=== PATIENT | female | born 1950 | race Caucasian/White ===

== ENCOUNTER 2016-07-30 00:52 | Inpatient (IN) | payer OTHER, MEDICARE ==
[~2016-07-30] VITALS: Ht 152.4 cm; Wt 68.8 kg
[2016-07-30] VITALS (19 sets, daily range): BP systolic 101–164; BP diastolic 48–143; PULSE 91–107; RESP 20–30; TEMP 97.3–98.6; O2SAT 86–98
[~2016-07-30 00:52] MED LIST: ATOR40TA49 PO; FEXO60TA PO; HYDR-3534 PO; IBUP600 PO; TAMS0.4C67 PO; ZOFR4TAB3 SL
[2016-07-30] MEDS ORDERED: LIPI40TA PO (01:10)
[2016-07-30] MEDS ORDERED: TAMS5CAP PO (01:10)
[2016-07-30] MEDS ORDERED: ZOFR4TAB3 SL (01:10)
[2016-07-30] MEDS ORDERED: RESP: ALBUTEROL 2.5 MG/IPRATROPIUM 0.5 MG NEB (SCH) INH ONE (01:15)
[2016-07-30] MEDS ORDERED: SODIUM CHLORIDE 0.9% FLUSH 10 ML FLUSH IVF PRN (01:15)
[2016-07-30] MEDS ORDERED: methylPREDNISolone SOD SUCC 125 MG/2 ML VIAL IVP ONE (01:15)
[2016-07-30] MEDS: RESP: ALBUTEROL 2.5 MG/3 ML NEB (SCH) INH ×2 (01:23→01:30)
--- NOTE | 2016-07-30 01:37 | PD ---
HPI Chief Complaint: Respiratory Distress Time Seen by Provider: 01:15 Travel History International Travel<30 days: No Contact w/Intl Traveler<30days: No Traveled to known affect area: No History of Present Illness HPI This is a 66-year-old female with a history of chronic bronchitis/COPD, who presents today with complaints of continued respiratory distress. The patient reports that she's had 3 episodes of acute bronchitis and has been on 3 different antibiotics for her continued shortness of breath and cough. The patient states that she was seen by her care physician and had an outpatient x- ray ordered which showed a right lung mass. He recommended she come to the ER for further evaluation and treatment. She reports only been able to walk a few feet be for becoming severely short of breath. The patient does have a history of tobacco use and still does smoke cigarettes. She states she's been smoking for 40+ years and reports at least a pack a day at that time. No reported chills. She does report subjective elevated temperature. There is productive cough with white phlegm. PFSH Past Medical History High Cholesterol: Yes Tetanus Vaccination: > 5 Years Past Surgical History Genitourinary Surgery: Yes (lithotripsy ) Social History Alcohol Use: No Tobacco Use: Yes Substance Use: No Allergies-Medications (Allergen,Severity, Reaction): Coded Allergies: Penicillin (Verified Allergy, Intermediate, Hives, 07/30/16) [place] (Verified Allergy, Intermediate, Hives, 07/30/16) Reported Meds & Prescriptions Reported Meds & Active Scripts Active Reported Flomax (Tamsulosin HCl) 0.4 Mg Cap 0.4 Mg PO HS Zofran Odt (Ondansetron Odt) 4 Mg Tab 4 Mg SL Q6HR PRN Lipitor (Atorvastatin Calcium) 40 Mg Tab 40 Mg PO HS Review of Systems Except as stated in HPI: all other systems reviewed are Neg General / Constitutional: Positive: Fever, No: Chills HENT: No: Headaches (subjective), Lightheadedness Cardiovascular: No: Chest Pain or Discomfort, Palpitations Respiratory: Positive: Cough (productive white phlegm), Shortness of Breath, No: Wheezing, Orthopnea Musculoskeletal: Positive: Weakness (generalized), No: Pain Neurologic: Positive: Weakness (Gen.), No: Headache Physical Exam Narrative GENERAL: Well-developed female in mild to moderate respiratory distress. SKIN: Focused skin assessment warm/dry. HEAD: Atraumatic. Normocephalic. EYES: No scleral icterus. No injection or drainage. ENT: No nasal bleeding or discharge. Mucous membranes pink and moist. NECK: Trachea midline. Supple. CARDIOVASCULAR: Regular rate and rhythm. No murmur appreciated. RESPIRATORY: Coarse rhonchi bilaterally. Decreased breath sounds at the bases. No Rales appreciated. GASTROINTESTINAL: Abdomen soft, non-tender, nondistended. MUSCULOSKELETAL: No obvious deformities. No clubbing. No cyanosis. No edema. NEUROLOGICAL: Awake and alert. No obvious cranial nerve deficits. Motor grossly within normal limits. Normal speech. Data Data Last Documented VS Vital Signs Date Time Temp Pulse Resp B/P Pulse Ox O2 Delivery O2 Flow Rate FiO2 07/30/16 01:26 90 07/30/16 01:15 Nasal Cannula 2 07/30/16 01:04 102 30 07/30/16 00:54 98.6 Orders Complete Blood Count With Diff (07/30/16:15) Comprehensive Metabolic Panel (07/30/16:15) Ckmb (Isoenzyme) Profile (07/30/16:15) Troponin I (07/30/16:15) Arterial Blood Gas (Abg) (07/30/16:15) Iv Access Insert/Monitor (07/30/16:15) Electrocardiogram (07/30/16:15) Ecg Monitoring (07/30/16:15) Oximetry (07/30/16:15) Oxygen Administration (07/30/16:15) Sodium Chloride 0.9% Flush (Ns Flush) (07/30/16:15) Methylprednisolone So Succ Inj (Solumedr (07/30/16:15) Albuterol-Ipratropium Neb (Duoneb Neb) (07/30/16:15) Albuterol Neb (Albuterol Neb) (07/30/16:15) CKMB (07/30/16:15) CKMB% (07/30/16:15) Admit Order (Ed Use Only) (07/30/16 03:40) Labs Laboratory Tests Test 07/30/16 07/30/16:15 02:02 White Blood Count 14.0 TH/MM3 Red Blood Count 4.41 MIL/MM3 Hemoglobin 10.3 GM/DL Hematocrit 32.0 % Mean Corpuscular Volume 72.4 FL Mean Corpuscular Hemoglobin 23.5 PG Mean Corpuscular Hemoglobin 32.4 % Concent Red Cell Distribution Width 17.5 % Platelet Count 364 TH/MM3 Mean Platelet Volume 8.4 FL Neutrophils (%) (Auto) 79.3 % Lymphocytes (%) (Auto) 11.5 % Monocytes (%) (Auto) 8.8 % Eosinophils (%) (Auto) 0.3 % Basophils (%) (Auto) 0.1 % Neutrophils # (Auto) 11.1 TH/MM3 Lymphocytes # (Auto) 1.6 TH/MM3 Monocytes # (Auto) 1.2 TH/MM3 Eosinophils # (Auto) 0.0 TH/MM3 Basophils # (Auto) 0.0 TH/MM3 CBC Comment AUTO DIFF Differential Comment AUTO DIFF CONFIRMED Platelet Estimate NORMAL Platelet Morphology Comment NORMAL Ovalocytes 1+ Acanthocytes OCC Keratocytes OCC Sodium Level 131 MEQ/L Potassium Level 4.4 MEQ/L Chloride Level 92 MEQ/L Carbon Dioxide Level 29.1 MEQ/L Anion Gap 10 MEQ/L Blood Urea Nitrogen 14 MG/DL Creatinine 0.73 MG/DL Estimat Glomerular Filtration 80 ML/MIN Rate Random Glucose 103 MG/DL Calcium Level 10.3 MG/DL Total Bilirubin 0.4 MG/DL Aspartate Amino Transf 33 U/L (AST/SGOT) Alanine Aminotransferase 31 U/L (ALT/SGPT) Alkaline Phosphatase 119 U/L Total Creatine Kinase 126 U/L Creatine Kinase MB 3.3 NG/ML Troponin I LESS THAN 0.02 NG/ML Total Protein 7.2 GM/DL Albumin 3.1 GM/DL Blood Gas Puncture Site LT RADIAL Blood Gas Patient Temperature 98.6 Blood Gas HCO3 27 mmol/L Blood Gas Base Excess 3.1 mmol/L Blood Gas Oxygen Saturation 85 % Arterial Blood pH 7.48 Arterial Blood Partial 36 mmHg Pressure CO2 Arterial Blood Partial 52 mmHG Pressure O2 Arterial Blood Oxygen Content 12.1 Vol % Arterial Blood 2.0 % Carboxyhemoglobin Arterial Blood Methemoglobin 0.3 % Blood Gas Hemoglobin 10.1 G/DL Blood Gas Inspired Oxygen 21 % MDM Medical Decision Making Medical Screen Exam Complete: Yes Emergency Medical Condition: Yes Differential Diagnosis COPD exacerbation versus pneumonia versus new onset lung cancer Narrative Course 66-year-old female with a history of chronic bronchitis, who presents today with complaint of worsening dyspnea. Patient had an outpatient chest x-ray that showed a pulmonary nodule. She was called by her primary care doctor told to come to the ER to be evaluated. The patient's O2 sat on room air is 82%. Her PO2 on room air was 51. She is received 3 nebulizer treatments, 125 mg of Solu-Medrol. She does feel better and has some improvement. She'll be admitted to the hospital for COPD exacerbation and hypoxemia. The case was discussed with Dr. Shanks, [facility], who agrees with the admission under observation. Diagnosis Primary Impression: COPD exacerbation Additional Impressions: Hypoxemia reported pulmonary nodule Admitting Information Admitting Physician Requests: Observation Travis Viera MD July 30, 2016 01:37
[2016-07-30 01:47] LABS: AUTOMATED NEUTROPHIL # 11.1 TH/MM3 (1.8-7.7); BASOPHIL % 0.1 % (0.0-2.0); EOSINOPHIL % 0.3 % (0.0-4.0); LYMPH % 11.5 % (9.0-44.0); LYMPHOCYTE # 1.6 TH/MM3 (1.0-4.8); MEAN CELL VOLUME 72.4 FL (80.0-100.0); MEAN CORPUSCULAR HEMOGLOBIN 23.5 PG (27.0-34.0); MEAN CORPUSCULAR HGB CONC 32.4 % (32.0-36.0); MONO % 8.8 % (0.0-8.0); NEUT % 79.3 % (16.0-70.0); PLATELET COUNT 364 TH/MM3 (150-450); RED BLOOD COUNT 4.41 MIL/MM3 (4.00-5.30); RED CELL DISTRIBUTION WIDTH 17.5 % (11.6-17.2)
[2016-07-30 01:49] LABS: HEMO FLAGS AUTO DIFF
[2016-07-30 02:08] LABS: ALT (GPT) 31 U/L (10-53); ANION GAP 10 MEQ/L (5-15); AST (GOT) 33 U/L (15-37); BICARBONATE 29.1 MEQ/L (21.0-32.0); BLOOD UREA NITROGEN 14 MG/DL (7-18); CHLORIDE 92 MEQ/L (98-107); GLOMERULAR FILTRATION RATE 80 ML/MIN (>89); POTASSIUM 4.4 MEQ/L (3.5-5.1); SODIUM (NA) 131 MEQ/L (136-145)
[2016-07-30 02:12] LABS: ALKALINE PHOSPHATASE 119 U/L (45-117); CREATINE KINASE 126 U/L (26-192); TOTAL BILIRUBIN ADULT 0.4 MG/DL (0.2-1.0)
[2016-07-30 02:18] LABS: BLOOD GAS BASE EXCESS 3.1 mmol/L (-2-2); BLOOD GAS HCO3 27 mmol/L (22-26); BLOOD GAS METHEMOGLOBIN 0.3 % (0-2); BLOOD GAS O2 HGB SATURATION 85 % (90-100); BLOOD GAS OXYGEN CONTENT 12.1 Vol % (12.0-20.0); BLOOD GAS PCO2 36 mmHg (38-42); BLOOD GAS PO2 52 mmHG (61-120); BLOOD GAS TOTAL HGB 10.1 G/DL (12.0-16.0); TEMP CORR TO 98.6
[2016-07-30 02:19] LABS: CRITICAL VALUE YES; DRAW SITE LT RADIAL; FIO2 21 %; NUMBER OF ARTERIAL PUNCTURES 1; STAT YES; ULNAR PULSE PRESENT
[2016-07-30 02:23] LABS: ACANTHOCYTES OCC (NORMAL); KERATOCYTES OCC (NORMAL); OVALOCYTES 1+ (NORMAL); PLATELET ESTIMATE SMEAR NORMAL (NORMAL); PLATELET MORPHOLOGY NORMAL (NORMAL); SCAN/DIFF AUTO DIFF CONFIRMED
[2016-07-30 02:24] LABS: CKMB 3.3 NG/ML (0.5-3.6)
[2016-07-30] MEDS ORDERED: NALOXONE HCL 0.4 MG/ML AMP IV PRN (03:45)
[2016-07-30] MEDS ORDERED: RESP: ALBUTEROL 2.5 MG/IPRATROPIUM 0.5 MG NEB (PRN) NEB (04:00)
--- NOTE | 2016-07-30 04:16 | HHI.HP ---
HPI Service [facility] Primary Care Physician Herlinda Swanson MD Admission Diagnosis Copd exacerbation, hypoxia, new lung nodule Diagnoses: Chief Complaint: SOB Travel History International Travel<30 Days: No Contact w/Intl Traveler <30 Da: No Traveled to Known Affected Are: No History of Present Illness This is a 66 year old female patient with a past medical history which includes kidney stone, bronchitis and hyperlipidemia. Presents to the to the emergency department today with complaints of shortness of breath and cough productive of white phlegm 4 days. Patient also reports subjective fever. Patient reports that shortness of breath has gotten progressively worse over the past 4 days also associated with bilateral lower extremity 1+ pitting edema. Patient reports she has intermittent episodes of sharp abdominal pain with vomiting which patient attributes to her known cholecystitis. Patient is following with outpatient surgeon and has a planned Cholecystectomy pending for August 22. Patient is currently on abx for UTI has taken 5 days of abx unknown name Patient denies recent extended travel, chest pain changes only changes in appetite. Review of Systems Except as stated in HPI: all other systems reviewed are Neg Past Family Social History Past Medical History kidney stone bronchitis hyperlipidemia Past Surgical History reports no prior surgeries Reported Medications Flomax (Tamsulosin HCl) 0.4 Mg Cap 0.4 Mg PO HS Zofran Odt (Ondansetron Odt) 4 Mg Tab 4 Mg SL Q6HR PRN Lipitor (Atorvastatin Calcium) 40 Mg Tab 40 Mg PO HS Allergies: Coded Allergies: Penicillin (Verified Allergy, Intermediate, Hives, 07/30/16) [place] (Verified Allergy, Intermediate, Hives, 07/30/16) Active Ordered Medications Current Medications Medications (Trade) Dose Ordered Sig/Alistair Route Start Time Stop Time Status Last Admin (NS Flush) 2 ml UNSCH PRN IV FLUSH 07/30/16 03:45 (NS Flush) 2 ml BID IV FLUSH 07/30/16 09:00 (Narcan Inj) 0.4 mg UNSCH PRN IV 07/30/16 03:45 (SoluMEDROL INJ) 40 mg Q6HR IV PUSH 07/30/16 06:00 Pantoprazole Sodium 40 mg 40 mg DAILY PO 07/30/16 09:00 (Levaquin 500 Mg Premix Inj) 100 ml @ 100 mls/hr Q24H IV 07/30/16 05:00 07/30/16 05:06 Family History DM and HTN run on the family- her brothers and sister Social History Lives at home with Smokes 0.5 PPD had 40+ pack year history Denies ETOH use or illicit drug use Physical Exam Vital Signs Vital Signs Date Time Temp Pulse Resp B/P Pulse Ox O2 Delivery O2 Flow Rate FiO2 07/30/16 01:26 90 07/30/16 01:15 96 Nasal Cannula 2 07/30/16 01:06 96 Nasal Cannula 3 07/30/16 01:04 102 30 86 07/30/16 00:54 98.6 107 22 152/67 87 Room Air Physical Exam GENERAL: This is a well-nourished, well-developed patient, who appears short of breath at rest and with conversation SKIN: No rashes, ecchymoses or lesions. Cool and dry. HEAD: Atraumatic. Normocephalic. No temporal or scalp tenderness. EYES: Extraocular motions intact. No scleral icterus. No injection or drainage. CARDIOVASCULAR: Regular rate and rhythm without murmurs, gallops, or rubs. RESPIRATORY: Decreased air entry with scattered crackles bilaterally GASTROINTESTINAL: Abdomen soft, non-tender, nondistended. MUSCULOSKELETAL: Bilateral lower extremity 1+ pitting edema. No calf tenderness. Negative Homans sign bilaterally. NEUROLOGICAL: Awake and alert. No focal deficits appreciated. Motor and sensory grossly within normal limits. 3-5 out of 5 muscle strength in all muscle groups. Normal speech. Laboratory Laboratory Tests Test 07/30/16 07/30/16 01:15 02:02 White Blood Count 14.0 Red Blood Count 4.41 Hemoglobin 10.3 Hematocrit 32.0 Mean Corpuscular Volume 72.4 Mean Corpuscular Hemoglobin 23.5 Mean Corpuscular Hemoglobin 32.4 Concent Red Cell Distribution Width 17.5 Platelet Count 364 Mean Platelet Volume 8.4 Neutrophils (%) (Auto) 79.3 Lymphocytes (%) (Auto) 11.5 Monocytes (%) (Auto) 8.8 Eosinophils (%) (Auto) 0.3 Basophils (%) (Auto) 0.1 Neutrophils # (Auto) 11.1 Lymphocytes # (Auto) 1.6 Monocytes # (Auto) 1.2 Eosinophils # (Auto) 0.0 Basophils # (Auto) 0.0 CBC Comment AUTO DIFF Differential Comment AUTO DIFF CONFIRMED Platelet Estimate NORMAL Platelet Morphology Comment NORMAL Ovalocytes 1+ Acanthocytes OCC Keratocytes OCC Sodium Level 131 Potassium Level 4.4 Chloride Level 92 Carbon Dioxide Level 29.1 Anion Gap 10 Blood Urea Nitrogen 14 Creatinine 0.73 Estimat Glomerular Filtration 80 Rate Random Glucose 103 Calcium Level 10.3 Total Bilirubin 0.4 Aspartate Amino Transf 33 (AST/SGOT) Alanine Aminotransferase 31 (ALT/SGPT) Alkaline Phosphatase 119 Total Creatine Kinase 126 Creatine Kinase MB 3.3 Troponin I LESS THAN 0.02 Total Protein 7.2 Albumin 3.1 Blood Gas Puncture Site LT RADIAL Blood Gas Patient Temperature 98.6 Blood Gas HCO3 27 Blood Gas Base Excess 3.1 Blood Gas Oxygen Saturation 85 Arterial Blood pH 7.48 Arterial Blood Partial 36 Pressure CO2 Arterial Blood Partial 52 Pressure O2 Arterial Blood Oxygen Content 12.1 Arterial Blood 2.0 Carboxyhemoglobin Arterial Blood Methemoglobin 0.3 Blood Gas Hemoglobin 10.1 Blood Gas Inspired Oxygen 21 Result Diagram: 07/30/1611407/30/16114 Assessment and Plan Problem List: (1) COPD exacerbation ICD Code: J44.1 Status: Acute (2) Hypoxemia ICD Code: R09.02 Status: Acute Assessment and Plan This is a 66 year old female patient with a past medical history which includes kidney stone, bronchitis and hyperlipidemia. Presents to the to the emergency department today with complaints of shortness of breath and cough productive of white phlegm 4 days. Patient also reports subjective fever. Patient reports that shortness of breath has gotten progressively worse over the past 4 days also associated with bilateral lower extremity 1+ pitting edema. Patient reports she has intermittent episodes of sharp abdominal pain with vomiting which patient attributes to her known cholecystitis. Patient is following with outpatient surgeon and has a planned Cholecystectomy pending for August 22. Patient is currently on abx for UTI has taken 5 days of abx unknown name Patient denies recent extended travel, chest pain changes only changes in appetite. COPD exacerbation with possible early pneumonia Hypoxia CXR at [facility] which showed a right lung mass CT chest/thorax without IV contrast start Levaquin, duo nebs scheduled and as needed Solu medrol 40 mg IV every 6 hours titrate oxygen to maintain oxygen above 92% Consult pulmonology Abnormal chest x-ray with possible right lung mass we will further evaluate with CT Possible congestive heart failure will check BNP and echocardiogram continue to monitor patient Hyperlipidemia continue patient's home atorvastatin DVT prophylaxis with Lovenox Discussed with ER provider, nursing and patient Written by Jessica Mulligan, acting as scribe for Dr. Shanks on 07/30/16 at 05: 25. This note was transcribed by scribe [ Jessica Mulligan]. I, Dr. Radha Shanks personally performed the history, physical exam, and medical decision making; and confirmed the accuracy of the information in the transcribed note. Authenticated by Dr. Radha Shanks on 07/30/16 at 05:25. Jessica Mulligan July 30, 2016 04:16 Radha Shanks MD August 03, 2016 08:40
[2016-07-30] MEDS: RESP: ALBUTEROL 2.5 MG/IPRATROPIUM 0.5 MG NEB (SCH) NEB ×4 (04:47→19:51)
[2016-07-30] MEDS: LEVOFLOXACIN 500 MG PREMIX INJ 100 ML IV SCH (05:06)
--- NOTE | 2016-07-30 05:54 | RADRPT ---
EXAM DATE/TIME: 07/30/2016 05:13 [place] COMPARISON: No previous studies available for comparison. INDICATIONS : Abnormal outpatient chest radiograph. RADIATION DOSE: 5.10 CTDIvol (mGy) MEDICAL HISTORY : None SURGICAL HISTORY : None. ENCOUNTER: Initial ACUITY: 1 day PAIN SCALE: 0/10 LOCATION: chest TECHNIQUE: Volumetric scanning of the chest was performed. Using automated exposure control and adjustment of t he mA and/or kV according to patient size, radiation dose was kept as low as reasonably achievable to obtain optimal diagnostic quality images. The lack of IV contrast limits the diagnosis for certain o rgan pathology. FINDINGS: LUNGS: There is a prominent area of parenchymal consolidation in the right upper lung. There is also a massl aristeo area in the right upper lung measuring 2.2 x 1.6 cm. There is compressive atelectasis in the righ t lung base from a moderate right effusion. There is also narrowing of the right mainstem bronchus mo st likely from a right hilar mass. There is mild scarring in the left apex. There is a mild patchy in filtrate in the posterior left upper lung. PLEURAE: Moderate right effusion. MEDIASTINUM: Probable adenopathy in the mediastinum with increased soft tissue changes.. Atherosclerotic changes o f the aorta. Coronary calcifications. AXILLAE: A few nonspecific lymph nodes are seen in the axillary areas. MUSCULOSKELETAL: Multiple lytic lesions are seen involving multiple vertebral bodies characteristic for bony metastati c disease. MISCELLANEOUS: Diffusely enlarged adrenal glands bilaterally. CONCLUSION: 1. There is narrowing of the right mainstem bronchus suspicious for a right hilar mass. 2. There is a masslike density in the right upper lung measuring 2.2 x 1.6 cm. 3. There is a moderate right pleural effusion with compressive atelectasis of the right lower lung. 4. There is consolidation of the right upper lung most likely from post obstructive pneumonia. 5. Patchy infiltrate in the posterior left upper lung most likely inflammatory. 6. Multiple lytic lesions are seen throughout the thoracic spine characteristic for diffuse bony meta static disease 7. Diffusely enlarged bilateral adrenal glands most likely metastatic disease Jero Miller MD on July 30, 2016 at 5:43 Board Certified Radiologist. This report was verified electronically.
[2016-07-30] MEDS: ENOXAPARIN SODIUM 40 MG/0.4 ML SYRINGE SQ SCH (06:03)
[2016-07-30] MEDS: methylPREDNISolone SOD SUCC 40 MG/1 ML VIAL IV PUSH SCH ×3 (06:03→17:38)
--- NOTE | 2016-07-30 07:36 | EKG ---
Date Performed: 07/30/2016 Time Performed: 01:52:37 PTAGE: 66 years EKG: BASELINE ARTIFACT PRESENT. Sinus rhythm WITH OCCASIONAL SUPRAVENTRICULAR PREMATURE COMPLEXES LOW QRS VOLTAGE IN PRECORDIAL LEADS NONSPECIFIC T-WAVE ABNORMALITY BORDERLINE ECG COMPARED TO PRIOR ELECTROCARDIOGRAM, Rate has increased. PREVIOUS TRACING : 12/29/2015 06.04 DOCTOR: Renzo Dumas Interpretating Date/Time 07/30/2016 07:35:17
[2016-07-30] MEDS: PANTOPRAZOLE SOD 40 MG DELAYED RELEASE TAB PO SCH (08:26)
[2016-07-30] MEDS: SODIUM CHLORIDE 0.9% FLUSH 10 ML FLUSH IV FLUSH SCH ×2 (08:26→20:54)
--- NOTE | 2016-07-30 11:47 | HHI.PR ---
Subjective Remarks in no acute distress but with mild sob. says that her sob is improving. no other complaints. Objective Vitals Vital Signs Date Time Temp Pulse Resp B/P Pulse Ox O2 Delivery O2 Flow Rate FiO2 07/30/16 10:17 98 Nasal Cannula 2.00 07/30/16 09:47 Nasal Cannula 3.00 07/30/16 08:02 93 07/30/16 08:00 98.5 99 20 101/48 91 07/30/16 06:37 103 07/30/16 05:36 Nasal Cannula 3.00 07/30/16 05:23 98.3 103 22 164/143 94 124/60 07/30/16 04:48 93 Nasal Cannula 3.00 07/30/16 04:00 92 22 115/68 95 Nasal Cannula 2 07/30/16 03:00 98 22 119/56 95 Nasal Cannula 2 07/30/16 02:00 100 21 148/63 95 Nasal Cannula 2 07/30/16 01:26 90 07/30/16 01:15 96 Nasal Cannula 2 07/30/16 01:06 96 Nasal Cannula 3 07/30/16 01:04 102 30 86 07/30/16 00:54 98.6 107 22 152/67 87 Room Air I/O 07/29/16 07/29/16 07/29/16 07/30/16 07/30/16 07/30/16 07:00 15:00 23:00 07:00 15:00 23:00 Intake Total 100 ml Balance 100 ml Intake IV Total 100 ml Result Diagram: 07/30/16 0115 07/30/16 0115 Imaging Last Impressions Chest CT 07/30/16 0000 Signed Impressions: Service Date/Time: Saturday, July 30, 2016 05:13 - CONCLUSION: 1. There is narrowing of the right mainstem bronchus suspicious for a right hilar mass. 2. There is a masslike density in the right upper lung measuring 2.2 x 1.6 cm. 3. There is a moderate right pleural effusion with compressive atelectasis of the right lower lung. 4. There is consolidation of the right upper lung most likely from post obstructive pneumonia. 5. Patchy infiltrate in the posterior left upper lung most likely inflammatory. 6. Multiple lytic lesions are seen throughout the thoracic spine characteristic for diffuse bony metastatic disease 7. Diffusely enlarged bilateral adrenal glands most likely metastatic disease Jero J. Siragusa, MD Objective Remarks GENERAL: This is a well-nourished, well-developed patient, in no apparent distress. CARDIOVASCULAR: Regular rate and regular rhythm without murmurs, gallops, or rubs. RESPIRATORY: diminished air entry in bases with mild wheezing. GASTROINTESTINAL: Abdomen soft, non-tender, nondistended. Normal, active bowel sounds MUSCULOSKELETAL: Extremities without clubbing, cyanosis, or edema. NEURO: Alert & Oriented x4 to person, place, time, situation. Moves all ext x4 Procedures none Medications and IVs Current Medications Sodium Chloride (NS Flush) 2 ml UNSCH PRN IVF FLUSH AFTER USING IV ACCESS; Start 07/30/16 at 01:15; Stop 07/30/16 at 03:47; Status DC Methylprednisolone Sodium Succinate (SoluMEDROL INJ) 125 mg ONCE ONCE IVP Last administered on 07/30/16 01:35; Start 07/30/16 at 01:15; Stop 07/30/16 at 01:17; Status DC Albuterol/ Ipratropium (Duoneb Neb) 1 ampule ONCE ONCE INH Last administered on 07/30/16 01:23; Start 07/30/16 at 01:15; Stop 07/30/16 at 01:17; Status DC Albuterol Sulfate (Albuterol Neb) 2.5 mg Q15M INH Last administered on 01:23; Start 07/30/16 at 01:15; Stop 07/30/16 at 01:31; Status DC Sodium Chloride (NS Flush) 2 ml UNSCH PRN IV FLUSH FLUSH AFTER USING IV ACCESS ; Start 07/30/16 at 03:45 Sodium Chloride (NS Flush) 2 ml BID IV FLUSH Last administered on 07/30/16 08: 26; Start 07/30/16 at 09:00 Naloxone HCl (Narcan Inj) 0.4 mg UNSCH PRN IV SEE LABEL COMMENTS; Start at 03:45 Albuterol/ Ipratropium (Duoneb Neb) 1 ampule Q2HR NEB PRN NEB wheezing; Start 07/30/16 at 04:00; Stop 07/30/16 at 05:31; Status DC Albuterol/ Ipratropium (Duoneb Neb) 1 ampule Q6HR NEB NEB Last administered on 07/30/16 10:15; Start 07/30/16 at 04:00 Methylprednisolone Sodium Succinate (SoluMEDROL INJ) 40 mg Q6HR IV PUSH Last administered on 07/30/16 06:03; Start 07/30/16 at 06:00 Pantoprazole Sodium 40 mg 40 mg DAILY PO Last administered on 07/30/16 08:26; Start 07/30/16 at 09:00 Levofloxacin/ Dextrose (Levaquin 500 Mg Premix Inj) 100 ml @ 100 mls/hr Q24H IV Last administered on 07/30/16 05:06; Start 07/30/16 at 05:00 Albuterol/ Ipratropium (Duoneb Neb) 1 ampule Q2HR NEB PRN NEB SOB/WHEEZING; Start 07/30/16 at 05:30 Atorvastatin Calcium (Lipitor) 40 mg HS PO ; Start 07/30/16 at 21:00 Ondansetron HCl (Zofran Odt) 4 mg Q6HR PRN SL Nausea/Vomiting; Start 07/30/16 at 05:30 Enoxaparin Sodium (Lovenox Inj) 40 mg Q24H SQ Last administered on 07/30/16 06 :03; Start 07/30/16 at 05:30 Pneumococcal Polyvalent Vaccine (Pneumovax-23 Inj) 25 mcg ONCE ONCE IM ; Start 07/31/16 at 10:00; Stop 07/31/16 at 10:01 A/P Assessment and Plan A/p acute hypoxemic respiratory failure due to COPD exacerbation with pneumonia lung mass with thoracic spine bone lesions CT chest/thorax with: narrowing of the right mainstem bronchus suspicious for a right hilar mass. a masslike density in the right upper lung measuring 2.2 x 1.6 cm. 3. moderate right pleural effusion with compressive atelectasis of the right lower lung. consolidation of the right upper lung most likely from post obstructive pneumonia. with Patchy infiltrate in the posterior left upper lung most likely inflammatory. Multiple lytic lesions are seen throughout the thoracic spine characteristic for diffuse bony metastatic disease Diffusely enlarged bilateral adrenal glands most likely metastatic disease. continue Levaquin, duo nebs scheduled and as needed continue IV solumedrol titrate oxygen to maintain oxygen above 92% Consulted pulmonology will consult oncology Hyperlipidemia continue patient's home atorvastatin DVT prophylaxis with Lovenox Noemy Chandler MD July 30, 2016 11:47
--- NOTE | 2016-07-30 12:36 | EC ---
Study Study Date:07/30/2016 STUDY CONCLUSIONS SUMMARY LEFT VENTRICLE: The cavity size was normal. Wall thickness was normal. Systolic function was normal. The estimated ejection fraction was in the range of 55% to 60%. Wall motion was normal; there were no regional wall motion abnormalities. If LV function is below 40, please consider prescribing an ACEI or ARB or document rationale for non-use. PROCEDURE DATA STUDY STATUS: Elective. Procedure: Transthoracic echocardiography. Image quality was good. Scanning was performed from the parasternal, apical, and subcostal acoustic windows. Study completion: The patient tolerated the procedure well. Transthoracic echocardiography. M-mode, complete 2D, complete spectral Doppler, and color Doppler. Patient status: Inpatient. CARDIAC ANATOMY LEFT VENTRICLE: The cavity size was normal. Wall thickness was normal. Systolic function was normal. The estimated ejection fraction was in the range of 55% to 60%. Wall motion was normal; there were no regional wall motion abnormalities. AORTIC VALVE: Trileaflet; mildly thickened leaflets. Doppler: Transvalvular velocity was within the normal range. There was no stenosis. No regurgitation. AORTA: Aortic root: The aortic root was normal in size. MITRAL VALVE: Structurally normal valve. Doppler: Transvalvular velocity was within the normal range. There was no evidence for stenosis. Trace regurgitation. Mean gradient: 2mm Hg (D). Peak gradient: 7mm Hg (D). LEFT ATRIUM: The atrium was normal in size. RIGHT VENTRICLE: The cavity size was normal. Wall thickness was normal. PULMONIC VALVE: Doppler: Transvalvular velocity was within the normal range. There was no evidence for stenosis. No regurgitation. TRICUSPID VALVE: Structurally normal valve. Doppler: Transvalvular velocity was within the normal range. Trace regurgitation. PULMONARY ARTERY: The main pulmonary artery was normal-sized. Systolic pressure was within the normal range. RIGHT ATRIUM: The atrium was normal in size. PERICARDIUM: There was no pericardial effusion. SYSTEMIC VEINS: Inferior vena cava: The vessel was normal in size. BASIC MEASUREMENTS ADULT Normal Left ventricle LV internal dimension, ED, chordal level, 43.1 mm 43-52 PLAX LV internal dimension, ES, chordal level, 34.1 mm 23-38 PLAX Fractional shortening, chordal level, PLAX *21 % >29 LV posterior wall thickness, ED 7.86 mm IVS/LVPW ratio, ED 1.13 <1.3 Ventricular septum Septal thickness, ED 8.88 mm Aortic valve Leaflet separation 17 mm 15-26 Left atrium Anterior-posterior dimension 25 mm Right ventricle RV internal dimension, ED, PLAX *18.2 mm 19-38 BASIC MEASUREMENTS ADULT Normal Aortic valve Leaflet separation 17 mm 15-26 Aorta Root diameter, ED 27 mm 20-37 DOPPLER MEASUREMENTS ADULT Normal Aortic valve VTI, S 37.2 cm Mitral valve Mean velocity, D 65.4 cm/s Mean gradient, D 2 mm Hg Peak gradient, D 7 mm Hg Tricuspid valve Regurgitant peak velocity 266 cm/s Peak RV-RA gradient, S 28 mm Hg Maximal regurgitant velocity 266 cm/s LEGEND: Mean values are shown as u=mean value. Asterisk (*) horne values outside specified normal range. Prepared and signed by Robert Nagy [id number]
--- NOTE | 2016-07-30 19:29 | MB ---
cc: JOSEPH JUDGE M.D. DATE OF CONSULTATION: 07/30/2016. REASON FOR CONSULTATION: Respiratory distress and probable metastatic lung cancer. PATIENT PROFILE: The patient is a 66-year white female. This is her second marriage. She was born in [facility]. She has lived in [place] for seven years. She resides with her . She has three children from her first marriage. 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 She has smoked one pack of cigarettes per day for 47 years. She has no history of exposure to asbestos. She does not drink alcohol. HISTORY OF PRESENT ILLNESS: The patient has had symptoms of bronchitis with cough and slight shortness of breath over the past three weeks. She was given antibiotics. In the past several days, she became extremely short of breath. At the same time, she had a 40-pound weight loss. She has pain in the back and visited a chiropractor and has taken Advil and/or Aleve with limited relief from the pain. When she presented to the emergency room, she was in respiratory distress and had an O2 sat of 82% on room air. She underwent a CT scan of the thorax without IV contrast on 07/30/2016. There is a prominent area of consolidation in the right upper lung measuring approximately 2.2 cm. There is compressive atelectasis in the right lung from a moderate right-sided pleural effusion. There is narrowing of the right mainstem bronchus most likely from a right hilar mass. There is mild scarring in the left apex. There is probable adenopathy in the mediastinum with increased soft tissue changes. There are multiple lytic lesions seen involving multiple vertebral bodies characteristic of metastatic disease. There are diffusely enlarged adrenal glands bilaterally. On 12/29/2015, the patient a CT scan of the abdomen and pelvis for a renal stone and at that time there was no mention of a pleural effusion or lung mass. PAST SURGICAL HISTORY: No previous surgery. PAST MEDICAL HISTORY: 1. Elevated cholesterol. 2. The patient has been having problems with her gallbladder and was going to have Dr. Audi Jackson remove the gallbladder. 3. History of tobacco use. MEDICATIONS PRIOR TO ADMISSION: Lipitor. ALLERGIES: PENICILLIN CAUSED HIVES. FAMILY HISTORY: Mother at age 85 of Alzheimer's. Father of a myocardial infarction at 72. The patient has three sisters who are living and four brothers who are living. REVIEW OF SYSTEMS: There is no change in vision or hearing and no chest pain. She has shortness of breath and wheezing. She has had a 40-pound weight loss in spite of a good appetite. She has no problems with dysuria, frequency, or hematuria. She has had back pain. She has radicular pain down both legs. She has no leg weakness. LABORATORY FINDINGS: Hemoglobin 10.3, white count 14,000, platelet count 64,000, MCV is 72. PHYSICAL EXAMINATION: GENERAL: Physical exam reveals an ill-appearing female. She is short of breath on mild exertion. VITAL SIGNS: She has initial blood pressure 114/50, respiratory rate 24, pulse 90 afebrile. Currently O2 sat 93% on nasal cannula. HEAD, EYES, EARS, NOSE, THROAT: Head is normocephalic. The sclerae and conjunctivae are normal. Oropharynx has no mucosal lesions. LYMPHATIC: There is no adenopathy. HEART: Regular rhythm. Rate is 80. LUNGS: Decreased sounds right base and diffuse wheezes. ABDOMEN: Abdomen without hepatosplenomegaly, mass or tenderness. EXTREMITIES: No edema. MUSCULOSKELETAL: There is no tenderness of the thoracic or lumbar spine. NEUROLOGIC: No weakness. Cognition and affect normal. SKIN: Unremarkable. ASSESSMENT: 66-year-old female with a longstanding history of tobacco use presenting with a radiographic picture consistent with stage IV [id number] lung cancer. She is in respiratory distress. RECOMMENDATIONS: 1. I have spoken with Dr. Fredy Gutierrez who is a clothespin machine operator. He will do a bronchoscopy and a thoracentesis. I believe this is likely to be diagnostic and therapeutic. 2. Given the radicular pain down both legs and back pain, I have ordered a screening MRI of the cervical, thoracic and lumbar spine. 3. In order to further evaluate her, will also order a CT scan abdomen and pelvis to complete the evaluation as well as an MRI of the brain. The radiographic studies were reviewed with the patient and her . They asked many appropriate questions and unfortunately this is a serious disease and she is very ill and cure highly unlikely. Decisions as to what therapy is most appropriate will be addressed once we have a pathologic diagnosis with considerations including chemotherapy, targeted therapy and immunotherapy. MD EMIL Garcia/KYLE /6:59 PM /7:12 PM MTDNilesh
[2016-07-30] MEDS ORDERED: DIATRIZOATE MEGLUM/DIATRIZOATE SOD 9 ML CUP PO ONE (19:45)
--- NOTE | 2016-07-30 20:06 | MB ---
cc: BISI ROMEO DATE OF CONSULTATION: 07/30/2016. REASON FOR CONSULTATION: Respiratory distress with lung mass. HISTORY OF PRESENT ILLNESS: This is a 66-year-old lady who was admitted with complaints of cough, shortness breath, wheezing and orthopnea of several days duration. The patient has had significant weight loss recently and complained of pains in the back and lower chest region and she came to the emergency room where she had a CT scan of the chest which demonstrated prominent area of consolidation of the right upper lung and compressive atelectasis of the right lung with a moderate right effusion. There is narrowing of the right mainstem bronchus with possible right hilar mass. The patient was hypoxic and was placed on oxygen at [address] also showed lytic lesions in the vertebral bodies suggesting metastatic disease and enlarged adrenal glands. PAST MEDICAL HISTORY: The patient's past history has included: 1. COPD. 2. History of gallbladder disease. 3. History of hyperlipidemia. HABITS: The patient smokes one-pack per day has done so for 47 years and alcohol use is occasional. REVIEW OF SYSTEMS The patient has had cough, wheezing, back pain. She denies any urinary symptoms. She has no leg or calf muscle pains. She has no skin lesions. She has no anxiety or depression. ALLERGIES: PENICILLIN. FAMILY HISTORY: Significant for heart attacks in her father REVIEW OF SYSTEMS: The patient is overweight. She has dizziness, postnasal drip, cough and wheezing, epigastric distress and she has had no leg swelling or calf muscle pains. The other system review is negative. PHYSICAL EXAMINATION: GENERAL: This is a moderately obese white female who is alert and in no acute distress. VITAL SIGNS: Blood pressure 110/60, pulse 85, respirations 20, temperature 98.2. HEAD, EYES, EARS, NOSE, THROAT: Head normocephalic. The pupils are reactive and equal. Tongue is moist. Throat was clear. NECK: The neck is supple. No bruits. No thyroid enlargement. No lymphadenopathy. CHEST: Decreased excursions. Breath sounds are diminished at the bases, more so on the right side. There is occasional wheezing in the right lung field. HEART: Heart sounds are regular. S1 and S2. No murmur. No S3. ABDOMEN: Abdomen is obese and protuberant without masses. No organomegaly or tenderness. The bowel sounds are active. EXTREMITIES: No edema. No calf tenderness. NEUROLOGIC: Reflexes are 1+. No gross motor deficits. Cranial nerves are grossly intact. SKIN: No lesions are noted. IMPRESSION: 1. Right hilar mass with obstructive pneumonitis. 2. Possible metastatic malignancy. 3. COPD with emphysema. 4. Nicotine dependency. 5. Right pleural effusion. PLAN: 1. The patient was advised that a bronchoscopy and biopsy will be scheduled as well as a thoracentesis on the right side. 2. Continued antibiotic coverage was ordered including Levaquin 500 milligrams IV daily and Solu-Medrol 40 milligrams IV q.6 h, nebulized DuoNeb solution added four times a day. 3. A bedside pulmonary function study will be obtained. 4. Further evaluation by oncology, Dr. Quintin Maria. 5. We will schedule the bronchoscopy for Tuesday. Thank you for this consultation. MD JUAN A Booth/KYLE /7:48 PM /7:58 PM
[2016-07-30 20:35] LABS: HEMATOCRIT 28.6 % (35.0-46.0); MEAN CELL VOLUME 72.1 FL (80.0-100.0); MEAN CORPUSCULAR HEMOGLOBIN 23.6 PG (27.0-34.0); MEAN CORPUSCULAR HGB CONC 32.7 % (32.0-36.0); PLATELET COUNT 376 TH/MM3 (150-450); RED BLOOD COUNT 3.97 MIL/MM3 (4.00-5.30); RED CELL DISTRIBUTION WIDTH 17.3 % (11.6-17.2); WHITE BLOOD COUNT 18.4 TH/MM3 (4.0-11.0)
[2016-07-30 20:49] LABS: PROTHROMBIN TIME - PATIENT 11.2 SEC (9.8-11.6)
[2016-07-30] MEDS: ATORVASTATIN 40 MG TAB PO SCH ×3 (20:53→21:00)
[2016-07-30] MEDS: ONDANSETRON ODT 4 MG TAB SL PRN (21:07)
[2016-07-30] MEDS ORDERED: IOHEXOL 350 MG/ML 10 ML VIAL (for RAD DIAG) IV ONE (23:27)
--- NOTE | 2016-07-30 23:56 | RADRPT ---
EXAM DATE/TIME: 07/30/2016 23:25 [facility] COMPARISON: CT THORAX W/O CONTRAST, July 30, 2016, 5:13. INDICATIONS : Lung cancer. Evaluate for metastatic disease. IV CONTRAST: 100 cc Omnipaque 350 (iohexol) IV ORAL CONTRAST: Prescribed oral contrast ingested. RADIATION DOSE: 7.21 CTDIvol (mGy) MEDICAL HISTORY : Chronic obstructive pulmonary disease. Gastroesophageal reflux disease. Renal calculi. SURGICAL HISTORY : Lithotrispy ENCOUNTER: Initial ACUITY: 3 days PAIN SCALE: 0/10 LOCATION: abdomen TECHNIQUE: Volumetric scanning of the abdomen and pelvis was performed. Using automated exposure control and ad justment of the mA and/or kV according to patient size, radiation dose was kept as low as reasonably achievable to obtain optimal diagnostic quality images. FINDINGS: LOWER LUNGS: Moderate right effusion. No left effusion. Compressive atelectasis right lower lung. LIVER: Homogeneous density without lesion. There is no dilation of the biliary tree. No calcified gallston es. There is some asymmetric perfusion of the left lobe. This is nonspecific.SPLEEN: Normal size without lesion. PANCREAS: Within normal limits. KIDNEYS: Normal in size and shape. There is no mass, stone or hydronephrosis. There are 2 right renal cysts m easuring 1 cm and 9 mm.. ADRENAL GLANDS: There is diffuse abnormal enlargement of both adrenal glands with low-density central portions suspic ious for bilateral adrenal metastatic disease. VASCULAR: There is no aortic aneurysm. BOWEL/MESENTERY: The stomach, small bowel, and colon demonstrate no acute abnormality. There is no free intraperitone al air or fluid. ABDOMINAL WALL: Within normal limits. RETROPERITONEUM: There is no lymphadenopathy. BLADDER: No wall thickening or mass. REPRODUCTIVE: Within normal limits. INGUINAL: There is no lymphadenopathy or hernia. MUSCULOSKELETAL: Multiple lytic lesions are seen throughout the lumbar spine and pelvis characteristic of diffuse bony metastatic disease. Prominent lytic lesions are seen involving the posterior wings of both iliac cre sts. There is bony destruction involving the body of L4. There is bony destruction involving the body of T12. Small lytic lesions are seen throughout the sacrum. There is a lytic lesion involving the pr oximal left femur. CONCLUSION: 1. Diffuse bony metastatic disease. 2. Moderate right-sided pleural effusion. 3. Bilateral adrenal metastatic disease. 4. Simple right renal cyst. Jero Miller MD on July 30, 2016 at 23:46 Board Certified Radiologist. This report was verified electronically.
[2016-07-31] VITALS (10 sets, daily range): BP systolic 116–126; BP diastolic 52–86; PULSE 92–107; RESP 19–20; TEMP 97.2–98.1; O2SAT 88–92
[2016-07-31] MEDS: ENOXAPARIN SODIUM 40 MG/0.4 ML SYRINGE SQ SCH (05:10)
[2016-07-31] MEDS: LEVOFLOXACIN 500 MG PREMIX INJ 100 ML IV SCH (05:10)
[2016-07-31] MEDS: methylPREDNISolone SOD SUCC 40 MG/1 ML VIAL IV PUSH SCH ×5 (05:11→21:34)
[2016-07-31] MEDS: RESP: ALBUTEROL 2.5 MG/IPRATROPIUM 0.5 MG NEB (SCH) NEB ×5 (05:45→21:21)
--- NOTE | 2016-07-31 05:53 | RADRPT ---
EXAM DATE/TIME: 07/31/2016 05:05 [facility] COMPARISON: CT THORAX W/O CONTRAST, July 30, 2016, 5:13. INDICATIONS : Shortness of breath. MEDICAL HISTORY : None. SURGICAL HISTORY : None. ENCOUNTER: Subsequent ACUITY: 2 days PAIN SCORE: Non-responsive. LOCATION: Bilateral chest FINDINGS: There is atelectasis and collapse of the right upper lung. There is elevation of the right hemidiaphr agm with right lower lung atelectasis.. There is prominence of the right hilar area. These findings p leural previously described on a recent CT thorax. The left lung is grossly clear. The heart size is stable. There is a lytic lesion involving the left fifth rib. CONCLUSION: 1. Right hilar mass with atelectasis involving the right upper lung. 2. Lytic lesion involving the left fifth rib consisting of bony metastatic disease. Jero Miller MD on July 31, 2016 at 5:50 Board Certified Radiologist. This report was verified electronically.
[2016-07-31] MEDS: PANTOPRAZOLE SOD 40 MG DELAYED RELEASE TAB PO SCH (07:58)
[2016-07-31] MEDS: SODIUM CHLORIDE 0.9% FLUSH 10 ML FLUSH IV FLUSH SCH ×2 (07:59→21:34)
[2016-07-31 09:32] LABS: AUTOMATED NEUTROPHIL # 24.5 TH/MM3 (1.8-7.7); BASOPHIL # 0.2 TH/MM3 (0-0.2); BASOPHIL % 0.6 % (0.0-2.0); HEMATOCRIT 30.4 % (35.0-46.0); LYMPH % 3.4 % (9.0-44.0); LYMPHOCYTE # 0.9 TH/MM3 (1.0-4.8); MEAN CELL VOLUME 72.8 FL (80.0-100.0); MEAN CORPUSCULAR HEMOGLOBIN 22.7 PG (27.0-34.0); MEAN CORPUSCULAR HGB CONC 31.1 % (32.0-36.0); PLATELET COUNT 419 TH/MM3 (150-450); RED BLOOD COUNT 4.18 MIL/MM3 (4.00-5.30); RED CELL DISTRIBUTION WIDTH 17.3 % (11.6-17.2); WHITE BLOOD COUNT 26.6 TH/MM3 (4.0-11.0)
[2016-07-31 09:36] LABS: HEMO FLAGS AUTO DIFF
[2016-07-31] MEDS ORDERED: PNEUMOCOCCAL POLYVALENT INJ 25 MCG/0.5 ML SYR IM ONE (10:00)
[2016-07-31 10:05] LABS: BICARBONATE 29.3 MEQ/L (21.0-32.0); POTASSIUM 4.2 MEQ/L (3.5-5.1)
[2016-07-31 10:30] LABS: ACANTHOCYTES OCC (NORMAL); KERATOCYTES OCC (NORMAL); OVALOCYTES 1+ (NORMAL); PLATELET ESTIMATE SMEAR HIGH (NORMAL); PLATELET MORPHOLOGY NORMAL (NORMAL); SCAN/DIFF AUTO DIFF CONFIRMED
--- NOTE | 2016-07-31 12:09 | RADRPT ---
EXAM DATE/TIME: 07/31/2016 09:58 [facility] COMPARISON: No previous studies available for comparison. INDICATIONS : Metastatic disease. CONTRAST: 10 cc Omniscan (gadodiamide) IV MEDICAL HISTORY : Carcinoma, lung. Chronic obstructive pulmonary disease. Hypercholesterolemia. SURGICAL HISTORY : None. ENCOUNTER: Initial ACUITY: 1 day PAIN SCORE: 0/10 LOCATION: cranial TECHNIQUE: Multiplanar, multisequence MRI of the brain was performed both prior to and following the administrat ion of paramagnetic contrast. FINDINGS: CEREBRUM: The ventricles are normal for age. No evidence of midline shift, mass lesion, hemorrhage or acute in farction. No extraaxial fluid collections are seen. The pituitary gland and suprasellar cistern are normal in configuration. WHITE MATTER: Scattered foci of bright signal abnormalities are seen in the white matter. POSTERIOR FOSSA: The cerebellum and brainstem are intact. The 4th ventricle is midline. The cerebellopontine angle is unremarkable. The cerebellar tonsils are normal in position. DIFFUSION IMAGING: No focal areas of restricted diffusion are seen. No evidence of acute infarction. EXTRACRANIAL: The visualized portions of the orbits and paranasal sinuses are unremarkable. POST-CONTRAST: There is enhancing lesion at the skull base C1 and C2 region CONCLUSION: 1. Nonspecific white matter changes. 2. No evidence for metastatic disease to the brain parenchyma. 3. There are some bony metastatic lesions along the upper cervical spine/skull base. Carlos Dee MD on July 31, 2016 at 12:00 Board Certified Radiologist. This report was verified electronically.
--- NOTE | 2016-07-31 12:12 | HHI.PR ---
Subjective Remarks This is a pleasant 66 y/o Female with Kidney stones, Hyperlipidemia, who came to ER with Shortness of breath, on current antibiotics for UTI, Tobacco dependent patient, admitted with diagnosis of COPD exacerbation, on CT chest Right lung mass, followed by procurement specialist and Oncology, he will have Bronchoscopy next Tuesday08/02/16, no nausea, vomit or diarrhea. Objective Vital Signs Date Time Temp Pulse Resp B/P Pulse Ox O2 Delivery O2 Flow Rate FiO2 07/31/16 12:08 97.2 107 20 122/52 90 07/31/16 08:28 97.5 98 19 123/58 91 07/31/16 08:20 Nasal Cannula 4.00 Humidified 07/31/16 08:20 102 07/31/16 08:03 90 Nasal Cannula 4.00 07/31/16 05:50 88 Nasal Cannula 4.00 07/31/16 04:23 98.1 92 20 126/86 90 07/31/16 04:15 Nasal Cannula 4.00 07/30/16 23:50 97.6 99 22 124/71 91 07/30/16 21:08 Nasal Cannula 2.00 07/30/16 20:09 96 07/30/16 19:55 97.3 94 20 120/57 91 07/30/16 19:53 92 Nasal Cannula 2.00 07/30/16 16:00 97.9 91 20 114/56 93 I/O 07/30/16 07/30/16 07/30/16 07/31/16 07/31/16 07/31/16 07:00 15:00 23:00 07:00 15:00 23:00 Intake Total 100 ml 720 ml 240 ml 0 ml Output Total 500 ml 0 ml 600 ml Balance 100 ml 220 ml 240 ml -600 ml Intake Oral 720 ml 240 ml 0 ml IV Total 100 ml Output Urine Total 500 ml 0 ml 600 ml # Bowel Movements 0 0 0 Result Diagram: 07/31/1691207/31/16912 Imaging Last Impressions Chest X-Ray 07/31/16 06 Signed Impressions: Service Date/Time: Sunday, July 31, 2016 05:05 - CONCLUSION: 1. Right hilar mass with atelectasis involving the right upper lung. 2. Lytic lesion involving the left fifth rib consisting of bony metastatic disease. Jero Miller MD Chest CT 07/30/16 0000 Signed Impressions: Service Date/Time: Saturday, July 30, 2016 05:13 - CONCLUSION: 1. There is narrowing of the right mainstem bronchus suspicious for a right hilar mass. 2. There is a masslike density in the right upper lung measuring 2.2 x 1.6 cm. 3. There is a moderate right pleural effusion with compressive atelectasis of the right lower lung. 4. There is consolidation of the right upper lung most likely from post obstructive pneumonia. 5. Patchy infiltrate in the posterior left upper lung most likely inflammatory. 6. Multiple lytic lesions are seen throughout the thoracic spine characteristic for diffuse bony metastatic disease 7. Diffusely enlarged bilateral adrenal glands most likely metastatic disease Jero Miller MD Abdomen/Pelvis CT 07/30/16 0000 Signed Impressions: Service Date/Time: Saturday, July 30, 2016 23:25 - CONCLUSION: 1. Diffuse bony metastatic disease. 2. Moderate right-sided pleural effusion. 3. Bilateral adrenal metastatic disease. 4. Simple right renal cyst. Jero Miller MD Procedures No procedures performed. Other Results Laboratory Tests Test 07/30/16 07/30/16 07/30/16 07/30/16 01:15 01:18 02:02 20:10 Total Bilirubin 0.4 MG/DL Aspartate Amino Transf 33 U/L (AST/SGOT) Alanine Aminotransferase 31 U/L (ALT/SGPT) Alkaline Phosphatase 119 U/L Total Creatine Kinase 126 U/L Creatine Kinase MB 3.3 NG/ML Troponin I LESS THAN 0.02 NG/ML Total Protein 7.2 GM/DL Albumin 3.1 GM/DL B-Type Natriuretic Peptide 45 PG/ML Blood Gas Puncture Site LT RADIAL Blood Gas Patient Temperature 98.6 Blood Gas HCO3 27 mmol/L Blood Gas Base Excess 3.1 mmol/L Blood Gas Oxygen Saturation 85 % Arterial Blood pH 7.48 Arterial Blood Partial 36 mmHg Pressure CO2 Arterial Blood Partial 52 mmHG Pressure O2 Arterial Blood Oxygen Content 12.1 Vol % Arterial Blood 2.0 % Carboxyhemoglobin Arterial Blood Methemoglobin 0.3 % Blood Gas Hemoglobin 10.1 G/DL Blood Gas Inspired Oxygen 21 % Prothrombin Time 11.2 SEC Prothromb Time International 1.0 RATIO Ratio Carcinoembryonic Antigen 933.0 NG/ML Test 07/31/16 09:13 White Blood Count 26.6 TH/MM3 Red Blood Count 4.18 MIL/MM3 Hemoglobin 9.5 GM/DL Hematocrit 30.4 % Mean Corpuscular Volume 72.8 FL Mean Corpuscular Hemoglobin 22.7 PG Mean Corpuscular Hemoglobin 31.1 % Concent Red Cell Distribution Width 17.3 % Platelet Count 419 TH/MM3 Mean Platelet Volume 7.9 FL Neutrophils (%) (Auto) 92.0 % Lymphocytes (%) (Auto) 3.4 % Monocytes (%) (Auto) 4.0 % Eosinophils (%) (Auto) 0.0 % Basophils (%) (Auto) 0.6 % Neutrophils # (Auto) 24.5 TH/MM3 Lymphocytes # (Auto) 0.9 TH/MM3 Monocytes # (Auto) 1.1 TH/MM3 Eosinophils # (Auto) 0.0 TH/MM3 Basophils # (Auto) 0.2 TH/MM3 CBC Comment AUTO DIFF Differential Comment AUTO DIFF CONFIRMED Platelet Estimate HIGH Platelet Morphology Comment NORMAL Ovalocytes 1+ Acanthocytes OCC Keratocytes OCC Sodium Level 127 MEQ/L Potassium Level 4.2 MEQ/L Chloride Level 88 MEQ/L Carbon Dioxide Level 29.3 MEQ/L Anion Gap 10 MEQ/L Blood Urea Nitrogen 12 MG/DL Creatinine 0.55 MG/DL Estimat Glomerular Filtration 111 ML/MIN Rate Random Glucose 98 MG/DL Calcium Level 9.9 MG/DL Objective Remarks GENERAL: This is a well-nourished, well-developed patient, who appears short of breath at rest and with conversation SKIN: No rashes, ecchymoses or lesions. Cool and dry. HEAD: Atraumatic. Normocephalic. No temporal or scalp tenderness. EYES: Extraocular motions intact. No scleral icterus. No injection or drainage. CARDIOVASCULAR: Regular rate and rhythm without murmurs, gallops, or rubs. RESPIRATORY: Decreased air entry with scattered crackles bilaterally GASTROINTESTINAL: Abdomen soft, non-tender, nondistended. MUSCULOSKELETAL: Bilateral lower extremity 1+ pitting edema. No calf tenderness. Negative Homans sign bilaterally. NEUROLOGICAL: Awake and alert. No focal deficits appreciated. Motor and sensory grossly within normal limits. 3-5 out of 5 muscle strength in all muscle groups. Normal speech. Medications and IVs Current Medications Medications (Trade) Dose Ordered Sig/Alistair Route Start Time Stop Time Status Last Admin (NS Flush) 2 ml UNSCH PRN IV FLUSH 07/30/16 03:45 (NS Flush) 2 ml BID IV FLUSH 07/30/16 09:00 07/31/16 07:59 (Narcan Inj) 0.4 mg UNSCH PRN IV 07/30/16 03:45 (SoluMEDROL INJ) 40 mg Q6HR IV PUSH 07/30/16 06:00 07/31/16 11:49 Pantoprazole Sodium 40 mg 40 mg DAILY PO 07/30/16 09:00 07/31/16 07:58 (Levaquin 500 Mg Premix Inj) 100 ml @ 100 mls/hr Q24H IV 07/30/16 05:00 07/31/16 05:10 (Lipitor) 40 mg HS PO 07/30/16 21:00 (Zofran Odt) 4 mg Q6HR PRN SL 07/30/16 05:30 07/30/16 21:07 (Lovenox Inj) 40 mg Q24H SQ 07/30/16 05:30 07/31/16 05:10 A/P Assessment and Plan acute hypoxemic respiratory failure due to COPD exacerbation with pneumonia lung mass with thoracic spine bone lesions CT chest/thorax with: narrowing of the right mainstem bronchus suspicious for a right hilar mass. a masslike density in the right upper lung measuring 2.2 x 1.6 cm. 3. moderate right pleural effusion with compressive atelectasis of the right lower lung. consolidation of the right upper lung most likely from post obstructive pneumonia. with Patchy infiltrate in the posterior left upper lung most likely inflammatory. Multiple lytic lesions are seen throughout the thoracic spine characteristic for diffuse bony metastatic disease Diffusely enlarged bilateral adrenal glands most likely metastatic disease. procurement specialist following recommended for Bronchoscopy 08/02/16 Levaquin, Solu-Medrol, Oxygen, specialist physician following. Tobacco dependence strongly recommended stop smoking. Hyperlipidemia continue patient's home atorvastatin DVT prophylaxis with Lovenox Discussed with patient and his in the room. all questions answered to the best of my abilities. Discharge Planning once cleared by Specialists. Hussein Wilson MD July 31, 2016 12:12
[2016-07-31] MEDS ORDERED: GADODIAMIDE PF 287 MG/ML 10 ML VIAL (for RAD MRI) IV ONE (12:44)
--- NOTE | 2016-07-31 13:09 | RADRPT ---
EXAM DATE/TIME: 07/31/2016 09:58 [facility] COMPARISON: No previous studies available for comparison. INDICATIONS : Metastatic disease. CONTRAST: 10 cc Omniscan (gadodiamide) IV MEDICAL HISTORY : Carcinoma, lung. Chronic obstructive pulmonary disease. Hypercholesterolemia. SURGICAL HISTORY : None. ENCOUNTER: Initial ACUITY: 1 day PAIN SCORE: 5/10 LOCATION: [facility] TECHNIQUE: Screening MRI of the entire spinal axis was performed in the sagittal and axial planes. FINDINGS: Numerous metastatic lesions throughout the cervical thoracic and lumbar spine. These are seen more no tably at C3 and C7 in the cervical spine and T6, T7-T9 and T12 of the thoracic spine. L2 and L4 are m ostly involved the lumbar spine. Prominent lesions are seen at S1. There is kyphosis of the thoracolu mbar spine. Multilevel disc bulges. No evidence of significant canal stenosis. Right pleural effusion . CONCLUSION: Diffuse bony metastasis throughout the dorsal spine without significant canal stenosis. Carlos Dee MD on July 31, 2016 at 13:04 Board Certified Radiologist. This report was verified electronically.
--- NOTE | 2016-07-31 18:52 | PD.ONC.PN ---
Subjective Subjective Remarks less sob today Objective Data Date Time Temp Pulse Resp B/P Pulse Ox O2 Delivery O2 Flow Rate FiO2 07/31/16 16:27 97.4 101 20 126/61 91 07/31/16 12:08 97.2 107 20 122/52 90 07/31/16 08:28 97.5 98 19 123/58 91 07/31/16 08:20 Nasal Cannula 4.00 Humidified 07/31/16 08:20 102 07/31/16 08:03 90 Nasal Cannula 4.00 07/31/16 05:50 88 Nasal Cannula 4.00 07/31/16 04:23 98.1 92 20 126/86 90 07/31/16 04:15 Nasal Cannula 4.00 07/30/16 23:50 97.6 99 22 124/71 91 07/30/16 21:08 Nasal Cannula 2.00 07/30/16 20:09 96 07/30/16 19:55 97.3 94 20 120/57 91 07/30/16 19:53 92 Nasal Cannula 2.00 07/31/16 07/31/16 07/31/16 06:59 14:59 22:59 Intake Total 0 ml 840 ml Output Total 600 ml Balance -600 ml 840 ml Result Diagram: 07/31/1691207/31/16912 Laboratory Results Laboratory Tests Test 07/30/16 07/31/16 20:10 09:13 White Blood Count 18.4 TH/MM3 26.6 TH/MM3 Red Blood Count 3.97 MIL/MM3 4.18 MIL/MM3 Hemoglobin 9.4 GM/DL 9.5 GM/DL Hematocrit 28.6 % 30.4 % Mean Corpuscular Volume 72.1 FL 72.8 FL Mean Corpuscular Hemoglobin 23.6 PG 22.7 PG Mean Corpuscular Hemoglobin 32.7 % 31.1 % Concent Red Cell Distribution Width 17.3 % 17.3 % Platelet Count 376 TH/MM3 419 TH/MM3 Mean Platelet Volume 8.2 FL 7.9 FL Prothrombin Time 11.2 SEC Prothromb Time International 1.0 RATIO Ratio Carcinoembryonic Antigen 933.0 NG/ML Neutrophils (%) (Auto) 92.0 % Lymphocytes (%) (Auto) 3.4 % Monocytes (%) (Auto) 4.0 % Eosinophils (%) (Auto) 0.0 % Basophils (%) (Auto) 0.6 % Neutrophils # (Auto) 24.5 TH/MM3 Lymphocytes # (Auto) 0.9 TH/MM3 Monocytes # (Auto) 1.1 TH/MM3 Eosinophils # (Auto) 0.0 TH/MM3 Basophils # (Auto) 0.2 TH/MM3 CBC Comment AUTO DIFF Differential Comment AUTO DIFF CONFIRMED Platelet Estimate HIGH Platelet Morphology Comment NORMAL Ovalocytes 1+ Acanthocytes OCC Keratocytes OCC Sodium Level 127 MEQ/L Potassium Level 4.2 MEQ/L Chloride Level 88 MEQ/L Carbon Dioxide Level 29.3 MEQ/L Anion Gap 10 MEQ/L Blood Urea Nitrogen 12 MG/DL Creatinine 0.55 MG/DL Estimat Glomerular Filtration 111 ML/MIN Rate Random Glucose 98 MG/DL Calcium Level 9.9 MG/DL Item Value Date Time Carcinoembryonic Antigen 933.0 NG/ML H 07/30/162009 Imaging Studies Last 24 hours Impressions Chest X-Ray 07/31/16 0600 Signed Impressions: Service Date/Time: Sunday, July 31, 2016 05:05 - CONCLUSION: 1. Right hilar mass with atelectasis involving the right upper lung. 2. Lytic lesion involving the left fifth rib consisting of bony metastatic disease. Jero Miller MD Entire Spine MRI 07/31/16 0000 Signed Impressions: Service Date/Time: Sunday, July 31, 2016 09:58 - CONCLUSION: Diffuse bony metastasis throughout the dorsal spine without significant canal stenosis. Carlos Dee MD Brain MRI 07/31/16 0000 Signed Impressions: Service Date/Time: Sunday, July 31, 2016 09:58 - CONCLUSION: 1. Nonspecific white matter changes. 2. No evidence for metastatic disease to the brain parenchyma. 3. There are some bony metastatic lesions along the upper cervical spine/skull base. Carlos Dee MD Administered Medications Medications (Trade) Dose Ordered Sig/Alistair Route PRN Reason Start Time Stop Time Status Last Admin Dose Admin Sodium Chloride (NS Flush) 2 ml BID IV FLUSH 07/30/16 09:00 07/31/16 07:59 Methylprednisolone Sodium Succinate (SoluMEDROL INJ) 40 mg Q6HR IV PUSH 07/30/16 06:00 07/31/16 17:18 Pantoprazole Sodium 40 mg 40 mg DAILY PO 07/30/16 09:00 07/31/16 07:58 Levofloxacin/ Dextrose (Levaquin 500 Mg Premix Inj) 100 ml @ 100 mls/hr Q24H IV 07/30/16 05:00 07/31/16 05:10 Ondansetron HCl (Zofran Odt) 4 mg Q6HR PRN SL Nausea/Vomiting 07/30/16 05:30 07/30/16 21:07 Enoxaparin Sodium (Lovenox Inj) 40 mg Q24H SQ 07/30/16 05:30 07/31/16 05:10 Objective Remarks GENERAL: less sob SKIN: Warm and dry. HEAD: Normocephalic. EYES: No scleral icterus. No injection or drainage. NECK: Supple, trachea midline. No JVD or lymphadenopathy. LYMPHATIC: No adenopathy. CARDIOVASCULAR: Regular rate and rhythm without murmurs. RESPIRATORY: mild wheezes. GASTROINTESTINAL: Abdomen soft, non-tender, nondistended. EXTREMITIES: No cyanosis, or edema. NEUROLOGICAL: No obvious focal deficit. Awake, alert, and oriented x3. PSYCHIATRIC: Appropriate mood and affect; insight and judgment normal. Assessment/Plan Assessment 1: marked elevation of cea and radiographic picture consistent with stage IV lung cancer. no evidence of spinal cord or cauda compression based on MRI and no brain mets. She is unsure she would undergo tx. I will have palliative care speak with her. Discussed with Dr. Curry with patient and present. consult placed for palliative care. Quintin Maria MD July 31, 2016 18:52
--- NOTE | 2016-07-31 19:00 | HHI.PR ---
Subjective Remarks C/O SOB . No fever. Will go for Bronchoscopy Tuesday. Objective Vital Signs Date Time Temp Pulse Resp B/P Pulse Ox O2 Delivery O2 Flow Rate FiO2 07/31/16 16:27 97.4 101 20 126/61 91 07/31/16 12:08 97.2 107 20 122/52 90 07/31/16 08:28 97.5 98 19 123/58 91 07/31/16 08:20 Nasal Cannula 4.00 Humidified 07/31/16 08:20 102 07/31/16 08:03 90 Nasal Cannula 4.00 07/31/16 05:50 88 Nasal Cannula 4.00 07/31/16 04:23 98.1 92 20 126/86 90 07/31/16 04:15 Nasal Cannula 4.00 07/30/16 23:50 97.6 99 22 124/71 91 07/30/16 21:08 Nasal Cannula 2.00 07/30/16 20:09 96 07/30/16 19:55 97.3 94 20 120/57 91 07/30/16 19:53 92 Nasal Cannula 2.00 I/O 07/30/16 07/30/16 07/30/16 07/31/16 07/31/16 07/31/16 07:00 15:00 23:00 07:00 15:00 23:00 Intake Total 100 ml 720 ml 240 ml 0 ml 840 ml Output Total 500 ml 0 ml 600 ml Balance 100 ml 220 ml 240 ml -600 ml 840 ml Intake Oral 720 ml 240 ml 0 ml 840 ml IV Total 100 ml Output Urine Total 500 ml 0 ml 600 ml # Voids 3 # Bowel Movements 0 0 0 1 Result Diagram: 07/31/1691207/31/16912 Objective Remarks GENERAL: This is a moderately obese white female who is alert and in no acute distress. HEAD, EYES, EARS, NOSE, THROAT: Head normocephalic. The pupils are reactive and equal. Tongue is moist. Throat was clear. NECK: The neck is supple. No bruits. No thyroid enlargement. No lymphadenopathy. CHEST: Decreased excursions. Breath sounds are diminished at the bases, more so on the right side. There is occasional wheezes in the right lung field. HEART: Heart sounds are regular. S1 and S2. No murmur. No S3. ABDOMEN: Abdomen is obese and protuberant without masses. No organomegaly or tenderness. The bowel sounds are active. EXTREMITIES: 1 + edema. No calf tenderness. NEUROLOGIC: Reflexes are 1+. No gross motor deficits. Cranial nerves are grossly intact. SKIN: No lesions are noted. Assessment and Plan Assessment and Plan IMPRESSION: 1. Right hilar mass with obstructive pneumonitis. 2. Possible metastatic malignancy. 3. COPD with emphysema. 4. Nicotine dependency. 5. Right pleural effusion. Plan : 1. Cont Antibiotics. 2. Nebs qid , duoneb. 3. O2 at 3L. 4. Solumedrol 40 mg IV q8h 5. Coag Profile. 6. Bronchoscopy on Tuesday Jigar Gutierrez MD July 31, 2016 19:00
[2016-07-31] MEDS: ATORVASTATIN 40 MG TAB PO SCH (21:34)
[2016-07-31] MEDS ORDERED: MELATONIN 5 MG TAB PO ONE (22:00)
[2016-08-01] VITALS (11 sets, daily range): BP systolic 121–154; BP diastolic 63–84; PULSE 72–123; RESP 13–24; TEMP 96.3–97.8; O2SAT 77–95
[2016-08-01] MEDS: methylPREDNISolone SOD SUCC 40 MG/1 ML VIAL IV PUSH SCH ×3 (04:42→21:46)
[2016-08-01] MEDS: SODIUM CHLORIDE 0.9% FLUSH 10 ML FLUSH IV FLUSH PRN (04:43)
[2016-08-01] MEDS: ENOXAPARIN SODIUM 40 MG/0.4 ML SYRINGE SQ SCH (04:43)
[2016-08-01] MEDS: LEVOFLOXACIN 500 MG PREMIX INJ 100 ML IV SCH (04:43)
[2016-08-01] MEDS: RESP: ALBUTEROL 2.5 MG/IPRATROPIUM 0.5 MG NEB (PRN) NEB (05:14)
[2016-08-01] MEDS: PANTOPRAZOLE SOD 40 MG DELAYED RELEASE TAB PO SCH (07:35)
[2016-08-01] MEDS: SODIUM CHLORIDE 0.9% FLUSH 10 ML FLUSH IV FLUSH SCH ×2 (07:35→21:46)
[2016-08-01] MEDS: RESP: ALBUTEROL 2.5 MG/IPRATROPIUM 0.5 MG NEB (SCH) NEB ×7 (08:07→22:02)
--- NOTE | 2016-08-01 09:59 | PD.ONC.PN ---
Subjective Subjective Remarks Afebrile overnight. Patient complaining of sciatica type pain radiating down both legs. No bowel or bladder disturbance. She would like to try something for the pain. Objective Data Date Time Temp Pulse Resp B/P Pulse Ox O2 Delivery O2 Flow Rate FiO2 08/01/16 04:00 97.3 98 20 154/69 90 08/01/16 00:00 97.2 88 22 141/64 92 07/31/16 21:23 90 Nasal Cannula 4.00 07/31/16 21:00 99 07/31/16 21:00 Nasal Cannula 4.00 Humidified 07/31/16 20:00 97.4 96 20 116/60 92 07/31/16 16:27 97.4 101 20 126/61 91 07/31/16 12:08 97.2 107 20 122/52 90 08/01/16 08/01/16 08/01/16 07:00 15:00 23:00 Intake Total 180 ml Output Total 200 ml Balance -20 ml Result Diagram: 07/31/1691207/31/16912 Administered Medications Medications (Trade) Dose Ordered Sig/Alistair Route PRN Reason Start Time Stop Time Status Last Admin Dose Admin Sodium Chloride (NS Flush) 2 ml UNSCH PRN IV FLUSH FLUSH AFTER USING IV ACCESS 07/30/16 03:45 08/01/16 04:43 Sodium Chloride (NS Flush) 2 ml BID IV FLUSH 07/30/16 09:00 08/01/16 07:35 Pantoprazole Sodium 40 mg 40 mg DAILY PO 07/30/16 09:00 08/01/16 07:35 Levofloxacin/ Dextrose (Levaquin 500 Mg Premix Inj) 100 ml @ 100 mls/hr Q24H IV 07/30/16 05:00 08/01/16 04:43 Atorvastatin Calcium (Lipitor) 40 mg HS PO 07/30/16 21:00 07/31/16 21:34 Ondansetron HCl (Zofran Odt) 4 mg Q6HR PRN SL Nausea/Vomiting 07/30/16 05:30 07/30/16 21:07 Enoxaparin Sodium (Lovenox Inj) 40 mg Q24H SQ 07/30/16 05:30 08/01/16 04:43 Methylprednisolone Sodium Succinate (SoluMEDROL INJ) 40 mg Q8HR IV PUSH 07/31/16 22:00 08/01/16 04:42 Objective Remarks GENERAL: Middle aged female, sitting up in [place]or[place] in nad SKIN: Warm and dry. HEAD: Normocephalic. EYES: No scleral icterus. No injection or drainage. NECK: Supple, trachea midline. CARDIOVASCULAR: Regular rate and rhythm RESPIRATORY: scattered rhonchi GASTROINTESTINAL: Abdomen soft, non-tender, nondistended. EXTREMITIES: No cyanosis, or edema. MUSCULOSKELETAL: Adequate muscle tone. NEUROLOGICAL: No obvious focal deficit. Awake, alert, and oriented x3. Assessment/Plan Assessment 66y/o female with suspected stage IV lung cancer. Plan 1. await palliative care consult 2. start Percocet 5 and 10 for pain. can add a long acting tomorrow if she is using enough of the Oxycodone to justify it. Attending Statement The exam, history, and the medical decision-making described in the above note were completed with the assistance of the mid-level provider. I reviewed and agree with the findings presented. I attest that I had a [id number] encounter with the patient on the same day, and personally performed and documented my assessment and findings in the medical record. spoke with patient and and they do want to proceed with diagnosis and tx. she will have bronchoscopy tomorrow and I can tx as soon as I have a diagnosis. Jesi Smith August 01, 2016 09:59 Quintin Maria MD August 01, 2016 12:48
[2016-08-01 11:22] LABS: AUTOMATED NEUTROPHIL # 22.1 TH/MM3 (1.8-7.7); BASOPHIL % 0.1 % (0.0-2.0); HEMATOCRIT 30.3 % (35.0-46.0); LYMPH % 3.4 % (9.0-44.0); LYMPHOCYTE # 0.8 TH/MM3 (1.0-4.8); MEAN CORPUSCULAR HEMOGLOBIN 23.3 PG (27.0-34.0); MEAN CORPUSCULAR HGB CONC 31.9 % (32.0-36.0); MONO % 3.2 % (0.0-8.0); NEUT % 93.3 % (16.0-70.0); PLATELET COUNT 491 TH/MM3 (150-450); RED BLOOD COUNT 4.15 MIL/MM3 (4.00-5.30); RED CELL DISTRIBUTION WIDTH 17.8 % (11.6-17.2); WHITE BLOOD COUNT 23.7 TH/MM3 (4.0-11.0)
[2016-08-01 11:25] LABS: HEMO FLAGS AUTO DIFF
[2016-08-01] MEDS: oxyCODONE/ACETAMINOPHEN 10 MG/325 MG TAB PO PRN ×2 (11:39→22:39)
[2016-08-01 11:49] LABS: ALKALINE PHOSPHATASE 122 U/L (45-117); ALT (GPT) 114 U/L (10-53); ANION GAP 10 MEQ/L (5-15); AST (GOT) 109 U/L (15-37); BICARBONATE 29.2 MEQ/L (21.0-32.0); BLOOD UREA NITROGEN 22 MG/DL (7-18); CHLORIDE 89 MEQ/L (98-107); GLOMERULAR FILTRATION RATE 79 ML/MIN (>89); POTASSIUM 4.9 MEQ/L (3.5-5.1); SODIUM (NA) 128 MEQ/L (136-145); TOTAL BILIRUBIN ADULT 0.4 MG/DL (0.2-1.0)
[2016-08-01 12:08] LABS: ACANTHOCYTES OCC (NORMAL); KERATOCYTES OCC (NORMAL)
[2016-08-01 12:09] LABS: OVALOCYTES 1+ (NORMAL); SCAN/DIFF AUTO DIFF CONFIRMED
--- NOTE | 2016-08-01 12:41 | HHI.PR ---
Subjective Remarks This is a pleasant 66 y/o Female with Kidney stones, Hyperlipidemia, who came to ER with Shortness of breath, on current antibiotics for UTI, Tobacco dependent patient, admitted with diagnosis of COPD exacerbation, on CT chest Right lung mass, followed by logistic specialist and Oncology, he will have Bronchoscopy next Tuesday08/02/16, no nausea, vomit or diarrhea. 08/01: Seen in her bedroom in the presence of her , the patient states she changed her mind about her Hospice petition she did yesterday and now wants to know the kind of tumor she has and probable treatment, no nausea,vomit or diarrhea, using Nasal Cannula. Later the same day I was called by nurse Miss Cabezas the patient was called to Rapid Response team due to Respiratory Failure and placed on BiPAP, Discussed with It Desktop Support Technician Doctor Monroe Riley appreciated assistance by Specialist. Objective Vital Signs Date Time Temp Pulse Resp B/P Pulse Ox O2 Delivery O2 Flow Rate FiO2 08/01/16 04:00 97.3 98 20 154/69 90 08/01/16 00:00 97.2 88 22 141/64 92 07/31/16 21:23 90 Nasal Cannula 4.00 07/31/16 21:00 99 07/31/16 21:00 Nasal Cannula 4.00 Humidified 07/31/16 20:00 97.4 96 20 116/60 92 07/31/16 16:27 97.4 101 20 126/61 91 I/O 07/31/16 07/31/16 07/31/16 08/01/16 08/01/16 08/01/16 07:00 15:00 23:00 07:00 15:00 23:00 Intake Total 0 ml 840 ml 360 ml 180 ml Output Total 600 ml 200 ml Balance -600 ml 840 ml 360 ml -20 ml Intake Oral 0 ml 840 ml 360 ml 180 ml Output Urine Total 600 ml 200 ml # Voids 3 1 # Bowel Movements 0 1 0 0 Result Diagram: 08/01/16 1038 08/01/16 1038 Imaging Last Impressions Chest X-Ray 07/31/16 0600 Signed Impressions: Service Date/Time: Sunday, July 31, 2016 05:05 - CONCLUSION: 1. Right hilar mass with atelectasis involving the right upper lung. 2. Lytic lesion involving the left fifth rib consisting of bony metastatic disease. Jero Miller MD Entire Spine MRI 07/31/16 0000 Signed Impressions: Service Date/Time: Sunday, July 31, 2016 09:58 - CONCLUSION: Diffuse bony metastasis throughout the dorsal spine without significant canal stenosis. Carlos Dee MD Brain MRI 07/31/16 0000 Signed Impressions: Service Date/Time: Sunday, July 31, 2016 09:58 - CONCLUSION: 1. Nonspecific white matter changes. 2. No evidence for metastatic disease to the brain parenchyma. 3. There are some bony metastatic lesions along the upper cervical spine/skull base. Carlos Dee MD Chest CT 07/30/16 0000 Signed Impressions: Service Date/Time: Saturday, July 30, 2016 05:13 - CONCLUSION: 1. There is narrowing of the right mainstem bronchus suspicious for a right hilar mass. 2. There is a masslike density in the right upper lung measuring 2.2 x 1.6 cm. 3. There is a moderate right pleural effusion with compressive atelectasis of the right lower lung. 4. There is consolidation of the right upper lung most likely from post obstructive pneumonia. 5. Patchy infiltrate in the posterior left upper lung most likely inflammatory. 6. Multiple lytic lesions are seen throughout the thoracic spine characteristic for diffuse bony metastatic disease 7. Diffusely enlarged bilateral adrenal glands most likely metastatic disease Jero Miller MD Abdomen/Pelvis CT 07/30/16 0000 Signed Impressions: Service Date/Time: Saturday, July 30, 2016 23:25 - CONCLUSION: 1. Diffuse bony metastatic disease. 2. Moderate right-sided pleural effusion. 3. Bilateral adrenal metastatic disease. 4. Simple right renal cyst. Jero Miller MD Procedures No procedures performed. Other Results Laboratory Tests Test 07/30/16 07/30/16 07/30/16 07/30/16 01:15 01:18 02:02 20:10 Total Creatine Kinase 126 U/L Creatine Kinase MB 3.3 NG/ML Troponin I LESS THAN 0.02 NG/ML B-Type Natriuretic Peptide 45 PG/ML Blood Gas Puncture Site LT RADIAL Blood Gas Patient Temperature 98.6 Blood Gas HCO3 27 mmol/L Blood Gas Base Excess 3.1 mmol/L Blood Gas Oxygen Saturation 85 % Arterial Blood pH 7.48 Arterial Blood Partial 36 mmHg Pressure CO2 Arterial Blood Partial 52 mmHG Pressure O2 Arterial Blood Oxygen Content 12.1 Vol % Arterial Blood 2.0 % Carboxyhemoglobin Arterial Blood Methemoglobin 0.3 % Blood Gas Hemoglobin 10.1 G/DL Blood Gas Inspired Oxygen 21 % Prothrombin Time 11.2 SEC Prothromb Time International 1.0 RATIO Ratio Carcinoembryonic Antigen 933.0 NG/ML Test 07/31/16 08/01/16 09:13 10:38 Platelet Estimate HIGH Platelet Morphology Comment NORMAL White Blood Count 23.7 TH/MM3 Red Blood Count 4.15 MIL/MM3 Hemoglobin 9.7 GM/DL Hematocrit 30.3 % Mean Corpuscular Volume 73.0 FL Mean Corpuscular Hemoglobin 23.3 PG Mean Corpuscular Hemoglobin 31.9 % Concent Red Cell Distribution Width 17.8 % Platelet Count 491 TH/MM3 Mean Platelet Volume 8.1 FL Neutrophils (%) (Auto) 93.3 % Lymphocytes (%) (Auto) 3.4 % Monocytes (%) (Auto) 3.2 % Eosinophils (%) (Auto) 0.0 % Basophils (%) (Auto) 0.1 % Neutrophils # (Auto) 22.1 TH/MM3 Lymphocytes # (Auto) 0.8 TH/MM3 Monocytes # (Auto) 0.7 TH/MM3 Eosinophils # (Auto) 0.0 TH/MM3 Basophils # (Auto) 0.0 TH/MM3 CBC Comment AUTO DIFF Differential Comment AUTO DIFF CONFIRMED Ovalocytes 1+ Acanthocytes OCC Keratocytes OCC Sodium Level 128 MEQ/L Potassium Level 4.9 MEQ/L Chloride Level 89 MEQ/L Carbon Dioxide Level 29.2 MEQ/L Anion Gap 10 MEQ/L Blood Urea Nitrogen 22 MG/DL Creatinine 0.74 MG/DL Estimat Glomerular Filtration 79 ML/MIN Rate Random Glucose 172 MG/DL Calcium Level 10.2 MG/DL Total Bilirubin 0.4 MG/DL Aspartate Amino Transf 109 U/L (AST/SGOT) Alanine Aminotransferase 114 U/L (ALT/SGPT) Alkaline Phosphatase 122 U/L Total Protein 7.0 GM/DL Albumin 3.0 GM/DL Objective Remarks GENERAL: This is a well-nourished, well-developed patient, who appears short of breath at rest and with conversation SKIN: No rashes, ecchymoses or lesions. Cool and dry. HEAD: Atraumatic. Normocephalic. No temporal or scalp tenderness. EYES: Extraocular motions intact. No scleral icterus. No injection or drainage. CARDIOVASCULAR: Regular rate and rhythm without murmurs, gallops, or rubs. RESPIRATORY: Decreased air entry with scattered crackles bilaterally GASTROINTESTINAL: Abdomen soft, non-tender, nondistended. MUSCULOSKELETAL: Bilateral lower extremity 1+ pitting edema. No calf tenderness. Negative Homans sign bilaterally. NEUROLOGICAL: Awake and alert. No focal deficits appreciated. Medications and IVs Current Medications Medications (Trade) Dose Ordered Sig/Alistair Route Start Time Stop Time Status Last Admin (NS Flush) 2 ml UNSCH PRN IV FLUSH 07/30/16 03:45 08/01/16 04:43 (NS Flush) 2 ml BID IV FLUSH 07/30/16 09:00 08/01/16 07:35 (Narcan Inj) 0.4 mg UNSCH PRN IV 07/30/16 03:45 Pantoprazole Sodium 40 mg 40 mg DAILY PO 07/30/16 09:00 08/01/16 07:35 (Levaquin 500 Mg Premix Inj) 100 ml @ 100 mls/hr Q24H IV 07/30/16 05:00 08/01/16 04:43 (Lipitor) 40 mg HS PO 07/30/16 21:00 07/31/16 21:34 (Zofran Odt) 4 mg Q6HR PRN SL 07/30/16 05:30 07/30/16 21:07 (Lovenox Inj) 40 mg Q24H SQ 07/30/16 05:30 08/01/16 04:43 (SoluMEDROL INJ) 40 mg Q8HR IV PUSH 07/31/16 22:00 08/01/16 11:40 (Percocet 5-325 Mg) 1 tab Q4H PRN PO 08/01/16 09:30 (Percocet 10-325 Mg) 1 tab Q4H PRN PO 08/01/16 09:30 08/01/16 11:39 A/P Assessment and Plan 1. acute hypoxemic respiratory failure due to COPD exacerbation with pneumonia, worsening, logistic specialist following. had to get Rapid response team and transfer to Intensive Care Unit, on BiPAP may need Endotracheal Intubation as per It Desktop Support Technician Doctor Monroe Riley 2. lung mass with thoracic spine bone lesions, Stage IV lung Cancer with metastatic Disease to Lumbar Spine. CT chest/thorax with: narrowing of the right mainstem bronchus suspicious for a right hilar mass. a masslike density in the right upper lung measuring 2.2 x 1.6 cm. 3. moderate right pleural effusion with compressive atelectasis of the right lower lung. consolidation of the right upper lung most likely from post obstructive pneumonia. with Patchy infiltrate in the posterior left upper lung most likely inflammatory. Multiple lytic lesions are seen throughout the thoracic spine characteristic for diffuse bony metastatic disease Diffusely enlarged bilateral adrenal glands most likely metastatic disease. logistic specialist following recommended for Bronchoscopy 08/02/16 Levaquin, Solu-Medrol, Oxygen, older adult social work specialist following. 3. Severe Tobacco dependence strongly recommended stop smoking. 4. Hyperlipidemia continue patient's home atorvastatin DVT prophylaxis with Lovenox I had the pleasure to talk about the case with It Desktop Support Technician Specialist Doctor Monroe Riley appreciated Assistance. Discussed with patient and her in the room. all questions answered to the best of my abilities. Discharge Planning once cleared by Specialists. Hussein Wilson MD August 01, 2016 12:41
--- NOTE | 2016-08-01 13:14 | HHI.PR ---
Subjective Remarks C/O SOB . No chest pain. Trouble swallowing.. Will go for Bronchoscopy Tuesday. Objective Vital Signs Date Time Temp Pulse Resp B/P Pulse Ox O2 Delivery O2 Flow Rate FiO2 08/01/16 04:00 97.3 98 20 154/69 90 08/01/16 00:00 97.2 88 22 141/64 92 07/31/16 21:23 90 Nasal Cannula 4.00 07/31/16 21:00 99 07/31/16 21:00 Nasal Cannula 4.00 Humidified 07/31/16 20:00 97.4 96 20 116/60 92 07/31/16 16:27 97.4 101 20 126/61 91 I/O 07/31/16 07/31/16 07/31/16 08/01/16 08/01/16 08/01/16 06:59 14:59 22:59 06:59 14:59 22:59 Intake Total 0 ml 840 ml 360 ml 180 ml Output Total 600 ml 200 ml Balance -600 ml 840 ml 360 ml -20 ml Intake Oral 0 ml 840 ml 360 ml 180 ml Output Urine Total 600 ml 200 ml # Voids 3 1 # Bowel Movements 0 1 0 0 Result Diagram: 08/01/16 1038 08/01/16 1038 Procedures No procedures performed. Objective Remarks GENERAL: This is a moderately obese white female who is alert and in no acute distress. HEAD, EYES, EARS, NOSE, THROAT: Head normocephalic. The pupils are reactive and equal. Tongue is moist. Throat was clear. NECK: The neck is supple. No bruits. No thyroid enlargement. No lymphadenopathy. CHEST: Decreased excursions. Breath sounds are diminished at the bases, more so on the right side. There is occasional crackles in the right lung field. HEART: Heart sounds are regular. S1 and S2. No murmur. No S3. ABDOMEN: Abdomen is obese and protuberant without masses. No organomegaly or tenderness. The bowel sounds are active. EXTREMITIES: 1 + edema. No calf tenderness. NEUROLOGIC: Reflexes are 1+. No gross motor deficits. Cranial nerves are grossly intact. SKIN: No lesions are noted. Assessment and Plan Assessment and Plan IMPRESSION: 1. Right hilar mass with obstructive pneumonitis. 2. Possible metastatic malignancy. 3. COPD with emphysema. 4. Nicotine dependency. 5. Right pleural effusion. Plan : 1. Cont Antibiotics. 2. Nebs qid , duoneb. 3. O2 at 3L. 4. Solumedrol 40 mg IV q12h 5. Coag Profile.CBC 6. Bronchoscopy on Tuesday Jigar Gutierrez MD August 01, 2016 13:14
[2016-08-01] MEDS ORDERED: DEXT 5%-NACL 0.45% 1000 ML INJ 1,000 ML IV SCH (14:32)
[2016-08-01] MEDS ORDERED: RESP: ALBUTEROL CONC 2.5 MG/0.5 ML NEB NEB SCH (14:45)
[2016-08-01 16:15] LABS: BLOOD GAS CARBOXYHEMOGLOBIN 0.8 % (0-4); BLOOD GAS HCO3 30 mmol/L (22-26); BLOOD GAS METHEMOGLOBIN 0.3 % (0-2); BLOOD GAS O2 HGB SATURATION 94 % (90-100); BLOOD GAS OXYGEN CONTENT 14.2 Vol % (12.0-20.0); BLOOD GAS PCO2 89 mmHg (38-42); BLOOD GAS PO2 98 mmHg (61-120); BLOOD GAS TOTAL HGB 10.7 G/DL (12.0-16.0); CRITICAL VALUE YES; TEMP CORR TO 98.6
[2016-08-01 16:16] LABS: DRAW SITE LT RADIAL; FIO2 100 %; LITER FLOW 15 L/M; NUMBER OF ARTERIAL PUNCTURES 1; STAT YES; ULNAR PULSE PRESENT
--- NOTE | 2016-08-01 16:33 | RADRPT ---
EXAM DATE/TIME: 08/01/2016 16:08 [facility] COMPARISON: CT THORAX W/O CONTRAST, July 30, 2016, 5:13. CHEST SINGLE AP, July 31, 2016, 5:05. INDICATIONS : Short of breath. MEDICAL HISTORY : None. SURGICAL HISTORY : None. ENCOUNTER: Subsequent ACUITY: 1 week PAIN SCORE: 0/10 LOCATION: Bilateral chest FINDINGS: Left lung is clear. Minimal consolidative changes are present in the right upper lobe. There is ana vation of right hemidiaphragm with minimal parenchymal changes right base. CONCLUSION: Minimal increase in the consolidative changes right upper lobe. Yvon Alan MD FACR on August 01, 2016 at 16:30 Board Certified Radiologist. This report was verified electronically.
[2016-08-01] MEDS ORDERED: DEXMEDETOMIDINE HCL 200 MCG/2 ML VIAL ONE (16:34)
--- NOTE | 2016-08-01 16:43 | PD.CONS ---
[facility] Service Critical Care Medicine Consult Requested By Dr. Anderson Reason for Consult Acute respiratory failure Primary Care Physician Herlinda Swanson MD History of Present Illness 66-year-old female who was admitted with a history of shortness of breath, wheezing, cough going on for several days along with a history of significant weight loss and back pain as well as no chest pain. Patient was supposed to have a cholecystectomy. She was evaluated with a chest x-ray which revealed a right upper lung mass. Subsequent CT chest revealed consolidation of right upper lung compressive atelectasis of right lower lobe with moderate right effusion and narrowing of right mainstem bronchus with possible right hilar mass. Patient was admitted by hospitalist service and was evaluated by pulmonary as well as oncology. She has an elevated CEA and appears to have stage IV lung cancer with imaging studies including MRI spine revealing multiple bony metastatic cysts involving C-spine, thoracic and lumbar spine. CT chest also revealed bilateral adrenal metastases. Patient was placed on Levaquin for possible postobstructive pneumonia on the floor and was initiated on IV steroids and bronchodilators. She was on nasal cannula 2 this afternoon when she developed worsening respiratory distress and dropped her O2 sats to the 70s for which she was placed on a nonrebreather facemask following a rapid response and was subsequently transferred to the ICU. Critical care consult was requested by Dr. Anderson from the hospitalist service for acute respiratory failure. I evaluated the patient immediately on arrival to the ICU. She had just been initiated on BiPAP as ordered by me at that time as her ABG revealed acute respiratory acidosis. She appeared very anxious at the time hence Precedex GTT was ordered. History was obtained by reviewing records and discussion with nursing staff. Review of Systems ROS Limitations: Clinical Condition Past Family Social History Allergies: Coded Allergies: Penicillin (Verified Allergy, Intermediate, Hives, 07/30/16) [place] (Verified Allergy, Intermediate, Hives, 07/30/16) Past Medical History kidney stone bronchitis hyperlipidemia Past Surgical History reports no prior surgeries Reported Medications Reported Medications Flomax (Tamsulosin HCl) 0.4 Mg Cap 0.4 Mg PO HS Zofran Odt (Ondansetron Odt) 4 Mg Tab 4 Mg SL Q6HR PRN Lipitor (Atorvastatin Calcium) 40 Mg Tab 40 Mg PO HS Active Ordered Medications Administered Medications Medications (Trade) Dose Ordered Sig/Alisatir Route PRN Reason Start Time Stop Time Status Last Admin Dose Admin Sodium Chloride (NS Flush) 2 ml UNSCH PRN IV FLUSH FLUSH AFTER USING IV ACCESS 07/30/16 03:45 08/01/16 04:43 Sodium Chloride (NS Flush) 2 ml BID IV FLUSH 07/30/16 09:00 08/01/16 07:35 Pantoprazole Sodium 40 mg 40 mg DAILY PO 07/30/16 09:00 08/01/16 07:35 Levofloxacin/ Dextrose (Levaquin 500 Mg Premix Inj) 100 ml @ 100 mls/hr Q24H IV 07/30/16 05:00 08/01/16 04:43 Atorvastatin Calcium (Lipitor) 40 mg HS PO 07/30/16 21:00 07/31/16 21:34 Ondansetron HCl (Zofran Odt) 4 mg Q6HR PRN SL Nausea/Vomiting 07/30/16 05:30 07/30/16 21:07 Methylprednisolone Sodium Succinate (SoluMEDROL INJ) 40 mg Q8HR IV PUSH 07/31/16 22:00 08/01/16 11:40 Oxycodone/ Acetaminophen (Percocet 10-325 Mg) 1 tab Q4H PRN PO pain6-10 08/01/16 09:30 08/01/16 11:39 Family History DM and HTN run on the family- her brothers and sister Social History Lives at home with Smokes 0.5 PPD had 40+ pack year history Denies ETOH use or illicit drug use Physical Exam Vital Signs Vital Signs Date Time Temp Pulse Resp B/P Pulse Ox O2 Delivery O2 Flow Rate FiO2 08/01/16 12:00 97.8 92 22 150/84 91 08/01/16 08:07 92 Nasal Cannula 4.00 08/01/16 08:00 97.6 101 20 121/70 91 08/01/16 08:00 123 08/01/16 08:00 Nasal Cannula 4.00 Humidified 08/01/16 04:00 97.3 98 20 154/69 90 08/01/16 00:00 97.2 88 22 141/64 92 07/31/16 21:23 90 Nasal Cannula 4.00 07/31/16 21:00 99 07/31/16 21:00 Nasal Cannula 4.00 Humidified 07/31/16 20:00 97.4 96 20 116/60 92 Physical Exam Elderly female, in significant respiratory distress on BiPAP with full facemask. HEENT/Neuro: No pallor or icterus, tongue moist, SHAKEEL, awake, anxious, on BiPAP with full facemask, not following commands, nonfocal grossly, moving all 4 extremities Neck: No JVD Chest/pulmonary: On BiPAP with full facemask, air entry decreased oral right base with scattered rhonchi, bilateral wheezing Cardiovascular: S1-S2 regular no gallop or murmur GI/abdomen: Soft, nontender, bowel sounds present Extremities: Warm bilaterally, no edema Laboratory Laboratory Tests Test 08/01/16 08/01/16 10:38 16:00 White Blood Count 23.7 Red Blood Count 4.15 Hemoglobin 9.7 Hematocrit 30.3 Mean Corpuscular Volume 73.0 Mean Corpuscular Hemoglobin 23.3 Mean Corpuscular Hemoglobin 31.9 Concent Red Cell Distribution Width 17.8 Platelet Count 491 Mean Platelet Volume 8.1 Neutrophils (%) (Auto) 93.3 Lymphocytes (%) (Auto) 3.4 Monocytes (%) (Auto) 3.2 Eosinophils (%) (Auto) 0.0 Basophils (%) (Auto) 0.1 Neutrophils # (Auto) 22.1 Lymphocytes # (Auto) 0.8 Monocytes # (Auto) 0.7 Eosinophils # (Auto) 0.0 Basophils # (Auto) 0.0 CBC Comment AUTO DIFF Differential Comment AUTO DIFF CONFIRMED Ovalocytes 1+ Acanthocytes OCC Keratocytes OCC Sodium Level 128 Potassium Level 4.9 Chloride Level 89 Carbon Dioxide Level 29.2 Anion Gap 10 Blood Urea Nitrogen 22 Creatinine 0.74 Estimat Glomerular Filtration 79 Rate Random Glucose 172 Calcium Level 10.2 Total Bilirubin 0.4 Aspartate Amino Transf 109 (AST/SGOT) Alanine Aminotransferase 114 (ALT/SGPT) Alkaline Phosphatase 122 Total Protein 7.0 Albumin 3.0 Blood Gas Puncture Site LT RADIAL Blood Gas Patient Temperature 98.6 Blood Gas HCO3 30 Blood Gas Base Excess 2.0 Blood Gas Oxygen Saturation 94 Arterial Blood pH 7.16 Arterial Blood Partial 89 Pressure CO2 Arterial Blood Partial 98 Pressure O2 Arterial Blood Oxygen Content 14.2 Arterial Blood 0.8 Carboxyhemoglobin Arterial Blood Methemoglobin 0.3 Blood Gas Hemoglobin 10.7 Oxygen Delivery Device Non-Rebreathing Mask Blood Gas Liter Flow 15 Blood Gas Inspired Oxygen 100 Result Diagram: 08/01/16 1038 08/01/16 1038 Imaging Last Impressions Chest X-Ray 07/31/16 0600 Signed Impressions: Service Date/Time: Sunday, July 31, 2016 05:05 - CONCLUSION: 1. Right hilar mass with atelectasis involving the right upper lung. 2. Lytic lesion involving the left fifth rib consisting of bony metastatic disease. Jero Miller MD Entire Spine MRI 07/31/16 0000 Signed Impressions: Service Date/Time: Sunday, July 31, 2016 09:58 - CONCLUSION: Diffuse bony metastasis throughout the dorsal spine without significant canal stenosis. Carlos Dee MD Brain MRI 07/31/16 0000 Signed Impressions: Service Date/Time: Sunday, July 31, 2016 09:58 - CONCLUSION: 1. Nonspecific white matter changes. 2. No evidence for metastatic disease to the brain parenchyma. 3. There are some bony metastatic lesions along the upper cervical spine/skull base. Carlos Dee MD Chest CT 07/30/16 0000 Signed Impressions: Service Date/Time: Saturday, July 30, 2016 05:13 - CONCLUSION: 1. There is narrowing of the right mainstem bronchus suspicious for a right hilar mass. 2. There is a masslike density in the right upper lung measuring 2.2 x 1.6 cm. 3. There is a moderate right pleural effusion with compressive atelectasis of the right lower lung. 4. There is consolidation of the right upper lung most likely from post obstructive pneumonia. 5. Patchy infiltrate in the posterior left upper lung most likely inflammatory. 6. Multiple lytic lesions are seen throughout the thoracic spine characteristic for diffuse bony metastatic disease 7. Diffusely enlarged bilateral adrenal glands most likely metastatic disease Jero Miller MD Abdomen/Pelvis CT 07/30/16 0000 Signed Impressions: Service Date/Time: Saturday, July 30, 2016 23:25 - CONCLUSION: 1. Diffuse bony metastatic disease. 2. Moderate right-sided pleural effusion. 3. Bilateral adrenal metastatic disease. 4. Simple right renal cyst. 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 Precedex to control anxiety while on BiPAP. Cardiovascular: IV hydration, watch for hypotension. Pulmonary: Patient was initiated on BiPAP with full facemask. Bronchodilators, Solu-Medrol. Being followed by Dr. Curry from pulmonary medicine. She appears to have metastatic lung CA and has been evaluated by oncology as well. May require endotracheal intubation if respiratory status worsens despite BiPAP. May require thoracentesis. GI/liver: Nothing by mouth for now. Has a history of gallbladder disease for which she was to have a cholecystectomy which is obviously on hold currently. Elevated LFTs noted. Renal/: IV hydration with NS, strict intake output, monitor and replete electrolytes, follow BUN/creatinine. Hyponatremia noted. ID: On Levaquin since 07/30. Will add Flagyl for empiric antibiotic coverage to cover for postobstructive pneumonia. Trevizo cultures ordered. Prophylaxis: PPI/SCDs. Received Lovenox 40 mg daily till 514 a.m. which was held for scheduled bronchoscopy for 5:15. If procedure not done tomorrow will restart. Prognosis appears extremely poor with metastatic disease involving spine and bilateral adrenal glands. Oncology has discussed possibility of involving palliative care. We'll discuss with patient's regarding possible need for intubation and if he desires to continue aggressive care. Condition critical Time spent on critical care excluding procedures 50 minutes Code Status full code Alexei Pa MD August 01, 2016 16:43
[2016-08-01] MEDS: SODIUM CHLOR 0.9% 1000 ML INJ 1,000 ML IV SCH (16:45)
[2016-08-01] MEDS ORDERED: DEXMEDETOMIDINE INJ 200 MCG in SODIUM CHLORIDE 0.9% INJ 50 ML IV SCH (16:45)
[2016-08-01] MEDS: DEXMEDETOMIDINE INJ 1,000 MCG in SODIUM CHLOR 0.9% 250 ML INJ 240 ML IV SCH ×2 (17:21→23:52)
[2016-08-01] MEDS: metroNIDAZOLE 500 MG INJ 100 ML IV SCH (17:29)
[2016-08-01 18:57] LABS: BLOOD, URINE LARGE (NEG); CALCIUM OXALATE CRYSTALS,URINE RARE /hpf; GLUCOSE,URINE NEG (NEG); HYALINE CAST, URINE 28 /lpf (RARE); KETONE, URINE NEG (NEG); MUCUS URINE FEW /lpf (OCC); NITRITE,URINE NEG (NEG); PH, URINE 5.5 (5.0-8.5); SQUAMOUS EPITHELIAL CELL URINE 10 /hpf (0-5); URINE COLOR YELLOW (YELLW/STRAW); WHITE BLOOD CELL CAST, URINE 4 /lpf
[2016-08-01 18:58] LABS: COMMENT (UR) CATH-CULTURE IND; CULTURE IF INDICATED CATH CULTURE IND
[2016-08-01 22:38] LABS: BLOOD GAS BASE EXCESS 4.7 mmol/L (-2-2); BLOOD GAS CARBOXYHEMOGLOBIN 1.2 % (0-4); BLOOD GAS HCO3 31 mmol/L (22-26); BLOOD GAS METHEMOGLOBIN 0.7 % (0-2); BLOOD GAS O2 HGB SATURATION 91 % (90-100); BLOOD GAS PCO2 67 mmHg (38-42); BLOOD GAS PO2 76 mmHg (61-120); BLOOD GAS TOTAL HGB 9.3 G/DL (12.0-16.0); TEMP CORR TO 98.6
[2016-08-01 22:39] LABS: CRITICAL VALUE YES; DRAW SITE RT BRACHIAL; FIO2 50 %; NUMBER OF ARTERIAL PUNCTURES 1; OXYGEN DEVICE BIPAP; STAT NO; VENT SETTINGS 12 IPAP/5 EPAP
[2016-08-01] MEDS: ATORVASTATIN 40 MG TAB PO SCH (22:39)
[2016-08-02] VITALS (18 sets, daily range): BP systolic 98–147; BP diastolic 52–67; PULSE 69–103; RESP 16–35; TEMP 96.6–99.1; O2SAT 96–100
[2016-08-02] MEDS: RESP: ALBUTEROL 2.5 MG/IPRATROPIUM 0.5 MG NEB (SCH) NEB ×13 (00:33→23:17)
[2016-08-02] MEDS: metroNIDAZOLE 500 MG INJ 100 ML IV SCH ×3 (00:45→17:43)
--- NOTE | 2016-08-02 03:45 | RADRPT ---
EXAM DATE/TIME: 08/02/2016 02:57 [place] COMPARISON: CHEST SINGLE AP, August 01, 2016, 16:08. INDICATIONS : Shortness of breath.. Right upper lobe collapse. MEDICAL HISTORY : Carcinoma, lung. Chronic obstructive pulmonary disease. Hypercholesterolemia. SURGICAL HISTORY : None. ENCOUNTER: Subsequent ACUITY: 4 - 6 days PAIN SCORE: Non-responsive. LOCATION: Bilateral chest FINDINGS: A single AP semierect view of the chest was obtained and again demonstrates consolidation in the righ t upper lobe with elevation of the right minor fissure. Opacity remains at the right lung base with b lunting of the costophrenic angle. The heart size is at the upper limits of normal. There is mild haz y opacity in the left perihilar region. Atherosclerotic changes are present in the aorta with calcifi cation. CONCLUSION: 1. No significant change. Right upper lobe volume loss and/or collapse. 2. Right pleural effusion. Carmine Hairston MD on August 02, 2016 at 3:42 Board Certified Radiologist. This report was verified electronically.
[2016-08-02 04:18] LABS: AUTOMATED NEUTROPHIL # 15.7 TH/MM3 (1.8-7.7); BASOPHIL % 0.3 % (0.0-2.0); EOSINOPHIL % 0.1 % (0.0-4.0); HEMATOCRIT 30.6 % (35.0-46.0); LYMPHOCYTE # 1.1 TH/MM3 (1.0-4.8); MEAN CELL VOLUME 74.1 FL (80.0-100.0); MEAN CORPUSCULAR HEMOGLOBIN 22.4 PG (27.0-34.0); MEAN CORPUSCULAR HGB CONC 30.2 % (32.0-36.0); MONO % 5.6 % (0.0-8.0); PLATELET COUNT 404 TH/MM3 (150-450); RED BLOOD COUNT 4.13 MIL/MM3 (4.00-5.30); RED CELL DISTRIBUTION WIDTH 17.6 % (11.6-17.2); WHITE BLOOD COUNT 17.8 TH/MM3 (4.0-11.0)
[2016-08-02 04:19] LABS: HEMO FLAGS AUTO DIFF
[2016-08-02 04:29] LABS: ALT (GPT) 147 U/L (10-53); ANION GAP 7 MEQ/L (5-15); AST (GOT) 113 U/L (15-37); BICARBONATE 30.3 MEQ/L (21.0-32.0); BLOOD UREA NITROGEN 25 MG/DL (7-18); CHLORIDE 95 MEQ/L (98-107); GLOMERULAR FILTRATION RATE 95 ML/MIN (>89); SODIUM (NA) 132 MEQ/L (136-145)
[2016-08-02 04:32] LABS: ALKALINE PHOSPHATASE 109 U/L (45-117); TOTAL BILIRUBIN ADULT 0.3 MG/DL (0.2-1.0)
[2016-08-02] MEDS: SODIUM CHLOR 0.9% 1000 ML INJ 1,000 ML IV SCH ×2 (04:53→17:24)
[2016-08-02 05:11] LABS: OVALOCYTES 1+ (NORMAL); SCAN/DIFF AUTO DIFF CONFIRMED
[2016-08-02] MEDS: LEVOFLOXACIN 500 MG PREMIX INJ 100 ML IV SCH (05:19)
[2016-08-02] MEDS: methylPREDNISolone SOD SUCC 40 MG/1 ML VIAL IV PUSH SCH ×3 (05:19→21:18)
[2016-08-02 05:44] LABS: BLOOD GAS BASE EXCESS 4.7 mmol/L (-2-2); BLOOD GAS CARBOXYHEMOGLOBIN 1.3 % (0-4); BLOOD GAS HCO3 30 mmol/L (22-26); BLOOD GAS METHEMOGLOBIN 0.9 % (0-2); BLOOD GAS O2 HGB SATURATION 95 % (90-100); BLOOD GAS OXYGEN CONTENT 12.1 Vol % (12.0-20.0); BLOOD GAS PCO2 57 mmHg (38-42); BLOOD GAS PO2 92 mmHg (61-120); CRITICAL VALUE YES; DRAW SITE RT BRACHIAL; FIO2 50 %; NUMBER OF ARTERIAL PUNCTURES 1; OXYGEN DEVICE BIPAP; TEMP CORR TO 98.6; VENT SETTINGS 12 IPAP/5 EPAP
[2016-08-02 05:45] LABS: STAT NO
[2016-08-02] MEDS: SODIUM CHLORIDE 0.9% FLUSH 10 ML FLUSH IV FLUSH SCH ×2 (09:00→21:18)
[2016-08-02] MEDS: PANTOPRAZOLE SOD 40 MG DELAYED RELEASE TAB PO SCH (09:00)
[2016-08-02] MEDS ORDERED: LIDOCAINE HCL 1% 50 ML VIAL ONE (09:22)
[2016-08-02] MEDS ORDERED: MORPHINE SULFATE 8 MG/ML INJ ONE (09:28)
--- NOTE | 2016-08-02 10:04 | PD.PROCEDR ---
Procedure Note Procedure Percutaneous Pigtail Tube Thoracostomy Procedure Note, US guided Right-sided lateral 10 Iraqi pigtail thoracostomy tube Indication: Moderate right pleural effusion Consent: Written consent was obtained Anesthesia: Morphine IVP Description of the Procedure: The patient was placed in the Left lateral decubitus position. The right lateral and posterior chest was prepped and draped sterilely, keeping landmark visible. 1% Lidocaine was infiltrated subcutaneously and into the tissues down to the periosteum of the rib. A small incision was made using a #11 blade. 18G introducer needle was advanced superior to the adjacent rib until fluid fluid was withdrawn. Through this, and J-tip guidewire was easily passed. After dilation, a 10 Iraqi Pigtail catheter was inserted superior to the adjacent rib using Seldinger Technique, without resistance. The catheter was connected to a Pleuro-vac and connected to -[id number] suction. The catheter was sutured to the skin using a 3-0 silk suture, and StayFix and an occlusive dressing was applied. Initial drainage was 550 ml slightly cloudy yellow pleural fluid. There were no immediate complications noted. There was minimal EBL. The patient tolerated the procedure well. A Chest x-ray has been ordered. I personally performed the procedure. Humberto Daniel MD August 02, 2016 10:04
--- NOTE | 2016-08-02 10:10 | HHI.CCPN ---
Subjective Remarks/Hospital Course 66-year-old female who was admitted with a history of shortness of breath, wheezing, cough going on for several days along with a history of significant weight loss and back pain as well as no chest pain. Patient was supposed to have a cholecystectomy. She was evaluated with a chest x-ray which revealed a right upper lung mass. Subsequent CT chest revealed consolidation of right upper lung compressive atelectasis of right lower lobe with moderate right effusion and narrowing of right mainstem bronchus with possible right hilar mass. Patient was admitted by hospitalist service and was evaluated by pulmonary as well as oncology. She has an elevated CEA and appears to have stage IV lung cancer with imaging studies including MRI spine revealing multiple bony metastatic cysts involving C-spine, thoracic and lumbar spine. CT chest also revealed bilateral adrenal metastases. Patient was placed on Levaquin for possible postobstructive pneumonia on the floor and was initiated on IV steroids and bronchodilators. She was on nasal cannula 2 this afternoon when she developed worsening respiratory distress and dropped her O2 sats to the 70s for which she was placed on a nonrebreather facemask following a rapid response and was subsequently transferred to the ICU. Critical care consult was requested by Dr. Anderson from the hospitalist service for acute respiratory failure. I evaluated the patient immediately on arrival to the ICU. She had just been initiated on BiPAP as ordered by me at that time as her ABG revealed acute respiratory acidosis. She appeared very anxious at the time hence Precedex GTT was ordered. History was obtained by reviewing records and discussion with nursing staff. 08/02: Patient remains on BiPAP but ABG shows improvement, remains on Precedex for sedation. Chest x-ray shows large right pleural effusion-I place a right pigtail catheter with find a medical initial output of exudative appearing fluid. Discussed with Dr. Rosales. Will wait for cytology and postpone the bronchoscopy Objective Vital Signs Date Time Temp Pulse Resp B/P Pulse Ox O2 Delivery O2 Flow Rate FiO2 08/02/16 08:00 99.1 81 24 98/54 96 08/02/16 04:14 50 08/01/16 23:00 Bi-Pap 08/01/16 08:07 4.00 Intake and Output 08/01/16 08/01/16 08/02/16 08:00 16:00 00:00 Intake Total 180 ml 569 ml Output Total 200 ml 160 ml Balance -20 ml 409 ml Result Diagram: 08/02/16 0351 08/02/16 0351 Other Results Laboratory Tests Test 08/01/16 08/01/16 08/02/16 16:00 22:25 05:32 Blood Gas Puncture Site LT RADIAL RT BRACHIAL RT BRACHIAL Blood Gas Patient Temperature 98.6 98.6 98.6 Blood Gas HCO3 30 mmol/L 31 mmol/L 30 mmol/L (22-26) (22-26) (22-26) Blood Gas Base Excess 2.0 mmol/L 4.7 mmol/L 4.7 mmol/L (-2-2) (-2-2) (-2-2) Blood Gas Oxygen Saturation 94 % (90-100) 91 % (90-100) 95 % (90-100) Arterial Blood pH 7.16 7.29 7.34 (7.380-7.420) (7.380-7.420) (7.380-7.420) Arterial Blood Partial 89 mmHg (38-42) 67 mmHg (38-42) 57 mmHg (38-42) Pressure CO2 Arterial Blood Partial 98 mmHg 76 mmHg 92 mmHg Pressure O2 (61-120) (61-120) (61-120) Arterial Blood Oxygen Content 14.2 Vol % 12.0 Vol % 12.1 Vol % (12.0-20.0) (12.0-20.0) (12.0-20.0) Arterial Blood 0.8 % (0-4) 1.2 % (0-4) 1.3 % (0-4) Carboxyhemoglobin Arterial Blood Methemoglobin 0.3 % (0-2) 0.7 % (0-2) 0.9 % (0-2) Blood Gas Hemoglobin 10.7 G/DL 9.3 G/DL 9.0 G/DL (12.0-16.0) (12.0-16.0) (12.0-16.0) Oxygen Delivery Device Non-Rebreathing BIPAP BIPAP Mask Blood Gas Liter Flow 15 L/M Blood Gas Inspired Oxygen 100 % 50 % 50 % Blood Gas Ventilator Setting 12 IPAP/5 EPAP 12 IPAP/5 EPAP Imaging Last Impressions Chest X-Ray 07/31/16 0600 Signed Impressions: Service Date/Time: Sunday, July 31, 2016 05:05 - CONCLUSION: 1. Right hilar mass with atelectasis involving the right upper lung. 2. Lytic lesion involving the left fifth rib consisting of bony metastatic disease. Jero Miller MD Entire Spine MRI 07/31/16 0000 Signed Impressions: Service Date/Time: Sunday, July 31, 2016 09:58 - CONCLUSION: Diffuse bony metastasis throughout the dorsal spine without significant canal stenosis. Carlos Dee MD Brain MRI 07/31/16 0000 Signed Impressions: Service Date/Time: Sunday, July 31, 2016 09:58 - CONCLUSION: 1. Nonspecific white matter changes. 2. No evidence for metastatic disease to the brain parenchyma. 3. There are some bony metastatic lesions along the upper cervical spine/skull base. Carlos Dee MD Chest CT 07/30/16 0000 Signed Impressions: Service Date/Time: Saturday, July 30, 2016 05:13 - CONCLUSION: 1. There is narrowing of the right mainstem bronchus suspicious for a right hilar mass. 2. There is a masslike density in the right upper lung measuring 2.2 x 1.6 cm. 3. There is a moderate right pleural effusion with compressive atelectasis of the right lower lung. 4. There is consolidation of the right upper lung most likely from post obstructive pneumonia. 5. Patchy infiltrate in the posterior left upper lung most likely inflammatory. 6. Multiple lytic lesions are seen throughout the thoracic spine characteristic for diffuse bony metastatic disease 7. Diffusely enlarged bilateral adrenal glands most likely metastatic disease Jero Miller MD Abdomen/Pelvis CT 07/30/16 0000 Signed Impressions: Service Date/Time: Saturday, July 30, 2016 23:25 - CONCLUSION: 1. Diffuse bony metastatic disease. 2. Moderate right-sided pleural effusion. 3. Bilateral adrenal metastatic disease. 4. Simple right renal cyst. Jero Miller MD Objective Remarks Elderly female, in moderate respiratory distress on BiPAP with full facemask. HEENT/Neuro: No pallor or icterus, tongue moist, SHAKEEL, awake, anxious, on BiPAP with full facemask, following commands, nonfocal grossly, moving all 4 extremities Neck: No JVD Chest/pulmonary: On BiPAP with full facemask, air entry decreased right lung field base with scattered rhonchi, bilateral wheezing Cardiovascular: S1-S2 regular no gallop or murmur GI/abdomen: Soft, nontender, bowel sounds present Extremities: Warm bilaterally, no edema Procedures none Urinary Catheter: Yes Assessment to: Continue A/P Assessment and Plan 66-year-old female with: Metastatic lung cancer with metastases to spine/bilateral adrenal glands Acute respiratory failure requiring BiPAP Acute respiratory acidosis COPD exacerbation Postobstructive pneumonia involving right lung due to right mainstem bronchus narrowing Right pleural effusion Probable sepsis Plan: Neuro: -Follow neuro status. Precedex to control anxiety while on BiPAP. Cardiovascular: -IV hydration, watch for hypotension. Pulmonary: -Continue BiPAP with full facemask. Bronchodilators, Solu-Medrol. -Being followed by Dr. Gutierrez from pulmonary medicine. -Appears to have metastatic lung CA and has been evaluated by oncology as well. -Right pigtail catheter placed with exudate appearing pleural fluid removed- approximately 550 mL -Culture cytology of the fluid studies sent -Discussed with pulmonary-await cytology prior to bronchoscopy GI/liver: -Nothing by mouth for now. Has a history of gallbladder disease for which she was to have a cholecystectomy which is obviously on hold currently. Elevated LFTs noted. Renal/: -IV hydration with NS, strict intake output, monitor and replete electrolytes, follow BUN/creatinine. ID: -On Levaquin since 07/30. Adde Flagyl 08/01 for empiric antibiotic coverage to cover for postobstructive pneumonia. Trevizo cultures ordered. Prophylaxis: -PPI/SCDs. Received Lovenox 40 mg daily till 08/01 a.m. which was held for scheduled bronchoscopy for 08/02. -Bronchoscopy is indefinitely postponed, will resume Lovenox Prognosis appears extremely poor with metastatic disease involving spine and bilateral adrenal glands. Oncology has discussed possibility of involving palliative care. We'll discuss with patient's regarding possible need for intubation and if he desires to continue aggressive care. Condition critical Time spent on critical care excluding procedures 50 minutes Humberto Daniel MD August 02, 2016 10:10
--- NOTE | 2016-08-02 10:41 | PD.CONS ---
Consult Service Palliative Care . Consult Requested By Dr. Maria . Primary Care Physician Herlinda Swanson MD . Reason for Consultation a. To assist with evaluation and management of symptoms including: pain, dyspnea, anxiety b. To assist medical decision maker(s) with: better understanding of current medical conditions; weighing benefits/burdens of medical treatment options; making medical treatment decisions. . HPI History of Present Illness Ms. Acharya is a 66 year old female who presented to [facility] ED on 2016 for evaluation of ongoing respiratory distress. Patient reported she has had 3 episodes of acute bronchitis and has been treated with 3 different antibiotic with ongoing shortness of breath and productive cough with white phlegm. An outpatient CXR revealed a right lung mass, and the patient was directed to go to the ED for further evaluation and medical management. She reported 1+ edema in bilateral lower extremities and progressively worsening shortness of breath x 4 days, stating she becomes severely short of breath after walking only a few feet. Patient also reported intermittent sharp abdominal pain and vomiting which she attributes to her known cholecystitis-has a planned cholecystectomy pending for August 22, 2016. Additional diagnostic finding while in the ED: * Vital signs: Pulse 107, respirations 22, BP 152/67, oxygen saturation 87% on room air, oral temperature 98.6 * WBC: 14.0, hemoglobin 10.3, hematocrit 32.0, platelets 364, neutrophils 79.3% * Sodium: 131, potassium 4.4, chloride 92, carbon dioxide 29.1, glucose 103, calcium 10.3 * BUN: 14, creatinine 0.73, GFR 80 * Total bilirubin: 0.4, AST 33, ALT 31, alkaline phosphatase 119 * Total creatine kinase: 126 * Troponin: <0.02 * Total protein: 7.2, albumin 3.1 * PT: 11.2, INR 1.0 * Urinalysis with occult blood, trace leukocyte Estrace, urine WBC, calcium oxalate crystals and mucus. * Urine culture pending * Blood culture pending * CT thorax/chest showed narrowing of the right mainstream bronchus suspicious for a right hilar mass; there is a masslike density in the right upper lung measuring 2.2 x 1.6 cm; there is a moderate right pleural effusion with compressive atelectasis of the right lower lung; there is consolidation of the right upper lung most likely from post obstructive pneumonia; patchy infiltrate in the posterior left upper lung most likely inflammatory; multiple lytic lesions are seen throughout the thoracic spine characteristic for diffuse bony metastatic disease; diffusely enlarged bilateral adrenal glands most likely metastatic disease. Patient's oxygen saturation was 82% on RA. She received nebulizer treatments x 3 and 125mg IV Solu-Medrol x 1 with positive effect; she was started on Levaquin. Patient was subsequently admitted for further evaluation and medical management of hypoxemia and COPD exacerbation. BNP: 45 Echocardiogram revealed normal systolic function; EF 55% to 60%; mitral valve and tricuspid valve with trace regurgitation. Dr. Rick, pulmonology, was consulted to evaluate this patient with respiratory distress and newly diagnosed lung mass. Recommendations were made for a bronchoscopy and biopsy as well as a right-sided thoracentesis, possibly Tuesday08/02/2016. Oncology, Dr. Maria, is following and ordered additional diagnostic test. Patient has marked elevation of CEA and imaging is consistent with stage IV lung cancer; based on MRI there is no evidence of spinal cord compression or brain metastases. = CT abdomen/pelvis revealed diffuse bony metastatic disease, moderate right sided pleural effusion, bilateral adrenal metastatic disease and a simple right renal cyst. = An MRI of the spine showed diffuse bony metastasis throughout the dorsal spine without significant canal stenosis. = An MRI of the brain revealed nonspecific white matter changes; no evidence of metastatic disease to the brain parenchyma; there are some bony metastatic lesions along the upper cervical spine/skull base. Dr. Maria discussed with the patient and her , initially the patient was unsure if she would undergo treatment. Palliative Care was consulted to assist with symptom management and to discuss with the patient/family the benefits and burdens of her current illnesses and the options regarding future care. After further discussion the patient and her decided to proceed with further diagnostic testing and aggressive interventions. Ms. Acharya was tolerating 2L oxygen via nasal cannula yesterday (08/01/16) when she developed increased respiratory distress with oxygen saturations dropping into the 70s. A rapid response was called and the patient was placed on a NRB before being transferred to intensive care. An ABG revealed acute respiratory acidosis, and the patient was placed on BiPAP and started on a Precedex drip secondary to her significant anxiety. Patient remains on BiPAP this morning but ABG is improving. Follow-up chest x- ray revealed large right pleural effusion. Status post right pigtail catheter placement with thoracentesis, initial output of 550 mL cloudy yellowish drainage. Cytology pending. Bronchoscopy postponed at this time. . Function/Cognitive Trajectory The patient reports she was independent and able to care for herself until recently. She denies any history of serious medical conditions, and states she was only taking medication for her elevated cholesterol. She reports an weight loss of 44 pounds in this past 6 months. The patient and her assumed the weight loss was attributed the discontinuation of her steroids, and diet changes secondary to recently diagnosed cholecystitis. She states she began having recurrent episodes of bronchitis approximately 6 weeks ago and was treated with multiple antibiotics. Last week the patient's respiratory distress progressively worsened, severely limiting the patient ability to do any activity. The patient's states that an outpatient CXR revealed a right lung mass and " now are being told she got cancer all over " . Review of Systems Constitutional: COMPLAINS OF: Weight loss (Reported weight loss of approximately 44 pounds in the past 6 months), Change in appetite (Decreased appetite that the patient attributed to her newly diagnosed cholecystitis), Pain (Pain radiating down bilateral lower extremities), Generalized weakness Endocrine: DENIES: Polyphagia Eyes: DENIES: Blurred vision, Photosensitivity, Double Vision Ears, nose, mouth, throat: DENIES: Hearing loss Respiratory: COMPLAINS OF: Cough (Productive cough with whitish phlegm), Sputum production, Shortness of breath Cardiovascular: COMPLAINS OF: Dyspnea on Exertion (Patient becomes severely short of breath after walking only a few feet), Lower Extremity Edema (1+ pitting edema on admission, since resolved), DENIES: Chest pain, Syncope Gastrointestinal: COMPLAINS OF: Abdominal pain (Intermittent sharp abdominal pain reported), Nausea, Vomiting, DENIES: Black stools, Bloody stools, Vomiting blood Musculoskeletal: COMPLAINS OF: Joint pain Hematologic/Lymphatics: COMPLAINS OF: Bruising Neurologic: DENIES: Headache, Seizures, Speech Problems, Change in smell or taste Psychiatric: COMPLAINS OF: Anxiety, Confusion (Intermittent confusion ) Past Family Social History Coded Allergies: Penicillin (Verified Allergy, Intermediate, Hives, 07/30/16) Galt (Verified Allergy, Intermediate, Hives, 07/30/16) Past Medical History History of kidney stone s/p lithotripsy Cholecystitis Bronchitis/COPD Hyperlipidemia Sciatica . Past Surgical History No previous surgical history. She has a known history of cholecystitis, following Dr. Jackson. Scheduled cholecystectomy pending for August 22, 2016. . Reported Medications Flomax (Tamsulosin HCl) 0.4 Mg Cap 0.4 Mg PO HS Zofran Odt (Ondansetron Odt) 4 Mg Tab 4 Mg SL Q6HR PRN Lipitor (Atorvastatin Calcium) 40 Mg Tab 40 Mg PO HS . Current Medications Medications (Trade) Dose Ordered Sig/Alistair Route Start Time Stop Time Status Last Admin (NS Flush) 2 ml UNSCH PRN IV FLUSH 07/30/16 03:45 08/01/16 04:43 (NS Flush) 2 ml BID IV FLUSH 07/30/16 09:00 08/01/16 21:46 (Narcan Inj) 0.4 mg UNSCH PRN IV 07/30/16 03:45 Pantoprazole Sodium 40 mg 40 mg DAILY PO 07/30/16 09:00 08/01/16 07:35 (Levaquin 500 Mg Premix Inj) 100 ml @ 100 mls/hr Q24H IV 07/30/16 05:00 08/02/16 05:19 (Lipitor) 40 mg HS PO 07/30/16 21:00 08/01/16 22:39 (Zofran Odt) 4 mg Q6HR PRN SL 07/30/16 05:30 07/30/16 21:07 (SoluMEDROL INJ) 40 mg Q8HR IV PUSH 07/31/16 22:00 08/02/16 05:19 (Percocet 5-325 Mg) 1 tab Q4H PRN PO 08/01/16 09:30 Oxycodone/ Acetaminophen 1 tab 1 tab Q4H PRN PO 08/01/16 09:30 08/01/16 22:39 Dextrose/Sodium Chloride 1,000 ml @ 0 mls/hr Q0M IV 08/01/16 14:32 Metronidazole 100 ml @ 100 mls/hr Q8H IV 08/01/16 17:00 08/02/16 08:18 Sodium Chloride 1,000 ml @ 84 mls/hr [id number] IV 08/01/16 16:45 08/02/16 04:53 (Precedex Inj/NS 250 ml Inj) 250 ml @ 0 mls/hr TITRATE IV 08/01/16 17:15 08/01/16 23:52 . Family History Patient's father's of a myocardial infarction at the age of 72 years. Her mother at the age of 85 years from complications related to Alzheimer's. Familial history is significant for diabetes and hypertension. . Substance Use Tobacco: Current smoker, [id number] history Alcohol: Occasional EtOH consumption Prescription med abuse: None known Illicits: None known . Psychosocial History Ms. Acharya is a 66-year-old female who was born in [facility]. She has 3 sisters and 4 brothers who are alive and healthy. Patient has been to Meir for approximately 38+ years. This is her second marriage. They moved to [place] approximately 7 years ago and resides with her . She has 3 adult children from her first marriage (Lalo, Mateusz and Any). 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 . Spiritual/Cultural Factors Pending conversation with patient. . Living Will: Completed, but not made available (patient's will provide copies of documentation) Health Care Surrogate: Completed, but not made available (patient's will provide copies of documentation) Documented care wishes: Patient states written advanced directives have been completed. Patient's (Meir) states he will bring in documents to be copied and scanned into the patient's EMR. . Today's verbally stated goals: Patient verbalizes aggressive goals. She states she understands that it appears the cancer is extensive, but she plans to have further diagnostic testing done and wants to pursue all aggressive interventions that are available to her. . Family/friends goals: Patient's (Meir) supports his 's decision to pursue aggressive interventions, stating he wants her to do everything she has to do to fight his cancer. . Ethical and Legal Issues Per [place] statutes, in the absence of written advanced directives healthcare proxy decision making would fall to the patient's (Ziggy Acharya). . Physical Exam Vital Signs Date Time Temp Pulse Resp B/P Pulse Ox O2 Delivery O2 Flow Rate FiO2 08/02/16 08:00 99.1 81 24 98/54 96 08/02/16 06:00 72 08/02/16 04:14 97 50 08/02/16 04:00 96.6 69 20 99/52 98 08/02/16 04:00 70 08/02/16 02:00 72 08/02/16 00:31 98 50 08/02/16 00:00 98.4 74 16 147/67 98 08/02/16 00:00 74 08/01/16 23:00 86 Bi-Pap 50 08/01/16 22:00 90 08/01/16 20:00 72 08/01/16 20:00 96.3 73 13 133/63 91 08/01/16 19:50 93 35 08/01/16 19:00 93 Bi-Pap 35 08/01/16 16:50 95 60 08/01/16 16:30 97.8 103 16 131/70 Manual Cuff/Palpation 08/01/16 15:45 97.3 101 24 143/63 77 08/01/16 12:00 97.8 92 22 150/84 91 . 08/01/16 08/02/16 19:00 07:00 Intake Total 1399 ml Output Total 10 ml 450 ml Balance -10 ml 949 ml Intake Oral 30 ml IV Total 1369 ml Output Urine Total 10 ml 450 ml # Bowel Movements 0 . Exam CONSTITUTIONAL/GENERAL: This is an adequately nourished, elderly female patient , in no apparent distress. TUBES/LINES/DRAINS: PIV 1, BiPAP, Tucker SKIN: No jaundice, rashes, or lesions. Ecchymoses on upper extremities. Skin temperature appropriate. Not diaphoretic. HEAD: Atraumatic. Normocephalic. EYES: Pupils equal and round and reactive. Extraocular motions intact. No scleral icterus. No injection or drainage. Fundi not examined. ENT: Hearing grossly normal. Nose without bleeding or purulent drainage. NECK: Trachea midline. Supple, nontender. No palpable thyroid enlargement or nodularity. CARDIOVASCULAR: Regular rate and rhythm without murmurs, gallops, or rubs. No JVD. Peripheral pulses symmetric. RESPIRATORY/CHEST: On BiPAP with full face mask. Scattered rhonchi. Right pigtail catheter, right chest wall. GASTROINTESTINAL: Abdomen soft, non-tender, nondistended. No hepato-splenomegaly , or palpable masses. No guarding. Bowel sounds present. GENITOURINARY: Without palpable bladder distension. Tucker catheter in place. MUSCULOSKELETAL: Extremities without clubbing, cyanosis, or edema. LYMPHATICS: No palpable cervical or supraclavicular adenopathy. NEUROLOGICAL: Awake, somewhat lethargic. Able to answer questions and follow commands. PSYCHIATRIC: No obvious anxiety/depression on exam. No apparent hallucinations or other psychotic thought process. . Diagnostic Tests Laboratory Laboratory Tests Test 07/30/16 07/31/16 08/01/16 08/01/16 20:10 09:13 10:38 16:00 White Blood Count 18.4 TH/MM3 26.6 TH/MM3 23.7 TH/MM3 (4.0-11.0) (4.0-11.0) (4.0-11.0) Red Blood Count 3.97 MIL/MM3 4.18 MIL/MM3 4.15 MIL/MM3 (4.00-5.30) (4.00-5.30) (4.00-5.30) Hemoglobin 9.4 GM/DL 9.5 GM/DL 9.7 GM/DL (11.6-15.3) (11.6-15.3) (11.6-15.3) Hematocrit 28.6 % 30.4 % 30.3 % (35.0-46.0) (35.0-46.0) (35.0-46.0) Mean Corpuscular Volume 72.1 FL 72.8 FL 73.0 FL (80.0-100.0) (80.0-100.0) (80.0-100.0) Mean Corpuscular Hemoglobin 23.6 PG 22.7 PG 23.3 PG (27.0-34.0) (27.0-34.0) (27.0-34.0) Mean Corpuscular Hemoglobin 32.7 % 31.1 % 31.9 % Concent (32.0-36.0) (32.0-36.0) (32.0-36.0) Red Cell Distribution Width 17.3 % 17.3 % 17.8 % (11.6-17.2) (11.6-17.2) (11.6-17.2) Platelet Count 376 TH/MM3 419 TH/MM3 491 TH/MM3 (150-450) (150-450) (150-450) Mean Platelet Volume 8.2 FL 7.9 FL 8.1 FL (7.0-11.0) (7.0-11.0) (7.0-11.0) Prothrombin Time 11.2 SEC (9.8-11.6) Prothromb Time International 1.0 RATIO Ratio Carcinoembryonic Antigen 933.0 NG/ML (0.2-5.0) Neutrophils (%) (Auto) 92.0 % 93.3 % (16.0-70.0) (16.0-70.0) Lymphocytes (%) (Auto) 3.4 % 3.4 % (9.0-44.0) (9.0-44.0) Monocytes (%) (Auto) 4.0 % (0.0-8.0) 3.2 % (0.0-8.0) Eosinophils (%) (Auto) 0.0 % (0.0-4.0) 0.0 % (0.0-4.0) Basophils (%) (Auto) 0.6 % (0.0-2.0) 0.1 % (0.0-2.0) Neutrophils # (Auto) 24.5 TH/MM3 22.1 TH/MM3 (1.8-7.7) (1.8-7.7) Lymphocytes # (Auto) 0.9 TH/MM3 0.8 TH/MM3 (1.0-4.8) (1.0-4.8) Monocytes # (Auto) 1.1 TH/MM3 0.7 TH/MM3 (0-0.9) (0-0.9) Eosinophils # (Auto) 0.0 TH/MM3 0.0 TH/MM3 (0-0.4) (0-0.4) Basophils # (Auto) 0.2 TH/MM3 0.0 TH/MM3 (0-0.2) (0-0.2) CBC Comment AUTO DIFF AUTO DIFF Differential Comment AUTO DIFF AUTO DIFF CONFIRMED CONFIRMED Platelet Estimate HIGH (NORMAL) Platelet Morphology Comment NORMAL (NORMAL) Ovalocytes 1+ (NORMAL) 1+ (NORMAL) Acanthocytes OCC (NORMAL) OCC (NORMAL) Keratocytes OCC (NORMAL) OCC (NORMAL) Sodium Level 127 MEQ/L 128 MEQ/L (136-145) (136-145) Potassium Level 4.2 MEQ/L 4.9 MEQ/L (3.5-5.1) (3.5-5.1) Chloride Level 88 MEQ/L 89 MEQ/L (98-107) (98-107) Carbon Dioxide Level 29.3 MEQ/L 29.2 MEQ/L (21.0-32.0) (21.0-32.0) Anion Gap 10 MEQ/L (5-15) 10 MEQ/L (5-15) Blood Urea Nitrogen 12 MG/DL (7-18) 22 MG/DL (7-18) Creatinine 0.55 MG/DL 0.74 MG/DL (0.50-1.00) (0.50-1.00) Estimat Glomerular Filtration 111 ML/MIN 79 ML/MIN (>89) Rate (>89) Random Glucose 98 MG/DL 172 MG/DL (74-106) (74-106) Calcium Level 9.9 MG/DL 10.2 MG/DL (8.5-10.1) (8.5-10.1) Total Bilirubin 0.4 MG/DL (0.2-1.0) Aspartate Amino Transf 109 U/L (15-37) (AST/SGOT) Alanine Aminotransferase 114 U/L (10-53) (ALT/SGPT) Alkaline Phosphatase 122 U/L (45-117) Total Protein 7.0 GM/DL (6.4-8.2) Albumin 3.0 GM/DL (3.4-5.0) Blood Gas Puncture Site LT RADIAL Blood Gas Patient Temperature 98.6 Blood Gas HCO3 30 mmol/L (22-26) Blood Gas Base Excess 2.0 mmol/L (-2-2) Blood Gas Oxygen Saturation 94 % (90-100) Arterial Blood pH 7.16 (7.380-7.420) Arterial Blood Partial 89 mmHg (38-42) Pressure CO2 Arterial Blood Partial 98 mmHg Pressure O2 (61-120) Arterial Blood Oxygen Content 14.2 Vol % (12.0-20.0) Arterial Blood 0.8 % (0-4) Carboxyhemoglobin Arterial Blood Methemoglobin 0.3 % (0-2) Blood Gas Hemoglobin 10.7 G/DL (12.0-16.0) Oxygen Delivery Device Non-Rebreathing Mask Blood Gas Liter Flow 15 L/M Blood Gas Inspired Oxygen 100 % Test 08/01/16 08/01/16 08/01/16 5/15/17 18:30 19:57 22:25 03:51 Urine Color YELLOW (YELLW/STRAW) Urine Turbidity HAZY (CLEAR) Urine pH 5.5 (5.0-8.5) Urine Specific [place] 1.019 (1.002-1.035) Urine Protein 30 mg/dL (NEG-TRACE) Urine Glucose (UA) NEG mg/dL (NEG) Urine Ketones NEG mg/dL (NEG) Urine Occult Blood LARGE (NEG) Urine Nitrite NEG (NEG) Urine Bilirubin NEG (NEG) Urine Urobilinogen LESS THAN 2.0 MG/DL (LESS THAN 2.0) Urine Leukocyte Esterase TRACE (NEG) Urine RBC /hpf (0-3) Urine WBC 18 /hpf (0-5) Urine Squamous Epithelial 10 /hpf (0-5) Cells Urine Calcium Oxalate Crystals RARE /hpf (NONE) Urine Hyaline Casts 28 /lpf (RARE) Urine White Blood Cell Casts 4 /lpf (NONE) Urine Mucus FEW /lpf (OCC) Microscopic Urinalysis Comment CATH-CULTURE IND Troponin I 0.06 NG/ML (0.02-0.05) Blood Gas Puncture Site RT BRACHIAL Blood Gas Patient Temperature 98.6 Blood Gas HCO3 31 mmol/L (22-26) Blood Gas Base Excess 4.7 mmol/L (-2-2) Blood Gas Oxygen Saturation 91 % (90-100) Arterial Blood pH 7.29 (7.380-7.420) Arterial Blood Partial 67 mmHg (38-42) Pressure CO2 Arterial Blood Partial 76 mmHg Pressure O2 (61-120) Arterial Blood Oxygen Content 12.0 Vol % (12.0-20.0) Arterial Blood 1.2 % (0-4) Carboxyhemoglobin Arterial Blood Methemoglobin 0.7 % (0-2) Blood Gas Hemoglobin 9.3 G/DL (12.0-16.0) Oxygen Delivery Device BIPAP Blood Gas Ventilator Setting 12 IPAP/5 EPAP Blood Gas Inspired Oxygen 50 % White Blood Count 17.8 TH/MM3 (4.0-11.0) Red Blood Count 4.13 MIL/MM3 (4.00-5.30) Hemoglobin 9.2 GM/DL (11.6-15.3) Hematocrit 30.6 % (35.0-46.0) Mean Corpuscular Volume 74.1 FL (80.0-100.0) Mean Corpuscular Hemoglobin 22.4 PG (27.0-34.0) Mean Corpuscular Hemoglobin 30.2 % Concent (32.0-36.0) Red Cell Distribution Width 17.6 % (11.6-17.2) Platelet Count 404 TH/MM3 (150-450) Mean Platelet Volume 7.6 FL (7.0-11.0) Neutrophils (%) (Auto) 88.0 % (16.0-70.0) Lymphocytes (%) (Auto) 6.0 % (9.0-44.0) Monocytes (%) (Auto) 5.6 % (0.0-8.0) Eosinophils (%) (Auto) 0.1 % (0.0-4.0) Basophils (%) (Auto) 0.3 % (0.0-2.0) Neutrophils # (Auto) 15.7 TH/MM3 (1.8-7.7) Lymphocytes # (Auto) 1.1 TH/MM3 (1.0-4.8) Monocytes # (Auto) 1.0 TH/MM3 (0-0.9) Eosinophils # (Auto) 0.0 TH/MM3 (0-0.4) Basophils # (Auto) 0.0 TH/MM3 (0-0.2) CBC Comment AUTO DIFF Differential Comment AUTO DIFF CONFIRMED Ovalocytes 1+ (NORMAL) Sodium Level 132 MEQ/L (136-145) Potassium Level 5.0 MEQ/L (3.5-5.1) Chloride Level 95 MEQ/L (98-107) Carbon Dioxide Level 30.3 MEQ/L (21.0-32.0) Anion Gap 7 MEQ/L (5-15) Blood Urea Nitrogen 25 MG/DL (7-18) Creatinine 0.63 MG/DL (0.50-1.00) Estimat Glomerular Filtration 95 ML/MIN (>89) Rate Random Glucose 120 MG/DL (74-106) Calcium Level 9.8 MG/DL (8.5-10.1) Total Bilirubin 0.3 MG/DL (0.2-1.0) Aspartate Amino Transf 113 U/L (15-37) (AST/SGOT) Alanine Aminotransferase 147 U/L (10-53) (ALT/SGPT) Alkaline Phosphatase 109 U/L (45-117) Total Protein 6.4 GM/DL (6.4-8.2) Albumin 2.8 GM/DL (3.4-5.0) Test 08/02/16 05:32 Blood Gas Puncture Site RT BRACHIAL Blood Gas Patient Temperature 98.6 Blood Gas HCO3 30 mmol/L (22-26) Blood Gas Base Excess 4.7 mmol/L (-2-2) Blood Gas Oxygen Saturation 95 % (90-100) Arterial Blood pH 7.34 (7.380-7.420) Arterial Blood Partial 57 mmHg (38-42) Pressure CO2 Arterial Blood Partial 92 mmHg Pressure O2 (61-120) Arterial Blood Oxygen Content 12.1 Vol % (12.0-20.0) Arterial Blood 1.3 % (0-4) Carboxyhemoglobin Arterial Blood Methemoglobin 0.9 % (0-2) Blood Gas Hemoglobin 9.0 G/DL (12.0-16.0) Oxygen Delivery Device BIPAP Blood Gas Ventilator Setting 12 IPAP/5 EPAP Blood Gas Inspired Oxygen 50 % . Result Diagram: 08/02/16 0351 08/02/16 0351 Microbiology Microbiology Date/Time Procedure Status Source Growth 08/01/16 18:30 Urine Culture Received Urine Catheterized Urine Pending 08/01/16 19:40 Aerobic Blood Culture Received Blood Peripheral Pending 08/01/16 19:40 Anaerobic Blood Culture Received Blood Peripheral Pending 08/01/16 19:50 Aerobic Blood Culture Received Blood Peripheral Pending 08/01/16 19:50 Anaerobic Blood Culture Received Blood Peripheral Pending . Imaging Last 72 hours Impressions Chest X-Ray 08/02/16 0600 Signed Impressions: Service Date/Time: Tuesday, August 02, 2016 02:57 - CONCLUSION: 1. No significant change. Right upper lobe volume loss and/or collapse. 2. Right pleural effusion. Carmine Hairston MD Chest X-Ray 08/01/16 0000 Signed Impressions: Service Date/Time: Monday, August 01, 2016 16:08 - CONCLUSION: Minimal increase in the consolidative changes right upper lobe. Yvon Alan MD FACR Chest X-Ray 07/31/16 0600 Signed Impressions: Service Date/Time: Sunday, July 31, 2016 05:05 - CONCLUSION: 1. Right hilar mass with atelectasis involving the right upper lung. 2. Lytic lesion involving the left fifth rib consisting of bony metastatic disease. Jero Miller MD Entire Spine MRI 07/31/16 0000 Signed Impressions: Service Date/Time: Sunday, July 31, 2016 09:58 - CONCLUSION: Diffuse bony metastasis throughout the dorsal spine without significant canal stenosis. Carlos Dee MD Brain MRI 07/31/16 0000 Signed Impressions: Service Date/Time: Sunday, July 31, 2016 09:58 - CONCLUSION: 1. Nonspecific white matter changes. 2. No evidence for metastatic disease to the brain parenchyma. 3. There are some bony metastatic lesions along the upper cervical spine/skull base. Carlos Dee MD . Procedures 08/02/2016: Percutaneous pigtail tube thoracostomy . Patient/Family Conference Present at Family Conference: Spoke with patient and her at bedside. Offered to telephone patient's 3 adult children to provide a clinical update, but the patient stated she would prefer that I not contact her children at this time. . Family Conference Location: Bedside Issues Discussed: * Palliative care role, purpose, approach * Additional medical, psychosocial, and spiritual history * Patients general health, functional status, and cognitive changes in the months leading up to the current hospitalization * Patient/family understanding of the current medical problems * Patient/family understanding of prognosis * Patients goals of care as best understood from advance directives and/or conversations and/or values * Current medical treatment options and benefits/burdens of those options * Likely scenarios comparing ongoing aggressive care with a transition to comfort measures only * Questions answered to the best of my ability * Palliative care contact information provided . Assessment and Plan Disease Oriented Problem List: (1) Hypoxemia (2) COPD exacerbation (3) Acute respiratory failure (4) Acute respiratory acidosis (5) Cholecystitis (6) Pleural effusion (7) Metastatic primary lung cancer (8) Postobstructive pneumonia (9) Probable sepsis (10) Lung cancer metastatic to bone Symptom Scale: (1) Pain 0-10 Scale: 3 Comment: Patient reporting aching pain, rated 3 out of 10 status post chest tube placement-nurse aware. Orders for Percocet PO (5325mg for pain level of 1-5 or 10/325mg for pain level of 610) q4 hours PRN; Patient has received 2 doses (10-325mg) in the past 24 hours. . (2) Dyspnea Comment: On BiPAP Status post right pigtail chest tube secondary to pleural effusion; initial drainage was 550 mL slightly cloudy yellowish pleural fluid. Cytology pending. Follow-up chest x-ray shows small bore tube at the right lung base with interval removal of patient's large pleural effusion; continue dense consolidation versus mass of the right upper lobe. (3) Anxiety Comment: On Precedex drip Pertinent Non-Medical Issues Psychosocial: Ms. Acharya is a 66-year-old female who was born in [facility]. She has 3 sisters and 4 brothers who are alive and healthy. Patient has been to [place] for approximately 38+ years. This is her second marriage. They moved to [place] approximately 7 years ago and resides with her . She has 3 adult children from her first marriage (Lalo, Mateusz and Any). 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 Spiritual: Pending conversation with patient. Legal: Patient states she has completed advance directives; requested that her bring copies to the hospital to be scanned into patient's EMR. Ethical issues impacting care: No known ethical issues impacting care at this time . Important Contacts Ziggy Acharya, spouse: [phone] or [phone] Norma Parra, sister: [phone] . Prognosis Patient is a 66-year-old female who reports recurrent bronchitis, productive cough and new onset dyspnea with minimal exertion. Symptoms began approximately 6 weeks ago, and the patient has been treated with 3 courses of antibiotics. An outpatient chest x-ray revealed a right upper lung mass. Subsequent CT chest revealed consolidation of the right upper lung, crit compressive atelectasis of the right lower lobe with moderate right effusion and narrowing of the right mainstem bronchus with possible right hilar mass. CEA is elevated, patient appears to have stage IV lung cancer with imaging showing multiple bony metastatic cyst involving C-spine, thoracic and lumbar spine. Imaging also shows bilateral adrenal metastasis. Overall prognosis is poor. . Code Status: Full Code Plan * FULL CODE * Decision-making: Patient states she has completed written advanced directives , and her is designated as the health care surrogate. He is amenable to bringing in documentation to be copied and scanned into the patient's EMR. Per [place] statutes, in the absence of written advanced directives healthcare proxy decision making would fall to the patient's (Ziggy Acharya). * Goals: Patient verbalizes aggressive goals. She states she understands that it appears the cancer is extensive, but she plans to have further diagnostic testing done and wants to pursue all aggressive interventions that are available to her. Her supports this decision. * Symptom managementdyspnea: On BiPAP. Status post right pigtail chest tube secondary to pleural effusion; initial drainage was 550 mL slightly cloudy yellowish pleural fluid. Cytology pending. Follow-up chest x-ray shows small bore tube at the right lung base with interval removal of patient's large pleural effusion; continue dense consolidation versus mass of the right upper lobe. * Symptom managementpain: Patient reporting aching pain, rated 3 out of 10 status post chest tube placement-nurse aware. Patient also reports a history of radiating pain down bilateral lower extremities which decreased with Percocet. Orders for Percocet PO (5325mg for pain level of 1-5 or 10/325mg for pain level of 610) q4 hours PRN; Patient has received 2 doses (10-325mg) in the past 24 hours. Also on Precedex drip. Discussed PRN versus scheduled medication ; discussed short acting versus long-acting medications. Patient states she feels her pain is currently well controlled. No recommendations at this time. * Symptom managementanxiety: Anxiety is likely secondary to respiratory distress, appears well managed on exam. Patient denies anxiety at this time. Remains on Precedex drip. * Palliative care contact information provided to patient and her . * Palliative care will continue to follow this patient throughout her hospitalization to establish trust, assist with symptom management and clarification of medical treatment goals. Thank you for the opportunity to participate in the care of Ms. Acharya. . Attestation To help prompt me to consider important information that might be impacting today's encounter and assessment, information from prior notes written by myself or my colleagues may have been "brought forward" into today's note. My signature on this note, however, is an attestation that I personally performed the exam, history, and/or decision-making noted today, and, unless otherwise indicated, the interactions with patient, family, and staff as well as the review of records all occurred today. I also attest that the listed assessment and stated plan reflect my best clinical judgment today based on the combination of historical information, prior notes, and today's exam/ interactions. When time spent is documented, it refers only to time spent today by the signer, or if indicated, combined time spent today by collaborating physician/nurse practitioner. . Karli Baez August 02, 2016 10:17
--- NOTE | 2016-08-02 10:48 | RADRPT ---
EXAM DATE/TIME: 08/02/2016 10:22 [facility] COMPARISON: CHEST SINGLE AP, August 01, 2016, 16:08. CT THORAX W/O CONTRAST, July 30, 2016, 5:13. CHEST SINGLE AP, August 02, 2016, 2:57. INDICATIONS : Status post chest tube removal. MEDICAL HISTORY : Chronic obstructive pulmonary disease. SURGICAL HISTORY : None. ENCOUNTER: Subsequent ACUITY: 4 - 6 days PAIN SCORE: 0/10 LOCATION: chest FINDINGS: The exam demonstrates a small bore tube which overlies the right lung base. The large effusion which was seen previously is not identified. There still is either consolidation of the right upper lobe. T he left lung is clear. The bony structures are intact. The CONCLUSION: 1. Small bore tube at the right lung base with interval removal of the patient's large right effusion . 2. Continued dense consolidation versus mass of the right upper lobe. Gamaliel Alan MD on August 02, 2016 at 10:44 Board Certified Radiologist. This report was verified electronically.
[2016-08-02 11:36] LABS: TOTAL PROTEIN,PLEURAL FLUID 3.6 GM/DL
[2016-08-02] MEDS: oxyCODONE/ACETAMINOPHEN 10 MG/325 MG TAB PO PRN (11:51)
[2016-08-02 12:11] LABS: PLEURAL FLUID LYMPHS 13 %
--- NOTE | 2016-08-02 15:21 | EKG ---
Date Performed: 08/01/2016 Time Performed: 18:21:50 PTAGE: 66 years EKG: Possible ectopic atrial rhythm. Possible inferior infarct - age undetermined Low QRS voltag es in precordial leads Significant baseline artifact present Abnormal ECG PREVIOUS TRACING : 07/30/2016 01.52.37 Likely no signficant change from prior EKG. DOCTOR: Meng Goode Interpretating Date/Time 08/02/2016 15:19:48
[2016-08-02] MEDS: ATORVASTATIN 40 MG TAB PO SCH (21:18)
[2016-08-03] VITALS (13 sets, daily range): BP systolic 112–134; BP diastolic 55–79; PULSE 92–101; RESP 20–23; TEMP 98–99.1; O2SAT 91–99
[2016-08-03] MEDS: metroNIDAZOLE 500 MG INJ 100 ML IV SCH ×3 (00:29→16:59)
[2016-08-03] MEDS: RESP: ALBUTEROL 2.5 MG/IPRATROPIUM 0.5 MG NEB (SCH) NEB ×6 (03:22→22:50)
[2016-08-03] MEDS: SODIUM CHLOR 0.9% 1000 ML INJ 1,000 ML IV SCH (04:30)
[2016-08-03] MEDS: methylPREDNISolone SOD SUCC 40 MG/1 ML VIAL IV PUSH SCH ×3 (05:02→22:57)
[2016-08-03] MEDS: LEVOFLOXACIN 500 MG PREMIX INJ 100 ML IV SCH (05:02)
[2016-08-03] MEDS: SODIUM CHLORIDE 0.9% FLUSH 10 ML FLUSH IV FLUSH SCH ×2 (08:56→19:20)
[2016-08-03] MEDS: PANTOPRAZOLE SOD 40 MG DELAYED RELEASE TAB PO SCH (08:56)
[2016-08-03] MEDS: oxyCODONE/ACETAMINOPHEN 10 MG/325 MG TAB PO PRN ×4 (09:34→23:30)
--- NOTE | 2016-08-03 10:19 | HHI.CCPN ---
Subjective Remarks/Hospital Course 66-year-old female who was admitted with a history of shortness of breath, wheezing, cough going on for several days along with a history of significant weight loss and back pain as well as no chest pain. Patient was supposed to have a cholecystectomy. She was evaluated with a chest x-ray which revealed a right upper lung mass. Subsequent CT chest revealed consolidation of right upper lung compressive atelectasis of right lower lobe with moderate right effusion and narrowing of right mainstem bronchus with possible right hilar mass. Patient was admitted by hospitalist service and was evaluated by pulmonary as well as oncology. She has an elevated CEA and appears to have stage IV lung cancer with imaging studies including MRI spine revealing multiple bony metastatic cysts involving C-spine, thoracic and lumbar spine. CT chest also revealed bilateral adrenal metastases. Patient was placed on Levaquin for possible postobstructive pneumonia on the floor and was initiated on IV steroids and bronchodilators. She was on nasal cannula 2 this afternoon when she developed worsening respiratory distress and dropped her O2 sats to the 70s for which she was placed on a nonrebreather face mask following a rapid response and was subsequently transferred to the ICU. Critical care consult was requested by Dr. Anderson from the hospitalist service for acute respiratory failure. I evaluated the patient immediately on arrival to the ICU. She had just been initiated on BiPAP as ordered by me at that time as her ABG revealed acute respiratory acidosis. She appeared very anxious at the time hence Precedex GTT was ordered. History was obtained by reviewing records and discussion with nursing staff. 08/02: Patient remains on BiPAP but ABG shows improvement, remains on Precedex for sedation. Chest x-ray shows large right pleural effusion-I place a right pigtail catheter with find a medical initial output of exudative appearing fluid. Discussed with Dr. Rosales. Will wait for cytology and postpone the bronchoscopy 08/03: Respiratory status improved after draining right pleural effusion. Probably malignant effusion cytology pending. Continues to have bilateral wheezing. Probable bronch today by Dr. Gutierrez Objective Vital Signs Date Time Temp Pulse Resp B/P Pulse Ox O2 Delivery O2 Flow Rate FiO2 08/03/16 08:30 98 Venturi Mask 6.00 40 08/03/16 08:00 99.1 93 23 112/55 Intake and Output 08/02/16 08/02/16 08/03/16 08:00 16:00 00:00 Intake Total 830 ml 800 ml 545 ml Output Total 300 ml 535 ml 325 ml Balance 530 ml 265 ml 220 ml Result Diagram: 08/02/16 0351 08/02/16 0351 Other Results Microbiology Date/Time Procedure Status Source Growth 08/01/16 18:30 Urine Culture - Final Complete Urine Catheterized Urine NO GROWTH IN 48 HOURS. Imaging Last Impressions Chest X-Ray 07/31/16 0600 Signed Impressions: Service Date/Time: Sunday, July 31, 2016 05:05 - CONCLUSION: 1. Right hilar mass with atelectasis involving the right upper lung. 2. Lytic lesion involving the left fifth rib consisting of bony metastatic disease. Jero Miller MD Entire Spine MRI 07/31/16 0000 Signed Impressions: Service Date/Time: Sunday, July 31, 2016 09:58 - CONCLUSION: Diffuse bony metastasis throughout the dorsal spine without significant canal stenosis. Carlos Dee MD Brain MRI 07/31/16 0000 Signed Impressions: Service Date/Time: Sunday, July 31, 2016 09:58 - CONCLUSION: 1. Nonspecific white matter changes. 2. No evidence for metastatic disease to the brain parenchyma. 3. There are some bony metastatic lesions along the upper cervical spine/skull base. Carlos Dee MD Chest CT 07/30/16 0000 Signed Impressions: Service Date/Time: Saturday, July 30, 2016 05:13 - CONCLUSION: 1. There is narrowing of the right mainstem bronchus suspicious for a right hilar mass. 2. There is a masslike density in the right upper lung measuring 2.2 x 1.6 cm. 3. There is a moderate right pleural effusion with compressive atelectasis of the right lower lung. 4. There is consolidation of the right upper lung most likely from post obstructive pneumonia. 5. Patchy infiltrate in the posterior left upper lung most likely inflammatory. 6. Multiple lytic lesions are seen throughout the thoracic spine characteristic for diffuse bony metastatic disease 7. Diffusely enlarged bilateral adrenal glands most likely metastatic disease Jero Miller MD Abdomen/Pelvis CT 07/30/16 0000 Signed Impressions: Service Date/Time: Saturday, July 30, 2016 23:25 - CONCLUSION: 1. Diffuse bony metastatic disease. 2. Moderate right-sided pleural effusion. 3. Bilateral adrenal metastatic disease. 4. Simple right renal cyst. Jero Miller MD Objective Remarks P/E Elderly female, in mild respiratory distress on FM HEENT/Neuro: No pallor or icterus, tongue moist, SHAKEEL, awake, following commands, nonfocal grossly, moving all 4 extremities Neck: No JVD Chest/pulmonary: Bilateral scattered rhonchi, bilateral wheezing Cardiovascular: S1-S2 regular no gallop or murmur GI/abdomen: Soft, nontender, bowel sounds present Extremities: Warm bilaterally, no edema Procedures none A/P Assessment and Plan 66-year-old female with: Probable Metastatic lung cancer with metastases to spine/bilateral adrenal glands Acute respiratory failure requiring BiPAP Acute respiratory acidosis COPD exacerbation Postobstructive pneumonia involving right lung due to right mainstem bronchus narrowing Right pleural effusion Probable sepsis Plan: Neuro: -Follow neuro status. Minimize sedation Cardiovascular: -IV hydration, watch for hypotension. Pulmonary: -Continue BiPAP with full facemask. Bronchodilators, Solu-Medrol. -Being followed by Dr. Gutierrez from pulmonary medicine. Plan for bronchoscopy probably tomorrow -Appears to have metastatic lung CA and has been evaluated by oncology as well. -Right pigtail catheter placed with exudate appearing pleural fluid removed- approximately 1260 mL output in 24 hours -Culture, cytology of the fluid pending GI/liver: -History of gallbladder disease for which she was to have a cholecystectomy which is obviously on hold currently. -Elevated LFTs noted. -Nothing by mouth for bronchoscopy Renal/: -Strict intake output, monitor and replete electrolytes, follow BUN/creatinine. ID: -On Levaquin since 07/30. Added Flagyl 08/01 for empiric antibiotic coverage to cover for postobstructive pneumonia. Prophylaxis: -PPI/SCDs. Received Lovenox 40 mg daily till 08/01 a.m. which was held for scheduled bronchoscopy for 08/02. -Bronchoscopy is indefinitely postponed, will resume Lovenox Prognosis appears extremely poor with metastatic disease involving spine and bilateral adrenal glands. Oncology has discussed possibility of involving palliative care. Condition critical Level 3 Humberto Daniel MD August 03, 2016 10:19
[2016-08-03] MEDS: oxyCODONE/ACETAMINOPHEN 5 MG/325 MG TAB PO PRN (12:33)
[2016-08-03] MEDS ORDERED: DEXT 5%-NACL 0.45% 1000 ML INJ 1,000 ML IV SCH (12:44)
[2016-08-03] MEDS ORDERED: RESP: ALBUTEROL CONC 2.5 MG/0.5 ML NEB NEB SCH (12:45)
--- NOTE | 2016-08-03 12:47 | HHI.PR ---
Subjective Remarks C/O SOB . Chest tube drained >1000 CC. Trouble swallowing. Will go for Bronchoscopy in am Objective Vital Signs Date Time Temp Pulse Resp B/P Pulse Ox O2 Delivery O2 Flow Rate FiO2 08/03/16 10:34 18 08/03/16 08:30 98 Venturi Mask 6.00 40 08/03/16 08:00 99.1 93 23 112/55 96 08/03/16 08:00 93 08/03/16 08:00 96 Venturi Mask 6.00 40 08/03/16 06:00 99 08/03/16 05:15 97 Venturi Mask 10.00 40 08/03/16 04:00 92 08/03/16 04:00 98.8 92 20 123/65 98 08/03/16 02:00 97 08/03/16 01:30 99 50 08/03/16 00:00 101 08/03/16 00:00 98.6 101 22 131/56 98 08/02/16 23:30 Bi-Pap 08/02/16 23:25 97 50 08/02/16 22:00 103 08/02/16 21:00 95 Partial Non-Rebreather 11.00 50 08/02/16 20:49 97 Partial Rebreather 10.00 08/02/16 20:00 98.4 100 21 123/59 98 08/02/16 20:00 100 08/02/16 19:00 100 Non-Rebreather 11.00 100 08/02/16 18:00 88 08/02/16 17:17 99 Non-Rebreather 15.00 08/02/16 16:00 97.2 86 35 123/55 97 08/02/16 16:00 86 08/02/16 14:00 74 I/O 08/02/16 08/02/16 08/02/16 08/03/16 08/03/16 08/03/16 07:00 15:00 23:00 07:00 15:00 23:00 Intake Total 830 ml 800 ml 545 ml 754 ml Output Total 300 ml 535 ml 325 ml 1560 ml Balance 530 ml 265 ml 220 ml -806 ml Intake Oral 30 ml 0 ml 120 ml IV Total 800 ml 800 ml 425 ml 754 ml Output Urine Total 300 ml 535 ml 325 ml 300 ml Chest Tube Drainage Total 1260 ml # Bowel Movements 0 0 0 0 Result Diagram: 08/02/16 0351 08/02/16 035 Procedures No procedures performed. Objective Remarks GENERAL: This is a moderately obese white female who is alert and in no acute distress. HEAD, EYES, EARS, NOSE, THROAT: Head normocephalic. The pupils are reactive and equal. Tongue is moist. Throat was clear. NECK: The neck is supple. No bruits. No thyroid enlargement. No lymphadenopathy. CHEST: Decreased excursions. Breath sounds are diminished at the bases, more so on the right side. There is occasional crackles at bases HEART: Heart sounds are regular. S1 and S2. No murmur. No S3. ABDOMEN: Abdomen is obese and protuberant without masses. No organomegaly or tenderness. The bowel sounds are active. EXTREMITIES: 1 + edema. No calf tenderness. NEUROLOGIC: Reflexes are 1+. No gross motor deficits. Cranial nerves are grossly intact. SKIN: No lesions are noted. Assessment and Plan Assessment and Plan IMPRESSION: 1. Right hilar mass with obstructive pneumonitis. 2. Possible metastatic malignancy. 3. COPD with emphysema. 4. Nicotine dependency. 5. Right pleural effusion. Plan : 1. Cont Antibiotics. 2. Nebs qid , duoneb. 3. O2 at 4 L. 4. Solumedrol 40 mg IV q12h 5. Coag Profile.CBC 6. Bronchoscopy in am. Jigar Gutierrez MD August 03, 2016 12:47
--- NOTE | 2016-08-03 16:51 | PD.ONC.PN ---
Subjective Subjective Remarks Afebrile overnight. Pt resting in bed with at bedside. Discussed with her when pathology results would be expected to be back. Objective Data Date Time Temp Pulse Resp B/P Pulse Ox O2 Delivery O2 Flow Rate FiO2 08/03/16 16:00 95 08/03/16 16:00 98.8 95 22 134/79 95 08/03/16 12:00 101 08/03/16 12:00 98.0 101 20 128/59 94 08/03/16 10:34 18 08/03/16 08:30 98 Venturi Mask 6.00 40 08/03/16 08:00 99.1 93 23 112/55 96 08/03/16 08:00 93 08/03/16 08:00 96 Venturi Mask 6.00 40 08/03/16 06:00 99 08/03/16 05:15 97 Venturi Mask 10.00 40 08/03/16 04:00 92 08/03/16 04:00 98.8 92 20 123/65 98 08/03/16 02:00 97 08/03/16 01:30 99 50 08/03/16 00:00 101 08/03/16 00:00 98.6 101 22 131/56 98 08/02/16 23:30 Bi-Pap 08/02/16 23:25 97 50 08/02/16 22:00 103 08/02/16 21:00 95 Partial Non-Rebreather 11.00 50 08/02/16 20:49 97 Partial Rebreather 10.00 08/02/16 20:00 98.4 100 21 123/59 98 08/02/16 20:00 100 08/02/16 19:00 100 Non-Rebreather 11.00 100 08/02/16 18:00 88 08/02/16 17:17 99 Non-Rebreather 15.00 08/03/16 08/03/16 08/03/16 07:00 15:00 23:00 Intake Total 754 ml 1015 ml Output Total 1560 ml 525 ml Balance -806 ml 490 ml Result Diagram: 08/02/16 0351 08/02/16 0351 Laboratory Results Laboratory Tests Test 08/03/16 10:46 Lactate Dehydrogenase 540 U/L Culture Results Microbiology Date/Time Procedure Status Source Growth 08/01/16 18:30 Urine Culture - Final Complete Urine Catheterized Urine NO GROWTH IN 48 HOURS. 08/01/16 19:40 Aerobic Blood Culture - Preliminary Resulted Blood Peripheral NO GROWTH IN 2 DAYS 08/01/16 19:40 Anaerobic Blood Culture - Preliminary Resulted Blood Peripheral NO GROWTH IN 2 DAYS 08/01/16 19:50 Aerobic Blood Culture - Preliminary Resulted Blood Peripheral NO GROWTH IN 2 DAYS 08/01/16 19:50 Anaerobic Blood Culture - Preliminary Resulted Blood Peripheral NO GROWTH IN 2 DAYS 08/02/16 10:00 Gram Stain - Final Resulted Fluid Pleural Fluid 08/02/16 10:00 Body Fluid Culture - Preliminary Resulted Fluid Pleural Fluid NO GROWTH IN 24 HOURS. 08/02/16 10:00 Acid Fast Stain - Final Resulted Fluid Pleural Fluid NO ACID FAST BACILLI SEEN 08/02/16 10:00 Mycobacterial Culture Resulted Fluid Pleural Fluid Pending 08/02/16 10:00 Fungal Smear - Final Resulted Fluid Pleural Fluid NO FUNGAL ELEMENTS SEEN. 08/02/16 10:00 Fungal Culture Resulted Fluid Pleural Fluid Pending Administered Medications Medications (Trade) Dose Ordered Sig/Alistair Route PRN Reason Start Time Stop Time Status Last Admin Dose Admin Sodium Chloride (NS Flush) 2 ml UNSCH PRN IV FLUSH FLUSH AFTER USING IV ACCESS 07/30/16 03:45 08/01/16 04:43 Sodium Chloride (NS Flush) 2 ml BID IV FLUSH 07/30/16 09:00 08/03/16 08:56 Pantoprazole Sodium 40 mg 40 mg DAILY PO 07/30/16 09:00 08/03/16 08:56 Levofloxacin/ Dextrose (Levaquin 500 Mg Premix Inj) 100 ml @ 100 mls/hr Q24H IV 07/30/16 05:00 08/03/16 05:02 Atorvastatin Calcium (Lipitor) 40 mg HS PO 07/30/16 21:00 08/02/16 21:18 Ondansetron HCl (Zofran Odt) 4 mg Q6HR PRN SL Nausea/Vomiting 07/30/16 05:30 07/30/16 21:07 Methylprednisolone Sodium Succinate (SoluMEDROL INJ) 40 mg Q8HR IV PUSH 07/31/16 22:00 08/03/16 15:21 Oxycodone/ Acetaminophen (Percocet 5-325 Mg) 1 tab Q4H PRN PO pain1-5 08/01/16 09:30 08/03/16 12:33 Oxycodone/ Acetaminophen 1 tab 1 tab Q4H PRN PO pain6-10 08/01/16 09:30 08/03/16 15:22 Metronidazole (Flagyl 500 Mg Inj) 100 ml @ 100 mls/hr Q8H IV 08/01/16 17:00 08/03/16 08:57 Objective Remarks GENERAL: Middle aged female, sitting up in chair in no distress SKIN: Warm and dry. HEAD: Normocephalic. EYES: No scleral icterus. No injection or drainage. NECK: Supple, trachea midline. CARDIOVASCULAR: Regular rate and rhythm RESPIRATORY: Ccattered rhonchi GASTROINTESTINAL: Abdomen soft, non-tender, nondistended. EXTREMITIES: No cyanosis, or edema. MUSCULOSKELETAL: Adequate muscle tone. NEUROLOGICAL: No obvious focal deficit. Awake, alert, and oriented x3. Assessment/Plan Assessment 66y/o female with suspected stage IV lung cancer. Plan Discussed with pathology. The cytology is a send out, so we will have to await final result, possibly tomorrow afternoon. She is scheduled for bronchoscopy tomorrow. Palliative care was in to see pt today. She would like to explore her options. Attending Statement The exam, history, and the medical decision-making described in the above note were completed with the assistance of the mid-level provider. I reviewed and agree with the findings presented. I attest that I had a [id number] encounter with the patient on the same day, and personally performed and documented my assessment and findings in the medical record. breathing much better and she is cheerful. chest tube has been very helpful. await results of bronch and cytology from pleural effusion and will then discuss treatment options. no further testing required at present. Heidi Handley August 03, 2016 16:51 Quintin Maria MD August 03, 2016 21:53
--- NOTE | 2016-08-03 17:36 | HHI.HCPN ---
Reason for visit a. To assist with evaluation and management of symptoms including: pain, dyspnea, anxiety b. To assist medical decision maker(s) with: better understanding of current medical conditions; weighing benefits/burdens of medical treatment options; making medical treatment decisions. . Subjective/Interval History Ms. Acharya is a 66 year old female who presented to [facility] ED on 2016 for evaluation of ongoing respiratory distress and was subsequently admitted with COPD exacerbation, hypoxia and newly diagnosed metastatic lung cancer. Follow-up visit for symptom management and clarification of goals. Patient presents sitting in recliner, alert and oriented. Respiratory status has improved status post chest tube placement secondary to right pleural effusion. Cytology pending, likely a malignant effusion. Patient denies dyspnea on exam, oxygen saturation mid 90s on 2 L via nasal cannula. Bronchoscopy scheduled for tomorrow morning. Patient has a history of "sciatica-like pain" that radiates down the patient's legs bilaterally. She states she was managing pain with acetaminophen at home. PRN Percocet was started on 08/01/16 with positive effect. Patient reports having some intermittent pain with movement. 24-hour dosing requirements = 5- 325mg tablet x 1; 10-325mg tablet x 2. Family requesting pathology report and treatment options, goals remain aggressive at this time. Spoke with Heidi Handley, Oncology FACETOR. She will follow up with patient/family later today after obtaining preliminary cytology reports. Advance Directives Living Will: Completed, but not made available (patient's will provide copies of documentation) Health Care Surrogate: Completed, but not made available (patient's will provide copies of documentation) Advance Directive Specifics Documented care wishes: Patient states written advanced directives have been completed, but the patient' s states he does not know where the documents are at this time. Patient states, " It doesn't matter because we wanted everything done." Discussed written advanced directives, which may include health care surrogate designation and living will. Uncompleted health care surrogate form was provided to the patient and her to review, considering completing this form again for ease. . Objective Vital Signs Date Time Temp Pulse Resp B/P Pulse Ox O2 Delivery O2 Flow Rate FiO2 08/03/16 16:22 22 08/03/16 16:00 95 08/03/16 16:00 98.8 95 22 134/79 95 08/03/16 12:00 101 08/03/16 12:00 98.0 101 20 128/59 94 08/03/16 08:30 98 Venturi Mask 6.00 40 08/03/16 08:00 99.1 93 23 112/55 96 08/03/16 08:00 93 08/03/16 08:00 96 Venturi Mask 6.00 40 08/03/16 06:00 99 08/03/16 05:15 97 Venturi Mask 10.00 40 08/03/16 04:00 92 08/03/16 04:00 98.8 92 20 123/65 98 08/03/16 02:00 97 08/03/16 01:30 99 50 08/03/16 00:00 101 08/03/16 00:00 98.6 101 22 131/56 98 08/02/16 23:30 Bi-Pap 08/02/16 23:25 97 50 08/02/16 22:00 103 08/02/16 21:00 95 Partial Non-Rebreather 11.00 50 08/02/16 20:49 97 Partial Rebreather 10.00 08/02/16 20:00 98.4 100 21 123/59 98 08/02/16 20:00 100 08/02/16 19:00 100 Non-Rebreather 11.00 100 08/02/16 18:00 88 08/02/16 17:17 99 Non-Rebreather 15.00 Intake & Output 08/03/16 08/03/16 07:00 19:00 Intake Total 1299 ml 1015 ml Output Total 1885 ml 525 ml Balance -586 ml 490 ml Intake Oral 120 ml 480 ml IV Total 1179 ml 535 ml Output Urine Total 625 ml 225 ml Chest Tube Drainage Total 1260 ml 300 ml # Bowel Movements 0 0 . Physical Exam CONSTITUTIONAL/GENERAL: This is an adequately nourished, elderly female patient , in no apparent distress. TUBES/LINES/DRAINS: PIV 1, NC, Tucker, chest tube SKIN: No jaundice, rashes, or lesions. Ecchymoses on upper extremities. Skin temperature appropriate. Not diaphoretic. HEAD: Atraumatic. Normocephalic. EYES: Pupils equal and round and reactive. Extraocular motions intact. No scleral icterus. No injection or drainage. Fundi not examined. ENT: Hearing grossly normal. Nose without bleeding or purulent drainage. NECK: Trachea midline. Supple, nontender. No palpable thyroid enlargement or nodularity. CARDIOVASCULAR: Regular rate and rhythm without murmurs, gallops, or rubs. No JVD. Peripheral pulses symmetric. RESPIRATORY/CHEST: Respirations unlabored on 2 L oxygen via nasal cannula. Scattered rhonchi. Right pigtail catheter, right chest wall. GASTROINTESTINAL: Abdomen soft, non-tender, nondistended. No hepato-splenomegaly , or palpable masses. No guarding. Bowel sounds present. GENITOURINARY: Without palpable bladder distension. Tucker catheter in place. MUSCULOSKELETAL: Extremities without clubbing, cyanosis, or edema. LYMPHATICS: No palpable cervical or supraclavicular adenopathy. NEUROLOGICAL: Awake and alert. Cognitively sharp. Able to make needs known, follows commands. PSYCHIATRIC: No obvious anxiety/depression on exam. No apparent hallucinations or other psychotic thought process. . Diagnostic Tests Laboratory Laboratory Tests Test 08/01/16 08/01/16 08/01/16 08/01/16 10:38 16:00 18:30 19:57 White Blood Count 23.7 TH/MM3 (4.0-11.0) Red Blood Count 4.15 MIL/MM3 (4.00-5.30) Hemoglobin 9.7 GM/DL (11.6-15.3) Hematocrit 30.3 % (35.0-46.0) Mean Corpuscular Volume 73.0 FL (80.0-100.0) Mean Corpuscular Hemoglobin 23.3 PG (27.0-34.0) Mean Corpuscular Hemoglobin 31.9 % Concent (32.0-36.0) Red Cell Distribution Width 17.8 % (11.6-17.2) Platelet Count 491 TH/MM3 (150-450) Mean Platelet Volume 8.1 FL (7.0-11.0) Neutrophils (%) (Auto) 93.3 % (16.0-70.0) Lymphocytes (%) (Auto) 3.4 % (9.0-44.0) Monocytes (%) (Auto) 3.2 % (0.0-8.0) Eosinophils (%) (Auto) 0.0 % (0.0-4.0) Basophils (%) (Auto) 0.1 % (0.0-2.0) Neutrophils # (Auto) 22.1 TH/MM3 (1.8-7.7) Lymphocytes # (Auto) 0.8 TH/MM3 (1.0-4.8) Monocytes # (Auto) 0.7 TH/MM3 (0-0.9) Eosinophils # (Auto) 0.0 TH/MM3 (0-0.4) Basophils # (Auto) 0.0 TH/MM3 (0-0.2) CBC Comment AUTO DIFF Differential Comment AUTO DIFF CONFIRMED Ovalocytes 1+ (NORMAL) Acanthocytes OCC (NORMAL) Keratocytes OCC (NORMAL) Sodium Level 128 MEQ/L (136-145) Potassium Level 4.9 MEQ/L (3.5-5.1) Chloride Level 89 MEQ/L (98-107) Carbon Dioxide Level 29.2 MEQ/L (21.0-32.0) Anion Gap 10 MEQ/L (5-15) Blood Urea Nitrogen 22 MG/DL (7-18) Creatinine 0.74 MG/DL (0.50-1.00) Estimat Glomerular Filtration 79 ML/MIN (>89) Rate Random Glucose 172 MG/DL (74-106) Calcium Level 10.2 MG/DL (8.5-10.1) Total Bilirubin 0.4 MG/DL (0.2-1.0) Aspartate Amino Transf 109 U/L (15-37) (AST/SGOT) Alanine Aminotransferase 114 U/L (10-53) (ALT/SGPT) Alkaline Phosphatase 122 U/L (45-117) Total Protein 7.0 GM/DL (6.4-8.2) Albumin 3.0 GM/DL (3.4-5.0) Blood Gas Puncture Site LT RADIAL Blood Gas Patient Temperature 98.6 Blood Gas HCO3 30 mmol/L (22-26) Blood Gas Base Excess 2.0 mmol/L (-2-2) Blood Gas Oxygen Saturation 94 % (90-100) Arterial Blood pH 7.16 (7.380-7.420) Arterial Blood Partial 89 mmHg (38-42) Pressure CO2 Arterial Blood Partial 98 mmHg Pressure O2 (61-120) Arterial Blood Oxygen Content 14.2 Vol % (12.0-20.0) Arterial Blood 0.8 % (0-4) Carboxyhemoglobin Arterial Blood Methemoglobin 0.3 % (0-2) Blood Gas Hemoglobin 10.7 G/DL (12.0-16.0) Oxygen Delivery Device Non-Rebreathing Mask Blood Gas Liter Flow 15 L/M Blood Gas Inspired Oxygen 100 % Urine Color YELLOW (YELLW/STRAW) Urine Turbidity HAZY (CLEAR) Urine pH 5.5 (5.0-8.5) Urine Specific Hines 1.019 (1.002-1.035) Urine Protein 30 mg/dL (NEG-TRACE) Urine Glucose (UA) NEG mg/dL (NEG) Urine Ketones NEG mg/dL (NEG) Urine Occult Blood LARGE (NEG) Urine Nitrite NEG (NEG) Urine Bilirubin NEG (NEG) Urine Urobilinogen LESS THAN 2.0 MG/DL (LESS THAN 2.0) Urine Leukocyte Esterase TRACE (NEG) Urine RBC /hpf (0-3) Urine WBC 18 /hpf (0-5) Urine Squamous Epithelial 10 /hpf (0-5) Cells Urine Calcium Oxalate Crystals RARE /hpf (NONE) Urine Hyaline Casts 28 /lpf (RARE) Urine White Blood Cell Casts 4 /lpf (NONE) Urine Mucus FEW /lpf (OCC) Microscopic Urinalysis Comment CATH-CULTURE IND Troponin I 0.06 NG/ML (0.02-0.05) Test 08/01/16 08/02/16 08/02/16 08/02/16 22:25 03:51 05:32 10:00 Blood Gas Puncture Site RT BRACHIAL RT BRACHIAL Blood Gas Patient Temperature 98.6 98.6 Blood Gas HCO3 31 mmol/L 30 mmol/L (22-26) (22-26) Blood Gas Base Excess 4.7 mmol/L 4.7 mmol/L (-2-2) (-2-2) Blood Gas Oxygen Saturation 91 % (90-100) 95 % (90-100) Arterial Blood pH 7.29 7.34 (7.380-7.420) (7.380-7.420) Arterial Blood Partial 67 mmHg (38-42) 57 mmHg (38-42) Pressure CO2 Arterial Blood Partial 76 mmHg 92 mmHg Pressure O2 (61-120) (61-120) Arterial Blood Oxygen Content 12.0 Vol % 12.1 Vol % (12.0-20.0) (12.0-20.0) Arterial Blood 1.2 % (0-4) 1.3 % (0-4) Carboxyhemoglobin Arterial Blood Methemoglobin 0.7 % (0-2) 0.9 % (0-2) Blood Gas Hemoglobin 9.3 G/DL 9.0 G/DL (12.0-16.0) (12.0-16.0) Oxygen Delivery Device BIPAP BIPAP Blood Gas Ventilator Setting 12 IPAP/5 EPAP 12 IPAP/5 EPAP Blood Gas Inspired Oxygen 50 % 50 % White Blood Count 17.8 TH/MM3 (4.0-11.0) Red Blood Count 4.13 MIL/MM3 (4.00-5.30) Hemoglobin 9.2 GM/DL (11.6-15.3) Hematocrit 30.6 % (35.0-46.0) Mean Corpuscular Volume 74.1 FL (80.0-100.0) Mean Corpuscular Hemoglobin 22.4 PG (27.0-34.0) Mean Corpuscular Hemoglobin 30.2 % Concent (32.0-36.0) Red Cell Distribution Width 17.6 % (11.6-17.2) Platelet Count 404 TH/MM3 (150-450) Mean Platelet Volume 7.6 FL (7.0-11.0) Neutrophils (%) (Auto) 88.0 % (16.0-70.0) Lymphocytes (%) (Auto) 6.0 % (9.0-44.0) Monocytes (%) (Auto) 5.6 % (0.0-8.0) Eosinophils (%) (Auto) 0.1 % (0.0-4.0) Basophils (%) (Auto) 0.3 % (0.0-2.0) Neutrophils # (Auto) 15.7 TH/MM3 (1.8-7.7) Lymphocytes # (Auto) 1.1 TH/MM3 (1.0-4.8) Monocytes # (Auto) 1.0 TH/MM3 (0-0.9) Eosinophils # (Auto) 0.0 TH/MM3 (0-0.4) Basophils # (Auto) 0.0 TH/MM3 (0-0.2) CBC Comment AUTO DIFF Differential Comment AUTO DIFF CONFIRMED Ovalocytes 1+ (NORMAL) Sodium Level 132 MEQ/L (136-145) Potassium Level 5.0 MEQ/L (3.5-5.1) Chloride Level 95 MEQ/L (98-107) Carbon Dioxide Level 30.3 MEQ/L (21.0-32.0) Anion Gap 7 MEQ/L (5-15) Blood Urea Nitrogen 25 MG/DL (7-18) Creatinine 0.63 MG/DL (0.50-1.00) Estimat Glomerular Filtration 95 ML/MIN (>89) Rate Random Glucose 120 MG/DL (74-106) Calcium Level 9.8 MG/DL (8.5-10.1) Total Bilirubin 0.3 MG/DL (0.2-1.0) Aspartate Amino Transf 113 U/L (15-37) (AST/SGOT) Alanine Aminotransferase 147 U/L (10-53) (ALT/SGPT) Alkaline Phosphatase 109 U/L (45-117) Total Protein 6.4 GM/DL (6.4-8.2) Albumin 2.8 GM/DL (3.4-5.0) Pleural Fluid pH 8.0 Pleural Fluid WBC 4011 /MM3 (0-10) Pleural Fluid RBC 3038 /MM3 (0-0) Pleural Fluid Neutrophils 48 % Pleural Fluid Lymphocytes 13 % Pleural Fluid Monocytes 1 % Pleural Fluid Mesothelial 38 % Cells Pleural Fluid Comment Pleural Fluid Total Protein 3.6 GM/DL Pleural Fluid LDH 2582 U/L Pleural Fluid Glucose 72 MG/DL Pleural Fluid Amylase 13 U/L Test 08/03/16 10:46 Lactate Dehydrogenase 540 U/L (84-246) . Result Diagram: 08/02/16 0351 08/02/16 0351 Microbiology Microbiology Date/Time Procedure Status Source Growth 08/01/16 18:30 Urine Culture - Final Complete Urine Catheterized Urine NO GROWTH IN 48 HOURS. 08/01/16 19:40 Aerobic Blood Culture - Preliminary Resulted Blood Peripheral NO GROWTH IN 2 DAYS 08/01/16 19:40 Anaerobic Blood Culture - Preliminary Resulted Blood Peripheral NO GROWTH IN 2 DAYS 08/01/16 19:50 Aerobic Blood Culture - Preliminary Resulted Blood Peripheral NO GROWTH IN 2 DAYS 08/01/16 19:50 Anaerobic Blood Culture - Preliminary Resulted Blood Peripheral NO GROWTH IN 2 DAYS 08/02/16 10:00 Gram Stain - Final Resulted Fluid Pleural Fluid 08/02/16 10:00 Body Fluid Culture - Preliminary Resulted Fluid Pleural Fluid NO GROWTH IN 24 HOURS. 08/02/16 10:00 Acid Fast Stain - Final Resulted Fluid Pleural Fluid NO ACID FAST BACILLI SEEN 08/02/16 10:00 Mycobacterial Culture Resulted Fluid Pleural Fluid Pending 08/02/16 10:00 Fungal Smear - Final Resulted Fluid Pleural Fluid NO FUNGAL ELEMENTS SEEN. 08/02/16 10:00 Fungal Culture Resulted Fluid Pleural Fluid Pending Procedures 08/02/2016: Percutaneous pigtail tube thoracostomy . Assessment and Plan Disease Oriented Problem List: (1) Hypoxemia (2) COPD exacerbation (3) Acute respiratory failure (4) Acute respiratory acidosis (5) Cholecystitis (6) Pleural effusion (7) Metastatic primary lung cancer (8) Postobstructive pneumonia (9) Probable sepsis (10) Lung cancer metastatic to bone Symptom Scale: (1) Pain 0-10 Scale: 3 Comment: Patient has a history of "sciatica-like pain" that radiates down the patient's legs bilaterally. She states she was managing pain with acetaminophen at home. PRN Percocet was started on 08/01/16 with positive effect. Patient reports having some intermittent pain with movement. 24-hour dosing requirements = 5-325mg tablet x 1; 10-325mg tablet x 2. . (2) Dyspnea Comment: Respiratory status improved status post right pigtail chest tube secondary to pleural effusion on 08/02/2016; initial drainage was 550 mL slightly cloudy yellowish pleural fluid. Cytology pending, likely a malignant effusion. Follow-up chest x-ray shows small bore tube at the right lung base with interval removal of patient's large pleural effusion; continue dense consolidation versus mass of the right upper lobe. Bronchoscopy tomorrow (3) Anxiety Comment: Anxiety has resolved, likely secondary to respiratory distress which is currently well controlled. Pertinent Non-Medical Issues Psychosocial: Ms. Acharya is a 66-year-old female who was born in [facility]. She has 3 sisters and 4 brothers who are alive and healthy. Patient has been to Meir for approximately 38+ years. This is her second marriage. They moved to [place] approximately 7 years ago and resides with her . She has 3 adult children from her first marriage (Lalo, Mateusz and Any). 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 Spiritual: Pending conversation with patient. Legal: Patient states she has completed advance directives; requested that her bring copies to the hospital to be scanned into patient's EMR. Ethical issues impacting care: No known ethical issues impacting care at this time . Important Contacts Ziggy Acharya, spouse: [phone] or [phone] Norma Parra, sister: [phone] . Prognosis Patient is a 66-year-old female who reports recurrent bronchitis, productive cough and new onset dyspnea with minimal exertion. Symptoms began approximately 6 weeks ago, and the patient has been treated with 3 courses of antibiotics. An outpatient chest x-ray revealed a right upper lung mass. Subsequent CT chest revealed consolidation of the right upper lung, crit compressive atelectasis of the right lower lobe with moderate right effusion and narrowing of the right mainstem bronchus with possible right hilar mass. CEA is elevated, patient appears to have stage IV lung cancer with imaging showing multiple bony metastatic cyst involving C-spine, thoracic and lumbar spine. Imaging also shows bilateral adrenal metastasis. Overall prognosis is poor. . Code Status: Full Code Plan * FULL CODE * Decision-making: Patient states she has completed written advanced directives , and her is designated as the health care surrogate. Patient states written advanced directives have been completed, but the patient's he does not know where the documents are at this time. Patient states, " It doesn' t matter because we wanted everything done." Discussed written advanced directives, which may include health care surrogate designation and living will. Uncompleted health care surrogate form was provided to the patient and her to review, considering completing this form again for ease. * Goals: Patient verbalizes aggressive goals. She states she understands that it appears the cancer is extensive, but she plans to have further diagnostic testing done and wants to pursue all aggressive interventions that are available to her. Her supports this decision. * Symptom managementdyspnea: Respiratory status improved status post right pigtail chest tube secondary to pleural effusion on 08/02/2016; initial drainage was 550 mL slightly cloudy yellowish pleural fluid. Cytology pending, likely a malignant effusion. Follow-up chest x-ray shows small bore tube at the right lung base with interval removal of patient's large pleural effusion; continue dense consolidation versus mass of the right upper lobe. Follow-up chest x-ray shows small bore tube at the right lung base with interval removal of patient's large pleural effusion; continue dense consolidation versus mass of the right upper lobe. Bronchoscopy tomorrow 08/04/16 * Symptom managementpain: Patient has a history of "sciatica-like pain" that radiates down the patient's legs bilaterally. She states she was managing pain with acetaminophen at home. PRN Percocet was started on 08/01/16 with positive effect. Patient reports having some intermittent pain with movement. 24-hour dosing requirements = 5-325mg tablet x 1; 10-325mg tablet x 2. * Symptom managementanxiety: Anxiety has resolved, likely secondary to respiratory distress which is currently well controlled. Will continue to monitor. * Family requesting pathology report and treatment options, goals remain aggressive at this time. Spoke with Heidi Handley, Oncology FACETOR. She will follow up with patient/family later today after obtaining preliminary cytology reports. * Palliative care will continue to follow this patient throughout her hospitalization to establish trust, assist with symptom management and clarification of medical treatment goals. Karli Baez August 03, 2016 17:36
[2016-08-03] MEDS: ATORVASTATIN 40 MG TAB PO SCH (19:20)
[2016-08-04] VITALS (12 sets, daily range): BP systolic 123–152; BP diastolic 59–90; PULSE 90–100; RESP 16–23; TEMP 98.1–98.8; O2SAT 93–98
[2016-08-04] MEDS: metroNIDAZOLE 500 MG INJ 100 ML IV SCH ×3 (01:10→17:18)
[2016-08-04] MEDS: RESP: ALBUTEROL 2.5 MG/IPRATROPIUM 0.5 MG NEB (SCH) NEB ×6 (04:00→22:42)
[2016-08-04] MEDS: oxyCODONE/ACETAMINOPHEN 10 MG/325 MG TAB PO PRN ×3 (04:00→23:19)
[2016-08-04] MEDS: LEVOFLOXACIN 500 MG PREMIX INJ 100 ML IV SCH (04:01)
[2016-08-04] MEDS: methylPREDNISolone SOD SUCC 40 MG/1 ML VIAL IV PUSH SCH ×3 (06:52→22:19)
[2016-08-04] MEDS: SODIUM CHLORIDE 0.9% FLUSH 10 ML FLUSH IV FLUSH SCH ×2 (08:20→22:00)
[2016-08-04] MEDS: GABAPENTIN 100 MG CAP PO SCH ×3 (09:25→17:18)
--- NOTE | 2016-08-04 09:38 | HHI.CCPN ---
Subjective Remarks/Hospital Course 66-year-old female who was admitted with a history of shortness of breath, wheezing, cough going on for several days along with a history of significant weight loss and back pain as well as no chest pain. Patient was supposed to have a cholecystectomy. She was evaluated with a chest x-ray which revealed a right upper lung mass. Subsequent CT chest revealed consolidation of right upper lung compressive atelectasis of right lower lobe with moderate right effusion and narrowing of right mainstem bronchus with possible right hilar mass. Patient was admitted by hospitalist service and was evaluated by pulmonary as well as oncology. She has an elevated CEA and appears to have stage IV lung cancer with imaging studies including MRI spine revealing multiple bony metastatic cysts involving C-spine, thoracic and lumbar spine. CT chest also revealed bilateral adrenal metastases. Patient was placed on Levaquin for possible postobstructive pneumonia on the floor and was initiated on IV steroids and bronchodilators. She was on nasal cannula 2 this afternoon when she developed worsening respiratory distress and dropped her O2 sats to the 70s for which she was placed on a nonrebreather face mask following a rapid response and was subsequently transferred to the ICU. Critical care consult was requested by Dr. Anderson from the hospitalist service for acute respiratory failure. I evaluated the patient immediately on arrival to the ICU. She had just been initiated on BiPAP as ordered by me at that time as her ABG revealed acute respiratory acidosis. She appeared very anxious at the time hence Precedex GTT was ordered. History was obtained by reviewing records and discussion with nursing staff. 08/02: Patient remains on BiPAP but ABG shows improvement, remains on Precedex for sedation. Chest x-ray shows large right pleural effusion-I place a right pigtail catheter with find a medical initial output of exudative appearing fluid. Discussed with Dr. Rosales. Will wait for cytology and postpone the bronchoscopy 08/03: Respiratory status improved after draining right pleural effusion. Probably malignant effusion cytology pending. Continues to have bilateral wheezing. Probable bronch today by Dr. Gutierrez 08/04: patient refused BiPAP overnight because the beeping kept her awake. plan for bronch with bx today. does complain of shooting tingling/burning pain radiating from her back. at least 300cc serous fluid out of right chest tube. Objective Vital Signs Date Time Temp Pulse Resp B/P Pulse Ox O2 Delivery O2 Flow Rate FiO2 08/04/16 09:12 94 Nasal Cannula 4.00 08/04/16 06:00 92 08/04/16 04:00 98.2 16 123/66 08/04/16 01:09 35 Intake and Output 08/03/16 08/03/16 08/04/16 08:00 16:00 00:00 Intake Total 754 ml 1015 ml 668 ml Output Total 1560 ml 525 ml 325 ml Balance -806 ml 490 ml 343 ml Result Diagram: 08/02/16 0351 08/02/16 0351 Other Results Microbiology Date/Time Procedure Status Source Growth 08/01/16 18:30 Urine Culture - Final Complete Urine Catheterized Urine NO GROWTH IN 48 HOURS. Imaging Last Impressions Chest X-Ray 07/31/16 0600 Signed Impressions: Service Date/Time: Sunday, July 31, 2016 05:05 - CONCLUSION: 1. Right hilar mass with atelectasis involving the right upper lung. 2. Lytic lesion involving the left fifth rib consisting of bony metastatic disease. Jero Miller MD Entire Spine MRI 07/31/16 0000 Signed Impressions: Service Date/Time: Sunday, July 31, 2016 09:58 - CONCLUSION: Diffuse bony metastasis throughout the dorsal spine without significant canal stenosis. Carlos Dee MD Brain MRI 07/31/16 0000 Signed Impressions: Service Date/Time: Sunday, July 31, 2016 09:58 - CONCLUSION: 1. Nonspecific white matter changes. 2. No evidence for metastatic disease to the brain parenchyma. 3. There are some bony metastatic lesions along the upper cervical spine/skull base. Carlos Dee MD Chest CT 07/30/16 0000 Signed Impressions: Service Date/Time: Saturday, July 30, 2016 05:13 - CONCLUSION: 1. There is narrowing of the right mainstem bronchus suspicious for a right hilar mass. 2. There is a masslike density in the right upper lung measuring 2.2 x 1.6 cm. 3. There is a moderate right pleural effusion with compressive atelectasis of the right lower lung. 4. There is consolidation of the right upper lung most likely from post obstructive pneumonia. 5. Patchy infiltrate in the posterior left upper lung most likely inflammatory. 6. Multiple lytic lesions are seen throughout the thoracic spine characteristic for diffuse bony metastatic disease 7. Diffusely enlarged bilateral adrenal glands most likely metastatic disease Jero Miller MD Abdomen/Pelvis CT 07/30/16 0000 Signed Impressions: Service Date/Time: Saturday, July 30, 2016 23:25 - CONCLUSION: 1. Diffuse bony metastatic disease. 2. Moderate right-sided pleural effusion. 3. Bilateral adrenal metastatic disease. 4. Simple right renal cyst. Jero Miller MD Objective Remarks P/E Elderly female, in no acute distress this AM. HEENT/Neuro: No pallor or icterus, tongue moist, SHAKEEL, awake, following commands, nonfocal grossly, moving all 4 extremities Neck: No JVD Chest/pulmonary: scant wheezes. unlabored resprations. equal chest rise. comfortable on NC o2. Cardiovascular: S1-S2 regular no gallop or murmur GI/abdomen: Soft, nontender, nondistended. no guarding. Extremities: Warm bilaterally, no edema Procedures none A/P Assessment and Plan 66-year-old female with: Probable Metastatic lung cancer with metastases to spine/bilateral adrenal glands Acute hypoxic respiratory failure- resolving. Acute respiratory acidosis- resolved. COPD exacerbation Postobstructive pneumonia involving right lung due to right mainstem bronchus narrowing Right pleural effusion Probable sepsis- resolving. 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 Minimize sedation - start gabapentin 200mg po TID for neuropathic pain. would plan to increase this slowly [id number] to a target maximum of 1800 - 3600 mg/day, divided TID for neuropathic pain associated with spinal mets. - start tizanidine 1mg po q12h for neuropathic pain. would plan to increase this slowly q24-48h to target of 2-4mg po q12h. - discussed with the patient that the other optimal medication for her neuropathic pain would be either a TCA or Cymbalta, but she has tried antidepressants in the past and has had adverse reactions and she prefers to hold off on starting any anti-depressant type medication at this time. - continue oxycodone 5-10mg q4h prn for breakthrough pain. Cardiovascular: -IV hydration, watch for hypotension. Pulmonary: -NC o2 as tolerated. prn BiPAP, particularly at night. Bronchodilators, Solu- Medrol. -Being followed by Dr. Gutierrez from pulmonary medicine. Plan for bronchoscopy today -Appears to have metastatic lung CA and has been evaluated by oncology as well. -Right pigtail catheter to suction, will continue this through bronchoscopy. -Culture, cytology of the fluid pending GI/liver: -History of gallbladder disease for which she was to have a cholecystectomy which is obviously on hold currently. -Elevated LFTs noted. -Nothing by mouth for bronchoscopy Renal/: -Strict intake output, monitor and replete electrolytes, follow BUN/creatinine. ID: -On Levaquin since 07/30. Added Flagyl 08/01 for empiric antibiotic coverage to cover for postobstructive pneumonia. Prophylaxis: -PPI/SCDs. Lovenox on hold for bronch today. will plan to restart after. Prognosis appears extremely poor with metastatic disease involving spine and bilateral adrenal glands. Oncology has discussed options. palliative care involved. Dispo: will remain in the ICU through high risk bronch. if she remains stable, could transfer after procedures. Michael Riley MD August 04, 2016 09:38
[2016-08-04] MEDS ORDERED: LIDOCAINE HCL 4% PF 5 ML AMP ONE (10:00)
[2016-08-04] MEDS ORDERED: PILL SPLITTER OTHER PRN (10:00)
[2016-08-04] MEDS ORDERED: LIDOCAINE HCL 2% 50 ML VIAL ONE (10:00)
[2016-08-04] MEDS ORDERED: EPINEPHrine HCL (1:1000) 1 MG/ML VIAL ONE (10:00)
[2016-08-04] MEDS ORDERED: LIDOCAINE VISCOUS 2% SOLN 15 ML UDC ONE (10:00)
--- NOTE | 2016-08-04 10:25 | PD.ONC.PN ---
Subjective Subjective Remarks Pt sitting up in bed with present. She reports her breathing is much improved. Getting a bronchoscopy today. Objective Data Date Time Temp Pulse Resp B/P Pulse Ox O2 Delivery O2 Flow Rate FiO2 08/04/16 09:12 94 Nasal Cannula 4.00 08/04/16 08:00 93 08/04/16 08:00 95 Nasal Cannula 4.00 08/04/16 08:00 98.2 93 20 142/76 95 08/04/16 06:00 92 08/04/16 04:00 92 08/04/16 04:00 98.2 92 16 123/66 95 08/04/16 02:00 90 08/04/16 01:09 95 35 08/04/16 00:00 98.2 92 17 128/59 94 08/04/16 00:00 92 08/03/16 22:45 96 35 08/03/16 22:00 95 08/03/16 20:00 98.2 98 20 134/66 91 08/03/16 20:00 98 08/03/16 19:09 97 Nasal Cannula 4.00 08/03/16 19:00 96 Nasal Cannula 4.00 08/03/16 16:22 22 08/03/16 16:00 95 08/03/16 16:00 98.8 95 22 134/79 95 08/03/16 12:00 101 08/03/16 12:00 98.0 101 20 128/59 94 08/04/16 08/04/16 08/04/16 07:00 15:00 23:00 Intake Total 238 ml Output Total 305 ml Balance -67 ml Result Diagram: 08/02/16 0351 08/02/16 0351 Laboratory Results Laboratory Tests Test 08/03/16 10:46 Lactate Dehydrogenase 540 U/L Culture Results Microbiology Date/Time Procedure Status Source Growth 08/01/16 18:30 Urine Culture - Final Complete Urine Catheterized Urine NO GROWTH IN 48 HOURS. 08/01/16 19:40 Aerobic Blood Culture - Preliminary Resulted Blood Peripheral NO GROWTH IN 2 DAYS 08/01/16 19:40 Anaerobic Blood Culture - Preliminary Resulted Blood Peripheral NO GROWTH IN 2 DAYS 08/01/16 19:50 Aerobic Blood Culture - Preliminary Resulted Blood Peripheral NO GROWTH IN 2 DAYS 08/01/16 19:50 Anaerobic Blood Culture - Preliminary Resulted Blood Peripheral NO GROWTH IN 2 DAYS 08/02/16 10:00 Gram Stain - Final Resulted Fluid Pleural Fluid 08/02/16 10:00 Body Fluid Culture - Preliminary Resulted Fluid Pleural Fluid NO GROWTH IN 24 HOURS. 08/02/16 10:00 Acid Fast Stain - Final Resulted Fluid Pleural Fluid NO ACID FAST BACILLI SEEN 08/02/16 10:00 Mycobacterial Culture Resulted Fluid Pleural Fluid Pending 08/02/16 10:00 Fungal Smear - Final Resulted Fluid Pleural Fluid NO FUNGAL ELEMENTS SEEN. 08/02/16 10:00 Fungal Culture Resulted Fluid Pleural Fluid Pending Administered Medications Medications (Trade) Dose Ordered Sig/Alistair Route PRN Reason Start Time Stop Time Status Last Admin Dose Admin Sodium Chloride (NS Flush) 2 ml UNSCH PRN IV FLUSH FLUSH AFTER USING IV ACCESS 07/30/16 03:45 08/01/16 04:43 Sodium Chloride (NS Flush) 2 ml BID IV FLUSH 07/30/16 09:00 08/04/16 08:20 Pantoprazole Sodium 40 mg 40 mg DAILY PO 07/30/16 09:00 08/03/16 08:56 Levofloxacin/ Dextrose (Levaquin 500 Mg Premix Inj) 100 ml @ 100 mls/hr Q24H IV 07/30/16 05:00 08/04/16 04:01 Atorvastatin Calcium (Lipitor) 40 mg HS PO 07/30/16 21:00 08/03/16 19:20 Ondansetron HCl (Zofran Odt) 4 mg Q6HR PRN SL Nausea/Vomiting 07/30/16 05:30 07/30/16 21:07 Methylprednisolone Sodium Succinate (SoluMEDROL INJ) 40 mg Q8HR IV PUSH 07/31/16 22:00 08/04/16 06:52 Oxycodone/ Acetaminophen (Percocet 5-325 Mg) 1 tab Q4H PRN PO pain1-5 08/01/16 09:30 08/03/16 12:33 Oxycodone/ Acetaminophen 1 tab 1 tab Q4H PRN PO pain6-10 08/01/16 09:30 08/04/16 04:00 Metronidazole (Flagyl 500 Mg Inj) 100 ml @ 100 mls/hr Q8H IV 08/01/16 17:00 08/04/16 08:20 Objective Remarks GENERAL: Older female, sitting up in bed talking with in no distress. SKIN: Warm and dry. HEAD: Normocephalic. EYES: No scleral icterus. No injection or drainage. NECK: Supple, trachea midline. CARDIOVASCULAR: Regular rate and rhythm RESPIRATORY: Diminished to bases. GASTROINTESTINAL: Abdomen soft, non-tender, nondistended. EXTREMITIES: No cyanosis. SCD's to BLE. NEUROLOGICAL: No obvious focal deficit. Awake, alert, and oriented x3. Assessment/Plan Assessment 66y/o female with suspected stage IV lung cancer. Plan 1. The pt will have bronchoscopy today. 2. Plan for port placement tomorrow 3. If we have pathology back by , we can discuss starting treatment inpatient. Otherwise she will need to followup with Dr. Shaw who can coordinate her first treatment as an outpatient. 4. Will consult case mgmt to help get pt needed items for discharge. Addendum: Pt seen again later today. Per pt the anesthesiologist whom she spoke to prior to the bronchoscopy told her that she likely would not come off the ventilator after the procedure due to the condition of her lungs. The patient declined to have the bronchoscopy. Will also hold off on port placement until more clear plan in place. Cytology should be resulted by tomorrow from pleural fluid. Attending Statement The exam, history, and the medical decision-making described in the above note were completed with the assistance of the mid-level provider. I reviewed and agree with the findings presented. I attest that I had a [id number] encounter with the patient on the same day, and personally performed and documented my assessment and findings in the medical record. the cytology is + for malignancy and await stains. the first question is small cell versus non small cell and if non small cell - adeno versus squamous. if adenocarcinoma would like to do alk, egfr. Would also like PDL1 staining if enough material available. I will be away from this sunday 08/06 until 08/[address] Shaw will cover. Heidi Handley August 04, 2016 10:25 Quintin Maria MD August 04, 2016 20:16
[2016-08-04] MEDS: PANTOPRAZOLE SOD 40 MG DELAYED RELEASE TAB PO SCH (12:12)
[2016-08-04] MEDS ORDERED: SODIUM CHLORIDE 0.9% INJ 100 ML IV SCH (12:30)
[2016-08-04] MEDS ORDERED: VANCOMYCIN INJ 1,000 MG in SODIUM CHLOR 0.9% 250 ML INJ 250 ML IV SCH (12:30)
--- NOTE | 2016-08-04 12:44 | HHI.PR ---
Subjective Remarks C/O SOB . was scheduled for bronchoscopy but she was Afraid of the risk and cancelled the procedure. Trouble swallowing. Port also cancelled Objective Vital Signs Date Time Temp Pulse Resp B/P Pulse Ox O2 Delivery O2 Flow Rate FiO2 08/04/16 12:00 98.1 100 18 135/64 93 08/04/16 12:00 100 08/04/16 09:12 94 Nasal Cannula 4.00 08/04/16 08:00 93 08/04/16 08:00 95 Nasal Cannula 4.00 08/04/16 08:00 98.2 93 20 142/76 95 08/04/16 06:00 92 08/04/16 04:00 92 08/04/16 04:00 98.2 92 16 123/66 95 08/04/16 02:00 90 08/04/16 01:09 95 35 08/04/16 00:00 98.2 92 17 128/59 94 08/04/16 00:00 92 08/03/16 22:45 96 35 08/03/16 22:00 95 08/03/16 20:00 98.2 98 20 134/66 91 08/03/16 20:00 98 08/03/16 19:09 97 Nasal Cannula 4.00 08/03/16 19:00 96 Nasal Cannula 4.00 08/03/16 16:22 22 08/03/16 16:00 95 08/03/16 16:00 98.8 95 22 134/79 95 I/O 08/03/16 08/03/16 08/03/16 08/04/16 08/04/16 08/04/16 07:00 15:00 23:00 07:00 15:00 23:00 Intake Total 754 ml 1015 ml 668 ml 238 ml Output Total 1560 ml 525 ml 325 ml 305 ml Balance -806 ml 490 ml 343 ml -67 ml Intake Oral 480 ml 540 ml IV Total 754 ml 535 ml 128 ml 238 ml Output Urine Total 300 ml 225 ml 225 ml 225 ml Chest Tube Drainage Total 1260 ml 300 ml 100 ml 80 ml # Bowel Movements 0 0 0 0 Result Diagram: 08/02/16 0351 08/02/16 0351 Procedures No procedures performed. Objective Remarks GENERAL: This is a moderately obese white female who is alert and in no acute distress. HEAD, EYES, EARS, NOSE, THROAT: Head normocephalic. The pupils are reactive and equal. Tongue is moist. Throat was clear. NECK: The neck is supple. No bruits. No thyroid enlargement. No lymphadenopathy. CHEST: Decreased excursions. Breath sounds are diminished at the bases, more so on the right side. There is occasional wheezes. HEART: Heart sounds are regular. S1 and S2. No murmur. No S3. ABDOMEN: Abdomen is obese and protuberant without masses. No organomegaly or tenderness. The bowel sounds are active. EXTREMITIES: No edema. No calf tenderness. NEUROLOGIC: Reflexes are 1+. No gross motor deficits. Cranial nerves are grossly intact. SKIN: No lesions are noted. Assessment and Plan Assessment and Plan IMPRESSION: 1. Right hilar mass with obstructive pneumonitis. 2. Possible metastatic malignancy. 3. COPD with emphysema. 4. Nicotine dependency. 5. Right pleural effusion. Plan : 1. Cont Antibiotics. 2. Nebs qid , duoneb. 3. O2 at 4 L. 4. Cont Solumedrol 40 mg IV q12h 5. BMP .CBC 6. Cancel Bronchoscopy per Patient request Jigar Gutierrez MD August 04, 2016 12:44
[2016-08-04] MEDS: oxyCODONE/ACETAMINOPHEN 5 MG/325 MG TAB PO PRN (13:45)
--- NOTE | 2016-08-04 16:55 | HHI.HCPN ---
Reason for visit a. To assist with evaluation and management of symptoms including: pain, dyspnea, anxiety, constipation b. To assist medical decision maker(s) with: better understanding of current medical conditions; weighing benefits/burdens of medical treatment options; making medical treatment decisions. . Subjective/Interval History Ms. Acharya is a 66 year old female who presented to [facility] ED on 2016 for evaluation of ongoing respiratory distress and was subsequently admitted with COPD exacerbation, hypoxia and newly diagnosed metastatic lung cancer. Follow-up visit for symptom management and clarification of goals. Bronchoscopy was canceled today; patient did not want to risk possible complications secondary to this elective procedure. Tentative plan per family: Port placement, likely discharge on Tuesday08/07/16 and initiation of chemotherapy early next week. Patient tolerating 4 L oxygen via nasal cannula with sats in the mid 90s. She apparently refused BiPAP overnight stating it kept her awake. Denies dyspnea on exam; denies anxiety. No new imaging status post chest tube placement for pleural effusion/thoracentesis-cytology remains pending. No recent lab work available. Patient reports ongoing tingling/burning pain that radiates down her legs bilaterally. She states she was managing discomfort with acetaminophen while at home, PRN Percocet was ordered on 08/01/16 which has decreased symptoms per patient report. 24-hour Percocet dosage = 5-325mg tablet x1; 10-325mg tablet x 4. Gabapentin 200mg by mouth TID was added today for what appears to be neuropathic pain. Bowel protocol also initiated. . Advance Directives Living Will: Completed, but not made available (patient's will provide copies of documentation) Health Care Surrogate: Completed, but not made available (patient's will provide copies of documentation) Advance Directive Specifics Documented care wishes: Patient states written advanced directives have been completed, but the patient' s states he does not know where the documents are at this time. Patient states, " It doesn't matter because we wanted everything done." Discussed written advanced directives, which may include health care surrogate designation and living will. Uncompleted health care surrogate form was provided to the patient and her to review, considering completing this form again for ease. . Objective Vital Signs Date Time Temp Pulse Resp B/P Pulse Ox O2 Delivery O2 Flow Rate FiO2 08/04/16 16:00 98.5 100 21 152/72 96 08/04/16 16:00 100 08/04/16 12:00 98.1 100 18 135/64 93 08/04/16 12:00 100 08/04/16 09:12 94 Nasal Cannula 4.00 08/04/16 08:00 93 08/04/16 08:00 95 Nasal Cannula 4.00 08/04/16 08:00 98.2 93 20 142/76 95 08/04/16 06:00 92 08/04/16 04:00 92 08/04/16 04:00 98.2 92 16 123/66 95 08/04/16 02:00 90 08/04/16 01:09 95 35 08/04/16 00:00 98.2 92 17 128/59 94 08/04/16 00:00 92 08/03/16 22:45 96 35 08/03/16 22:00 95 08/03/16 20:00 98.2 98 20 134/66 91 08/03/16 20:00 98 08/03/16 19:09 97 Nasal Cannula 4.00 08/03/16 19:00 96 Nasal Cannula 4.00 Intake & Output 08/04/16 08/04/16 07:00 19:00 Intake Total 606 ml 150 ml Output Total 630 ml 410 ml Balance -24 ml -260 ml Intake Oral 240 ml IV Total 366 ml 150 ml Output Urine Total 450 ml 250 ml Chest Tube Drainage Total 180 ml 160 ml # Bowel Movements 0 0 . Physical Exam CONSTITUTIONAL/GENERAL: This is an adequately nourished, elderly female patient , in no apparent distress. TUBES/LINES/DRAINS: PIV 1, NC, Tucker, chest tube SKIN: No jaundice, rashes, or lesions. Ecchymoses on upper extremities. Skin temperature appropriate. Not diaphoretic. HEAD: Atraumatic. Normocephalic. EYES: Pupils equal and round and reactive. Extraocular motions intact. No scleral icterus. No injection or drainage. Fundi not examined. ENT: Hearing grossly normal. Nose without bleeding or purulent drainage. NECK: Trachea midline. Supple, nontender. No palpable thyroid enlargement or nodularity. CARDIOVASCULAR: Regular rate and rhythm without murmurs, gallops, or rubs. No JVD. Peripheral pulses symmetric. RESPIRATORY/CHEST: Respirations unlabored on 2 L oxygen via nasal cannula. Scattered rhonchi. Right pigtail catheter, right chest wall. GASTROINTESTINAL: Abdomen soft, non-tender, nondistended. No hepato-splenomegaly , or palpable masses. No guarding. Bowel sounds present. GENITOURINARY: Without palpable bladder distension. Tucker catheter in place. MUSCULOSKELETAL: Extremities without clubbing, cyanosis, or edema. LYMPHATICS: No palpable cervical or supraclavicular adenopathy. NEUROLOGICAL: Awake and alert. Cognitively sharp. Able to make needs known, follows commands. PSYCHIATRIC: No obvious anxiety/depression on exam. No apparent hallucinations or other psychotic thought process. . Diagnostic Tests Laboratory Laboratory Tests Test 08/01/16 08/01/16 08/01/16 08/02/16 18:30 19:57 22:25 03:51 Urine Color YELLOW (YELLW/STRAW) Urine Turbidity HAZY (CLEAR) Urine pH 5.5 (5.0-8.5) Urine Specific [place] 1.019 (1.002-1.035) Urine Protein 30 mg/dL (NEG-TRACE) Urine Glucose (UA) NEG mg/dL (NEG) Urine Ketones NEG mg/dL (NEG) Urine Occult Blood LARGE (NEG) Urine Nitrite NEG (NEG) Urine Bilirubin NEG (NEG) Urine Urobilinogen LESS THAN 2.0 MG/DL (LESS THAN 2.0) Urine Leukocyte Esterase TRACE (NEG) Urine RBC /hpf (0-3) Urine WBC 18 /hpf (0-5) Urine Squamous Epithelial 10 /hpf (0-5) Cells Urine Calcium Oxalate Crystals RARE /hpf (NONE) Urine Hyaline Casts 28 /lpf (RARE) Urine White Blood Cell Casts 4 /lpf (NONE) Urine Mucus FEW /lpf (OCC) Microscopic Urinalysis Comment CATH-CULTURE IND Troponin I 0.06 NG/ML (0.02-0.05) Blood Gas Puncture Site RT BRACHIAL Blood Gas Patient Temperature 98.6 Blood Gas HCO3 31 mmol/L (22-26) Blood Gas Base Excess 4.7 mmol/L (-2-2) Blood Gas Oxygen Saturation 91 % (90-100) Arterial Blood pH 7.29 (7.380-7.420) Arterial Blood Partial 67 mmHg (38-42) Pressure CO2 Arterial Blood Partial 76 mmHg Pressure O2 (61-120) Arterial Blood Oxygen Content 12.0 Vol % (12.0-20.0) Arterial Blood 1.2 % (0-4) Carboxyhemoglobin Arterial Blood Methemoglobin 0.7 % (0-2) Blood Gas Hemoglobin 9.3 G/DL (12.0-16.0) Oxygen Delivery Device BIPAP Blood Gas Ventilator Setting 12 IPAP/5 EPAP Blood Gas Inspired Oxygen 50 % White Blood Count 17.8 TH/MM3 (4.0-11.0) Red Blood Count 4.13 MIL/MM3 (4.00-5.30) Hemoglobin 9.2 GM/DL (11.6-15.3) Hematocrit 30.6 % (35.0-46.0) Mean Corpuscular Volume 74.1 FL (80.0-100.0) Mean Corpuscular Hemoglobin 22.4 PG (27.0-34.0) Mean Corpuscular Hemoglobin 30.2 % Concent (32.0-36.0) Red Cell Distribution Width 17.6 % (11.6-17.2) Platelet Count 404 TH/MM3 (150-450) Mean Platelet Volume 7.6 FL (7.0-11.0) Neutrophils (%) (Auto) 88.0 % (16.0-70.0) Lymphocytes (%) (Auto) 6.0 % (9.0-44.0) Monocytes (%) (Auto) 5.6 % (0.0-8.0) Eosinophils (%) (Auto) 0.1 % (0.0-4.0) Basophils (%) (Auto) 0.3 % (0.0-2.0) Neutrophils # (Auto) 15.7 TH/MM3 (1.8-7.7) Lymphocytes # (Auto) 1.1 TH/MM3 (1.0-4.8) Monocytes # (Auto) 1.0 TH/MM3 (0-0.9) Eosinophils # (Auto) 0.0 TH/MM3 (0-0.4) Basophils # (Auto) 0.0 TH/MM3 (0-0.2) CBC Comment AUTO DIFF Differential Comment AUTO DIFF CONFIRMED Ovalocytes 1+ (NORMAL) Sodium Level 132 MEQ/L (136-145) Potassium Level 5.0 MEQ/L (3.5-5.1) Chloride Level 95 MEQ/L (98-107) Carbon Dioxide Level 30.3 MEQ/L (21.0-32.0) Anion Gap 7 MEQ/L (5-15) Blood Urea Nitrogen 25 MG/DL (7-18) Creatinine 0.63 MG/DL (0.50-1.00) Estimat Glomerular Filtration 95 ML/MIN (>89) Rate Random Glucose 120 MG/DL (74-106) Calcium Level 9.8 MG/DL (8.5-10.1) Total Bilirubin 0.3 MG/DL (0.2-1.0) Aspartate Amino Transf 113 U/L (15-37) (AST/SGOT) Alanine Aminotransferase 147 U/L (10-53) (ALT/SGPT) Alkaline Phosphatase 109 U/L (45-117) Total Protein 6.4 GM/DL (6.4-8.2) Albumin 2.8 GM/DL (3.4-5.0) Test 08/02/16 08/02/16 08/03/16 05:32 10:00 10:46 Blood Gas Puncture Site RT BRACHIAL Blood Gas Patient Temperature 98.6 Blood Gas HCO3 30 mmol/L (22-26) Blood Gas Base Excess 4.7 mmol/L (-2-2) Blood Gas Oxygen Saturation 95 % (90-100) Arterial Blood pH 7.34 (7.380-7.420) Arterial Blood Partial 57 mmHg (38-42) Pressure CO2 Arterial Blood Partial 92 mmHg Pressure O2 (61-120) Arterial Blood Oxygen Content 12.1 Vol % (12.0-20.0) Arterial Blood 1.3 % (0-4) Carboxyhemoglobin Arterial Blood Methemoglobin 0.9 % (0-2) Blood Gas Hemoglobin 9.0 G/DL (12.0-16.0) Oxygen Delivery Device BIPAP Blood Gas Ventilator Setting 12 IPAP/5 EPAP Blood Gas Inspired Oxygen 50 % Pleural Fluid pH 8.0 Pleural Fluid WBC 4011 /MM3 (0-10) Pleural Fluid RBC 3038 /MM3 (0-0) Pleural Fluid Neutrophils 48 % Pleural Fluid Lymphocytes 13 % Pleural Fluid Monocytes 1 % Pleural Fluid Mesothelial 38 % Cells Pleural Fluid Comment Pleural Fluid Total Protein 3.6 GM/DL Pleural Fluid LDH 2582 U/L Pleural Fluid Glucose 72 MG/DL Pleural Fluid Amylase 13 U/L Lactate Dehydrogenase 540 U/L (84-246) . Result Diagram: 08/02/16 0351 08/02/16 0351 Microbiology Microbiology Date/Time Procedure Status Source Growth 08/01/16 18:30 Urine Culture - Final Complete Urine Catheterized Urine NO GROWTH IN 48 HOURS. 08/01/16 19:40 Aerobic Blood Culture - Preliminary Resulted Blood Peripheral NO GROWTH IN 3 DAYS 08/01/16 19:40 Anaerobic Blood Culture - Preliminary Resulted Blood Peripheral NO GROWTH IN 3 DAYS 08/01/16 19:50 Aerobic Blood Culture - Preliminary Resulted Blood Peripheral NO GROWTH IN 3 DAYS 08/01/16 19:50 Anaerobic Blood Culture - Preliminary Resulted Blood Peripheral NO GROWTH IN 3 DAYS 08/02/16 10:00 Gram Stain - Final Resulted Fluid Pleural Fluid 08/02/16 10:00 Body Fluid Culture - Preliminary Resulted Fluid Pleural Fluid NO GROWTH IN 48 HOURS. 08/02/16 10:00 Acid Fast Stain - Final Resulted Fluid Pleural Fluid NO ACID FAST BACILLI SEEN 08/02/16 10:00 Mycobacterial Culture Resulted Fluid Pleural Fluid Pending 08/02/16 10:00 Fungal Smear - Final Resulted Fluid Pleural Fluid NO FUNGAL ELEMENTS SEEN. 08/02/16 10:00 Fungal Culture Resulted Fluid Pleural Fluid Pending Imaging Last 72 hours Impressions Chest X-Ray 08/02/16 0600 Signed Impressions: Service Date/Time: Tuesday, August 02, 2016 02:57 - CONCLUSION: 1. No significant change. Right upper lobe volume loss and/or collapse. 2. Right pleural effusion. Carmine Hairston MD Chest X-Ray 08/02/16 0000 Signed Impressions: Service Date/Time: Tuesday, August 02, 2016 10:22 - CONCLUSION: 1. Small bore tube at the right lung base with interval removal of the patient's large right effusion. 2. Continued dense consolidation versus mass of the right upper lobe. Gamaliel Alan MD . Procedures 08/02/2016: Percutaneous pigtail tube thoracostomy . Assessment and Plan Disease Oriented Problem List: (1) Hypoxemia (2) COPD exacerbation (3) Acute respiratory failure (4) Acute respiratory acidosis (5) Cholecystitis (6) Pleural effusion (7) Metastatic primary lung cancer (8) Postobstructive pneumonia (9) Probable sepsis (10) Lung cancer metastatic to bone Symptom Scale: (1) Pain 0-10 Scale: 3 Comment: Patient reports ongoing tingling/burning pain that radiates down her legs bilaterally. She states she was managing discomfort with acetaminophen while at home, PRN Percocet was ordered on 08/01/16 which has decreased symptoms per patient report. 24-hour Percocet dosage = 5-325mg tablet x1; 10-325mg tablet x 4. Gabapentin 200mg by mouth TID was added today for what appears to be neuropathic pain. Bowel protocol also initiated. (2) Dyspnea Comment: Respiratory status improved status post right pigtail chest tube secondary to pleural effusion on 08/02/2016; initial drainage was 550 mL slightly cloudy yellowish pleural fluid. Cytology pending, likely a malignant effusion. Follow-up chest x-ray shows small bore tube at the right lung base with interval removal of patient's large pleural effusion; continue dense consolidation versus mass of the right upper lobe. Bronchoscopy tomorrow (3) Anxiety Comment: Anxiety has resolved, likely secondary to respiratory distress which is currently well controlled. (4) Constipation Pertinent Non-Medical Issues Psychosocial: Ms. Acharya is a 66-year-old female who was born in [facility]. She has 3 sisters and 4 brothers who are alive and healthy. Patient has been to Meir for approximately 38+ years. This is her second marriage. They moved to [place] approximately 7 years ago and resides with her . She has 3 adult children from her first marriage (Lalo, Mateusz and Any). 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 Spiritual: Pending conversation with patient. Legal: Patient states she has completed advance directives; requested that her bring copies to the hospital to be scanned into patient's EMR. Ethical issues impacting care: No known ethical issues impacting care at this time . Important Contacts Ziggy Acharya, spouse: [phone] or [phone] Norma Parra, sister: [phone] . Prognosis Patient is a 66-year-old female who reports recurrent bronchitis, productive cough and new onset dyspnea with minimal exertion. Symptoms began approximately 6 weeks ago, and the patient has been treated with 3 courses of antibiotics. An outpatient chest x-ray revealed a right upper lung mass. Subsequent CT chest revealed consolidation of the right upper lung, crit compressive atelectasis of the right lower lobe with moderate right effusion and narrowing of the right mainstem bronchus with possible right hilar mass. CEA is elevated, patient appears to have stage IV lung cancer with imaging showing multiple bony metastatic cyst involving C-spine, thoracic and lumbar spine. Imaging also shows bilateral adrenal metastasis. Overall prognosis is poor. . Code Status: Full Code Plan * FULL CODE * Decision-making: Patient states she has completed written advanced directives , and her is designated as the health care surrogate. Patient states written advanced directives have been completed, but the patient's he does not know where the documents are at this time. Patient states, " It doesn' t matter because we wanted everything done." Discussed written advanced directives, which may include health care surrogate designation and living will. Uncompleted health care surrogate form was provided to the patient and her to review, considering completing this form again for ease. * Goals: Patient verbalizes aggressive goals. She states she understands that it appears the cancer is extensive, but she plans to have further diagnostic testing done and wants to pursue all aggressive interventions that are available to her. Her supports this decision. * Symptom managementdyspnea: Respiratory status improved status post right pigtail chest tube secondary to pleural effusion on 08/02/2016; initial drainage was 550 mL slightly cloudy yellowish pleural fluid. Cytology pending, likely a malignant effusion. Follow-up chest x-ray shows small bore tube at the right lung base with interval removal of patient's large pleural effusion; continue dense consolidation versus mass of the right upper lobe. Follow-up chest x-ray shows small bore tube at the right lung base with interval removal of patient's large pleural effusion; continue dense consolidation versus mass of the right upper lobe. Bronchoscopy was canceled today; patient did not want to risk possible complications secondary to this elective procedure. * Tentative plan per family: Port placement, likely discharge on Tuesday and initiation of chemotherapy early next week. * Symptom managementpain: Patient reports ongoing tingling/burning pain that radiates down her legs bilaterally. She states she was managing discomfort with acetaminophen while at home, PRN Percocet was ordered on 08/01/16 which has decreased symptoms per patient report. 24-hour Percocet dosage = 5-325mg tablet x1; 10-325mg tablet x 4. Gabapentin 200mg by mouth TID was added today for what appears to be neuropathic pain. * Symptom managementconstipation: LBM 07/21/16. Bowel protocol also initiated; Senna- S (1 tablet) PO 2 times daily as needed. * Symptom managementanxiety: Anxiety has resolved, likely secondary to respiratory distress which is currently well controlled. Will continue to monitor. * Palliative care will continue to follow this patient throughout her hospitalization to establish trust, assist with symptom management and clarification of medical treatment goals. . Attestation To help prompt me to consider important information that might be impacting today's encounter and assessment, information from prior notes written by myself or my colleagues may have been "brought forward" into today's note. My signature on this note, however, is an attestation that I personally performed the exam, history, and/or decision-making noted today, and, unless otherwise indicated, the interactions with patient, family, and staff as well as the review of records all occurred today. I also attest that the listed assessment and stated plan reflect my best clinical judgment today based on the combination of historical information, prior notes, and today's exam/ interactions. When time spent is documented, it refers only to time spent today by the signer, or if indicated, combined time spent today by collaborating physician/nurse practitioner. . Karli Baez August 04, 2016 16:55
[2016-08-04] MEDS ORDERED: DOCUSATE SODIUM 50 MG/SENNA 8.6 MG TAB PO PRN (17:00)
[2016-08-04] MEDS: ATORVASTATIN 40 MG TAB PO SCH (22:19)
[2016-08-05] VITALS (9 sets, daily range): BP systolic 96–136; BP diastolic 60–87; PULSE 87–104; RESP 13–20; TEMP 97.9–99; O2SAT 93–98
[2016-08-05] MEDS: metroNIDAZOLE 500 MG INJ 100 ML IV SCH ×3 (01:15→17:00)
[2016-08-05] MEDS: RESP: ALBUTEROL 2.5 MG/IPRATROPIUM 0.5 MG NEB (SCH) NEB ×5 (03:35→20:27)
[2016-08-05 04:19] LABS: HEMATOCRIT 32.6 % (35.0-46.0); MEAN CELL VOLUME 73.8 FL (80.0-100.0); MEAN CORPUSCULAR HEMOGLOBIN 22.3 PG (27.0-34.0); MEAN CORPUSCULAR HGB CONC 30.3 % (32.0-36.0); PLATELET COUNT 316 TH/MM3 (150-450); RED BLOOD COUNT 4.42 MIL/MM3 (4.00-5.30); RED CELL DISTRIBUTION WIDTH 18.4 % (11.6-17.2); WHITE BLOOD COUNT 23.6 TH/MM3 (4.0-11.0)
[2016-08-05 04:26] LABS: REVIEW FLAG FINAL
[2016-08-05 04:42] LABS: BICARBONATE 39.3 MEQ/L (21.0-32.0); POTASSIUM 4.6 MEQ/L (3.5-5.1)
[2016-08-05] MEDS: LEVOFLOXACIN 500 MG PREMIX INJ 100 ML IV SCH (05:19)
[2016-08-05] MEDS: methylPREDNISolone SOD SUCC 40 MG/1 ML VIAL IV PUSH SCH ×3 (05:19→21:41)
[2016-08-05] MEDS: oxyCODONE/ACETAMINOPHEN 10 MG/325 MG TAB PO PRN ×2 (07:18→11:13)
--- NOTE | 2016-08-05 07:38 | HHI.CCPN ---
Subjective Remarks/Hospital Course 66-year-old female who was admitted with a history of shortness of breath, wheezing, cough going on for several days along with a history of significant weight loss and back pain as well as no chest pain. Patient was supposed to have a cholecystectomy. She was evaluated with a chest x-ray which revealed a right upper lung mass. Subsequent CT chest revealed consolidation of right upper lung compressive atelectasis of right lower lobe with moderate right effusion and narrowing of right mainstem bronchus with possible right hilar mass. Patient was admitted by hospitalist service and was evaluated by pulmonary as well as oncology. She has an elevated CEA and appears to have stage IV lung cancer with imaging studies including MRI spine revealing multiple bony metastatic cysts involving C-spine, thoracic and lumbar spine. CT chest also revealed bilateral adrenal metastases. Patient was placed on Levaquin for possible postobstructive pneumonia on the floor and was initiated on IV steroids and bronchodilators. She was on nasal cannula 2 this afternoon when she developed worsening respiratory distress and dropped her O2 sats to the 70s for which she was placed on a nonrebreather face mask following a rapid response and was subsequently transferred to the ICU. Critical care consult was requested by Dr. Anderson from the hospitalist service for acute respiratory failure. I evaluated the patient immediately on arrival to the ICU. She had just been initiated on BiPAP as ordered by me at that time as her ABG revealed acute respiratory acidosis. She appeared very anxious at the time hence Precedex GTT was ordered. History was obtained by reviewing records and discussion with nursing staff. 08/02: Patient remains on BiPAP but ABG shows improvement, remains on Precedex for sedation. Chest x-ray shows large right pleural effusion-I place a right pigtail catheter with find a medical initial output of exudative appearing fluid. Discussed with Dr. Rosales. Will wait for cytology and postpone the bronchoscopy 08/03: Respiratory status improved after draining right pleural effusion. Probably malignant effusion cytology pending. Continues to have bilateral wheezing. Probable bronch today by Dr. Gutierrez 08/04: patient refused BiPAP overnight because the beeping kept her awake. plan for bronch with bx today. does complain of shooting tingling/burning pain radiating from her back. at least 300cc serous fluid out of right chest tube. 08/05: patient cancelled bronchoscopy and port placement yesterday at last minute due to her concerns over "not waking up after surgery". She states that she is not willing to take the risk of lying flat and not breathing in order to diagnose this. She would like to discuss other options. From a respiratory standpoint, her breathing continues to improve on NC o2. Objective Vital Signs Date Time Temp Pulse Resp B/P Pulse Ox O2 Delivery O2 Flow Rate FiO2 08/05/16 06:00 93 08/05/16 04:00 98.6 14 117/65 95 08/04/16 20:55 Nasal Cannula 4.00 08/04/16 01:09 35 Intake and Output 08/04/16 08/04/16 08/05/16 08:00 16:00 00:00 Intake Total 238 ml 150 ml 763 ml Output Total 305 ml 410 ml 450 ml Balance -67 ml -260 ml 313 ml Result Diagram: 08/05/16 0357 08/05/16 0357 Imaging Last Impressions Chest X-Ray 07/31/16 0600 Signed Impressions: Service Date/Time: Sunday, July 31, 2016 05:05 - CONCLUSION: 1. Right hilar mass with atelectasis involving the right upper lung. 2. Lytic lesion involving the left fifth rib consisting of bony metastatic disease. Jero Miller MD Entire Spine MRI 07/31/16 0000 Signed Impressions: Service Date/Time: Sunday, July 31, 2016 09:58 - CONCLUSION: Diffuse bony metastasis throughout the dorsal spine without significant canal stenosis. Carlos Dee MD Brain MRI 07/31/16 0000 Signed Impressions: Service Date/Time: Sunday, July 31, 2016 09:58 - CONCLUSION: 1. Nonspecific white matter changes. 2. No evidence for metastatic disease to the brain parenchyma. 3. There are some bony metastatic lesions along the upper cervical spine/skull base. Carlos Dee MD Chest CT 07/30/16 0000 Signed Impressions: Service Date/Time: Saturday, July 30, 2016 05:13 - CONCLUSION: 1. There is narrowing of the right mainstem bronchus suspicious for a right hilar mass. 2. There is a masslike density in the right upper lung measuring 2.2 x 1.6 cm. 3. There is a moderate right pleural effusion with compressive atelectasis of the right lower lung. 4. There is consolidation of the right upper lung most likely from post obstructive pneumonia. 5. Patchy infiltrate in the posterior left upper lung most likely inflammatory. 6. Multiple lytic lesions are seen throughout the thoracic spine characteristic for diffuse bony metastatic disease 7. Diffusely enlarged bilateral adrenal glands most likely metastatic disease Jero Miller MD Abdomen/Pelvis CT 07/30/16 0000 Signed Impressions: Service Date/Time: Saturday, July 30, 2016 23:25 - CONCLUSION: 1. Diffuse bony metastatic disease. 2. Moderate right-sided pleural effusion. 3. Bilateral adrenal metastatic disease. 4. Simple right renal cyst. Jero Miller MD Objective Remarks P/E Elderly female, in no acute distress this AM. HEENT/Neuro: No pallor or icterus, tongue moist, SHAKEEL, awake, following commands, nonfocal grossly, moving all 4 extremities Neck: No JVD Chest/pulmonary: scant wheezes. unlabored resprations. equal chest rise. comfortable on NC o2. Cardiovascular: S1-S2 regular no gallop or murmur GI/abdomen: Soft, nontender, nondistended. no guarding. Extremities: Warm bilaterally, no edema Procedures none A/P Assessment and Plan 66-year-old female with: Probable Metastatic lung cancer with metastases to spine/bilateral adrenal glands Acute hypoxic respiratory failure- resolving. Acute respiratory acidosis- resolved. COPD exacerbation Postobstructive pneumonia involving right lung due to right mainstem bronchus narrowing Right pleural effusion Probable sepsis- resolving. 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 Minimize sedation - continue gabapentin 200mg po TID for neuropathic pain (last titrated 08/04). would plan to increase this slowly [id number] to a target maximum of 1800 - 3600 mg/day, divided TID for neuropathic pain associated with spinal mets. - continue tizanidine 1mg po q12h for neuropathic pain (last titrated 08/04). would plan to increase this slowly q24-48h to target of 2-4mg po q12h. - discussed with the patient that the other optimal medication for her neuropathic pain would be either a TCA or Cymbalta, but she has tried antidepressants in the past and has had adverse reactions and she prefers to hold off on starting any anti-depressant type medication at this time. - continue oxycodone 5-10mg q4h prn for breakthrough pain. Cardiovascular: -IV hydration, watch for hypotension. Pulmonary: -NC o2 as tolerated. prn BiPAP, particularly at night. Bronchodilators, Solu- Medrol. -Being followed by Dr. Gutierrez from pulmonary medicine. Plan for bronchoscopy today -Appears to have metastatic lung CA and has been evaluated by oncology as well. -Right pigtail catheter to suction, will continue this through bronchoscopy. -Culture, cytology of the fluid pending GI/liver: -History of gallbladder disease for which she was to have a cholecystectomy which is obviously on hold currently. -Elevated LFTs noted. -low fat diet (patient has concerns over possible "gallbladder attack"). Renal/: -Strict intake output, monitor and replete electrolytes, follow BUN/creatinine. ID: -On Levaquin since 07/30. Added Flagyl 08/01 for empiric antibiotic coverage to cover for postobstructive pneumonia. Prophylaxis: -PPI/SCDs. Lovenox on hold for bronch today. will plan to restart after. Prognosis appears extremely poor with metastatic disease involving spine and bilateral adrenal glands. Oncology has discussed options. palliative care involved. Dispo: stable for transfer out of ICU. will consult hospitalist service. Michael Riley MD August 05, 2016 07:38
[2016-08-05] MEDS: PANTOPRAZOLE SOD 40 MG DELAYED RELEASE TAB PO SCH (08:37)
[2016-08-05] MEDS: GABAPENTIN 100 MG CAP PO SCH ×3 (08:38→17:45)
[2016-08-05] MEDS: oxyCODONE/ACETAMINOPHEN 5 MG/325 MG TAB PO PRN ×3 (10:09→19:29)
[2016-08-05] MEDS: SODIUM CHLORIDE 0.9% FLUSH 10 ML FLUSH IV FLUSH SCH ×2 (10:10→21:41)
--- NOTE | 2016-08-05 10:57 | PD.ONC.PN ---
Subjective Subjective Remarks Afebrile overnight. Patient resting comfortably with at bedside. " I feel good today." Objective Data Date Time Temp Pulse Resp B/P Pulse Ox O2 Delivery O2 Flow Rate FiO2 08/05/16 08:18 20 08/05/16 08:00 98.8 89 20 112/63 94 08/05/16 08:00 94 Nasal Cannula 4.00 08/05/16 08:00 89 08/05/16 07:45 98 Nasal Cannula 3.50 08/05/16 06:00 93 08/05/16 04:00 98.6 88 14 117/65 95 08/05/16 04:00 87 08/05/16 00:00 94 08/05/16 00:00 99.0 94 13 124/68 95 08/04/16 22:00 96 08/04/16 20:55 98 Nasal Cannula 4.00 08/04/16 20:00 96 08/04/16 20:00 98.8 96 23 136/90 94 08/04/16 19:00 94 Nasal Cannula 4.00 08/04/16 16:00 98.5 100 21 152/72 96 08/04/16 16:00 100 08/04/16 14:45 20 08/04/16 12:00 98.1 100 18 135/64 93 08/04/16 12:00 100 08/05/16 08/05/16 08/05/16 07:00 15:00 23:00 Intake Total 397 ml Output Total 250 ml Balance 147 ml Result Diagram: 08/05/16 0357 08/05/16 0357 Laboratory Results Laboratory Tests Test 08/05/16 03:57 White Blood Count 23.6 TH/MM3 Red Blood Count 4.42 MIL/MM3 Hemoglobin 9.9 GM/DL Hematocrit 32.6 % Mean Corpuscular Volume 73.8 FL Mean Corpuscular Hemoglobin 22.3 PG Mean Corpuscular Hemoglobin 30.3 % Concent Red Cell Distribution Width 18.4 % Platelet Count 316 TH/MM3 Mean Platelet Volume 7.4 FL Sodium Level 135 MEQ/L Potassium Level 4.6 MEQ/L Chloride Level 94 MEQ/L Carbon Dioxide Level 39.3 MEQ/L Anion Gap 2 MEQ/L Blood Urea Nitrogen 19 MG/DL Creatinine 0.48 MG/DL Estimat Glomerular Filtration 129 ML/MIN Rate Random Glucose 138 MG/DL Calcium Level 9.1 MG/DL Administered Medications Medications (Trade) Dose Ordered Sig/Alistair Route PRN Reason Start Time Stop Time Status Last Admin Dose Admin Sodium Chloride (NS Flush) 2 ml UNSCH PRN IV FLUSH FLUSH AFTER USING IV ACCESS 07/30/16 03:45 08/01/16 04:43 Sodium Chloride (NS Flush) 2 ml BID IV FLUSH 07/30/16 09:00 08/05/16 10:10 Pantoprazole Sodium 40 mg 40 mg DAILY PO 07/30/16 09:00 08/05/16 08:37 Levofloxacin/ Dextrose (Levaquin 500 Mg Premix Inj) 100 ml @ 100 mls/hr Q24H IV 07/30/16 05:00 08/05/16 05:19 Atorvastatin Calcium (Lipitor) 40 mg HS PO 07/30/16 21:00 08/04/16 22:19 Ondansetron HCl (Zofran Odt) 4 mg Q6HR PRN SL Nausea/Vomiting 07/30/16 05:30 07/30/16 21:07 Methylprednisolone Sodium Succinate (SoluMEDROL INJ) 40 mg Q8HR IV PUSH 07/31/16 22:00 08/05/16 05:19 Oxycodone/ Acetaminophen (Percocet 5-325 Mg) 1 tab Q4H PRN PO pain1-5 08/01/16 09:30 08/05/16 10:09 Oxycodone/ Acetaminophen 1 tab 1 tab Q4H PRN PO pain6-10 08/01/16 09:30 08/05/16 07:18 Metronidazole (Flagyl 500 Mg Inj) 100 ml @ 100 mls/hr Q8H IV 08/01/16 17:00 08/05/16 08:37 Gabapentin (Neurontin) 200 mg TID PO 08/04/16 09:25 08/05/16 08:38 Tizanidine HCl (Zanaflex) 1 mg Q12HR PO 08/04/16 09:25 08/05/16 08:38 Objective Remarks GENERAL: Pleasant middle aged female, sitting upright in hospital bed, at bedside. SKIN: Warm and dry. HEAD: Normocephalic. EYES: No injection or drainage. NECK: Supple, trachea midline. CARDIOVASCULAR: Regular rate and rhythm without murmurs. RESPIRATORY: scattered rhonchi. On 4L O2 via NC GASTROINTESTINAL: Abdomen soft, non-tender, nondistended. EXTREMITIES: No cyanosis NEUROLOGICAL: No obvious focal deficit. Awake, alert, and oriented x3. Assessment/Plan Assessment 66y/o female with newly diagnosed NSCLC Plan 1. discussed with patient and preliminary pathology results indicating non-small cell lung cancer. discussed that Dr. Maria spoke with the pathologist and the specific type of lung cancer (squamous vs adenocarcinoma) is still pending. patient and stated that had been expecting this result. discussed waiting on final pathology before further decisions on possible treatment options. Most likely if this is an adenocarcinoma, we will recommend Carbo/Alimta/Avastin and if this is a squamous cell carcinoma, will recommend carbo/taxol. 2. will ask pathology to send alk/egfr/[id number] testing on the cytology cell block. Attending Statement The exam, history, and the medical decision-making described in the above note were completed with the assistance of the mid-level provider. I reviewed and agree with the findings presented. I attest that I had a [id number] encounter with the patient on the same day, and personally performed and documented my assessment and findings in the medical record. Patient seen, records reviewed including imaging studies, medications and pathology reports. Preliminary pathology from pleural fluid cytology indicates presence of malignant cells, further characterization is pending at this time. Should she have small cell carcinoma; I will initiate inpatient systemic therapy. 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 Patient and her 's questions were answered to their satisfaction. Jesi Smith August 05, 2016 10:57 Gil Shaw MD August 05, 2016 18:23
--- NOTE | 2016-08-05 15:45 | HHI.HCPN ---
Reason for visit a. To assist with evaluation and management of symptoms including: pain, dyspnea, anxiety, constipation b. To assist medical decision maker(s) with: better understanding of current medical conditions; weighing benefits/burdens of medical treatment options; making medical treatment decisions. . Subjective/Interval History Ms. Acharya is a 66 year old female who presented to [facility] ED on 2016 for evaluation of ongoing respiratory distress and was subsequently admitted with COPD exacerbation, hypoxia and newly diagnosed metastatic lung cancer. Follow-up visit for symptom management and clarification of goals. Bronchoscopy was canceled yesterday; patient did not want to risk possible complications secondary to this elective procedure. Patient spoke with Jesi Smith Oncology PA this morning, and they are aware preliminary pathology results were indicative of non-small cell lung cancer. Further information about the specific type of lung cancer (squamous versus adenocarcinoma) is still pending. Dr. Shaw will be following. Labwork 08/05/16: = WBC: 23.6, hemoglobin 9.9, hematocrit 32.6, platelets 316 = Sodium: 135, potassium 4.6, chloride 94, carbon dioxide 39.3, glucose 138, calcium 9.1 = BUN: 19, creatinine 0.48, GFR 129 Patient reports ongoing tingling/burning pain that radiates down her legs bilaterally. She states she was managing discomfort with acetaminophen while at home. New onset intermittent, throbbing pain in hips bilaterally, left >right. She states he hip pain is increasing, but she understands she may have underlying pain. Patient states her pain was a 5 out10, decreasing to 3 out 10 after percocet. At this time she verbalized a pain level of 3 out of 10 is tolerable; she states she would prefer to live with some degree of pain while remaining less sedated. PRN Percocet was ordered on 08/01/16 which has decreased symptoms per patient report. 24-hour Percocet dosage = 5-325mg tablet x1; 10- 325mg tablet x 3. Gabapentin 200mg by mouth TID was added today for what appears to be neuropathic pain. . Family/friend interactions Met with patient and spouse. The patient was verbalizing frustration; she would like to know what treatment options are available and develop a plan of action. The patient states she needs to be home so she can make preparations. Additionally, she states that she and her have not had time to process this diagnosis and/or grief. . Advance Directives Living Will: Completed, but not made available (patient's will provide copies of documentation) Health Care Surrogate: Completed, but not made available (patient's will provide copies of documentation) Advance Directive Specifics Documented care wishes: Patient states written advanced directives have been completed, but the patient' s states he does not know where the documents are at this time. Patient states, " It doesn't matter because we wanted everything done." Discussed written advanced directives, which may include health care surrogate designation and living will. Uncompleted health care surrogate form was provided to the patient and her to review, considering completing this form again for ease. . Objective Vital Signs Date Time Temp Pulse Resp B/P Pulse Ox O2 Delivery O2 Flow Rate FiO2 08/05/16 12:13 18 08/05/16 12:00 98.5 104 19 96/71 93 08/05/16 11:13 19 08/05/16 08:00 98.8 89 20 112/63 94 08/05/16 08:00 94 Nasal Cannula 4.00 08/05/16 08:00 89 08/05/16 07:45 98 Nasal Cannula 3.50 08/05/16 06:00 93 08/05/16 04:00 98.6 88 14 117/65 95 08/05/16 04:00 87 08/05/16 00:00 94 08/05/16 00:00 99.0 94 13 124/68 95 08/04/16 22:00 96 08/04/16 20:55 98 Nasal Cannula 4.00 08/04/16 20:00 96 08/04/16 20:00 98.8 96 23 136/90 94 08/04/16 19:00 94 Nasal Cannula 4.00 08/04/16 16:00 98.5 100 21 152/72 96 08/04/16 16:00 100 Intake & Output 08/05/16 08/05/16 07:00 19:00 Intake Total 620 ml 725 ml Output Total 700 ml 175 ml Balance -80 ml 550 ml Intake Oral 260 ml 600 ml IV Total 360 ml 125 ml Output Urine Total 400 ml 125 ml Chest Tube Drainage Total 300 ml 50 ml # Bowel Movements 0 0 . Physical Exam CONSTITUTIONAL/GENERAL: This is an adequately nourished, elderly female patient , in no apparent distress. TUBES/LINES/DRAINS: PIV 1, NC, Tucker, chest tube SKIN: No jaundice, rashes, or lesions. Ecchymoses on upper extremities. Skin temperature appropriate. Not diaphoretic. HEAD: Atraumatic. Normocephalic. EYES: Pupils equal and round and reactive. Extraocular motions intact. No scleral icterus. No injection or drainage. Fundi not examined. ENT: Hearing grossly normal. Nose without bleeding or purulent drainage. NECK: Trachea midline. Supple, nontender. No palpable thyroid enlargement or nodularity. CARDIOVASCULAR: Regular rate and rhythm without murmurs, gallops, or rubs. No JVD. Peripheral pulses symmetric. RESPIRATORY/CHEST: Respirations unlabored on 2 L oxygen via nasal cannula. Scattered rhonchi. Right pigtail catheter, right chest wall. GASTROINTESTINAL: Abdomen soft, non-tender, nondistended. No hepato-splenomegaly , or palpable masses. No guarding. Bowel sounds present. GENITOURINARY: Without palpable bladder distension. Tucker catheter in place. MUSCULOSKELETAL: Extremities without clubbing, cyanosis, or edema. LYMPHATICS: No palpable cervical or supraclavicular adenopathy. NEUROLOGICAL: Awake and alert. Cognitively sharp. Able to make needs known, follows commands. PSYCHIATRIC: No obvious anxiety/depression on exam. No apparent hallucinations or other psychotic thought process. . Diagnostic Tests Laboratory Laboratory Tests Test 08/03/16 08/05/16 10:46 03:57 Lactate Dehydrogenase 540 U/L (84-246) White Blood Count 23.6 TH/MM3 (4.0-11.0) Red Blood Count 4.42 MIL/MM3 (4.00-5.30) Hemoglobin 9.9 GM/DL (11.6-15.3) Hematocrit 32.6 % (35.0-46.0) Mean Corpuscular Volume 73.8 FL (80.0-100.0) Mean Corpuscular Hemoglobin 22.3 PG (27.0-34.0) Mean Corpuscular Hemoglobin 30.3 % Concent (32.0-36.0) Red Cell Distribution Width 18.4 % (11.6-17.2) Platelet Count 316 TH/MM3 (150-450) Mean Platelet Volume 7.4 FL (7.0-11.0) Sodium Level 135 MEQ/L (136-145) Potassium Level 4.6 MEQ/L (3.5-5.1) Chloride Level 94 MEQ/L (98-107) Carbon Dioxide Level 39.3 MEQ/L (21.0-32.0) Anion Gap 2 MEQ/L (5-15) Blood Urea Nitrogen 19 MG/DL (7-18) Creatinine 0.48 MG/DL (0.50-1.00) Estimat Glomerular Filtration 129 ML/MIN Rate (>89) Random Glucose 138 MG/DL (74-106) Calcium Level 9.1 MG/DL (8.5-10.1) . Result Diagram: 08/05/16 0357 08/05/16 0357 Procedures 08/02/2016: Percutaneous pigtail tube thoracostomy . Assessment and Plan Disease Oriented Problem List: (1) Hypoxemia (2) COPD exacerbation (3) Acute respiratory failure (4) Acute respiratory acidosis (5) Cholecystitis (6) Pleural effusion (7) Metastatic primary lung cancer (8) Postobstructive pneumonia (9) Probable sepsis (10) Lung cancer metastatic to bone Symptom Scale: (1) Pain 0-10 Scale: 3 Comment: Patient reports ongoing tingling/burning pain that radiates down her legs bilaterally. She states she was managing discomfort with acetaminophen while at home. New onset intermittent, throbbing pain in hips bilaterally, left >right. She states he hip pain is increasing, but she understands she may have underlying pain. Patient states her pain was a 5 out10, decreasing to 3 out 10 after percocet. At this time she verbalized a pain level of 3 out of 10 is tolerable; she states she would prefer to live with some degree of pain while remaining less sedated. PRN Percocet was ordered on 08/01/16 which has decreased symptoms per patient report. 24-hour Percocet dosage = 5-325mg tablet x1; 10- 325mg tablet x 3. Gabapentin 200mg by mouth TID was added today for what appears to be neuropathic pain. . (2) Dyspnea Comment: Respiratory status improved status post right pigtail chest tube secondary to pleural effusion on 08/02/2016; initial drainage was 550 mL slightly cloudy yellowish pleural fluid. Cytology pending, likely a malignant effusion. Follow-up chest x-ray shows small bore tube at the right lung base with interval removal of patient's large pleural effusion; continue dense consolidation versus mass of the right upper lobe. Bronchoscopy tomorrow (3) Anxiety Comment: Anxiety has resolved, likely secondary to respiratory distress which is currently well controlled. (4) Constipation Pertinent Non-Medical Issues Psychosocial: Ms. Acharya is a 66-year-old female who was born in [facility]. She has 3 sisters and 4 brothers who are alive and healthy. Patient has been to Meir for approximately 38+ years. This is her second marriage. They moved to [place] approximately 7 years ago and resides with her . She has 3 adult children from her first marriage (Lalo, Mateusz and Any). 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 Spiritual: Pending conversation with patient. Legal: Patient states she has completed advance directives; requested that her bring copies to the hospital to be scanned into patient's EMR. Ethical issues impacting care: No known ethical issues impacting care at this time . Important Contacts Ziggy Acharya, spouse: [phone] or [phone] Norma Parra, sister: [phone] . Prognosis Patient is a 66-year-old female who reports recurrent bronchitis, productive cough and new onset dyspnea with minimal exertion. Symptoms began approximately 6 weeks ago, and the patient has been treated with 3 courses of antibiotics. An outpatient chest x-ray revealed a right upper lung mass. Subsequent CT chest revealed consolidation of the right upper lung, crit compressive atelectasis of the right lower lobe with moderate right effusion and narrowing of the right mainstem bronchus with possible right hilar mass. CEA is elevated, patient appears to have stage IV lung cancer with imaging showing multiple bony metastatic cyst involving C-spine, thoracic and lumbar spine. Imaging also shows bilateral adrenal metastasis. Overall prognosis is poor. . Code Status: Full Code Plan * FULL CODE * Decision-making: Per [place] statutes, and absence of written advanced directives healthcare proxy decision-making falls to the patient's . * Patient states she has completed written advanced directives, and her is designated as the health care surrogate. Patient states written advanced directives have been completed, but the patient's he does not know where the documents are at this time. Patient states, " It doesn't matter because we wanted everything done." Discussed written advanced directives, which may include health care surrogate designation and living will. Uncompleted health care surrogate form was provided to the patient and her to review, considering completing this form again for ease. * Goals: Patient verbalizes aggressive goals. * Met with patient and spouse. The patient was verbalizing frustration; she would like to know what treatment options are available and develop a plan of action. The patient states she needs to be home so she can make preparations. Additionally, she states that she and her have not had time to process this diagnosis and/or grief. * Symptom managementdyspnea: Respiratory status improved status post right pigtail chest tube secondary to pleural effusion on 08/02/2016; initial drainage was 550 mL slightly cloudy yellowish pleural fluid. Cytology pending, likely a malignant effusion. Follow-up chest x-ray shows small bore tube at the right lung base with interval removal of patient's large pleural effusion; continue dense consolidation versus mass of the right upper lobe. Follow-up chest x-ray shows small bore tube at the right lung base with interval removal of patient's large pleural effusion; continue dense consolidation versus mass of the right upper lobe. Bronchoscopy was canceled today; patient did not want to risk possible complications secondary to this elective procedure. * Tentative plan per family: Port placement, likely discharge on Tuesday and initiation of chemotherapy early next week. * Discussed with patient's nurse, Jesi Smith-Oncology PA and patient case coordinator ( Cee). * Symptom managementpain: Patient reports ongoing tingling/burning pain that radiates down her legs bilaterally. She states she was managing discomfort with acetaminophen while at home. New onset intermittent, throbbing pain in hips bilaterally, left >right. She states he hip pain is increasing, but she understands she may have underlying pain. Patient states her pain was a 5 out10 , decreasing to 3 out 10 after percocet. At this time she verbalized a pain level of 3 out of 10 is tolerable; she states she would prefer to live with some degree of pain while remaining less sedated. PRN Percocet was ordered on which has decreased symptoms per patient report. 24-hour Percocet dosage = 5-325mg tablet x1; 10-325mg tablet x 3. Gabapentin 200mg by mouth TID was added today for what appears to be neuropathic pain. * Symptom managementconstipation: Bowel protocol also initiated; Senna- S (1 tablet) PO 2 times daily as needed. * Symptom managementanxiety: Anxiety has resolved, likely secondary to respiratory distress which is currently well controlled. Will continue to monitor. * Palliative care will continue to follow this patient throughout her hospitalization to establish trust, assist with symptom management and clarification of medical treatment goals. . Attestation To help prompt me to consider important information that might be impacting today's encounter and assessment, information from prior notes written by myself or my colleagues may have been "brought forward" into today's note. My signature on this note, however, is an attestation that I personally performed the exam, history, and/or decision-making noted today, and, unless otherwise indicated, the interactions with patient, family, and staff as well as the review of records all occurred today. I also attest that the listed assessment and stated plan reflect my best clinical judgment today based on the combination of historical information, prior notes, and today's exam/ interactions. When time spent is documented, it refers only to time spent today by the signer, or if indicated, combined time spent today by collaborating physician/nurse practitioner. . Karli Baez August 05, 2016 15:45
--- NOTE | 2016-08-05 18:18 | HHI.PR ---
Subjective Remarks Feels better today. Pleural fluid cytology Positive for Non small cell CA. May need chemo. Port cancelled. On O2 at 4 L Objective Vital Signs Date Time Temp Pulse Resp B/P Pulse Ox O2 Delivery O2 Flow Rate FiO2 08/05/16 17:44 16 08/05/16 16:00 98.3 103 18 121/87 97 08/05/16 12:13 18 08/05/16 12:00 98.5 104 19 96/71 93 08/05/16 08:00 98.8 89 20 112/63 94 08/05/16 08:00 94 Nasal Cannula 4.00 08/05/16 08:00 89 08/05/16 07:45 98 Nasal Cannula 3.50 08/05/16 06:00 93 08/05/16 04:00 98.6 88 14 117/65 95 08/05/16 04:00 87 08/05/16 00:00 94 08/05/16 00:00 99.0 94 13 124/68 95 08/04/16 22:00 96 08/04/16 20:55 98 Nasal Cannula 4.00 08/04/16 20:00 96 08/04/16 20:00 98.8 96 23 136/90 94 08/04/16 19:00 94 Nasal Cannula 4.00 I/O 08/04/16 08/04/16 08/04/16 08/05/16 08/05/16 08/05/16 07:00 15:00 23:00 07:00 15:00 23:00 Intake Total 238 ml 150 ml 763 ml 397 ml 725 ml Output Total 305 ml 410 ml 450 ml 250 ml 175 ml Balance -67 ml -260 ml 313 ml 147 ml 550 ml Intake Oral 660 ml 140 ml 600 ml IV Total 238 ml 150 ml 103 ml 257 ml 125 ml Output Urine Total 225 ml 250 ml 200 ml 200 ml 125 ml Chest Tube Drainage Total 80 ml 160 ml 250 ml 50 ml 50 ml # Bowel Movements 0 0 0 0 0 Result Diagram: 08/05/1635608/05/16356 Procedures No procedures performed. Objective Remarks GENERAL: This is a moderately obese white female who is alert and in no acute distress. HEAD, EYES, EARS, NOSE, THROAT: Head normocephalic. The pupils are reactive and equal. Tongue is moist. Throat was clear. NECK: The neck is supple. No bruits. No thyroid enlargement. No lymphadenopathy. CHEST: Decreased excursions. Breath sounds are diminished at the bases, more so on the right side. There are occasional wheezes. HEART: Heart sounds are regular. S1 and S2. No murmur. No S3. ABDOMEN: Abdomen is obese and protuberant without masses. No organomegaly or tenderness. The bowel sounds are active. EXTREMITIES: No edema. No calf tenderness. NEUROLOGIC: Reflexes are 1+. No gross motor deficits. SKIN: No lesions are noted. Assessment and Plan Assessment and Plan IMPRESSION: 1. Right hilar mass with obstructive pneumonitis. 2. Possible metastatic malignancy. 3. COPD with emphysema. 4. Nicotine dependency. 5. Right pleural effusion. Plan : 1. Cont Antibiotics. 2. Nebs qid , duoneb. 3. O2 at 4 L. 4. D/C Solumedrol 5. Add prednisone 10 mg bid 6. Labs in am Jigar Gutierrez MD August 05, 2016 18:18
[2016-08-05] MEDS: ATORVASTATIN 40 MG TAB PO SCH (21:41)
[2016-08-06] VITALS (9 sets, daily range): BP systolic 107–149; BP diastolic 53–78; PULSE 64–105; RESP 16–20; TEMP 97.2–98.3; O2SAT 94–99
[2016-08-06] MEDS: RESP: ALBUTEROL 2.5 MG/IPRATROPIUM 0.5 MG NEB (SCH) NEB ×6 (00:03→18:58)
[2016-08-06] MEDS: metroNIDAZOLE 500 MG INJ 100 ML IV SCH ×3 (00:43→16:05)
[2016-08-06] MEDS: LEVOFLOXACIN 500 MG PREMIX INJ 100 ML IV SCH (06:31)
[2016-08-06] MEDS: methylPREDNISolone SOD SUCC 40 MG/1 ML VIAL IV PUSH SCH ×2 (07:30→20:16)
[2016-08-06] MEDS: GABAPENTIN 100 MG CAP PO SCH ×3 (08:45→16:19)
[2016-08-06] MEDS: oxyCODONE/ACETAMINOPHEN 5 MG/325 MG TAB PO PRN ×5 (08:46→18:30)
[2016-08-06] MEDS: PANTOPRAZOLE SOD 40 MG DELAYED RELEASE TAB PO SCH (08:46)
[2016-08-06] MEDS: SODIUM CHLORIDE 0.9% FLUSH 10 ML FLUSH IV FLUSH SCH ×2 (08:49→20:16)
--- NOTE | 2016-08-06 09:38 | HHI.PR ---
Subjective Remarks This is a pleasant 66 y/o Female with Kidney stones, Hyperlipidemia, who came to ER with Shortness of breath, on current antibiotics for UTI, Tobacco dependent patient, admitted with diagnosis of COPD exacerbation, on CT chest Right lung mass, followed by windows server specialist and Oncology, he will have Bronchoscopy next Tuesday08/02/16, no nausea, vomit or diarrhea. 08/01: Seen in her bedroom in the presence of her , the patient states she changed her mind about her Hospice petition she did yesterday and now wants to know the kind of tumor she has and probable treatment, no nausea,vomit or diarrhea, using Nasal Cannula. Later the same day I was called by nurse Miss Cabezas the patient was called to Rapid Response team due to Respiratory Failure and placed on BiPAP, Discussed with Senior Technical Recruiter Doctor Monroe Riley appreciated assistance by Specialist. military personnel specialist Notes: 66-year-old female who was admitted with a history of shortness of breath, wheezing, cough going on for several days along with a history of significant weight loss and back pain as well as no chest pain. Patient was supposed to have a cholecystectomy. She was evaluated with a chest x-ray which revealed a right upper lung mass. Subsequent CT chest revealed consolidation of right upper lung compressive atelectasis of right lower lobe with moderate right effusion and narrowing of right mainstem bronchus with possible right hilar mass. Patient was admitted by hospitalist service and was evaluated by pulmonary as well as oncology. She has an elevated CEA and appears to have stage IV lung cancer with imaging studies including MRI spine revealing multiple bony metastatic cysts involving C-spine, thoracic and lumbar spine. CT chest also revealed bilateral adrenal metastases. Patient was placed on Levaquin for possible postobstructive pneumonia on the floor and was initiated on IV steroids and bronchodilators. She was on nasal cannula 2 this afternoon when she developed worsening respiratory distress and dropped her O2 sats to the 70s for which she was placed on a nonrebreather face mask following a rapid response and was subsequently transferred to the ICU. Critical care consult was requested by Dr. Anderson from the hospitalist service for acute respiratory failure. I evaluated the patient immediately on arrival to the ICU. She had just been initiated on BiPAP as ordered by me at that time as her ABG revealed acute respiratory acidosis. She appeared very anxious at the time hence Precedex GTT was ordered. History was obtained by reviewing records and discussion with nursing staff. 08/02: Patient remains on BiPAP but ABG shows improvement, remains on Precedex for sedation. Chest x-ray shows large right pleural effusion-I place a right pigtail catheter with find a medical initial output of exudative appearing fluid. Discussed with Dr. Rosales. Will wait for cytology and postpone the bronchoscopy 08/03: Respiratory status improved after draining right pleural effusion. Probably malignant effusion cytology pending. Continues to have bilateral wheezing. Probable bronch today by Dr. Rick 08/04: patient refused BiPAP overnight because the beeping kept her awake. plan for bronch with bx today. does complain of shooting tingling/burning pain radiating from her back. at least 300cc serous fluid out of right chest tube. 08/05: patient cancelled bronchoscopy and port placement yesterday at last minute due to her concerns over "not waking up after surgery". She states that she is not willing to take the risk of lying flat and not breathing in order to diagnose this. She would like to discuss other options. From a respiratory standpoint, her breathing continues to improve on NC o2. Hospitalist Notes: 08/06: Seen in her bedroom in the presence of her and nurse Miss Mccoy, No nausea, vomit or diarrhea, she tells me is awaiting for final Pathology result and recommendations by senior telecommunications specialist. Objective Vital Signs Date Time Temp Pulse Resp B/P Pulse Ox O2 Delivery O2 Flow Rate FiO2 08/06/16 08:00 97.6 102 20 122/68 95 08/06/16 07:40 98 Nasal Cannula 4.00 08/06/16 04:00 97.4 64 16 137/69 95 08/06/16 03:15 99 Nasal Cannula 4.00 08/06/16 00:03 97 Nasal Cannula 4.00 08/05/16 20:28 96 4.00 08/05/16 20:00 99 Nasal Cannula 4.00 08/05/16 19:00 97.9 90 19 136/60 97 08/05/16 17:44 16 08/05/16 16:00 98.3 103 18 121/87 97 08/05/16 12:13 18 08/05/16 12:00 98.5 104 19 96/71 93 I/O 08/05/16 08/05/16 08/05/16 08/06/16/19/17 5/19/17 07:00 15:00 23:00 07:00 15:00 23:00 Intake Total 397 ml 725 ml 210 ml 900 ml Output Total 250 ml 175 ml 0 ml 50 ml Balance 147 ml 550 ml 210 ml 850 ml Intake Oral 140 ml 600 ml 680 ml IV Total 257 ml 125 ml 210 ml 220 ml Output Urine Total 200 ml 125 ml Chest Tube Drainage Total 50 ml 50 ml 0 ml 50 ml # Voids 1 # Bowel Movements 0 0 0 Result Diagram: 08/05/16 0357 08/05/16 0357 Imaging Last Impressions Chest X-Ray 08/02/16 0600 Signed Impressions: Service Date/Time: Tuesday, August 02, 2016 02:57 - CONCLUSION: 1. No significant change. Right upper lobe volume loss and/or collapse. 2. Right pleural effusion. Carmine Hairston MD Entire Spine MRI 07/31/16 0000 Signed Impressions: Service Date/Time: Sunday, July 31, 2016 09:58 - CONCLUSION: Diffuse bony metastasis throughout the dorsal spine without significant canal stenosis. Carlos Dee MD Brain MRI 07/31/16 0000 Signed Impressions: Service Date/Time: Sunday, July 31, 2016 09:58 - CONCLUSION: 1. Nonspecific white matter changes. 2. No evidence for metastatic disease to the brain parenchyma. 3. There are some bony metastatic lesions along the upper cervical spine/skull base. Carlos Dee MD Chest CT 07/30/16 0000 Signed Impressions: Service Date/Time: Saturday, July 30, 2016 05:13 - CONCLUSION: 1. There is narrowing of the right mainstem bronchus suspicious for a right hilar mass. 2. There is a masslike density in the right upper lung measuring 2.2 x 1.6 cm. 3. There is a moderate right pleural effusion with compressive atelectasis of the right lower lung. 4. There is consolidation of the right upper lung most likely from post obstructive pneumonia. 5. Patchy infiltrate in the posterior left upper lung most likely inflammatory. 6. Multiple lytic lesions are seen throughout the thoracic spine characteristic for diffuse bony metastatic disease 7. Diffusely enlarged bilateral adrenal glands most likely metastatic disease Jero Miller MD Abdomen/Pelvis CT 07/30/16 0000 Signed Impressions: Service Date/Time: Saturday, July 30, 2016 23:25 - CONCLUSION: 1. Diffuse bony metastatic disease. 2. Moderate right-sided pleural effusion. 3. Bilateral adrenal metastatic disease. 4. Simple right renal cyst. Jero Miller MD Procedures No procedures performed. Other Results Laboratory Tests Test 08/02/16 08/02/16 08/02/16 08/03/16 03:51 05:32 10:00 10:46 Neutrophils (%) (Auto) 88.0 % Lymphocytes (%) (Auto) 6.0 % Monocytes (%) (Auto) 5.6 % Eosinophils (%) (Auto) 0.1 % Basophils (%) (Auto) 0.3 % Neutrophils # (Auto) 15.7 TH/MM3 Lymphocytes # (Auto) 1.1 TH/MM3 Monocytes # (Auto) 1.0 TH/MM3 Eosinophils # (Auto) 0.0 TH/MM3 Basophils # (Auto) 0.0 TH/MM3 CBC Comment AUTO DIFF Differential Comment AUTO DIFF CONFIRMED Ovalocytes 1+ Total Bilirubin 0.3 MG/DL Aspartate Amino Transf 113 U/L (AST/SGOT) Alanine Aminotransferase 147 U/L (ALT/SGPT) Alkaline Phosphatase 109 U/L Total Protein 6.4 GM/DL Albumin 2.8 GM/DL Blood Gas Puncture Site RT BRACHIAL Blood Gas Patient Temperature 98.6 Blood Gas HCO3 30 mmol/L Blood Gas Base Excess 4.7 mmol/L Blood Gas Oxygen Saturation 95 % Arterial Blood pH 7.34 Arterial Blood Partial 57 mmHg Pressure CO2 Arterial Blood Partial 92 mmHg Pressure O2 Arterial Blood Oxygen Content 12.1 Vol % Arterial Blood 1.3 % Carboxyhemoglobin Arterial Blood Methemoglobin 0.9 % Blood Gas Hemoglobin 9.0 G/DL Oxygen Delivery Device BIPAP Blood Gas Ventilator Setting 12 IPAP/5 EPAP Blood Gas Inspired Oxygen 50 % Pleural Fluid pH 8.0 Pleural Fluid WBC 4011 /MM3 Pleural Fluid RBC 3038 /MM3 Pleural Fluid Neutrophils 48 % Pleural Fluid Lymphocytes 13 % Pleural Fluid Monocytes 1 % Pleural Fluid Mesothelial 38 % Cells Pleural Fluid Comment Pleural Fluid Total Protein 3.6 GM/DL Pleural Fluid LDH 2582 U/L Pleural Fluid Glucose 72 MG/DL Pleural Fluid Amylase 13 U/L Lactate Dehydrogenase 540 U/L Test 08/05/16 03:57 White Blood Count 23.6 TH/MM3 Red Blood Count 4.42 MIL/MM3 Hemoglobin 9.9 GM/DL Hematocrit 32.6 % Mean Corpuscular Volume 73.8 FL Mean Corpuscular Hemoglobin 22.3 PG Mean Corpuscular Hemoglobin 30.3 % Concent Red Cell Distribution Width 18.4 % Platelet Count 316 TH/MM3 Mean Platelet Volume 7.4 FL Sodium Level 135 MEQ/L Potassium Level 4.6 MEQ/L Chloride Level 94 MEQ/L Carbon Dioxide Level 39.3 MEQ/L Anion Gap 2 MEQ/L Blood Urea Nitrogen 19 MG/DL Creatinine 0.48 MG/DL Estimat Glomerular Filtration 129 ML/MIN Rate Random Glucose 138 MG/DL Calcium Level 9.1 MG/DL Objective Remarks GENERAL: No acute distress. SKIN: No rashes, ecchymoses or lesions. Cool and dry. HEAD: Atraumatic. Normocephalic. No temporal or scalp tenderness. EYES: Extraocular motions intact. No scleral icterus. No injection or drainage. CARDIOVASCULAR: Regular rate and rhythm without murmurs, gallops, or rubs. RESPIRATORY: Decreased breath sounds bilateral, Right chest tube in place. GASTROINTESTINAL: Abdomen soft, non-tender, nondistended. MUSCULOSKELETAL: Bilateral lower extremity 1+ pitting edema. No calf tenderness. Negative Homans sign bilaterally. NEUROLOGICAL: Awake and alert. No focal deficits appreciated. Medications and IVs Current Medications Medications (Trade) Dose Ordered Sig/Alistair Route Start Time Stop Time Status Last Admin (NS Flush) 2 ml UNSCH PRN IV FLUSH 07/30/16 03:45 08/01/16 04:43 (NS Flush) 2 ml BID IV FLUSH 07/30/16 09:00 08/06/16 08:49 (Narcan Inj) 0.4 mg UNSCH PRN IV 07/30/16 03:45 Pantoprazole Sodium 40 mg 40 mg DAILY PO 07/30/16 09:00 08/06/16 08:46 (Levaquin 500 Mg Premix Inj) 100 ml @ 100 mls/hr Q24H IV 07/30/16 05:00 08/06/16 06:31 (Lipitor) 40 mg HS PO 07/30/16 21:00 08/05/16 21:41 (Zofran Odt) 4 mg Q6HR PRN SL 07/30/16 05:30 07/30/16 21:07 (Percocet 5-325 Mg) 1 tab Q4H PRN PO 08/01/16 09:30 08/06/16 08:48 Oxycodone/ Acetaminophen 1 tab 1 tab Q4H PRN PO 08/01/16 09:30 08/05/16 11:13 Metronidazole 100 ml @ 100 mls/hr Q8H IV 08/01/16 17:00 08/06/16 08:45 (D5W-1/2 NS 1000 ml Inj) 1,000 ml @ 0 mls/hr Q0M IV 08/03/16 12:44 (Neurontin) 200 mg TID PO 08/04/16 09:25 08/06/16 08:45 (Zanaflex) 1 mg Q12HR PO 08/04/16 09:25 08/06/16 08:46 (Pill Splitter) 1 ea UNSCH PRN OTHER 08/04/16 10:00 (Shira-Colace) 1 tab BID PRN PO 08/04/16 17:00 08/06/16 08:48 (SoluMEDROL INJ) 40 mg BID IV PUSH 08/05/16 21:00 08/06/16 07:30 A/P Assessment and Plan 1. acute hypoxemic respiratory failure due to COPD exacerbation with pneumonia, the patient was in Intensive care until yesterday now transferred to the floor, windows server specialist doctor Brenda following, continue Nasal Cannula, PRN BiPAP, Bronchodilator, Mucolytic, incentive Spirometry, appears to have metastatic Lung Disease, senior telecommunications specialist following, status post Right pigtail cath to suction, refused Bronchoscopy 2. Postobstructive Pneumonia involving the right lung due to right mainstem bronchus narrowing/right pleural effusion 3. Lung mass with thoracic spine bone lesions, Stage IV lung Cancer with metastatic Disease to Lumbar Spine. 4. Probable Sepsis resolving. on Levaquin since 07/30, added Flagyl 08/01 for empiric antibiotic coverage to cover postobstructive Pneumonia. 5. Acute neuropathic pain secondary to spinal metastases continue Gabapentin 200 mg TID, titrate to target continue Tizanidine to titrate every 24 to 48 hours to target of 2-4 mg by mouth every 12 hours. continue Oxycodone. 6. elevated Liver enzymes 7. Severe Tobacco dependence strongly recommended to stop smoking. -PPI/SCDs. Poor Short term prognosis. Discharge Planning once cleared by Specialists. Hussein Wilson MD August 06, 2016 09:38
[2016-08-06] MEDS: NYSTATIN SUSP 500,000 U/5 ML CUP SWISH-SWAL SCH ×3 (15:00→20:16)
--- NOTE | 2016-08-06 19:41 | PD.ONC.PN ---
Subjective Subjective Remarks Patient seen and examined, imaging studies reviewed, medications reviewed, pathology reviewed. Major complaints: Facial swelling, swelling of the arms and forearms as well as hands. Continued difficulty breathing with minimal exertion. Pain at the site of chest tube placement on the right. Objective Data Date Time Temp Pulse Resp B/P Pulse Ox O2 Delivery O2 Flow Rate FiO2 08/06/16 18:23 18 08/06/16 16:00 98.3 105 20 149/67 94 08/06/16 15:09 97 Nasal Cannula 4.00 08/06/16 12:00 97.2 95 18 107/53 97 08/06/16 08:00 97.6 102 20 122/68 95 08/06/16 08:00 96 Nasal Cannula 4.00 08/06/16 07:40 98 Nasal Cannula 4.00 08/06/16 04:00 97.4 64 16 137/69 95 08/06/16 03:15 99 Nasal Cannula 4.00 08/06/16 00:03 97 Nasal Cannula 4.00 08/05/16 20:28 96 4.00 08/05/16 20:00 99 Nasal Cannula 4.00 08/06/16 08/06/16 08/06/16 07:00 15:00 23:00 Intake Total 900 ml 240 ml Output Total 50 ml 350 ml Balance 850 ml 240 ml -350 ml Result Diagram: 08/05/16 0357 08/05/16 0357 Administered Medications Medications (Trade) Dose Ordered Sig/Alistair Route PRN Reason Start Time Stop Time Status Last Admin Dose Admin Sodium Chloride (NS Flush) 2 ml UNSCH PRN IV FLUSH FLUSH AFTER USING IV ACCESS 07/30/16 03:45 08/01/16 04:43 Sodium Chloride (NS Flush) 2 ml BID IV FLUSH 07/30/16 09:00 08/06/16 08:49 Pantoprazole Sodium 40 mg 40 mg DAILY PO 07/30/16 09:00 08/06/16 08:46 Levofloxacin/ Dextrose (Levaquin 500 Mg Premix Inj) 100 ml @ 100 mls/hr Q24H IV 07/30/16 05:00 08/06/16 06:31 Atorvastatin Calcium (Lipitor) 40 mg HS PO 07/30/16 21:00 08/05/16 21:41 Ondansetron HCl (Zofran Odt) 4 mg Q6HR PRN SL Nausea/Vomiting 07/30/16 05:30 07/30/16 21:07 Oxycodone/ Acetaminophen (Percocet 5-325 Mg) 1 tab Q4H PRN PO pain1-5 08/01/16 09:30 08/06/16 18:30 Oxycodone/ Acetaminophen 1 tab 1 tab Q4H PRN PO pain6-10 08/01/16 09:30 08/05/16 11:13 Metronidazole (Flagyl 500 Mg Inj) 100 ml @ 100 mls/hr Q8H IV 08/01/16 17:00 08/06/16 16:05 Gabapentin (Neurontin) 200 mg TID PO 08/04/16 09:25 08/06/16 16:19 Tizanidine HCl (Zanaflex) 1 mg Q12HR PO 08/04/16 09:25 08/06/16 08:46 Senna/Docusate Sodium (Shira-Colace) 1 tab BID PRN PO CONSTIPATION 08/04/16 17:00 08/06/16 08:48 Methylprednisolone Sodium Succinate (SoluMEDROL INJ) 40 mg BID IV PUSH 08/05/16 21:00 08/06/16 07:30 Nystatin (Mycostatin Liq) 5 ml QID SWISH-SWAL 08/06/16 15:00 08/06/16 16:19 Objective Remarks GENERAL: Elderly female, sitting up in bed, in no acute distress. Obvious facial swelling. SKIN: Warm and dry. HEAD: Normocephalic. EYES: No scleral icterus. No injection or drainage. Swelling of the conjunctiva. NECK: Supple, trachea midline. No JVD or lymphadenopathy. Dependent edema in the submental area. LYMPHATIC: No adenopathy. CARDIOVASCULAR: Regular rate and rhythm without murmurs. RESPIRATORY: Decreased bibasilar breath sounds, right greater than left. Prolonged expiratory phase. GASTROINTESTINAL: Abdomen soft, non-tender, nondistended. EXTREMITIES: Subcutaneous edema/anasarca noted of the upper extremities, this is not present in the lower extremities. MUSCULOSKELETAL: Adequate muscle tone. NEUROLOGICAL: No obvious focal deficit. Awake, alert, and oriented x3. PSYCHIATRIC: Appropriate mood and affect; insight and judgment normal. Assessment/Plan Assessment 66-year-old female with newly diagnosed metastatic non-small cell carcinoma of the lung, pleural fluid cytology indicates likely adenocarcinoma with possible squama cell features as well. Clinically she appears to have SVC syndrome based on her facial swelling, neck swelling and upper extremity swelling. As a malignant pleural effusion requiring a right-sided chest tube. Plan 1. Metastatic non-small cell carcinoma of the lung: I will transfer her to [address] [place] [address] for initiation of inpatient systemic chemotherapy with carboplatin and Taxol. Given the suspicion for SVC syndrome I will request radiation oncology to see the patient for initiation of palliative radiation to the mediastinal mass. Initial CT thorax was done without contrast therefore the obstruction of the SVC was not highlighted, clinically however it appears she does have SVC syndrome. She will therefore require anticoagulation to prevent SVC thrombosis. Additionally I have requested additional pleural fluid cytology to be submitted for additional analysis; I specifically requested testing for trolley coach driver mutations such as EGFR, EM L4/ALK, ROS-1, PDL-1. I will recommend she receive carboplatin AUC of 5 and Taxol 175 mg/m. Chemotherapy teaching has been ordered. Gil Shaw MD August 06, 2016 19:41
--- NOTE | 2016-08-06 19:54 | HHI.PR ---
Subjective Remarks Feels better today. Pleural fluid cytology Positive for Non small cell CA. Will have chemo. and radiation therapy to Mediastinum due to SVC syndrome Port cancelled. On O2 at 4 L Objective Vital Signs Date Time Temp Pulse Resp B/P Pulse Ox O2 Delivery O2 Flow Rate FiO2 08/06/16 18:23 18 08/06/16 16:00 98.3 105 20 149/67 94 08/06/16 15:09 97 Nasal Cannula 4.00 08/06/16 12:00 97.2 95 18 107/53 97 08/06/16 08:00 97.6 102 20 122/68 95 08/06/16 08:00 96 Nasal Cannula 4.00 08/06/16 07:40 98 Nasal Cannula 4.00 08/06/16 04:00 97.4 64 16 137/69 95 08/06/16 03:15 99 Nasal Cannula 4.00 08/06/16 00:03 97 Nasal Cannula 4.00 08/05/16 20:28 96 4.00 08/05/16 20:00 99 Nasal Cannula 4.00 I/O 08/05/16 08/05/16 08/05/16 08/06/16 08/06/16 08/06/16 07:00 15:00 23:00 07:00 15:00 23:00 Intake Total 397 ml 725 ml 210 ml 900 ml 240 ml Output Total 250 ml 235 ml 0 ml 50 ml 350 ml Balance 147 ml 490 ml 210 ml 850 ml 240 ml -350 ml Intake Oral 140 ml 600 ml 680 ml 240 ml IV Total 257 ml 125 ml 210 ml 220 ml Output Urine Total 200 ml 145 ml Chest Tube Drainage Total 50 ml 90 ml 0 ml 50 ml 350 ml # Voids 1 1 2 # Bowel Movements 0 0 0 Result Diagram: 08/05/16 0357 08/05/16 0357 Procedures No procedures performed. Objective Remarks GENERAL: This is a moderately obese white female who is alert and in no acute distress. HEAD, EYES, EARS, NOSE, THROAT: Head normocephalic. The pupils are reactive and equal. Tongue is moist. Throat was clear.Facial swelling +. NECK: The neck is supple. No bruits. No thyroid enlargement. No lymphadenopathy. CHEST: Decreased excursions. Breath sounds are diminished at the bases, more so on the right side. There are occasional wheezes. HEART: Heart sounds are regular. S1 and S2. No murmur. No S3. ABDOMEN: Abdomen is obese and protuberant without masses. No organomegaly or tenderness. The bowel sounds are active. EXTREMITIES: No edema. No calf tenderness. NEUROLOGIC: Reflexes are 1+. No gross motor deficits. SKIN: No lesions are noted. Assessment and Plan Assessment and Plan IMPRESSION: 1. Right hilar mass with obstructive pneumonitis. 2. Possible metastatic malignancy. 3. COPD with emphysema. 4. Nicotine dependency. 5. Right pleural effusion. Plan : 1. Cont Antibiotics. 2. Nebs qid , duoneb. 3. O2 at 4 L. 4. Chemotherapy and radiation as planned 5. Solumedrol 40 mg mg IV bid 6. Labs in am Jigar Gutierrez MD August 06, 2016 19:54
[2016-08-06] MEDS: ENOXAPARIN SODIUM 40 MG/0.4 ML SYRINGE SQ SCH (20:16)
[2016-08-06] MEDS: ATORVASTATIN 40 MG TAB PO SCH (20:16)
[2016-08-06] MEDS: oxyCODONE/ACETAMINOPHEN 10 MG/325 MG TAB PO PRN (22:25)
[2016-08-07] VITALS (9 sets, daily range): BP systolic 106–128; BP diastolic 70–85; PULSE 82–108; RESP 14–28; TEMP 97.7–98.4; O2SAT 93–99
[2016-08-07] MEDS: metroNIDAZOLE 500 MG INJ 100 ML IV SCH ×3 (01:56→18:24)
[2016-08-07] MEDS: LEVOFLOXACIN 500 MG PREMIX INJ 100 ML IV SCH (05:48)
[2016-08-07] MEDS: oxyCODONE/ACETAMINOPHEN 5 MG/325 MG TAB PO PRN ×2 (05:49→10:00)
[2016-08-07 07:33] LABS: BICARBONATE 33.6 MEQ/L (21.0-32.0); POTASSIUM 4.8 MEQ/L (3.5-5.1)
[2016-08-07] MEDS: methylPREDNISolone SOD SUCC 40 MG/1 ML VIAL IV PUSH SCH ×2 (07:48→20:28)
[2016-08-07] MEDS: ENOXAPARIN SODIUM 40 MG/0.4 ML SYRINGE SQ SCH (07:48)
[2016-08-07] MEDS: NYSTATIN SUSP 500,000 U/5 ML CUP SWISH-SWAL SCH ×3 (07:48→20:28)
[2016-08-07] MEDS: GABAPENTIN 100 MG CAP PO SCH ×2 (07:49→18:24)
[2016-08-07] MEDS: PANTOPRAZOLE SOD 40 MG DELAYED RELEASE TAB PO SCH (07:49)
[2016-08-07] MEDS: SODIUM CHLORIDE 0.9% FLUSH 10 ML FLUSH IV FLUSH SCH ×2 (07:50→20:28)
[2016-08-07] MEDS ORDERED: DEXAMETHASONE IV ONE (09:00)
[2016-08-07] MEDS ORDERED: SODIUM CHLORIDE 0.9% IV ONE (09:00)
[2016-08-07] MEDS ORDERED: GRANISETRON IV ONE (09:00)
[2016-08-07] MEDS ORDERED: FAMOTIDINE 20 MG TAB PO ONE (12:00)
[2016-08-07] MEDS ORDERED: diphenhydrAMINE HCL 25 MG CAP PO ONE (12:00)
--- NOTE | 2016-08-07 12:23 | PD.ONC.PN ---
Subjective Subjective Remarks Afebrile overnight. Patient noticing worsening swelling in face and upper extremities. would like patient transferred to [facility] if possible, but would be willing to keep her here if we feel emergent therapy should be started. Objective Data Date Time Temp Pulse Resp B/P Pulse Ox O2 Delivery O2 Flow Rate FiO2 08/07/16 12:00 97.7 99 18 109/70 98 08/07/16 10:00 98.4 82 14 106/85 95 08/07/16 09:09 Nasal Cannula 4.00 08/07/16 08:00 98.1 108 18 114/73 99 08/07/16 04:00 98.0 87 16 117/79 98 08/07/16 00:00 98.3 94 18 128/76 97 08/06/16 20:00 98.3 95 20 126/78 96 08/06/16 19:30 97 Nasal Cannula 4.00 08/06/16 18:23 18 08/06/16 16:00 98.3 105 20 149/67 94 08/06/16 15:09 97 Nasal Cannula 4.00 08/07/16 08/07/16 08/07/16 07:00 15:00 23:00 Intake Total 120 ml 120 ml Output Total 300 ml 500 ml Balance -180 ml -380 ml Result Diagram: 08/05/16 0357 08/07/16 0620 Laboratory Results Laboratory Tests Test 08/07/16 06:20 Sodium Level 133 MEQ/L Potassium Level 4.8 MEQ/L Chloride Level 91 MEQ/L Carbon Dioxide Level 33.6 MEQ/L Anion Gap 8 MEQ/L Blood Urea Nitrogen 19 MG/DL Creatinine 0.34 MG/DL Estimat Glomerular Filtration 193 ML/MIN Rate Random Glucose 120 MG/DL Calcium Level 9.0 MG/DL Administered Medications Medications (Trade) Dose Ordered Sig/Alistair Route PRN Reason Start Time Stop Time Status Last Admin Dose Admin Sodium Chloride (NS Flush) 2 ml UNSCH PRN IV FLUSH FLUSH AFTER USING IV ACCESS 07/30/16 03:45 08/01/16 04:43 Sodium Chloride (NS Flush) 2 ml BID IV FLUSH 07/30/16 09:00 08/06/16 20:16 Pantoprazole Sodium 40 mg 40 mg DAILY PO 07/30/16 09:00 08/07/16 07:49 Levofloxacin/ Dextrose (Levaquin 500 Mg Premix Inj) 100 ml @ 100 mls/hr Q24H IV 07/30/16 05:00 08/07/16 05:48 Atorvastatin Calcium (Lipitor) 40 mg HS PO 07/30/16 21:00 08/06/16 20:16 Ondansetron HCl (Zofran Odt) 4 mg Q6HR PRN SL Nausea/Vomiting 07/30/16 05:30 07/30/16 21:07 Oxycodone/ Acetaminophen (Percocet 5-325 Mg) 1 tab Q4H PRN PO pain1-5 08/01/16 09:30 08/07/16 10:00 Oxycodone/ Acetaminophen 1 tab 1 tab Q4H PRN PO pain6-10 08/01/16 09:30 08/06/16 22:25 Metronidazole (Flagyl 500 Mg Inj) 100 ml @ 100 mls/hr Q8H IV 08/01/16 17:00 08/07/16 07:49 Gabapentin (Neurontin) 200 mg TID PO 08/04/16 09:25 08/07/16 07:49 Tizanidine HCl (Zanaflex) 1 mg Q12HR PO 08/04/16 09:25 08/07/16 07:54 Senna/Docusate Sodium (Shira-Colace) 1 tab BID PRN PO CONSTIPATION 08/04/16 17:00 08/06/16 08:48 Methylprednisolone Sodium Succinate (SoluMEDROL INJ) 40 mg BID IV PUSH 08/05/16 21:00 08/07/16 07:48 Nystatin (Mycostatin Liq) 5 ml QID SWISH-SWAL 08/06/16 15:00 08/07/16 07:48 Objective Remarks GENERAL: Middle aged female, with edema noted in face and upper extremities. SKIN: Warm and dry. HEAD: Normocephalic. EYES: No injection or drainage. NECK: Supple, trachea midline. CARDIOVASCULAR: +S1/S2, tachy RESPIRATORY: diminished at bases scattered rhonchi. on 4L O2 via NC GASTROINTESTINAL: Abdomen soft, non-tender, nondistended. EXTREMITIES: No cyanosis. NEUROLOGICAL: awake and alert, normal speech. Assessment/Plan Assessment 66-year-old female with newly diagnosed metastatic non-small cell carcinoma of the lung, pleural fluid cytology indicates likely adenocarcinoma with possible squama cell features as well. Clinically she appears to have SVC syndrome based on her facial swelling, neck swelling and upper extremity swelling. Plan 1. Metastatic non-small cell carcinoma of the lung: start carbo/taxol today 2. SVC syndrome: get STAT CTA. I spoke with radiation oncology and they will come in to start radiation this weekend. Will also start heparin gtt. 3. transfer to [facility] for close monitoring. 4. ask process control specialist to place central line, may also need process control specialist to follow depending on clinical course with SVC syndrome Attending Statement The exam, history, and the medical decision-making described in the above note were completed with the assistance of the mid-level provider. I reviewed and agree with the findings presented. I attest that I had a [id number] encounter with the patient on the same day, and personally performed and documented my assessment and findings in the medical record. Pt seen and examined. Noted worsening facial swelling, pt feels pressure. Neck and arm swelling as well. So far no syncope or near syncope. Difficulty lying flat. Noted small frail IV over L hand. IV team placed peripheral IV for UFH. CTA performed evaluate SVC syndrome- tumor related vs. clot. Finding show encasement of SVC with tumor. Chem with carbo taxol planned but pt will need a better central line. Discussed w/ process control specialist to transfer to ICU for groin central line, short term until SVC will open. Discussed w/ Dr. Ferrer. reviewed CTA findings, looks like tumor compression of SVC. XRT planned short course high dose in effort to alleviate symptoms. Jesi Smith August 07, 2016 12:23 Elke Spann MD August 07, 2016 16:28
[2016-08-07] MEDS ORDERED: NS IV ONE (13:00)
[2016-08-07] MEDS ORDERED: PACLITAXEL IV ONE (13:00)
[2016-08-07 13:18] LABS: HEMATOCRIT 33.4 % (35.0-46.0); MEAN CELL VOLUME 73.5 FL (80.0-100.0); MEAN CORPUSCULAR HGB CONC 31.3 % (32.0-36.0); PLATELET COUNT 209 TH/MM3 (150-450); RED BLOOD COUNT 4.55 MIL/MM3 (4.00-5.30); RED CELL DISTRIBUTION WIDTH 18.2 % (11.6-17.2); WHITE BLOOD COUNT 34.7 TH/MM3 (4.0-11.0)
[2016-08-07 13:20] LABS: REVIEW FLAG FINAL
[2016-08-07] MEDS ORDERED: IOHEXOL 350 MG/ML 10 ML VIAL (for RAD DIAG) IV ONE (13:23)
[2016-08-07 13:26] LABS: APTT (PATIENT) 30.8 SEC (24.3-30.1); PROTHROMBIN TIME - PATIENT 11.6 SEC (9.8-11.6)
--- NOTE | 2016-08-07 13:28 | HHI.PR ---
Subjective Remarks This is a pleasant 66 y/o Female with Kidney stones, Hyperlipidemia, who came to ER with Shortness of breath, on current antibiotics for UTI, Tobacco dependent patient, admitted with diagnosis of COPD exacerbation, on CT chest Right lung mass, followed by pharmacy specialist and Oncology, he will have Bronchoscopy next Tuesday08/02/16, no nausea, vomit or diarrhea. 08/01: Seen in her bedroom in the presence of her , the patient states she changed her mind about her Hospice petition she did yesterday and now wants to know the kind of tumor she has and probable treatment, no nausea,vomit or diarrhea, using Nasal Cannula. Later the same day I was called by nurse Miss Cabezas the patient was called to Rapid Response team due to Respiratory Failure and placed on BiPAP, Discussed with Recreational Therapy Technician Doctor Monroe Riley appreciated assistance by Specialist. business operations specialist Notes: 66-year-old female who was admitted with a history of shortness of breath, wheezing, cough going on for several days along with a history of significant weight loss and back pain as well as no chest pain. Patient was supposed to have a cholecystectomy. She was evaluated with a chest x-ray which revealed a right upper lung mass. Subsequent CT chest revealed consolidation of right upper lung compressive atelectasis of right lower lobe with moderate right effusion and narrowing of right mainstem bronchus with possible right hilar mass. Patient was admitted by hospitalist service and was evaluated by pulmonary as well as oncology. She has an elevated CEA and appears to have stage IV lung cancer with imaging studies including MRI spine revealing multiple bony metastatic cysts involving C-spine, thoracic and lumbar spine. CT chest also revealed bilateral adrenal metastases. Patient was placed on Levaquin for possible postobstructive pneumonia on the floor and was initiated on IV steroids and bronchodilators. She was on nasal cannula 2 this afternoon when she developed worsening respiratory distress and dropped her O2 sats to the 70s for which she was placed on a nonrebreather face mask following a rapid response and was subsequently transferred to the ICU. Critical care consult was requested by Dr. Anderson from the hospitalist service for acute respiratory failure. I evaluated the patient immediately on arrival to the ICU. She had just been initiated on BiPAP as ordered by me at that time as her ABG revealed acute respiratory acidosis. She appeared very anxious at the time hence Precedex GTT was ordered. History was obtained by reviewing records and discussion with nursing staff. 08/02: Patient remains on BiPAP but ABG shows improvement, remains on Precedex for sedation. Chest x-ray shows large right pleural effusion-I place a right pigtail catheter with find a medical initial output of exudative appearing fluid. Discussed with Dr. Rosales. Will wait for cytology and postpone the bronchoscopy 08/03: Respiratory status improved after draining right pleural effusion. Probably malignant effusion cytology pending. Continues to have bilateral wheezing. Probable bronch today by Dr. Rick 08/04: patient refused BiPAP overnight because the beeping kept her awake. plan for bronch with bx today. does complain of shooting tingling/burning pain radiating from her back. at least 300cc serous fluid out of right chest tube. 08/05: patient cancelled bronchoscopy and port placement yesterday at last minute due to her concerns over "not waking up after surgery". She states that she is not willing to take the risk of lying flat and not breathing in order to diagnose this. She would like to discuss other options. From a respiratory standpoint, her breathing continues to improve on NC o2. 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 Objective Vital Signs Date Time Temp Pulse Resp B/P Pulse Ox O2 Delivery O2 Flow Rate FiO2 08/07/16 12:00 97.7 99 18 109/70 98 08/07/16 10:00 98.4 82 14 106/85 95 08/07/16 09:09 Nasal Cannula 4.00 08/07/16 08:00 98.1 108 18 114/73 99 08/07/16 04:00 98.0 87 16 117/79 98 08/07/16 00:00 98.3 94 18 128/76 97 08/06/16 20:00 98.3 95 20 126/78 96 08/06/16 19:30 97 Nasal Cannula 4.00 08/06/16 18:23 18 08/06/16 16:00 98.3 105 20 149/67 94 08/06/16 15:09 97 Nasal Cannula 4.00 I/O 08/06/16 08/06/16 08/06/16 08/07/16 08/07/16 08/07/16 06:59 14:59 22:59 06:59 14:59 22:59 Intake Total 900 ml 240 ml 130 ml 120 ml 120 ml Output Total 50 ml 450 ml 300 ml 500 ml Balance 850 ml 240 ml -320 ml -180 ml -380 ml Intake Oral 680 ml 240 ml 120 ml 120 ml IV Total 220 ml 130 ml Output Urine Total 500 ml Chest Tube Drainage Total 50 ml 450 ml 300 ml # Voids 1 2 # Bowel Movements 0 Result Diagram: 08/05/16 0357 08/07/16 0620 Imaging Last Impressions Chest X-Ray 08/02/16 0600 Signed Impressions: Service Date/Time: Tuesday, August 02, 2016 02:57 - CONCLUSION: 1. No significant change. Right upper lobe volume loss and/or collapse. 2. Right pleural effusion. Carmine Hairston MD Entire Spine MRI 07/31/16 0000 Signed Impressions: Service Date/Time: Sunday, July 31, 2016 09:58 - CONCLUSION: Diffuse bony metastasis throughout the dorsal spine without significant canal stenosis. Carlos Dee MD Brain MRI 07/31/16 0000 Signed Impressions: Service Date/Time: Sunday, July 31, 2016 09:58 - CONCLUSION: 1. Nonspecific white matter changes. 2. No evidence for metastatic disease to the brain parenchyma. 3. There are some bony metastatic lesions along the upper cervical spine/skull base. Carlos Dee MD Chest CT 07/30/16 0000 Signed Impressions: Service Date/Time: Saturday, July 30, 2016 05:13 - CONCLUSION: 1. There is narrowing of the right mainstem bronchus suspicious for a right hilar mass. 2. There is a masslike density in the right upper lung measuring 2.2 x 1.6 cm. 3. There is a moderate right pleural effusion with compressive atelectasis of the right lower lung. 4. There is consolidation of the right upper lung most likely from post obstructive pneumonia. 5. Patchy infiltrate in the posterior left upper lung most likely inflammatory. 6. Multiple lytic lesions are seen throughout the thoracic spine characteristic for diffuse bony metastatic disease 7. Diffusely enlarged bilateral adrenal glands most likely metastatic disease Jero Miller MD Abdomen/Pelvis CT 07/30/16 0000 Signed Impressions: Service Date/Time: Saturday, July 30, 2016 23:25 - CONCLUSION: 1. Diffuse bony metastatic disease. 2. Moderate right-sided pleural effusion. 3. Bilateral adrenal metastatic disease. 4. Simple right renal cyst. Jero Miller MD Procedures No procedures performed. Other Results Laboratory Tests Test 08/03/16 08/05/16 08/07/16 10:46 03:57 06:20 Lactate Dehydrogenase 540 U/L White Blood Count 23.6 TH/MM3 Red Blood Count 4.42 MIL/MM3 Hemoglobin 9.9 GM/DL Hematocrit 32.6 % Mean Corpuscular Volume 73.8 FL Mean Corpuscular Hemoglobin 22.3 PG Mean Corpuscular Hemoglobin 30.3 % Concent Red Cell Distribution Width 18.4 % Platelet Count 316 TH/MM3 Mean Platelet Volume 7.4 FL Sodium Level 133 MEQ/L Potassium Level 4.8 MEQ/L Chloride Level 91 MEQ/L Carbon Dioxide Level 33.6 MEQ/L Anion Gap 8 MEQ/L Blood Urea Nitrogen 19 MG/DL Creatinine 0.34 MG/DL Estimat Glomerular Filtration 193 ML/MIN Rate Random Glucose 120 MG/DL Calcium Level 9.0 MG/DL Objective Remarks GENERAL: No acute distress. SKIN: No rashes, ecchymoses or lesions. Cool and dry. HEAD: Atraumatic. Normocephalic. No temporal or scalp tenderness. facial edema. EYES: Extraocular motions intact. No scleral icterus. No injection or drainage. CARDIOVASCULAR: Regular rate and rhythm without murmurs, gallops, or rubs. RESPIRATORY: Decreased breath sounds bilateral, Right chest tube in place. GASTROINTESTINAL: Abdomen soft, non-tender, nondistended. MUSCULOSKELETAL: Bilateral lower extremity 1+ pitting edema. No calf tenderness. Negative Homans sign bilaterally. NEUROLOGICAL: Awake and alert. No focal deficits appreciated. Medications and IVs Current Medications Medications (Trade) Dose Ordered Sig/Alistair Route Start Time Stop Time Status Last Admin (NS Flush) 2 ml UNSCH PRN IV FLUSH 07/30/16 03:45 08/01/16 04:43 (NS Flush) 2 ml BID IV FLUSH 07/30/16 09:00 08/06/16 20:16 (Narcan Inj) 0.4 mg UNSCH PRN IV 07/30/16 03:45 Pantoprazole Sodium 40 mg 40 mg DAILY PO 07/30/16 09:00 08/07/16 07:49 (Levaquin 500 Mg Premix Inj) 100 ml @ 100 mls/hr Q24H IV 07/30/16 05:00 08/07/16 05:48 (Lipitor) 40 mg HS PO 07/30/16 21:00 08/06/16 20:16 (Zofran Odt) 4 mg Q6HR PRN SL 07/30/16 05:30 07/30/16 21:07 (Percocet 5-325 Mg) 1 tab Q4H PRN PO 08/01/16 09:30 08/07/16 10:00 Oxycodone/ Acetaminophen 1 tab 1 tab Q4H PRN PO 08/01/16 09:30 08/06/16 22:25 Metronidazole 100 ml @ 100 mls/hr Q8H IV 08/01/16 17:00 08/07/16 07:49 (D5W-1/2 NS 1000 ml Inj) 1,000 ml @ 0 mls/hr Q0M IV 08/03/16 12:44 (Neurontin) 200 mg TID PO 08/04/16 09:25 08/07/16 07:49 (Zanaflex) 1 mg Q12HR PO 08/04/16 09:25 08/07/16 07:54 (Pill Splitter) 1 ea UNSCH PRN OTHER 08/04/16 10:00 (Shira-Colace) 1 tab BID PRN PO 08/04/16 17:00 08/06/16 08:48 (SoluMEDROL INJ) 40 mg BID IV PUSH 08/05/16 21:00 08/07/16 07:48 Nystatin 5 ml 5 ml QID SWISH-SWAL 08/06/16 15:00 08/07/16 07:48 Paclitaxel 290.5 mg/Sodium Chloride 548.4167 ml @ 274.... ONCE ONCE IV 08/07/16 13:00 08/07/16 14:59 Carboplatin 750 mg/Sodium Chloride 250 ml @ 500 mls/hr ONCE ONCE IV 08/07/16 15:00 08/07/16 15:29 (Heparin-D5W Inj) 250 ml @ 0 mls/hr TITRATE IV 08/07/16 12:00 A/P Assessment and Plan 1. Acute hypoxemic respiratory failure due to COPD exacerbation with pneumonia, the patient was in Intensive care until yesterday now transferred to the floor, pharmacy specialist doctor Brenda following, continue Nasal Cannula, PRN BiPAP, Bronchodilator, Mucolytic, incentive Spirometry, appears to have metastatic Lung Disease, administrative program specialist following, status post Right pigtail cath to suction, refused Bronchoscopy 2. Postobstructive Pneumonia involving the right lung due to right mainstem bronchus narrowing/right pleural effusion continue Vancomycin and Levaquin. 3. 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 5. Probable Sepsis resolving. on Levaquin since 07/30, added Flagyl 08/01 for empiric antibiotic coverage to cover postobstructive Pneumonia. 6. Acute neuropathic pain secondary to spinal metastases continue Gabapentin 200 mg TID, titrate to target continue Tizanidine to titrate every 24 to 48 hours to target of 2-4 mg by mouth every 12 hours. continue Oxycodone. 7. elevated Liver enzymes 8. Severe Tobacco dependence strongly recommended to stop smoking. -PPI/SCDs. Poor Short term prognosis. Discharge Planning Not yet cleared for discharge. Hussein Wilson MD August 07, 2016 13:28
--- NOTE | 2016-08-07 14:01 | RADRPT ---
EXAM DATE/TIME: 08/07/2016 13:12 [place] COMPARISON: CT THORAX W/O CONTRAST, July 30, 2016, 5:13. INDICATIONS : Chest pressure. IV CONTRAST: 75 cc Omnipaque 350 (iohexol) IV RADIATION DOSE: 12.4 CTDIvol (mGy) MEDICAL HISTORY : Cardiovascular disease. SURGICAL HISTORY : None. ENCOUNTER: Initial ACUITY: 1 day PAIN SCALE: 5/10 LOCATION: Bilateral chest TECHNIQUE: Volumetric scanning of the chest was performed using a pulmonary embolism protocol MIP images were re constructed. Using automated exposure control and adjustment of the mA and/or kV according to patien t size, radiation dose was kept as low as reasonably achievable to obtain optimal diagnostic quality images. FINDINGS: LUNGS/ MEDIASTINUM: Right-sided hilar/perihilar mass is again identified. The confluent mass extends from the medial righ t lung into the right hilum and right side of the mediastinum involving the paratracheal, precarinal, and subcarinal regions. It measures 8.7 x 6 cm in greatest aggregate dimensions. Adjacent pulmonary consolidation is also seen with no discrete margin seen between the consolidation and mass. There is encasement of the SVC by the mass with severe narrowing of the SVC. 1-2 mm diameter column of contras t is seen in the SVC at the level of the mass. Marked decrease in the right lower lung consolidation when compared to the prior study. 8mm nodular density in the medial right lower lobe. PULMONARY ARTERIES: No filling defects are seen in the pulmonary arteries through the segmental level. There is narrowing of the upper lobe pulmonary artery branches by the mass. PLEURAE: Right-sided chest tube in place. No evidence of pneumothorax. MUSCULOSKELETAL: Multiple lytic lesions involving the vertebral bodies again seen. The largest is at the T12 vertebral body. MISCELLANEOUS: Enlarged heterogeneous adrenal glands indicating possible metastatic disease. CONCLUSION: 1. Encasement and near occlusion of the SVC by a large right sided hilar/perihilar mass. 2. No evidence of pulmonary loss. 3. Diffuse bony metastatic disease. Possible metastatic disease in the adrenal glands. 4. Right lower lobe nodular density. Marked decrease in right lower lobe consolidation. Alan Cerrato MD on August 07, 2016 at 13:50 Board Certified Radiologist. This report was verified electronically.
--- NOTE | 2016-08-07 14:57 | PD.PROCEDR ---
Central Line Procedure REASON FOR PROCEDURE Central venous access PROCEDURE PERFORMED Central line placement: Left femoral vein (patient has SVC syndrome hence central line not placed in IJ or subclavian veins) CONSENT Informed consent for procedure was obtained from patient and documented in chart . The risks and benefits of the procedure were discussed to include but limited to bleeding, clot formation, infection. ANESTHESIA Local injection of 1% Lidocaine DESCRIPTION OF THE PROCEDURE The patient was placed in supine position. The area was exposed and cleansed with ChloraPrep, times two. Large sterile drape was used to cover the patient, with the site exposed, under sterile conditions including cap, face mask, sterile gown, and sterile gloves. On single attempt, the introducer Angiocath was inserted with negative pressure in syringe and venous flash was obtained following which Angiocath was advanced into the left femoral vein and the needle was then removed. The guide wire was then advanced without any restriction and the angiocath was removed. The dilator was used without any complications. Using Seldinger technique a 20 cm antimicrobial coated triple lumen catheter was advanced over the guide wire to a depth of 19 centimeters. The guide wire was removed. All ports were aspirated with dark venous blood return and flushed easily with sterile saline. All ports were capped. Antibiotic disc was placed around central line at puncture site. The central line was secured to the skin with two interrupted 2.0 silk sutures. The area was bandaged with sterile see-through central line bandage. COMPLICATIONS: No apparent complications ESTIMATED BLOOD LOSS: 2 cc. Alexei Pa MD August 07, 2016 14:57
[2016-08-07] MEDS ORDERED: CARBOPLATIN IV ONE (15:00)
[2016-08-07] MEDS ORDERED: SODIUM CHLOR 0.9% IV ONE (15:00)
--- NOTE | 2016-08-07 15:37 | HHI.CCPN ---
Subjective Remarks/Hospital Course 66-year-old female who was admitted with a history of shortness of breath, wheezing, cough going on for several days along with a history of significant weight loss and back pain as well as no chest pain. Patient was supposed to have a cholecystectomy. She was evaluated with a chest x-ray which revealed a right upper lung mass. Subsequent CT chest revealed consolidation of right upper lung compressive atelectasis of right lower lobe with moderate right effusion and narrowing of right mainstem bronchus with possible right hilar mass. Patient was admitted by hospitalist service and was evaluated by pulmonary as well as oncology. She has an elevated CEA and appears to have stage IV lung cancer with imaging studies including MRI spine revealing multiple bony metastatic cysts involving C-spine, thoracic and lumbar spine. CT chest also revealed bilateral adrenal metastases. Patient was placed on Levaquin for possible postobstructive pneumonia on the floor and was initiated on IV steroids and bronchodilators. She was on nasal cannula 2 this afternoon when she developed worsening respiratory distress and dropped her O2 sats to the 70s for which she was placed on a nonrebreather face mask following a rapid response and was subsequently transferred to the ICU. Critical care consult was requested by Dr. Anderson from the hospitalist service for acute respiratory failure. I evaluated the patient immediately on arrival to the ICU. She had just been initiated on BiPAP as ordered by me at that time as her ABG revealed acute respiratory acidosis. She appeared very anxious at the time hence Precedex GTT was ordered. History was obtained by reviewing records and discussion with nursing staff. 08/02: Patient remains on BiPAP but ABG shows improvement, remains on Precedex for sedation. Chest x-ray shows large right pleural effusion-I place a right pigtail catheter with find a medical initial output of exudative appearing fluid. Discussed with Dr. Rosales. Will wait for cytology and postpone the bronchoscopy 08/03: Respiratory status improved after draining right pleural effusion. Probably malignant effusion cytology pending. Continues to have bilateral wheezing. Probable bronch today by Dr. Gutierrez 08/04: patient refused BiPAP overnight because the beeping kept her awake. plan for bronch with bx today. does complain of shooting tingling/burning pain radiating from her back. at least 300cc serous fluid out of right chest tube. 08/05: patient cancelled bronchoscopy and port placement yesterday at last minute due to her concerns over "not waking up after surgery". She states that she is not willing to take the risk of lying flat and not breathing in order to diagnose this. She would like to discuss other options. From a respiratory standpoint, her breathing continues to improve on NC O2. 08/07: Critical care reconsulted by Dr. Spann for increasing facial and upper extremity swelling with SVC syndrome as well as for femoral central line placement for initiating chemotherapy. I evaluated the patient shortly after her arrival to the ICU. At that time she was on nasal cannula with minimal shortness of breath however had significant facial and upper extremity swelling. She still had the right sided pigtail catheter in place. She had just completed a CT chest with IV contrast. Objective Vital Signs Date Time Temp Pulse Resp B/P Pulse Ox O2 Delivery O2 Flow Rate FiO2 08/07/16 12:00 97.7 99 18 109/70 98 08/07/16 09:31 Nasal Cannula 4.00 08/04/16 01:09 35 Intake and Output 08/06/16 08/06/16 08/07/16 08:00 16:00 00:00 Intake Total 420 ml 240 ml 130 ml Output Total 50 ml 450 ml Balance 370 ml 240 ml -320 ml Result Diagram: 08/07/16 1250 08/07/16 0620 Imaging Last [address] Angiography 08/07/16 0000 Signed Impressions: Service Date/Time: Sunday, August 07, 2016 13:12 - CONCLUSION: 1. Encasement and near occlusion of the SVC by a large right sided hilar/perihilar mass. 2. No evidence of pulmonary loss. 3. Diffuse bony metastatic disease. Possible metastatic disease in the adrenal glands. 4. Right lower lobe nodular density. Marked decrease in right lower lobe consolidation. Alan Cerrato MD Last Impressions Chest X-Ray 07/31/16 0600 Signed Impressions: Service Date/Time: Sunday, July 31, 2016 05:05 - CONCLUSION: 1. Right hilar mass with atelectasis involving the right upper lung. 2. Lytic lesion involving the left fifth rib consisting of bony metastatic disease. Jero Miller MD Entire Spine MRI 07/31/16 0000 Signed Impressions: Service Date/Time: Sunday, July 31, 2016 09:58 - CONCLUSION: Diffuse bony metastasis throughout the dorsal spine without significant canal stenosis. Carlos F. Tocci, MD Brain MRI 07/31/16 0000 Signed Impressions: Service Date/Time: Sunday, July 31, 2016 09:58 - CONCLUSION: 1. Nonspecific white matter changes. 2. No evidence for metastatic disease to the brain parenchyma. 3. There are some bony metastatic lesions along the upper cervical spine/skull base. Carlos Dee MD Chest CT 07/30/16 0000 Signed Impressions: Service Date/Time: Saturday, July 30, 2016 05:13 - CONCLUSION: 1. There is narrowing of the right mainstem bronchus suspicious for a right hilar mass. 2. There is a masslike density in the right upper lung measuring 2.2 x 1.6 cm. 3. There is a moderate right pleural effusion with compressive atelectasis of the right lower lung. 4. There is consolidation of the right upper lung most likely from post obstructive pneumonia. 5. Patchy infiltrate in the posterior left upper lung most likely inflammatory. 6. Multiple lytic lesions are seen throughout the thoracic spine characteristic for diffuse bony metastatic disease 7. Diffusely enlarged bilateral adrenal glands most likely metastatic disease Jero Miller MD Abdomen/Pelvis CT 07/30/16 0000 Signed Impressions: Service Date/Time: Saturday, July 30, 2016 23:25 - CONCLUSION: 1. Diffuse bony metastatic disease. 2. Moderate right-sided pleural effusion. 3. Bilateral adrenal metastatic disease. 4. Simple right renal cyst. Jero Miller MD Objective Remarks P/E Elderly female, sitting up in bed with significant facial and upper extremity swelling on nasal cannula 4 L/m HEENT/Neuro: Pallor present. No icterus, tongue moist, SHAKEEL, awake, following commands, nonfocal grossly, moving all 4 extremities. Significant facial swelling with periorbital edema. Neck: No JVD Chest/pulmonary: Good air entry bilaterally though decreased at bases, scattered rhonchi, no wheezing. comfortable on NC o2. Cardiovascular: S1-S2 regular no gallop or murmur GI/abdomen: Soft, nontender, nondistended. no guarding. Extremities: Warm bilaterally, no edema Urinary Catheter: No Vascular Central Line Catheter: Yes Date of Insertion: August 07, 2016 Line: Central Venous Catheter Side: Left Location: Femoral Reason for Continuation Femoral central line placement due to SVC syndrome with inability to place IJ/ subclavian central line for chemotherapy/ anticoagulation with heparin A/P Assessment and Plan 66-year-old female with: Metastatic lung cancer with metastases to spine/bilateral adrenal glands Facial swelling secondary to SVC syndrome Acute respiratory failure COPD exacerbation Postobstructive pneumonia involving right lung due to right mainstem bronchus narrowing Right pleural effusion Probable sepsis- resolving. 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 Minimize sedation - continue gabapentin 200mg po TID for neuropathic pain (last titrated 08/04). would plan to increase this slowly [id number] to a target maximum of 1800 - 3600 mg/day, divided TID for neuropathic pain associated with spinal mets. - continue tizanidine 1mg po q12h for neuropathic pain (last titrated 08/04). would plan to increase this slowly q24-48h to target of 2-4mg po q12h. - Dr. Riley had discussed with the patient that the other optimal medication for her neuropathic pain would be either a TCA or Cymbalta, but she has tried antidepressants in the past and has had adverse reactions and she prefers to hold off on starting any anti-depressant type medication at this time. - continue oxycodone 5-10mg q4h prn for breakthrough pain. 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 Pulmonary: -NC o2 as tolerated. prn BiPAP, particularly at night. Bronchodilators, Solu- Medrol. -Being followed by Dr. Gutierrez from pulmonary medicine. -Metastatic lung CA with pleural fluid suggestive of non-small cell lung cancer (adenocarcinoma). -Right pigtail catheter in place, plan to discontinue after discussion with pulmonary. - GI/liver: -History of gallbladder disease for which she was to have a cholecystectomy which is obviously on hold currently. -Elevated LFTs noted. -low fat diet (patient has concerns over possible "gallbladder attack"). Renal/: -Strict intake output, monitor and replete electrolytes, follow BUN/creatinine. Heme/Onc: Newly diagnosed metastatic non-small cell carcinoma of the lung, pleural fluid cytology indicates likely adenocarcinoma with possible squamous cell features. Facial swelling secondary to SVC syndrome. To be started on chemotherapy/radiation 08/07 per oncology. Patient to be started on heparin for anticoagulation Left femoral central line placed for central vascular access. ID: -On Levaquin since 07/30. Added Flagyl 08/01 for empiric antibiotic coverage to cover for postobstructive pneumonia. Will consider stopping antibiotics and . Leukocytosis probably secondary to steroids at this point. Prophylaxis: -PPI/SCDs. To be started on full anticoagulation with heparin for SVC syndrome Prognosis appears extremely poor with metastatic disease involving spine and bilateral adrenal glands. Oncology has discussed options- patient desires aggressive care and will remain full code status. palliative care involved. Condition critical Time spent on critical care excluding procedures 30 minutes. Alexei Pa MD August 07, 2016 15:37
[2016-08-07] MEDS: HEPARIN-D5W INJ 250 ML IV SCH (18:26)
[2016-08-07 19:42] LABS: APTT (PATIENT) 29.1 SEC (24.3-30.1)
[2016-08-07] MEDS: SODIUM CHLORIDE 0.9% FLUSH 10 ML FLUSH IV FLUSH PRN (19:51)
[2016-08-07] MEDS: ATORVASTATIN 40 MG TAB PO SCH (20:28)
[2016-08-07 23:04] LABS: BLOOD, URINE LARGE (NEG); GLUCOSE,URINE NEG (NEG); KETONE, URINE NEG (NEG); MUCUS URINE FEW /lpf (OCC); NITRITE,URINE NEG (NEG); PH, URINE 6.5 (5.0-8.5)
[2016-08-07 23:05] LABS: COMMENT (UR) CATH-CULTURE IND; CULTURE IF INDICATED CATH CULTURE IND; URINE COLOR RED (YELLW/STRAW)
[2016-08-08] VITALS (14 sets, daily range): BP systolic 108–151; BP diastolic 69–83; PULSE 86–102; RESP 14–21; TEMP 97.7–98.9; O2SAT 92–97
[2016-08-08] MEDS: metroNIDAZOLE 500 MG INJ 100 ML IV SCH ×3 (00:29→17:53)
[2016-08-08] MEDS: oxyCODONE/ACETAMINOPHEN 10 MG/325 MG TAB PO PRN ×2 (00:29→08:48)
[2016-08-08] MEDS: CHLORHEXIDINE GLUCONATE 2 % 1 PACK (2 CLOTHS)(taper/protocol) TOPICAL SCH (00:29)
[2016-08-08] MEDS ORDERED: CHLORHEXIDINE GLUCONATE 2 % 1 PACK (2 CLOTHS)(extra cloths) TOPICAL PRN (00:30)
[2016-08-08 02:18] LABS: APTT (PATIENT) 219.4 SEC (24.3-30.1)
[2016-08-08 02:46] LABS: MRSA PCR NEGATIVE (NEGATIVE); STAPH AUREUS PCR NEGATIVE (NEGATIVE)
[2016-08-08] MEDS: LEVOFLOXACIN 500 MG PREMIX INJ 100 ML IV SCH (04:21)
[2016-08-08 05:00] LABS: APTT (PATIENT) 81.1 SEC (24.3-30.1)
[2016-08-08] MEDS: RESP: ALBUTEROL 2.5 MG/IPRATROPIUM 0.5 MG NEB (PRN) NEB (05:16)
[2016-08-08] MEDS: oxyCODONE/ACETAMINOPHEN 5 MG/325 MG TAB PO PRN (05:50)
--- NOTE | 2016-08-08 05:51 | RADRPT ---
EXAM DATE/TIME: 08/08/2016 04:40 [facility] COMPARISON: CT PULMONARY ANGIOGRAM, August 07, 2016, 13:12. INDICATIONS : Shortness of breath, possible pulmonary disease. MEDICAL HISTORY : Chronic obstructive pulmonary disease. SURGICAL HISTORY : None. ENCOUNTER: Subsequent ACUITY: 1 week PAIN SCORE: 0/10 LOCATION: Bilateral chest FINDINGS: Right upper lobe consolidation has improved slightly since August 02 comparison. Right hilar mass remain s. Elevated right hemidiaphragm. Right chest tube without pneumothorax. Left third rib fracture noted with extrapleural density, stable. Minimal left basilar atelectasis. CONCLUSION: 1. Persistent right hilar mass but with slight improvement in right upper lobe consolidation since . Right chest tube without pneumothorax. No new infiltrate or effusion. Jarrell Hernandez MD on August 08, 2016 at 5:47 Board Certified Radiologist. This report was verified electronically.
[2016-08-08] MEDS: GABAPENTIN 100 MG CAP PO SCH ×3 (08:48→17:53)
[2016-08-08] MEDS: NYSTATIN SUSP 500,000 U/5 ML CUP SWISH-SWAL SCH ×4 (08:48→21:06)
[2016-08-08] MEDS: PANTOPRAZOLE SOD 40 MG DELAYED RELEASE TAB PO SCH (08:48)
[2016-08-08] MEDS: SODIUM CHLORIDE 0.9% FLUSH 10 ML FLUSH IV FLUSH SCH ×2 (08:49→21:06)
[2016-08-08] MEDS: methylPREDNISolone SOD SUCC 40 MG/1 ML VIAL IV PUSH SCH ×2 (08:49→21:06)
--- NOTE | 2016-08-08 09:04 | HHI.CCPN ---
Subjective Remarks/Hospital Course 66-year-old female who was admitted with a history of shortness of breath, wheezing, cough going on for several days along with a history of significant weight loss and back pain as well as no chest pain. Patient was supposed to have a cholecystectomy. She was evaluated with a chest x-ray which revealed a right upper lung mass. Subsequent CT chest revealed consolidation of right upper lung compressive atelectasis of right lower lobe with moderate right effusion and narrowing of right mainstem bronchus with possible right hilar mass. Patient was admitted by hospitalist service and was evaluated by pulmonary as well as oncology. She has an elevated CEA and appears to have stage IV lung cancer with imaging studies including MRI spine revealing multiple bony metastatic cysts involving C-spine, thoracic and lumbar spine. CT chest also revealed bilateral adrenal metastases. Patient was placed on Levaquin for possible postobstructive pneumonia on the floor and was initiated on IV steroids and bronchodilators. She was on nasal cannula 2 this afternoon when she developed worsening respiratory distress and dropped her O2 sats to the 70s for which she was placed on a nonrebreather face mask following a rapid response and was subsequently transferred to the ICU. Critical care consult was requested by Dr. Anderson from the hospitalist service for acute respiratory failure. I evaluated the patient immediately on arrival to the ICU. She had just been initiated on BiPAP as ordered by me at that time as her ABG revealed acute respiratory acidosis. She appeared very anxious at the time hence Precedex GTT was ordered. History was obtained by reviewing records and discussion with nursing staff. 08/02: Patient remains on BiPAP but ABG shows improvement, remains on Precedex for sedation. Chest x-ray shows large right pleural effusion-I place a right pigtail catheter with find a medical initial output of exudative appearing fluid. Discussed with Dr. Rosales. Will wait for cytology and postpone the bronchoscopy 08/03: Respiratory status improved after draining right pleural effusion. Probably malignant effusion cytology pending. Continues to have bilateral wheezing. Probable bronch today by Dr. Gutierrez 08/04: patient refused BiPAP overnight because the beeping kept her awake. plan for bronch with bx today. does complain of shooting tingling/burning pain radiating from her back. at least 300cc serous fluid out of right chest tube. 08/05: patient cancelled bronchoscopy and port placement yesterday at last minute due to her concerns over "not waking up after surgery". She states that she is not willing to take the risk of lying flat and not breathing in order to diagnose this. She would like to discuss other options. From a respiratory standpoint, her breathing continues to improve on NC O2. 08/07: Critical care reconsulted by Dr. Spann for increasing facial and upper extremity swelling with SVC syndrome as well as for femoral central line placement for initiating chemotherapy. I evaluated the patient shortly after her arrival to the ICU. At that time she was on nasal cannula with minimal shortness of breath however had significant facial and upper extremity swelling. She still had the right sided pigtail catheter in place. She had just completed a CT chest with IV contrast. 08/08: Resting in bed comfortably. Has minimal shortness of breath and cough. Underwent radiation followed by chemotherapy on 08/07. Her facial swelling appears to be better compared to yesterday. Objective Vital Signs Date Time Temp Pulse Resp B/P Pulse Ox O2 Delivery O2 Flow Rate FiO2 08/08/16 06:00 92 08/08/16 04:00 98.2 20 129/83 92 08/07/16 19:50 Nasal Cannula 4.00 Intake and Output 08/07/16 08/07/16 08/08/16 08:00 16:00 00:00 Intake Total 120 ml 120 ml 100 ml Output Total 300 ml 675 ml 500 ml Balance -180 ml -555 ml -400 ml Result Diagram: 08/07/16 1250 08/07/16 0620 Imaging Last [address] Angiography 08/07/16 0000 Signed Impressions: Service Date/Time: Sunday, August 07, 2016 13:12 - CONCLUSION: 1. Encasement and near occlusion of the SVC by a large right sided hilar/perihilar mass. 2. No evidence of pulmonary loss. 3. Diffuse bony metastatic disease. Possible metastatic disease in the adrenal glands. 4. Right lower lobe nodular density. Marked decrease in right lower lobe consolidation. Alan Cerrato MD Last Impressions Chest X-Ray 07/31/16 0600 Signed Impressions: Service Date/Time: Sunday, July 31, 2016 05:05 - CONCLUSION: 1. Right hilar mass with atelectasis involving the right upper lung. 2. Lytic lesion involving the left fifth rib consisting of bony metastatic disease. Jero Miller MD Entire Spine MRI 07/31/16 0000 Signed Impressions: Service Date/Time: Sunday, July 31, 2016 09:58 - CONCLUSION: Diffuse bony metastasis throughout the dorsal spine without significant canal stenosis. Carlos Dee MD Brain MRI 07/31/16 Signed Impressions: Service Date/Time: Sunday, July 31, 2016 09:58 - CONCLUSION: 1. Nonspecific white matter changes. 2. No evidence for metastatic disease to the brain parenchyma. 3. There are some bony metastatic lesions along the upper cervical spine/skull base. Carlos Dee MD Chest CT 07/30/16 Signed Impressions: Service Date/Time: Saturday, July 30, 2016 05:13 - CONCLUSION: 1. There is narrowing of the right mainstem bronchus suspicious for a right hilar mass. 2. There is a masslike density in the right upper lung measuring 2.2 x 1.6 cm. 3. There is a moderate right pleural effusion with compressive atelectasis of the right lower lung. 4. There is consolidation of the right upper lung most likely from post obstructive pneumonia. 5. Patchy infiltrate in the posterior left upper lung most likely inflammatory. 6. Multiple lytic lesions are seen throughout the thoracic spine characteristic for diffuse bony metastatic disease 7. Diffusely enlarged bilateral adrenal glands most likely metastatic disease Jero Miller MD Abdomen/Pelvis CT 07/30/16 Signed Impressions: Service Date/Time: Saturday, July 30, 2016 23:25 - CONCLUSION: 1. Diffuse bony metastatic disease. 2. Moderate right-sided pleural effusion. 3. Bilateral adrenal metastatic disease. 4. Simple right renal cyst. Jero Miller MD Objective Remarks P/E Elderly female, sitting up in bed with facial and upper extremity swelling, on nasal cannula 4 L/m HEENT/Neuro: Pallor present. No icterus, tongue moist, SHAKEEL, awake, following commands, nonfocal grossly, moving all 4 extremities. Significant facial swelling with periorbital edema. Neck: No JVD Chest/pulmonary: Air entry decreased over right lung field, scattered rhonchi, no wheezing. comfortable on NC o2. Cardiovascular: S1-S2 regular no gallop or murmur GI/abdomen: Soft, nontender, nondistended. no guarding. Extremities: Warm bilaterally, no edema Date of Insertion: August 07, 2016 Line: Central Venous Catheter Side: Left Location: Femoral A/P Assessment and Plan 66-year-old female with: Metastatic lung cancer with metastases to spine/bilateral adrenal glands Facial swelling secondary to SVC syndrome Acute respiratory failure COPD exacerbation Postobstructive pneumonia involving right lung due to right mainstem bronchus narrowing Right pleural effusion Probable sepsis- resolving. 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 Minimize sedation - continue gabapentin 200mg po TID for neuropathic pain (last titrated 08/04). would plan to increase this slowly [id number] to a target maximum of 1800 - 3600 mg/day, divided TID for neuropathic pain associated with spinal mets. - continue tizanidine 1mg po q12h for neuropathic pain (last titrated 08/04). would plan to increase this slowly q24-48h to target of 2-4mg po q12h. - Dr. Riley had discussed with the patient that the other optimal medication for her neuropathic pain would be either a TCA or Cymbalta, but she has tried antidepressants in the past and has had adverse reactions and she prefers to hold off on starting any anti-depressant type medication at this time. - continue oxycodone 5-10mg q4h prn for breakthrough pain. 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 Pulmonary: -NC o2 as tolerated. prn BiPAP, particularly at night. Bronchodilators, Solu- Medrol. -Being followed by Dr. Gutierrez from pulmonary medicine. -Metastatic lung CA with pleural fluid suggestive of non-small cell lung cancer (adenocarcinoma). -Right pigtail catheter in place, plan to discontinue after discussion with pulmonary. - GI/liver: -History of gallbladder disease for which she was to have a cholecystectomy which is obviously on hold currently. -Elevated LFTs noted. -low fat diet (patient has concerns over possible "gallbladder attack"). Renal/: -Strict intake output, monitor and replete electrolytes, follow BUN/creatinine. Heme/Onc: Newly diagnosed metastatic non-small cell carcinoma of the lung, pleural fluid cytology indicates likely adenocarcinoma with possible squamous cell features. Facial swelling secondary to SVC syndrome. Started on chemotherapy/radiation 08/07 per oncology. Patient to be started on heparin for anticoagulation Left femoral central line placed for central vascular access. ID: -On Levaquin since 07/30. Added Flagyl 08/01 for empiric antibiotic coverage to cover for postobstructive pneumonia. Will consider stopping antibiotics after . Leukocytosis probably secondary to steroids at this point. Prophylaxis: -PPI/SCDs. On full anticoagulation with heparin for SVC syndrome Prognosis appears extremely poor with metastatic disease involving spine and bilateral adrenal glands. Oncology has discussed options- patient desires aggressive care and will remain full code status. palliative care involved. Alexei Pa MD August 08, 2016 09:04
[2016-08-08] MEDS: RESP: ALBUTEROL 2.5 MG/IPRATROPIUM 0.5 MG NEB (SCH) NEB ×3 (09:31→20:59)
--- NOTE | 2016-08-08 09:31 | PD.ONC.PN ---
Subjective Subjective Remarks Afebrile overnight. Patient feeling better today. States swelling has improved. Has low back pain. Objective Data Date Time Temp Pulse Resp B/P Pulse Ox O2 Delivery O2 Flow Rate FiO2 08/08/16 06:00 92 08/08/16 04:00 87 08/08/16 04:00 98.2 87 20 129/83 92 08/08/16 02:00 87 08/08/16 00:00 90 08/08/16 00:00 98.0 90 16 108/80 92 08/07/16 22:00 86 08/07/16 20:00 96 08/07/16 20:00 98.1 96 28 123/78 95 08/07/16 19:50 93 Nasal Cannula 4.00 08/07/16 19:00 95 Nasal Cannula 4.00 08/07/16 12:00 97.7 99 18 109/70 98 08/07/16 10:00 98.4 82 14 106/85 95 08/07/16 09:31 97 Nasal Cannula 4.00 08/08/16 08/08/16 08/08/16 07:00 15:00 23:00 Intake Total 1465 ml Output Total 560 ml Balance 905 ml Result Diagram: 08/07/16 1250 08/07/16 0620 Laboratory Results Laboratory Tests Test 08/07/16 08/07/16 08/07/16 08/07/16 12:50 15:30 18:35 20:50 White Blood Count 34.7 TH/MM3 Red Blood Count 4.55 MIL/MM3 Hemoglobin 10.5 GM/DL Hematocrit 33.4 % Mean Corpuscular Volume 73.5 FL Mean Corpuscular Hemoglobin 23.0 PG Mean Corpuscular Hemoglobin 31.3 % Concent Red Cell Distribution Width 18.2 % Platelet Count 209 TH/MM3 Mean Platelet Volume 7.6 FL Prothrombin Time 11.6 SEC Prothromb Time International 1.0 RATIO Ratio Activated Partial 30.8 SEC 29.1 SEC Thromboplast Time Nasal Screen MRSA (PCR) NEGATIVE Staphylococcus aureus NEGATIVE (PCR)(LAB) Urine Color RED Urine Turbidity HAZY Urine pH 6.5 Urine Specific Carbon GREATER THAN 1.050 Urine Protein 30 mg/dL Urine Glucose (UA) NEG mg/dL Urine Ketones NEG mg/dL Urine Occult Blood LARGE Urine Nitrite NEG Urine Bilirubin NEG Urine Urobilinogen LESS THAN 2.0 MG/DL Urine Leukocyte Esterase TRACE Urine RBC /hpf Urine WBC 9 /hpf Urine Mucus FEW /lpf Microscopic Urinalysis Comment CATH-CULTURE IND Test 08/08/16 08/08/16 01:20 04:20 Activated Partial 219.4 SEC 81.1 SEC Thromboplast Time Culture Results Microbiology Date/Time Procedure Status Source Growth 08/07/16 15:30 Stool Occult Blood (JASON) Ordered Stool Stool Pending 08/07/16 20:50 Urine Culture Received Urine Catheterized Urine Pending Imaging Studies Last 24 hours Impressions Chest X-Ray 08/08/16 0600 Signed Impressions: Service Date/Time: Monday, August 08, 2016 04:40 - CONCLUSION: 1. Persistent right hilar mass but with slight improvement in right upper lobe consolidation since August 02. Right chest tube without pneumothorax. No new infiltrate or effusion. Jarrell Hernandez MD Administered Medications Medications (Trade) Dose Ordered Sig/Alistair Route PRN Reason Start Time Stop Time Status Last Admin Dose Admin Sodium Chloride (NS Flush) 2 ml UNSCH PRN IV FLUSH FLUSH AFTER USING IV ACCESS 07/30/16 03:45 08/07/16 19:51 Sodium Chloride (NS Flush) 2 ml BID IV FLUSH 07/30/16 09:00 08/08/16 08:49 Pantoprazole Sodium 40 mg 40 mg DAILY PO 07/30/16 09:00 08/08/16 08:48 Levofloxacin/ Dextrose (Levaquin 500 Mg Premix Inj) 100 ml @ 100 mls/hr Q24H IV 07/30/16 05:00 08/08/16 04:21 Atorvastatin Calcium (Lipitor) 40 mg HS PO 07/30/16 21:00 08/07/16 20:28 Ondansetron HCl (Zofran Odt) 4 mg Q6HR PRN SL Nausea/Vomiting 07/30/16 05:30 07/30/16 21:07 Oxycodone/ Acetaminophen (Percocet 5-325 Mg) 1 tab Q4H PRN PO pain1-5 08/01/16 09:30 08/08/16 05:50 Oxycodone/ Acetaminophen 1 tab 1 tab Q4H PRN PO pain6-10 08/01/16 09:30 08/08/16 08:48 Metronidazole (Flagyl 500 Mg Inj) 100 ml @ 100 mls/hr Q8H IV 08/01/16 17:00 08/08/16 08:49 Gabapentin (Neurontin) 200 mg TID PO 08/04/16 09:25 08/08/16 08:48 Tizanidine HCl (Zanaflex) 1 mg Q12HR PO 08/04/16 09:25 08/08/16 09:19 Senna/Docusate Sodium (Shira-Colace) 1 tab BID PRN PO CONSTIPATION 08/04/16 17:00 08/06/16 08:48 Methylprednisolone Sodium Succinate (SoluMEDROL INJ) 40 mg BID IV PUSH 08/05/16 21:00 08/08/16 08:49 Nystatin 5 ml 5 ml QID SWISH-SWAL 08/06/16 15:00 08/08/16 08:48 Heparin Sodium/ Dextrose (Heparin-D5W Inj) 250 ml @ 0 mls/hr TITRATE IV 08/07/16 12:00 08/07/16 18:26 Miscellaneous Information Patient in critical care unit? Ass... Q361D .XX 08/08/16 00:30 08/08/16 00:30 Chlorhexidine Gluconate (Chlorhexidine 2% Cloth) 3 pack DAILY@04 TOPICAL 08/08/16 04:00 08/12/16 04:01 08/08/16 00:29 Objective Remarks GENERAL: Middle aged female, with improving edema noted in face and upper extremities. SKIN: Warm and dry. HEAD: Normocephalic. EYES: No injection or drainage. NECK: Supple, trachea midline. CARDIOVASCULAR: +S1/S2, tachy RESPIRATORY: diminished right lung [place]. on 4L O2 via [place] GASTROINTESTINAL: Abdomen soft, non-tender, nondistended. EXTREMITIES: No cyanosis. NEUROLOGICAL: awake and alert, normal speech. able to move extremities. Assessment/Plan Assessment 66-year-old female with newly diagnosed metastatic non-small cell carcinoma of the lung, pleural fluid cytology indicates likely adenocarcinoma with possible squamous cell features as well. +SVC syndrome. emergent radiation started . Plan 1. Metastatic non-small cell carcinoma of the lung: s/p carbo/taxol on 08/07 2. SVC syndrome: improved after emergent XRT yesterday. plan is for two additional high dose treatments 3. continue heparin gtt 4. I had an extensive discussion with the patient and her about code status. I explained what intubation, CPR and ACLS drugs were. We also discussed PEG tube and trach placement. I asked the patient to think about what she wants and explained that if there was an emergency there would not be time to discuss at that time. explained that under current law all decision making would fall to her (if she was incapacitated) unless another healthcare surrogate was specified and therefore gently encouraged her to discuss what her wishes would be should she become incapacitated. She expressed understanding and thanked me and stated she would discuss this with her . was present during this discussion but did not participate. Attending Statement The exam, history, and the medical decision-making described in the above note were completed with the assistance of the mid-level provider. I reviewed and agree with the findings presented. I attest that I had a [id number] encounter with the patient on the same day, and personally performed and documented my assessment and findings in the medical record. Reviewed with pt CT scan findings. Impressive narrowing of SVC with tumor. Tolerated chemo and XRT. Discussed w/ Dr. Ferrer, second dose XRT today. Pt still swollen periorbital edema, still sitting up, arms less swollen. Pt feels better. Continue w/ DRT, supportive care. No near syncope, pt advised to sit up or stand slowly. Jesi Smith August 08, 2016 09:31 Elke Spann MD August 08, 2016 15:27
[2016-08-08 10:55] LABS: BASOPHIL % 0.2 % (0.0-2.0); EOSINOPHIL % 0.1 % (0.0-4.0); HEMATOCRIT 31.1 % (35.0-46.0); LYMPH % 5.4 % (9.0-44.0); LYMPHOCYTE # 1.6 TH/MM3 (1.0-4.8); MEAN CELL VOLUME 73.5 FL (80.0-100.0); MEAN CORPUSCULAR HEMOGLOBIN 22.5 PG (27.0-34.0); MEAN CORPUSCULAR HGB CONC 30.6 % (32.0-36.0); MONO % 2.8 % (0.0-8.0); NEUT % 91.5 % (16.0-70.0); PLATELET COUNT 177 TH/MM3 (150-450); RED BLOOD COUNT 4.24 MIL/MM3 (4.00-5.30); WHITE BLOOD COUNT 29.5 TH/MM3 (4.0-11.0)
[2016-08-08 10:56] LABS: HEMO FLAGS AUTO DIFF
[2016-08-08 11:26] LABS: ALT (GPT) 70 U/L (10-53); ANION GAP 7 MEQ/L (5-15); AST (GOT) 82 U/L (15-37); BICARBONATE 33.3 MEQ/L (21.0-32.0); BLOOD UREA NITROGEN 24 MG/DL (7-18); CHLORIDE 93 MEQ/L (98-107); GLOMERULAR FILTRATION RATE 133 ML/MIN (>89); POTASSIUM 4.6 MEQ/L (3.5-5.1); SODIUM (NA) 133 MEQ/L (136-145)
[2016-08-08 11:28] LABS: ALKALINE PHOSPHATASE 119 U/L (45-117); TOTAL BILIRUBIN ADULT 0.4 MG/DL (0.2-1.0)
[2016-08-08 11:35] LABS: BANDS 6 % (0-6); CORRECTED NUCLEATED RBC 1 /100 WBC (0-0); EOSINOPHILS 1 % (0-4); METAMYELOCYTES 4 % (0-1); NEUTROPHIL # MANUAL DIFF 25.7 TH/MM3 (1.8-7.7); PLATELET ESTIMATE SMEAR NORMAL (NORMAL); PLATELET MORPHOLOGY NORMAL (NORMAL); POLYS (SEG NEUTROPHILS) 77 % (16-70); SCAN/DIFF FINAL DIFF MANUAL; WBC DIFF SAMPLE 100
[2016-08-08 11:47] LABS: APTT (PATIENT) 169.7 SEC (24.3-30.1)
[2016-08-08] MEDS: MORPHINE SULFATE 4 MG/ML INJ IV PUSH PRN ×4 (13:52→21:25)
[2016-08-08] MEDS ORDERED: MORPHINE SULFATE 15 MG CONTROLLED RELEASE TAB PO SCH (14:00)
[2016-08-08 14:29] LABS: APTT (PATIENT) 64.1 SEC (24.3-30.1)
--- NOTE | 2016-08-08 15:20 | HHI.PR ---
Subjective Remarks Follow-up for metastatic non-small cell lung cancer, SVC syndrome. Patient is currently doing well. The time of this interview patient is about to go for radiation therapy for his bases syndrome. Denies any acute concerns. Objective Vitals Vital Signs Date Time Temp Pulse Resp B/P Pulse Ox O2 Delivery O2 Flow Rate FiO2 08/08/16 10:00 95 08/08/16 09:31 93 Nasal Cannula 4.00 08/08/16 08:00 86 08/08/16 08:00 98.5 86 16 117/69 95 08/08/16 07:00 96 Nasal Cannula 4.00 08/08/16 06:00 92 08/08/16 04:00 87 08/08/16 04:00 98.2 87 20 129/83 92 08/08/16 02:00 87 08/08/16 00:00 90 08/08/16 00:00 98.0 90 16 108/80 92 08/07/16 22:00 86 08/07/16 20:00 96 08/07/16 20:00 98.1 96 28 123/78 95 08/07/16 19:50 93 Nasal Cannula 4.00 08/07/16 19:00 95 Nasal Cannula 4.00 I/O 08/07/16 08/07/16 08/07/16 08/08/16 08/08/16 08/08/16 07:00 15:00 23:00 07:00 15:00 23:00 Intake Total 120 ml 120 ml 100 ml 1465 ml Output Total 300 ml 675 ml 500 ml 560 ml Balance -180 ml -555 ml -400 ml 905 ml Intake Oral 120 ml 120 ml 100 ml 50 ml IV Total 1415 ml Output Urine Total 500 ml 500 ml 350 ml Chest Tube Drainage Total 300 ml 175 ml 210 ml # Bowel Movements 0 0 Result Diagram: 08/08/16 1032 08/08/16 1032 Imaging Last Impressions Chest X-Ray 08/08/16 0600 Signed Impressions: Service Date/Time: Monday, August 08, 2016 04:40 - CONCLUSION: 1. Persistent right hilar mass but with slight improvement in right upper lobe consolidation since August 02. Right chest tube without pneumothorax. No new infiltrate or effusion. Jarrell Hernandez MD CT Angiography 08/07/16 0000 Signed Impressions: Service Date/Time: Sunday, August 07, 2016 13:12 - CONCLUSION: 1. Encasement and near occlusion of the SVC by a large right sided hilar/perihilar mass. 2. No evidence of pulmonary loss. 3. Diffuse bony metastatic disease. Possible metastatic disease in the adrenal glands. 4. Right lower lobe nodular density. Marked decrease in right lower lobe consolidation. Alan Cerrato MD Entire Spine MRI 07/31/16 Signed Impressions: Service Date/Time: Sunday, July 31, 2016 09:58 - CONCLUSION: Diffuse bony metastasis throughout the dorsal spine without significant canal stenosis. Carlos Dee MD Brain MRI 07/31/16 Signed Impressions: Service Date/Time: Sunday, July 31, 2016 09:58 - CONCLUSION: 1. Nonspecific white matter changes. 2. No evidence for metastatic disease to the brain parenchyma. 3. There are some bony metastatic lesions along the upper cervical spine/skull base. Carlos Dee MD Chest CT 07/30/16 Signed Impressions: Service Date/Time: Saturday, July 30, 2016 05:13 - CONCLUSION: 1. There is narrowing of the right mainstem bronchus suspicious for a right hilar mass. 2. There is a masslike density in the right upper lung measuring 2.2 x 1.6 cm. 3. There is a moderate right pleural effusion with compressive atelectasis of the right lower lung. 4. There is consolidation of the right upper lung most likely from post obstructive pneumonia. 5. Patchy infiltrate in the posterior left upper lung most likely inflammatory. 6. Multiple lytic lesions are seen throughout the thoracic spine characteristic for diffuse bony metastatic disease 7. Diffusely enlarged bilateral adrenal glands most likely metastatic disease Jero Miller MD Abdomen/Pelvis CT 07/30/16 Signed Impressions: Service Date/Time: Saturday, July 30, 2016 23:25 - CONCLUSION: 1. Diffuse bony metastatic disease. 2. Moderate right-sided pleural effusion. 3. Bilateral adrenal metastatic disease. 4. Simple right renal cyst. Jero Miller MD Objective Remarks GENERAL: Alert, NAD. SKIN: Warm and dry. HEAD: Normocephalic. EYES: No scleral icterus. No injection or drainage. NECK: Supple, trachea midline. No JVD or lymphadenopathy. CARDIOVASCULAR: Regular rate and rhythm without murmurs, gallops, or rubs. RESPIRATORY: Moderate air entry, diminished lung sounds on the right side. On nasal cannula. GASTROINTESTINAL: Abdomen soft, non-tender, nondistended. MUSCULOSKELETAL: No cyanosis, or edema. BACK: Nontender without obvious deformity. No CVA tenderness. Procedures Echo 07/30/2016 LEFT VENTRICLE: The cavity size was normal. Wall thickness was normal. Systolic function was normal. The estimated ejection fraction was in the range of 55% to 60%. Wall motion was normal; there were no regional wall motion abnormalities. Date of Insertion: August 07, 2016 Line: Central Venous Catheter Side: Left Location: Femoral A/P Problem List: (1) Metastatic primary lung cancer ICD Code: C34.90 Status: Acute (2) SVC syndrome ICD Code: I87.1 Status: Acute (3) COPD exacerbation ICD Code: J44.1 Status: Acute (4) Acute respiratory failure ICD Code: J96.00 Status: Acute Assessment and Plan Ms. Acharya is a 66 year old female who was admitted with a history of shortness of breath, wheezing, cough going on for several days along with a history of significant weight loss and back pain as well as no chest pain. Patient was supposed to have a cholecystectomy. She was evaluated with a chest x-ray which revealed a right upper lung mass. Subsequent CT chest revealed consolidation of right upper lung compressive atelectasis of right lower lobe with moderate right effusion and narrowing of right mainstem bronchus with possible right hilar mass. Patient was admitted by hospitalist service and was evaluated by pulmonary as well as oncology. She has an elevated CEA and appears to have stage IV lung cancer with imaging studies including MRI spine revealing multiple bony metastatic cysts involving C-spine, thoracic and lumbar spine. CT chest also revealed bilateral adrenal metastases. Patient was placed on Levaquin for possible postobstructive pneumonia on the floor and was initiated on IV steroids and bronchodilators. She was on the med surg floor and went into respiratory distress. Subsequently patient was transferred to ICU. On 2016 patient started noticing swelling in the face and upper extremities. She was diagnosed with SVC syndrome and underwent urgent radiation therapy on 2016. - Metastatic non-small cell lung cancer - SVC syndrome - status post Carbo/Taxol on 08/07/2016. - Hematology oncology following. - Patient underwent emergent XRT on 08/07/2016. She is going for another XRT today 08/08/2016. - Continue heparin drip. - Acute respiratory failure hypoxia - COPD - Probable post-obstructive pneumonia - Continue DuoNeb, Levaquin 500 mg every 24 hours, Solu-Medrol 40 mg IV twice a day. - Patient is also on Flagyl 500mg IV Q8hrs. - Pulmonary following. - Hyperlipidemia - Continue Lipitor 40mg QHS. Full code. Heparin drip. Benja Cardenas DO August 08, 2016 3:20 pm
[2016-08-08] MEDS: ATORVASTATIN 40 MG TAB PO SCH (21:06)
[2016-08-08 21:54] LABS: APTT (PATIENT) 43.6 SEC (24.3-30.1)
[2016-08-09] VITALS (21 sets, daily range): BP systolic 90–146; BP diastolic 55–90; PULSE 94–106; RESP 12–43; TEMP 98.1–98.5; O2SAT 78–96
[2016-08-09] MEDS: metroNIDAZOLE 500 MG INJ 100 ML IV SCH ×2 (01:15→10:06)
[2016-08-09] MEDS: CHLORHEXIDINE GLUCONATE 2 % 1 PACK (2 CLOTHS)(taper/protocol) TOPICAL SCH (01:15)
[2016-08-09] MEDS: RESP: ALBUTEROL 2.5 MG/IPRATROPIUM 0.5 MG NEB (SCH) NEB ×4 (03:48→21:17)
[2016-08-09] MEDS: MORPHINE SULFATE 4 MG/ML INJ IV PUSH PRN ×2 (04:09→10:23)
[2016-08-09] MEDS: LEVOFLOXACIN 500 MG PREMIX INJ 100 ML IV SCH (04:13)
[2016-08-09 06:21] LABS: HEMATOCRIT 31.4 % (35.0-46.0); MEAN CELL VOLUME 73.6 FL (80.0-100.0); MEAN CORPUSCULAR HGB CONC 31.3 % (32.0-36.0); PLATELET COUNT 172 TH/MM3 (150-450); RED BLOOD COUNT 4.27 MIL/MM3 (4.00-5.30); RED CELL DISTRIBUTION WIDTH 18.5 % (11.6-17.2); WHITE BLOOD COUNT 30.8 TH/MM3 (4.0-11.0)
[2016-08-09 06:38] LABS: APTT (PATIENT) 44.8 SEC (24.3-30.1)
[2016-08-09 06:43] LABS: REVIEW FLAG FINAL
[2016-08-09 06:50] LABS: BICARBONATE 35.5 MEQ/L (21.0-32.0); POTASSIUM 4.5 MEQ/L (3.5-5.1)
--- NOTE | 2016-08-09 08:22 | PD.ONC.PN ---
Subjective Subjective Remarks Patient reports facial swelling and tightness in her chest is improved. Started on radiation to the mediastinum on 08/07/2016. Today will be fraction #3. Tolerated carboplatin and Taxol without significant complications on 08/07/2016. Reports swelling of the upper extremities persists. Presently on heparin drip for management of SVC syndrome and prevention of SVC thrombosis. Objective Data Date Time Temp Pulse Resp B/P Pulse Ox O2 Delivery O2 Flow Rate FiO2 08/09/16 06:00 98 08/09/16 04:00 98 08/09/16 04:00 98.2 98 20 108/59 78 08/09/16 02:00 97 08/09/16 00:00 98 08/09/16 00:00 98.2 98 21 94/55 92 08/08/16 22:00 102 08/08/16 20:59 97 Nasal Cannula 4.00 08/08/16 20:00 97.7 97 20 133/70 95 08/08/16 20:00 97 08/08/16 19:00 93 Nasal Cannula 4.00 08/08/16 18:40 16 08/08/16 18:00 94 08/08/16 16:00 92 08/08/16 16:00 98.9 92 14 151/77 93 08/08/16 14:00 92 08/08/16 12:00 98.3 86 21 111/75 92 08/08/16 12:00 86 08/08/16 10:00 95 08/08/16 09:31 93 Nasal Cannula 4.00 08/09/16 08/09/16 08/09/16 06:59 14:59 22:59 Intake Total 370 ml Output Total 530 ml Balance -160 ml Result Diagram: 08/09/16 0345 08/09/16 0345 Laboratory Results Laboratory Tests Test 08/08/16 08/08/16 08/08/16 08/08/16 10:20 10:32 13:53 21:30 Activated Partial 169.7 SEC 64.1 SEC 43.6 SEC Thromboplast Time White Blood Count 29.5 TH/MM3 Red Blood Count 4.24 MIL/MM3 Hemoglobin 9.5 GM/DL Hematocrit 31.1 % Mean Corpuscular Volume 73.5 FL Mean Corpuscular Hemoglobin 22.5 PG Mean Corpuscular Hemoglobin 30.6 % Concent Red Cell Distribution Width 18.0 % Platelet Count 177 TH/MM3 Mean Platelet Volume 8.1 FL Neutrophils (%) (Auto) 91.5 % Lymphocytes (%) (Auto) 5.4 % Monocytes (%) (Auto) 2.8 % Eosinophils (%) (Auto) 0.1 % Basophils (%) (Auto) 0.2 % Neutrophils # (Auto) 27.0 TH/MM3 Lymphocytes # (Auto) 1.6 TH/MM3 Monocytes # (Auto) 0.8 TH/MM3 Eosinophils # (Auto) 0.0 TH/MM3 Basophils # (Auto) 0.0 TH/MM3 CBC Comment AUTO DIFF Differential Total Cells 100 Counted Neutrophils % (Manual) 77 % Band Neutrophils % 6 % Lymphocytes % 9 % Monocytes % 3 % Eosinophils % 1 % Neutrophils # (Manual) 25.7 TH/MM3 Metamyelocytes 4 % Nucleated Red Blood Cells 1 /100 WBC Differential Comment FINAL DIFF MANUAL Platelet Estimate NORMAL Platelet Morphology Comment NORMAL Sodium Level 133 MEQ/L Potassium Level 4.6 MEQ/L Chloride Level 93 MEQ/L Carbon Dioxide Level 33.3 MEQ/L Anion Gap 7 MEQ/L Blood Urea Nitrogen 24 MG/DL Creatinine 0.47 MG/DL Estimat Glomerular Filtration 133 ML/MIN Rate Random Glucose 179 MG/DL Calcium Level 8.0 MG/DL Total Bilirubin 0.4 MG/DL Aspartate Amino Transf 82 U/L (AST/SGOT) Alanine Aminotransferase 70 U/L (ALT/SGPT) Alkaline Phosphatase 119 U/L Total Protein 5.1 GM/DL Albumin 2.3 GM/DL Test 08/09/16 03:45 White Blood Count 30.8 TH/MM3 Red Blood Count 4.27 MIL/MM3 Hemoglobin 9.8 GM/DL Hematocrit 31.4 % Mean Corpuscular Volume 73.6 FL Mean Corpuscular Hemoglobin 23.0 PG Mean Corpuscular Hemoglobin 31.3 % Concent Red Cell Distribution Width 18.5 % Platelet Count 172 TH/MM3 Mean Platelet Volume 9.1 FL Activated Partial 44.8 SEC Thromboplast Time Sodium Level 133 MEQ/L Potassium Level 4.5 MEQ/L Chloride Level 90 MEQ/L Carbon Dioxide Level 35.5 MEQ/L Anion Gap 8 MEQ/L Blood Urea Nitrogen 27 MG/DL Creatinine 0.56 MG/DL Estimat Glomerular Filtration 108 ML/MIN Rate Random Glucose 185 MG/DL Calcium Level 8.0 MG/DL Culture Results Microbiology Date/Time Procedure Status Source Growth 08/07/16 15:30 Stool Occult Blood (JASON) Ordered Stool Stool Pending 08/07/16 20:50 Urine Culture - Preliminary Resulted Urine Catheterized Urine RESULTS PENDING Administered Medications Medications (Trade) Dose Ordered Sig/Alistair Route PRN Reason Start Time Stop Time Status Last Admin Dose Admin Sodium Chloride (NS Flush) 2 ml UNSCH PRN IV FLUSH FLUSH AFTER USING IV ACCESS 07/30/16 03:45 08/07/16 19:51 Sodium Chloride (NS Flush) 2 ml BID IV FLUSH 07/30/16 09:00 08/08/16 21:06 Pantoprazole Sodium 40 mg 40 mg DAILY PO 07/30/16 09:00 08/08/16 08:48 Levofloxacin/ Dextrose (Levaquin 500 Mg Premix Inj) 100 ml @ 100 mls/hr Q24H IV 07/30/16 05:00 08/09/16 04:13 Atorvastatin Calcium (Lipitor) 40 mg HS PO 07/30/16 21:00 08/08/16 21:06 Ondansetron HCl 4 mg 4 mg Q6HR PRN SL Nausea/Vomiting 07/30/16 05:30 07/30/16 21:07 Metronidazole (Flagyl 500 Mg Inj) 100 ml @ 100 mls/hr Q8H IV 08/01/16 17:00 08/09/16 01:15 Gabapentin (Neurontin) 200 mg TID PO 08/04/16 09:25 08/08/16 17:53 Tizanidine HCl (Zanaflex) 1 mg Q12HR PO 08/04/16 09:25 08/08/16 21:06 Senna/Docusate Sodium (Shira-Colace) 1 tab BID PRN PO CONSTIPATION 08/04/16 17:00 08/06/16 08:48 Methylprednisolone Sodium Succinate (SoluMEDROL INJ) 40 mg BID IV PUSH 08/05/16 21:00 08/08/16 21:06 Nystatin 5 ml 5 ml QID SWISH-SWAL 08/06/16 15:00 08/08/16 21:06 Heparin Sodium/ Dextrose (Heparin-D5W Inj) 250 ml @ 0 mls/hr TITRATE IV 08/07/16 12:00 08/07/16 18:26 Miscellaneous Information Patient in critical care unit? Ass... Q361D .XX 08/08/16 00:30 08/08/16 00:30 Chlorhexidine Gluconate (Chlorhexidine 2% Cloth) 3 pack DAILY@04 TOPICAL 08/08/16 04:00 08/12/16 04:01 08/09/16 01:15 Morphine Sulfate (Morphine Inj) 4 mg Q3H PRN IV PUSH PAIN 1-10 08/08/16 09:30 08/09/16 04:09 Objective Remarks GENERAL: Elderly female, sitting up in bed, in no acute distress. Obvious facial swelling. SKIN: Warm and dry. HEAD: Normocephalic. EYES: No scleral icterus. No injection or drainage. Swelling of the conjunctiva. NECK: Supple, trachea midline. No JVD or lymphadenopathy. Dependent edema in the submental area. LYMPHATIC: No adenopathy. CARDIOVASCULAR: Regular rate and rhythm without murmurs. RESPIRATORY: Decreased bibasilar breath sounds, right greater than left. Prolonged expiratory phase. GASTROINTESTINAL: Abdomen soft, non-tender, nondistended. EXTREMITIES: Subcutaneous edema/anasarca noted of the upper extremities, this is not present in the lower extremities. With some bruising of the upper extremities. MUSCULOSKELETAL: Adequate muscle tone. NEUROLOGICAL: No obvious focal deficit. Awake, alert, and oriented x3. PSYCHIATRIC: Appropriate mood and affect; insight and judgment normal. Assessment/Plan Assessment 66-year-old female with newly diagnosed metastatic non-small cell carcinoma of the lung, pleural fluid cytology indicates likely adenocarcinoma with possible squamous cell features as well. +SVC syndrome. emergent radiation started . Plan 1. Metastatic non-small cell carcinoma of the lung: s/p carbo/taxol on 08/07. Ms. Ford radiation started on 08/07/2016. 2. SVC syndrome: Chemotherapy radiation, continue heparin drip prevent SVC thrombosis. 3. Non-small cell carcinoma of the lung with adenocarcinoma component: Pleural fluid EGFR, ALK, ROS mutational analysis ordered. Additionally PDL-1 expression has also been requested. 4. Right-sided malignant pleural effusion: Chest tube remains in place. Continue ongoing care, she is currently being monitored in the intensive care unit. Appreciate the assistance of all specialties involved specifically radiation oncology for prompt and immediate assistance with initiation of mediastinal radiation. Gil Shaw MD August 09, 2016 08:22
--- NOTE | 2016-08-09 09:32 | HHI.PR ---
Subjective Remarks Follow-up SVC syndrome 08/09/16-patient seen and examined, denies any shortness of breath or chest pain.Having difficulty with swallowing Objective Vitals Vital Signs Date Time Temp Pulse Resp B/P Pulse Ox O2 Delivery O2 Flow Rate FiO2 08/09/16 06:00 98 08/09/16 04:00 98 08/09/16 04:00 98.2 98 20 108/59 78 08/09/16 02:00 97 08/09/16 00:00 98 08/09/16 00:00 98.2 98 21 94/55 92 08/08/16 22:00 102 08/08/16 20:59 97 Nasal Cannula 4.00 08/08/16 20:00 97.7 97 20 133/70 95 08/08/16 20:00 97 08/08/16 19:00 93 Nasal Cannula 4.00 08/08/16 18:40 16 08/08/16 18:00 94 08/08/16 16:00 92 08/08/16 16:00 98.9 92 14 151/77 93 08/08/16 14:00 92 08/08/16 12:00 98.3 86 21 111/75 92 08/08/16 12:00 86 08/08/16 10:00 95 08/08/16 09:31 93 Nasal Cannula 4.00 I/O 08/08/16 08/08/16 08/08/16 08/09/16 08/09/16 08/09/16 06:59 14:59 22:59 06:59 14:59 22:59 Intake Total 1465 ml 700 ml 370 ml Output Total 560 ml 785 ml 530 ml Balance 905 ml -85 ml -160 ml Intake Oral 50 ml 450 ml 100 ml IV Total 1415 ml 250 ml 270 ml Output Urine Total 350 ml 575 ml 250 ml Chest Tube Drainage Total 210 ml 210 ml 280 ml # Bowel Movements 0 0 0 Result Diagram: 08/09/1634408/09/16 034 Imaging Last Impressions Chest X-Ray 08/08/16 0600 Signed Impressions: Service Date/Time: Monday, August 08, 2016 04:40 - CONCLUSION: 1. Persistent right hilar mass but with slight improvement in right upper lobe consolidation since August 02. Right chest tube without pneumothorax. No new infiltrate or effusion. Jarrell Hernandez MD CT Angiography 08/07/16 Signed Impressions: Service Date/Time: Sunday, August 07, 2016 13:12 - CONCLUSION: 1. Encasement and near occlusion of the SVC by a large right sided hilar/perihilar mass. 2. No evidence of pulmonary loss. 3. Diffuse bony metastatic disease. Possible metastatic disease in the adrenal glands. 4. Right lower lobe nodular density. Marked decrease in right lower lobe consolidation. Alan Cerrato MD [facility] MRI 07/31/16 Signed Impressions: Service Date/Time: Sunday, July 31, 2016 09:58 - CONCLUSION: Diffuse bony metastasis throughout the dorsal spine without significant canal stenosis. Carlos Dee MD Brain MRI 07/31/16 Signed Impressions: Service Date/Time: Sunday, July 31, 2016 09:58 - CONCLUSION: 1. Nonspecific white matter changes. 2. No evidence for metastatic disease to the brain parenchyma. 3. There are some bony metastatic lesions along the upper cervical spine/skull base. Carlos Dee MD Chest CT 07/30/16 Signed Impressions: Service Date/Time: Saturday, July 30, 2016 05:13 - CONCLUSION: 1. There is narrowing of the right mainstem bronchus suspicious for a right hilar mass. 2. There is a masslike density in the right upper lung measuring 2.2 x 1.6 cm. 3. There is a moderate right pleural effusion with compressive atelectasis of the right lower lung. 4. There is consolidation of the right upper lung most likely from post obstructive pneumonia. 5. Patchy infiltrate in the posterior left upper lung most likely inflammatory. 6. Multiple lytic lesions are seen throughout the thoracic spine characteristic for diffuse bony metastatic disease 7. Diffusely enlarged bilateral adrenal glands most likely metastatic disease Jero Miller MD Abdomen/Pelvis CT 07/30/16 Signed Impressions: Service Date/Time: Saturday, July 30, 2016 23:25 - CONCLUSION: 1. Diffuse bony metastatic disease. 2. Moderate right-sided pleural effusion. 3. Bilateral adrenal metastatic disease. 4. Simple right renal cyst. Jero Miller MD Objective Remarks GENERAL: NAD SKIN: Warm and dry. HEAD: Normocephalic. EYES: No scleral icterus. No injection or drainage. NECK: Supple, trachea midline. No JVD or lymphadenopathy. CARDIOVASCULAR: Regular rate and rhythm without murmurs, gallops, or rubs. RESPIRATORY: Breath sounds equal bilaterally. No accessory muscle use. GASTROINTESTINAL: Abdomen soft, non-tender, nondistended. MUSCULOSKELETAL: No cyanosis; +facial and UEs edema. BACK: Nontender without obvious deformity. No CVA tenderness. Procedures Echo 07/30/2016 LEFT VENTRICLE: The cavity size was normal. Wall thickness was normal. Systolic function was normal. The estimated ejection fraction was in the range of 55% to 60%. Wall motion was normal; there were no regional wall motion abnormalities. Date of Insertion: August 07, 2016 Line: Central Venous Catheter Side: Left Location: Femoral A/P Problem List: (1) Metastatic primary lung cancer ICD Code: C34.90 Status: Acute (2) SVC syndrome ICD Code: I87.1 Status: Acute (3) COPD exacerbation ICD Code: J44.1 Status: Acute (4) Acute respiratory failure ICD Code: J96.00 Status: Acute Assessment and Plan 66-year-old female with - SVC syndrome - Continue heparin drip. - Metastatic non-small cell lung cancer - status post Carbo/Taxol on 08/07/2016. - Hematology oncology following. - Patient underwent emergent XRT on 08/07/2016 as well as 08/08/2016. -Continue current pain management - Acute respiratory failure hypoxia - COPD - Probable post-obstructive pneumonia - Continue DuoNeb, Levaquin 500 mg every 24 hours, Solu-Medrol 40 mg IV twice a day. - Patient is also on Flagyl 500mg IV Q8hrs. - Pulmonary ff. -Dysphagia Speech therapy consultation pending - Hyperlipidemia - Continue Lipitor 40mg QHS. Full code. Heparin drip. Total critical care times over 35 minutes Carlos Ball MD August 09, 2016 09:32
[2016-08-09] MEDS: NYSTATIN SUSP 500,000 U/5 ML CUP SWISH-SWAL SCH ×4 (10:05→19:55)
[2016-08-09] MEDS: GABAPENTIN 100 MG CAP PO SCH ×3 (10:05→18:35)
[2016-08-09] MEDS: PANTOPRAZOLE SOD 40 MG DELAYED RELEASE TAB PO SCH (10:05)
[2016-08-09] MEDS: SODIUM CHLORIDE 0.9% FLUSH 10 ML FLUSH IV FLUSH SCH ×2 (10:06→19:55)
[2016-08-09] MEDS: methylPREDNISolone SOD SUCC 40 MG/1 ML VIAL IV PUSH SCH ×2 (10:06→19:54)
--- NOTE | 2016-08-09 10:38 | MB ---
cc: OUSMANE,BISI JUDGE,JOSEPH ARAUJO,VENECIA GARZA MD DEVERAS, RUBY ANNE E. M.D. LATIF, ZAFAR MD DATE OF CONSULTATION: 08/07/2016 DATE OF : 1950 DIAGNOSIS Metastatic adenocarcinoma with squamous differentiation, stage IV. CHIEF COMPLAINT Impending SVC syndrome versus thrombus. REASON FOR CONSULTATION The patient is being evaluated for salvage radiotherapy treatment options. HISTORY OF PRESENT ILLNESS This is a 66-year-old white female whom initially presented with complaints of shortness of breath and pain in the back and respiratory distress. As a result of this a CT scan was performed which showed a right lung mass. The patient appears to have progressed or developed a thrombus and she has developed SVC syndrome, symptoms and signs. As a result of this, a consult has been placed for me to evaluate the patient for salvage radiation therapy. I have discussed this case with Fernando Lopez from medical oncology as well as Dr. Elke Spann. Of note work-up has detected several lesions within the spine. PAST MEDICAL HISTORY 1. As above. 2. Hypercholesterolemia. 3. Gallbladder problems. MEDICATIONS As per hospitalist chart includin. Benadryl. 2. Pepcid. 3. Lovenox. 4. Mycostatin. 5. Solu-Medrol. 6. Shira-Colace. 7. Neurontin. 8. Zanaflex. 9. Albuterol. 10.Duo-Neb. 11.Percocet. 12.Lipitor. 13.Zofran. ALLERGIES PENICILLIN. FAMILY HISTORY No history of carcinoma in the family. SOCIAL HISTORY The patient has smoked a pack of cigarettes per day for 47 years. Stopped smoking since being in the hospital. REVIEW OF SYSTEMS CONSTITUTIONAL: The patient states that she has lost about 40 pounds of weight in the last three months. She denies any decrease in appetite. ALLERGIES: Has not had an allergic reaction recently. EYES: Swelling at this point but denies any double vision or decrease in vision. ENT: Denies any difficulty in swallowing or pain. NECK: Denies any masses. There is slight neck swelling. INTEGUMENTARY: Unremarkable. CARDIOVASCULAR: Denies any chest pain. Shortness of breath while lying flat; unable to be flat. RESPIRATORY: The patient denies any hemoptysis or cough. Says that her breathing has been stable even with the swelling. GASTROINTESTINAL: Unremarkable. GENITOURINARY: Unremarkable. MUSCULOSKELETAL: The patient has pain in bilateral legs but no weakness. NEUROLOGIC: Unremarkable. No clinical signs or symptoms of stroke. PSYCHIATRIC: No depression or suicidal thoughts. ENDOCRINE: Unremarkable. HEMATOLOGIC: Unremarkable. DERMATOLOGIC: Unremarkable. PHYSICAL EXAMINATION VITAL SIGNS: Temperature 98.0, pulse 87, respiratory rate 16, blood pressure 117/79. Pulse ox 98% on oxygen. LUNGS: To auscultation there is decreased ventilatory respiratory effort bilaterally, perhaps more so in the right upper portion of the lung to midportion. There appear to be some crackles at the bilateral bases, especially more so on the right. No wheezing was detected. Slight rhonchus of the right lung. NECK: Palpation of the neck and bilateral supraclavicular areas have slight swelling but no suspicious nodes or masses were palpated. Bilateral supraclavicular areas are free. FACE: Visual examination of the facial area reveals swelling of the eye lids and cheeks. Also, the bilateral upper extremities are swollen. There are collaterals noted and there is slight swelling of the upper chest around the superior portion of the sternum. HEART: Regular rate and rhythm without murmurs. ABDOMEN: Palpation of the abdominal cavity reveals no hepatosplenomegaly. No pain is elicited. EXTREMITIES: 1+ edema of the lower extremities bilaterally and 2+ of upper. NEUROLOGIC: The patient is stable. No neurological deficits. No motor function deficits. No decreased in cognitive functions. Able to carry on a conversation and make medical decisions. No other positive findings. CYTOLOGY Cytology 08/02/2016, Impression: The morphologic and immunohistochemical findings are consistent with non-small cell carcinoma and favor adenocarcinoma. However, the focal cytokeratin positivity raises the possibility of focal squamous differentiation. RADIOLOGY CT of the chest 07/30/2016, Impression: There is narrowing of the right main stem bronchus suspicious for a right hilar mass. There is a mass-like density in the right upper lung measuring 2.2 x 1.6 cm. There is a moderate right pleural effusion with compressive atelectasis of the right lower lung. There is consolidation of the right upper lung, most likely from post obstructive pneumonia. Patchy infiltrate in the posterior left upper lung, most likely inflammatory. Multiple lytic lesions are seen throughout the thoracic spine characteristic for diffuse bony metastatic disease. Diffusely enlarged bilateral adrenals, most likely metastatic disease. Abdomen CT 07/30/2016, reviewed. MRI of the entire spine 07/31/2016, Impression: Diffuse bony metastatic disease throughout the dorsal spine without significant canal stenosis. MRI of the brain 07/31/2016, reviewed. CT angiogram 08/07/2016, films reviewed. Report not available yet. ASSESSMENT A 66-year-old white female with diagnosis of apparent progressive non-small cell carcinoma of the right upper lobe with an SVC syndrome. The patient is being evaluated for emergent radiotherapy treatment options. PLAN I had an extensive discussion with the patient and her in regards to her present disease and condition. I have discussed this case with Dr. Spann. I discussed the CT angiography with Dr. Spann and I reviewed the films. At this point the mass seems to be larger in size and perhaps compressing on the superior vena cava. We think that it is in the best interest of the patient to start emergent radiation therapy today. The patient will be treated today and tomorrow and for a few days with a high dose of radiation therapy. Following this I advised the patient, that I will probably decrease the dose of the radiation therapy and continue with radiation therapy in daily treatments. I advised her and her of the merits of the radiation therapy as well as side effects and complications to include but not limited to weakness and fatigue, decreased blood counts, edema of the skin, necrosis of the skin, difficulty and pain with swallowing, esophageal strictures which may require dilation, lung damage, lung fibrosis, lung pneumonitis, the possibility of becoming oxygen dependent, the possibility of becoming an oxygen cripple, bone damage and rib fracture, costochondritis, nerve damage, spinal cord damage and brachial plexus damage. After thorough discussion the patient wanted to move forward with treatments. The patient is to be brought down as noted for simulation and treatment planning and will proceed accordingly. The patient was advised that if I could be of any further assistance to please let me know, otherwise will proceed as above. Dr. Shaw, thank you very much for placing this consult and allowing me to participate in the care of your patient. Should you have any further questions or concerns, please do not hesitate to contact me. Smith Araujo MD [facility] /1:38 PM /10:04 AM MTDNilesh
--- NOTE | 2016-08-09 10:50 | HHI.CCPN ---
Subjective Remarks/Hospital Course 66-year-old female who was admitted with a history of shortness of breath, wheezing, cough going on for several days along with a history of significant weight loss and back pain as well as no chest pain. Patient was supposed to have a cholecystectomy. She was evaluated with a chest x-ray which revealed a right upper lung mass. Subsequent CT chest revealed consolidation of right upper lung compressive atelectasis of right lower lobe with moderate right effusion and narrowing of right mainstem bronchus with possible right hilar mass. Patient was admitted by hospitalist service and was evaluated by pulmonary as well as oncology. She has an elevated CEA and appears to have stage IV lung cancer with imaging studies including MRI spine revealing multiple bony metastatic cysts involving C-spine, thoracic and lumbar spine. CT chest also revealed bilateral adrenal metastases. Patient was placed on Levaquin for possible postobstructive pneumonia on the floor and was initiated on IV steroids and bronchodilators. She was on nasal cannula 2 this afternoon when she developed worsening respiratory distress and dropped her O2 sats to the 70s for which she was placed on a nonrebreather face mask following a rapid response and was subsequently transferred to the ICU. Critical care consult was requested by Dr. Anderson from the hospitalist service for acute respiratory failure. I evaluated the patient immediately on arrival to the ICU. She had just been initiated on BiPAP as ordered by me at that time as her ABG revealed acute respiratory acidosis. She appeared very anxious at the time hence Precedex GTT was ordered. History was obtained by reviewing records and discussion with nursing staff. 08/02: Patient remains on BiPAP but ABG shows improvement, remains on Precedex for sedation. Chest x-ray shows large right pleural effusion-I place a right pigtail catheter with find a medical initial output of exudative appearing fluid. Discussed with Dr. Rosales. Will wait for cytology and postpone the bronchoscopy 08/03: Respiratory status improved after draining right pleural effusion. Probably malignant effusion cytology pending. Continues to have bilateral wheezing. Probable bronch today by Dr. Gutierrez 08/04: patient refused BiPAP overnight because the beeping kept her awake. plan for bronch with bx today. does complain of shooting tingling/burning pain radiating from her back. at least 300cc serous fluid out of right chest tube. 08/05: patient cancelled bronchoscopy and port placement yesterday at last minute due to her concerns over "not waking up after surgery". She states that she is not willing to take the risk of lying flat and not breathing in order to diagnose this. She would like to discuss other options. From a respiratory standpoint, her breathing continues to improve on NC O2. 08/07: Critical care reconsulted by Dr. Spann for increasing facial and upper extremity swelling with SVC syndrome as well as for femoral central line placement for initiating chemotherapy. I evaluated the patient shortly after her arrival to the ICU. At that time she was on nasal cannula with minimal shortness of breath however had significant facial and upper extremity swelling. She still had the right sided pigtail catheter in place. She had just completed a CT chest with IV contrast. 08/08: Resting in bed comfortably. Has minimal shortness of breath and cough. Underwent radiation followed by chemotherapy on 08/07. Her facial swelling appears to be better compared to yesterday. 08/09: Resting in bed comfortably. Facial swelling and upper x-ray swelling slightly improved. Not in any acute distress. Objective Vital Signs Date Time Temp Pulse Resp B/P Pulse Ox O2 Delivery O2 Flow Rate FiO2 08/09/16 09:39 96 Nasal Cannula 4.00 08/09/16 06:00 98 08/09/16 04:00 98.2 20 108/59 Intake and Output 08/08/16 08/08/16 08/09/16 08:00 16:00 00:00 Intake Total 1465 ml 700 ml Output Total 560 ml 785 ml Balance 905 ml -85 ml Result Diagram: 08/09/16 0345 08/09/16 0345 Imaging Last [address] Angiography 08/07/16 0000 Signed Impressions: Service Date/Time: Sunday, August 07, 2016 13:12 - CONCLUSION: 1. Encasement and near occlusion of the SVC by a large right sided hilar/perihilar mass. 2. No evidence of pulmonary loss. 3. Diffuse bony metastatic disease. Possible metastatic disease in the adrenal glands. 4. Right lower lobe nodular density. Marked decrease in right lower lobe consolidation. Alan Cerrato MD Last Impressions Chest X-Ray 07/31/16 0600 Signed Impressions: Service Date/Time: Sunday, July 31, 2016 05:05 - CONCLUSION: 1. Right hilar mass with atelectasis involving the right upper lung. 2. Lytic lesion involving the left fifth rib consisting of bony metastatic disease. Jero Miller MD [facility] MRI 07/31/16 0000 Signed Impressions: Service Date/Time: Sunday, July 31, 2016 09:58 - CONCLUSION: Diffuse bony metastasis throughout the dorsal spine without significant canal stenosis. Carlos Dee MD Brain MRI 07/31/16 Signed Impressions: Service Date/Time: Sunday, July 31, 2016 09:58 - CONCLUSION: 1. Nonspecific white matter changes. 2. No evidence for metastatic disease to the brain parenchyma. 3. There are some bony metastatic lesions along the upper cervical spine/skull base. Carlos Dee MD Chest CT 07/30/16 0000 Signed Impressions: Service Date/Time: Saturday, July 30, 2016 05:13 - CONCLUSION: 1. There is narrowing of the right mainstem bronchus suspicious for a right hilar mass. 2. There is a masslike density in the right upper lung measuring 2.2 x 1.6 cm. 3. There is a moderate right pleural effusion with compressive atelectasis of the right lower lung. 4. There is consolidation of the right upper lung most likely from post obstructive pneumonia. 5. Patchy infiltrate in the posterior left upper lung most likely inflammatory. 6. Multiple lytic lesions are seen throughout the thoracic spine characteristic for diffuse bony metastatic disease 7. Diffusely enlarged bilateral adrenal glands most likely metastatic disease Jero Miller MD Abdomen/Pelvis CT 07/30/16 0000 Signed Impressions: Service Date/Time: Saturday, July 30, 2016 23:25 - CONCLUSION: 1. Diffuse bony metastatic disease. 2. Moderate right-sided pleural effusion. 3. Bilateral adrenal metastatic disease. 4. Simple right renal cyst. Jero Miller MD Objective Remarks P/E Elderly female, sitting up in bed with facial and upper extremity swelling, on nasal cannula 4 L/m HEENT/Neuro: Pallor present. No icterus, tongue moist, SHAKEEL, awake, following commands, nonfocal grossly, moving all 4 extremities. Significant facial swelling with periorbital edema. Neck: No JVD Chest/pulmonary: Air entry decreased over right lung field, scattered rhonchi, no wheezing. comfortable on NC o2. Cardiovascular: S1-S2 regular no gallop or murmur GI/abdomen: Soft, nontender, nondistended. no guarding. Extremities: Warm bilaterally, no edema Procedures Echo 07/30/2016 LEFT VENTRICLE: The cavity size was normal. Wall thickness was normal. Systolic function was normal. The estimated ejection fraction was in the range of 55% to 60%. Wall motion was normal; there were no regional wall motion abnormalities. Date of Insertion: August 07, 2016 Line: Central Venous Catheter Side: Left Location: Femoral A/P Assessment and Plan 66-year-old female with: Metastatic lung cancer with metastases to spine/bilateral adrenal glands Facial swelling secondary to SVC syndrome Acute respiratory failure COPD exacerbation Postobstructive pneumonia involving right lung due to right mainstem bronchus narrowing Right pleural effusion Probable sepsis- resolving. 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 Minimize sedation - continue gabapentin 200mg po TID for neuropathic pain (last titrated 08/04). would plan to increase this slowly [id number] to a target maximum of 1800 - 3600 mg/day, divided TID for neuropathic pain associated with spinal mets. - continue tizanidine 1mg po q12h for neuropathic pain (last titrated 08/04). would plan to increase this slowly q24-48h to target of 2-4mg po q12h. - Dr. Riley had discussed with the patient that the other optimal medication for her neuropathic pain would be either a TCA or Cymbalta, but she has tried antidepressants in the past and has had adverse reactions and she prefers to hold off on starting any anti-depressant type medication at this time. - continue oxycodone 5-10mg q4h prn for breakthrough pain. 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 Pulmonary: -NC o2 as tolerated. prn BiPAP, particularly at night. Bronchodilators, Solu- Medrol. -Being followed by Dr. Gutierrez from pulmonary medicine. -Metastatic lung CA with pleural fluid suggestive of non-small cell lung cancer (adenocarcinoma). -Right pigtail catheter in place, plan to discontinue after discussion with pulmonary. - GI/liver: -History of gallbladder disease for which she was to have a cholecystectomy which is obviously on hold currently. -Elevated LFTs noted. -low fat diet (patient has concerns over possible "gallbladder attack"). Renal/: -Strict intake output, monitor and replete electrolytes, follow BUN/creatinine. Heme/Onc: Newly diagnosed metastatic non-small cell carcinoma of the lung, pleural fluid cytology indicates likely adenocarcinoma with possible squamous cell features. Facial swelling secondary to SVC syndrome. Started on chemotherapy/radiation 08/07 per oncology. Patient to be started on heparin for anticoagulation Left femoral central line placed for central vascular access. ID: -On Levaquin since 07/30. Added Flagyl 08/01 for empiric antibiotic coverage to cover for postobstructive pneumonia. Will stop antibiotics after 08/09. Leukocytosis probably secondary to steroids at this point. Prophylaxis: -PPI/SCDs. On full anticoagulation with heparin for SVC syndrome Prognosis appears extremely poor with metastatic disease involving spine and bilateral adrenal glands. Oncology has discussed options- patient desires aggressive care and will remain full code status. palliative care involved. Critical care will be signing off. Transfer patient out of ICU. Oncology/ hospitalist service following. Alexei Pa MD August 09, 2016 10:50
--- NOTE | 2016-08-09 13:00 | HHI.PR ---
Subjective Remarks Feels better today. Was transferred to [facility] for port and for SVC syndrome. Pleural fluid cytology Positive for Non small cell CA. Will have radiation therapy to Mediastinum due to SVC syndrome On O2 at 4 L Objective Vital Signs Date Time Temp Pulse Resp B/P Pulse Ox O2 Delivery O2 Flow Rate FiO2 08/09/16 10:28 16 08/09/16 09:39 96 Nasal Cannula 4.00 08/09/16 06:00 98 08/09/16 04:00 98 08/09/16 04:00 98.2 98 20 108/59 78 08/09/16 02:00 97 08/09/16 00:00 98 08/09/16 00:00 98.2 98 21 94/55 92 08/08/16 22:00 102 08/08/16 20:59 97 Nasal Cannula 4.00 08/08/16 20:00 97.7 97 20 133/70 95 08/08/16 20:00 97 08/08/16 19:00 93 Nasal Cannula 4.00 08/08/16 18:00 94 08/08/16 16:00 92 08/08/16 16:00 98.9 92 14 151/77 93 08/08/16 14:00 92 I/O 08/08/16 08/08/16 08/08/16 08/09/16 08/09/16 08/09/16 07:00 15:00 23:00 07:00 15:00 23:00 Intake Total 1465 ml 700 ml 370 ml Output Total 560 ml 785 ml 530 ml Balance 905 ml -85 ml -160 ml Intake Oral 50 ml 450 ml 100 ml IV Total 1415 ml 250 ml 270 ml Output Urine Total 350 ml 575 ml 250 ml Chest Tube Drainage Total 210 ml 210 ml 280 ml # Bowel Movements 0 0 0 Result Diagram: 08/09/16 0345 08/09/16 0345 Procedures No procedures performed. Objective Remarks GENERAL: This is a moderately obese white female who is alert and in no acute distress. HEAD, EYES, EARS, NOSE, THROAT: Head normocephalic. The pupils are reactive and equal. Tongue is moist. Throat was clear.Facial swelling +. NECK: The neck is supple. No bruits. No thyroid enlargement. No lymphadenopathy. CHEST: Decreased excursions. Breath sounds are diminished at the bases, more so on the right side. There are occasional wheezes. HEART: Heart sounds are regular. S1 and S2. No murmur. No S3. ABDOMEN: Abdomen is obese and protuberant without masses. No organomegaly or tenderness. The bowel sounds are active. EXTREMITIES: No edema. No calf tenderness. NEUROLOGIC: Reflexes are 1+. No gross motor deficits. SKIN: No lesions are noted. Assessment and Plan Assessment and Plan IMPRESSION: 1. Right hilar mass with obstructive pneumonitis. 2. Possible metastatic malignancy. 3. COPD with emphysema. 4. Nicotine dependency. 5. Right pleural effusion. Plan : 1. Cont Antibiotics. 2. Nebs qid , duoneb. 3. O2 at 4 L. 4. Chemotherapy and radiation as planned 5. Solumedrol 40 mg mg IV bid 6. CXR, CBC in am. Jigar Gutierrez MD August 09, 2016 13:00
[2016-08-09] MEDS: HEPARIN-D5W INJ 250 ML IV SCH (13:19)
--- NOTE | 2016-08-09 17:43 | HHI.HCPN ---
Reason for visit a. To assist with evaluation and management of symptoms including: pain, dyspnea, anxiety b. To assist medical decision maker(s) with: better understanding of current medical conditions; weighing benefits/burdens of medical treatment options; making medical treatment decisions. . (Karli Baez) Subjective/Interval History Ms. Acharya is a 66 year old female who presented to [facility] ED on 2016 for evaluation of ongoing respiratory distress and was subsequently admitted with COPD exacerbation, hypoxia and newly diagnosed metastatic lung cancer. Follow-up visit for symptom management and clarification of goals. Patient helped progressively worsening shoulder and upper extremity swelling on 08/07/16. CTA showed encasement/near occlusion of the SVC by a large right sided hilar/perihilar mass;; no evidence of pulmonary loss; diffuse bony metastatic disease and possible metastatic disease in the adrenal glands; right lower lobe nodular density and marked decrease in the right lower lobe consolidation. Patient was transferred to [facility] [place] evaluation of SVC syndrome and central line placement. Radiation oncology was emergently consulted for recommendations, and the patient subsequently underwent radiation followed by chemotherapy that day. Lab work: = WBC: 30.8, hemoglobin 9.8, hematocrit 31.4, platelets 172 = Sodium: 133, potassium 4.5, chloride 90, carbon dioxide 35.5, glucose 185, calcium 8.0 = BUN: 27, creatinine 0.56, GFR 108 = APTT of 169.7 on 08/08/16, decreased to 44.8 today. = Urine culture 08/07/16: + Denia albicans Patient was seen briefly this afternoon before being transported for radiation. Patient reporting the facial swelling has improved since starting radiation. She denies dyspnea or pain on examination. She states she has no questions at this time and; she states she is tired and wants to rest. . (Karli Baez) Advance Directives Living Will: Completed, but not made available (patient's will provide copies of documentation) Health Care Surrogate: Completed, but not made available (patient's will provide copies of documentation) (Karli Baez) Advance Directive Specifics Documented care wishes: Patient states written advanced directives have been completed, but the patient' s states he does not know where the documents are at this time. Patient states, " It doesn't matter because we wanted everything done." Discussed written advanced directives, which may include health care surrogate designation and living will. Uncompleted health care surrogate form was provided to the patient and her to review, considering completing this form again for ease. . (Karli Baez) Objective Vital Signs Date Time Temp Pulse Resp B/P Pulse Ox O2 Delivery O2 Flow Rate FiO2 08/09/16 10:28 16 08/09/16 09:39 96 Nasal Cannula 4.00 08/09/16 07:00 96 Nasal Cannula 4.00 08/09/16 06:00 98 08/09/16 04:00 98 08/09/16 04:00 98.2 98 20 108/59 78 08/09/16 02:00 97 08/09/16 00:00 98 08/09/16 00:00 98.2 98 21 94/55 92 08/08/16 22:00 102 08/08/16 20:59 97 Nasal Cannula 4.00 08/08/16 20:00 97.7 97 20 133/70 95 08/08/16 20:00 97 08/08/16 19:00 93 Nasal Cannula 4.00 08/08/16 18:00 94 Intake & Output 08/09/16 08/09/16 06:59 18:59 Intake Total 503 ml Output Total 680 ml Balance -177 ml Intake Oral 200 ml IV Total 303 ml Output Urine Total 400 ml Chest Tube Drainage Total 280 ml # Bowel Movements 0 . Physical Exam CONSTITUTIONAL/GENERAL: This is an adequately nourished, elderly female patient , in no apparent distress. TUBES/LINES/DRAINS: PIV 1, NC, Tucker, chest tube SKIN: No jaundice, rashes, or lesions. Ecchymoses on upper extremities. Skin temperature appropriate. Not diaphoretic. + Facial swelling HEAD: Atraumatic. Normocephalic. EYES: Pupils equal and round and reactive. Extraocular motions intact. No scleral icterus. No injection or drainage. Fundi not examined. ENT: Hearing grossly normal. Nose without bleeding or purulent drainage. NECK: Trachea midline. Supple, nontender. No palpable thyroid enlargement or nodularity. CARDIOVASCULAR: Regular rate and rhythm without murmurs, gallops, or rubs. No JVD. Peripheral pulses symmetric. RESPIRATORY/CHEST: Respirations unlabored on 2 L oxygen via nasal cannula, diminished air exchange. Scattered rhonchi. Right pigtail catheter, right chest wall. GASTROINTESTINAL: Abdomen soft, non-tender, nondistended. GENITOURINARY: Without palpable bladder distension. Tucker catheter in place. MUSCULOSKELETAL: Extremities without clubbing, cyanosis, or edema. LYMPHATICS: No palpable cervical or supraclavicular adenopathy. NEUROLOGICAL: Awake and alert. Cognitively sharp. Able to make needs known, follows commands. PSYCHIATRIC: No obvious anxiety/depression on exam. No apparent hallucinations or other psychotic thought process. . (Karli Baez) Diagnostic Tests Laboratory Laboratory Tests Test 08/07/16 08/07/16 08/07/16 08/07/16 06:20 12:50 15:30 18:35 Sodium Level 133 MEQ/L (136-145) Potassium Level 4.8 MEQ/L (3.5-5.1) Chloride Level 91 MEQ/L (98-107) Carbon Dioxide Level 33.6 MEQ/L (21.0-32.0) Anion Gap 8 MEQ/L (5-15) Blood Urea Nitrogen 19 MG/DL (7-18) Creatinine 0.34 MG/DL (0.50-1.00) Estimat Glomerular Filtration 193 ML/MIN Rate (>89) Random Glucose 120 MG/DL (74-106) Calcium Level 9.0 MG/DL (8.5-10.1) White Blood Count 34.7 TH/MM3 (4.0-11.0) Red Blood Count 4.55 MIL/MM3 (4.00-5.30) Hemoglobin 10.5 GM/DL (11.6-15.3) Hematocrit 33.4 % (35.0-46.0) Mean Corpuscular Volume 73.5 FL (80.0-100.0) Mean Corpuscular Hemoglobin 23.0 PG (27.0-34.0) Mean Corpuscular Hemoglobin 31.3 % Concent (32.0-36.0) Red Cell Distribution Width 18.2 % (11.6-17.2) Platelet Count 209 TH/MM3 (150-450) Mean Platelet Volume 7.6 FL (7.0-11.0) Prothrombin Time 11.6 SEC (9.8-11.6) Prothromb Time International 1.0 RATIO Ratio Activated Partial 30.8 SEC 29.1 SEC Thromboplast Time (24.3-30.1) (24.3-30.1) Nasal Screen MRSA (PCR) NEGATIVE (NEGATIVE) Staphylococcus aureus NEGATIVE (PCR)(LAB) (NEGATIVE) Test 08/07/16 08/08/16 08/08/16 08/08/16 20:50 01:20 04:20 10:20 Urine Color RED (YELLW/STRAW) Urine Turbidity HAZY (CLEAR) Urine pH 6.5 (5.0-8.5) Urine Specific [place] GREATER THAN 1.050 (1.002-1.035) Urine Protein 30 mg/dL (NEG-TRACE) Urine Glucose (UA) NEG mg/dL (NEG) Urine Ketones NEG mg/dL (NEG) Urine Occult Blood LARGE (NEG) Urine Nitrite NEG (NEG) Urine Bilirubin NEG (NEG) Urine Urobilinogen LESS THAN 2.0 MG/DL (LESS THAN 2.0) Urine Leukocyte Esterase TRACE (NEG) Urine RBC /hpf (0-3) Urine WBC 9 /hpf (0-5) Urine Mucus FEW /lpf (OCC) Microscopic Urinalysis Comment CATH-CULTURE IND Activated Partial 219.4 SEC 81.1 SEC 169.7 SEC Thromboplast Time (24.3-30.1) (24.3-30.1) (24.3-30.1) Test 08/08/16 08/08/16 08/08/16 08/09/16 10:32 13:53 21:30 03:45 White Blood Count 29.5 TH/MM3 30.8 TH/MM3 (4.0-11.0) (4.0-11.0) Red Blood Count 4.24 MIL/MM3 4.27 MIL/MM3 (4.00-5.30) (4.00-5.30) Hemoglobin 9.5 GM/DL 9.8 GM/DL (11.6-15.3) (11.6-15.3) Hematocrit 31.1 % 31.4 % (35.0-46.0) (35.0-46.0) Mean Corpuscular Volume 73.5 FL 73.6 FL (80.0-100.0) (80.0-100.0) Mean Corpuscular Hemoglobin 22.5 PG 23.0 PG (27.0-34.0) (27.0-34.0) Mean Corpuscular Hemoglobin 30.6 % 31.3 % Concent (32.0-36.0) (32.0-36.0) Red Cell Distribution Width 18.0 % 18.5 % (11.6-17.2) (11.6-17.2) Platelet Count 177 TH/MM3 172 TH/MM3 (150-450) (150-450) Mean Platelet Volume 8.1 FL 9.1 FL (7.0-11.0) (7.0-11.0) Neutrophils (%) (Auto) 91.5 % (16.0-70.0) Lymphocytes (%) (Auto) 5.4 % (9.0-44.0) Monocytes (%) (Auto) 2.8 % (0.0-8.0) Eosinophils (%) (Auto) 0.1 % (0.0-4.0) Basophils (%) (Auto) 0.2 % (0.0-2.0) Neutrophils # (Auto) 27.0 TH/MM3 (1.8-7.7) Lymphocytes # (Auto) 1.6 TH/MM3 (1.0-4.8) Monocytes # (Auto) 0.8 TH/MM3 (0-0.9) Eosinophils # (Auto) 0.0 TH/MM3 (0-0.4) Basophils # (Auto) 0.0 TH/MM3 (0-0.2) CBC Comment AUTO DIFF Differential Total Cells 100 Counted Neutrophils % (Manual) 77 % (16-70) Band Neutrophils % 6 % (0-6) Lymphocytes % 9 % (9-44) Monocytes % 3 % (0-8) Eosinophils % 1 % (0-4) Neutrophils # (Manual) 25.7 TH/MM3 (1.8-7.7) Metamyelocytes 4 % (0-1) Nucleated Red Blood Cells 1 /100 WBC (0-0) Differential Comment FINAL DIFF MANUAL Platelet Estimate NORMAL (NORMAL) Platelet Morphology Comment NORMAL (NORMAL) Sodium Level 133 MEQ/L 133 MEQ/L (136-145) (136-145) Potassium Level 4.6 MEQ/L 4.5 MEQ/L (3.5-5.1) (3.5-5.1) Chloride Level 93 MEQ/L 90 MEQ/L (98-107) (98-107) Carbon Dioxide Level 33.3 MEQ/L 35.5 MEQ/L (21.0-32.0) (21.0-32.0) Anion Gap 7 MEQ/L (5-15) 8 MEQ/L (5-15) Blood Urea Nitrogen 24 MG/DL (7-18) 27 MG/DL (7-18) Creatinine 0.47 MG/DL 0.56 MG/DL (0.50-1.00) (0.50-1.00) Estimat Glomerular Filtration 133 ML/MIN 108 ML/MIN Rate (>89) (>89) Random Glucose 179 MG/DL 185 MG/DL (74-106) (74-106) Calcium Level 8.0 MG/DL 8.0 MG/DL (8.5-10.1) (8.5-10.1) Total Bilirubin 0.4 MG/DL (0.2-1.0) Aspartate Amino Transf 82 U/L (15-37) (AST/SGOT) Alanine Aminotransferase 70 U/L (10-53) (ALT/SGPT) Alkaline Phosphatase 119 U/L (45-117) Total Protein 5.1 GM/DL (6.4-8.2) Albumin 2.3 GM/DL (3.4-5.0) Activated Partial 64.1 SEC 43.6 SEC 44.8 SEC Thromboplast Time (24.3-30.1) (24.3-30.1) (24.3-30.1) . (Karli Baez) Result Diagram: 08/09/16 0345 08/09/16 0345 Microbiology Microbiology Date/Time Procedure Status Source Growth 08/07/16 15:30 Cancelled Stool Stool 08/07/16 20:50 Urine Culture - Final Complete Urine Catheterized Urine Denia Albicans . Imaging Last 72 hours Impressions Chest X-Ray 08/08/16 0600 Signed Impressions: Service Date/Time: Monday, August 08, 2016 04:40 - CONCLUSION: 1. Persistent right hilar mass but with slight improvement in right upper lobe consolidation since August 02. Right chest tube without pneumothorax. No new infiltrate or effusion. Jarrell Hernandez MD CT Angiography 08/07/16 0000 Signed Impressions: Service Date/Time: Sunday, August 07, 2016 13:12 - CONCLUSION: 1. Encasement and near occlusion of the SVC by a large right sided hilar/perihilar mass. 2. No evidence of pulmonary loss. 3. Diffuse bony metastatic disease. Possible metastatic disease in the adrenal glands. 4. Right lower lobe nodular density. Marked decrease in right lower lobe consolidation. Alan Cerrato MD . Procedures 08/02/2016: Percutaneous pigtail tube thoracostomy . (Karli Baez) Assessment and Plan Disease Oriented Problem List: (1) Hypoxemia (2) COPD exacerbation (3) Acute respiratory failure (4) Acute respiratory acidosis (5) Cholecystitis (6) Pleural effusion (7) Metastatic primary lung cancer (8) Postobstructive pneumonia (9) Probable sepsis (10) Lung cancer metastatic to bone Symptom Scale: (1) Pain 0-10 Scale: 3 Comment: Patient reports ongoing tingling/burning pain that radiates down her legs bilaterally. She states she was managing discomfort with acetaminophen while at home. New onset intermittent, throbbing pain in hips bilaterally, left >right. She states he hip pain is increasing, but she understands she may have underlying pain. - Continue Gabapentin PO 200mg TID for neuropathic pain (last titrated 08/04), would plan to increase this slowly [id number] to a target maximum of 1800 - 3600 mg/day, divided TID for neuropathic pain associated with spinal mets. - Continue Tizanidine 1mg PO q12h for neuropathic pain (last titrated 08/04), would plan to increase this slowly q24-48h to target of 2-4mg po q12h. - Dr. Riley had discussed with the patient that the other optimal medication for her neuropathic pain would be either a TCA or Cymbalta, but the patient refused stating she has had adverse reactions with antidepressants previously and would like to try other options at this time. - Continue oxycodone 5-10mg q4h PRN for breakthrough pain. (2) Dyspnea Comment: Patient helped progressively worsening shoulder and upper extremity swelling on 08/07/16. CTA showed encasement/near occlusion of the SVC by a large right sided hilar/perihilar mass;no evidence of pulmonary loss; diffuse bony metastatic disease and possible metastatic disease in the adrenal glands; right lower lobe nodular density and marked decrease in the right lower lobe consolidation. Patient was transferred to [facility] [place] evaluation of SVC syndrome and central line placement. Radiation oncology was emergently consulted for recommendations, and the patient subsequently underwent radiation followed by chemotherapy that day. Cytology results positive non-small cell carcinoma. (3) Anxiety Comment: Anxiety has resolved, likely secondary to respiratory distress which is currently well controlled. (4) Constipation Pertinent Non-Medical Issues Psychosocial: Ms. Acharya is a 66-year-old female who was born in [facility]. She has 3 sisters and 4 brothers who are alive and healthy. Patient has been to Meir for approximately 38+ years. This is her second marriage. They moved to [place] approximately 7 years ago and resides with her . She has 3 adult children from her first marriage (Lalo, Mateusz and Any). 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 Spiritual: Pending conversation with patient. Legal: Patient states she has completed advance directives; requested that her bring copies to the hospital to be scanned into patient's EMR. Ethical issues impacting care: No known ethical issues impacting care at this time . Important Contacts Ziggy Acharya, spouse: [phone] or [phone] Norma Parra, sister: [phone] . Prognosis Patient is a 66-year-old female who reports recurrent bronchitis, productive cough and new onset dyspnea with minimal exertion. Symptoms began approximately 6 weeks ago, and the patient has been treated with 3 courses of antibiotics. An outpatient chest x-ray revealed a right upper lung mass. Subsequent CT chest revealed consolidation of the right upper lung, crit compressive atelectasis of the right lower lobe with moderate right effusion and narrowing of the right mainstem bronchus with possible right hilar mass. CEA is elevated, patient appears to have stage IV lung cancer with imaging showing multiple bony metastatic cyst involving C-spine, thoracic and lumbar spine. Imaging also shows bilateral adrenal metastasis. Overall prognosis is poor. . Code Status: Full Code Plan * FULL CODE * Decision-making: Per [place] statutes, and absence of written advanced directives healthcare proxy decision-making falls to the patient's . * Goals: Patient verbalizes aggressive goals. * Met with patient and spouse. The patient was verbalizing frustration; she would like to know what treatment options are available and develop a plan of action. The patient states she needs to be home so she can make preparations. Additionally, she states that she and her have not had time to process this diagnosis and/or grief. * Symptom managementdyspnea: Respiratory status improved status post right pigtail chest tube secondary to pleural effusion on 08/02/2016; initial drainage was 550 mL slightly cloudy yellowish pleural fluid. Cytology resultspositive for non-small cell lung cancer. Patient helped progressively worsening shoulder and upper extremity swelling on 08/07/16. CTA showed encasement/near occlusion of the SVC by a large right sided hilar/perihilar mass;; no evidence of pulmonary loss; diffuse bony metastatic disease and possible metastatic disease in the adrenal glands; right lower lobe nodular density and marked decrease in the right lower lobe consolidation. Patient was transferred to [facility] [place] evaluation of SVC syndrome and central line placement. Radiation oncology was emergently consulted for recommendations, and the patient subsequently underwent radiation followed by chemotherapy that day. * Symptom managementpain:Patient reports ongoing tingling/burning pain that radiates down her legs bilaterally. She states she was managing discomfort with acetaminophen while at home. New onset intermittent, throbbing pain in hips bilaterally, left >right. She states he hip pain is increasing, but she understands she may have underlying pain. - Continue Gabapentin PO 200mg TID for neuropathic pain (last titrated 08/04), would plan to increase this slowly [id number] to a target maximum of 1800 - 3600 mg/day, divided TID for neuropathic pain associated with spinal mets. - Continue Tizanidine 1mg PO q12h for neuropathic pain (last titrated 08/04), would plan to increase this slowly q24-48h to target of 2-4mg po q12h. - Dr. Riley had discussed with the patient that the other optimal medication for her neuropathic pain would be either a TCA or Cymbalta, but the patient refused stating she has had adverse reactions with antidepressants previously and would like to try other options at this time. - Continue oxycodone 5-10mg q4h PRN for breakthrough pain. * Palliative care will continue to follow this patient throughout her hospitalization to establish trust, assist with symptom management and clarification of medical treatment goals. . (Karli Baez) Attestation To help prompt me to consider important information that might be impacting today's encounter and assessment, information from prior notes written by myself or my colleagues may have been "brought forward" into today's note. My signature on this note, however, is an attestation that I personally performed the exam, history, and/or decision-making noted today, and, unless otherwise indicated, the interactions with patient, family, and staff as well as the review of records all occurred today. I also attest that the listed assessment and stated plan reflect my best clinical judgment today based on the combination of historical information, prior notes, and today's exam/ interactions. When time spent is documented, it refers only to time spent today by the signer, or if indicated, combined time spent today by collaborating physician/nurse practitioner. . (Karli Baez) Collaborating MD Comments . Chart reviewed. Case discussed with palliative care FILLING MACHINE SET UP MECHANIC. I have reviewed above FILLING MACHINE SET UP MECHANIC note and I concur. . (Otis Whitt MD) Karli Baez August 09, 2016 17:43 Otis Whitt MD August 17, 2016 12:41
[2016-08-09] MEDS: ATORVASTATIN 40 MG TAB PO SCH (19:54)
[2016-08-09] MEDS: oxyCODONE/ACETAMINOPHEN 10 MG/325 MG TAB PO PRN (21:42)
[2016-08-10] VITALS (11 sets, daily range): BP systolic 105–126; BP diastolic 59–72; PULSE 96–112; RESP 17–24; TEMP 96.6–98; O2SAT 92–99
[2016-08-10] MEDS: CHLORHEXIDINE GLUCONATE 2 % 1 PACK (2 CLOTHS)(taper/protocol) TOPICAL SCH (03:34)
[2016-08-10] MEDS: RESP: ALBUTEROL 2.5 MG/IPRATROPIUM 0.5 MG NEB (SCH) NEB ×3 (03:41→19:49)
[2016-08-10] MEDS: ONDANSETRON ODT 4 MG TAB SL PRN (06:47)
--- NOTE | 2016-08-10 08:00 | PD.ONC.PN ---
Subjective Subjective Remarks Tells me facial swelling and arm swelling continues but may be somewhat improved. She tells me the most noticeable improvement has been in her breathing. She is somewhat frustrated at not being able to get in an upright position in order to eat. She has had difficulty swallowing solids and was transitioned to full liquids. Pleural drain remains in place, blood-tinged pleural fluid continues to drain. Objective Data Date Time Temp Pulse Resp B/P Pulse Ox O2 Delivery O2 Flow Rate FiO2 08/10/16 07:35 97 Nasal Cannula 2.00 08/10/16 04:00 97.6 103 18 110/66 99 08/10/16 03:46 94 Nasal Cannula 4.00 08/10/16 00:00 97.9 99 18 105/71 94 08/09/16 23:42 103 08/09/16 23:42 Nasal Cannula 4.00 08/09/16 22:00 103 08/09/16 21:20 93 Nasal Cannula 4.00 08/09/16 20:00 102 08/09/16 20:00 98.3 103 19 131/85 94 08/09/16 19:00 94 Nasal Cannula 4.00 08/09/16 18:00 98 08/09/16 18:00 98 15 90/66 93 08/09/16 17:00 106 28 86 08/09/16 16:54 98.1 102 21 117/64 92 08/09/16 15:00 99 17 91 08/09/16 14:00 100 15 103/76 92 08/09/16 14:00 94 08/09/16 13:00 103 43 87 08/09/16 12:00 98.5 100 13 91 08/09/16 12:00 100 08/09/16 11:00 102 23 100/63 92 08/09/16 10:28 16 08/09/16 10:00 102 14 110/79 92 08/09/16 10:00 102 08/09/16 09:39 96 Nasal Cannula 4.00 08/09/16 09:00 98 18 143/90 94 08/09/16 08:00 96 08/09/16 08:00 98.2 96 12 94 Result Diagram: 08/09/16 0345 08/09/16 0345 Culture Results Microbiology Date/Time Procedure Status Source Growth 08/07/16 15:30 Cancelled Stool Stool 08/07/16 20:50 Urine Culture - Final Complete Urine Catheterized Urine Denia Albicans Administered Medications Medications (Trade) Dose Ordered Sig/Alistair Route PRN Reason Start Time Stop Time Status Last Admin Dose Admin Sodium Chloride (NS Flush) 2 ml UNSCH PRN IV FLUSH FLUSH AFTER USING IV ACCESS 07/30/16 03:45 08/07/16 19:51 Sodium Chloride (NS Flush) 2 ml BID IV FLUSH 07/30/16 09:00 08/09/16 19:55 Pantoprazole Sodium (Protonix) 40 mg DAILY PO 07/30/16 09:00 08/09/16 10:05 Atorvastatin Calcium (Lipitor) 40 mg HS PO 07/30/16 21:00 08/09/16 19:54 Ondansetron HCl (Zofran Odt) 4 mg Q6HR PRN SL Nausea/Vomiting 07/30/16 05:30 08/10/16 06:47 Gabapentin (Neurontin) 200 mg TID PO 08/04/16 09:25 08/09/16 18:35 Tizanidine HCl (Zanaflex) 1 mg Q12HR PO 08/04/16 09:25 08/09/16 19:54 Senna/Docusate Sodium (Shira-Colace) 1 tab BID PRN PO CONSTIPATION 08/04/16 17:00 08/06/16 08:48 Methylprednisolone Sodium Succinate (SoluMEDROL INJ) 40 mg BID IV PUSH 08/05/16 21:00 08/09/16 19:54 Nystatin 5 ml 5 ml QID SWISH-SWAL 08/06/16 15:00 08/09/16 19:55 Heparin Sodium/ Dextrose (Heparin-D5W Inj) 250 ml @ 0 mls/hr TITRATE IV 08/07/16 12:00 08/09/16 13:19 Miscellaneous Information Patient in critical care unit? Ass... Q361D .XX 08/08/16 00:30 08/08/16 00:30 Chlorhexidine Gluconate (Chlorhexidine 2% Cloth) 3 pack DAILY@04 TOPICAL 08/08/16 04:00 08/12/16 04:01 08/09/16 01:15 Morphine Sulfate (Morphine Inj) 4 mg Q3H PRN IV PUSH PAIN 1-10 08/08/16 09:30 08/09/16 10:23 Oxycodone/ Acetaminophen (Percocet 10-325 Mg) 1 tab Q6H PRN PO pain 1-10 08/09/16 11:45 08/09/16 21:42 Objective Remarks GENERAL: Elderly female, sitting up in bed, in no acute distress. Obvious facial swelling. SKIN: Warm and dry. HEAD: Normocephalic. EYES: No scleral icterus. No injection or drainage. Swelling of the conjunctiva. NECK: Supple, trachea midline. No JVD or lymphadenopathy. Dependent edema in the submental area. LYMPHATIC: No adenopathy. CARDIOVASCULAR: Regular rate and rhythm without murmurs. RESPIRATORY: Decreased bibasilar breath sounds, right greater than left. Prolonged expiratory phase. GASTROINTESTINAL: Abdomen soft, non-tender, nondistended. EXTREMITIES: Subcutaneous edema/anasarca noted of the upper extremities, this is not present in the lower extremities. With some bruising of the upper extremities. MUSCULOSKELETAL: Adequate muscle tone. NEUROLOGICAL: No obvious focal deficit. Awake, alert, and oriented x3. PSYCHIATRIC: Appropriate mood and affect; insight and judgment normal. Assessment/Plan Assessment 66-year-old female with newly diagnosed metastatic non-small cell carcinoma of the lung, pleural fluid cytology indicates likely adenocarcinoma with possible squamous cell features as well. +SVC syndrome. emergent radiation started . Plan 1. Metastatic non-small cell carcinoma of the lung: s/p carbo/taxol on 08/07. Ms. Ford radiation started on 08/07/2016. 2. SVC syndrome: Chemotherapy radiation, continue heparin drip prevent SVC thrombosis. 3. Non-small cell carcinoma of the lung with adenocarcinoma component: Pleural fluid EGFR, ALK, ROS mutational analysis ordered. Additionally PDL-1 expression has also been requested. 4. Right-sided malignant pleural effusion: Chest tube remains in place. Continue ongoing care, I will ask physical therapy to see the patient. When she is able to get up out of bed and onto a bedside commode the Tucker catheter will be discontinued as well. Appreciate the assistance of all specialties involved specifically radiation oncology for prompt and immediate assistance with initiation of mediastinal radiation. Gil Shaw MD August 10, 2016 08:00
[2016-08-10] MEDS: PANTOPRAZOLE SOD 40 MG DELAYED RELEASE TAB PO SCH (08:51)
[2016-08-10] MEDS: GABAPENTIN 100 MG CAP PO SCH ×3 (08:55→17:33)
[2016-08-10] MEDS: methylPREDNISolone SOD SUCC 40 MG/1 ML VIAL IV PUSH SCH (08:56)
[2016-08-10] MEDS: NYSTATIN SUSP 500,000 U/5 ML CUP SWISH-SWAL SCH ×4 (08:56→20:35)
[2016-08-10] MEDS: SODIUM CHLORIDE 0.9% FLUSH 10 ML FLUSH IV FLUSH SCH ×2 (09:00→21:00)
[2016-08-10 09:19] LABS: HEMATOCRIT 30.3 % (35.0-46.0); MEAN CELL VOLUME 74.6 FL (80.0-100.0); MEAN CORPUSCULAR HGB CONC 30.8 % (32.0-36.0); PLATELET COUNT 157 TH/MM3 (150-450); RED BLOOD COUNT 4.07 MIL/MM3 (4.00-5.30); RED CELL DISTRIBUTION WIDTH 18.6 % (11.6-17.2); REVIEW FLAG FINAL; WHITE BLOOD COUNT 26.4 TH/MM3 (4.0-11.0)
[2016-08-10 09:20] LABS: APTT (PATIENT) 37.3 SEC (24.3-30.1)
--- NOTE | 2016-08-10 11:35 | HHI.PR ---
Subjective Remarks Follow-up SVC syndrome 08/09/16-patient seen and examined, denies any shortness of breath or chest pain.Having difficulty with swallowing 08/10/16-patient seen and examined feeling on heparin drip will SVC syndrome. Denies any significant shortness of breath Objective Vitals Vital Signs Date Time Temp Pulse Resp B/P Pulse Ox O2 Delivery O2 Flow Rate FiO2 08/10/16 09:17 92 Nasal Cannula 4.00 08/10/16 09:15 108 08/10/16 08:00 97.6 112 24 92 08/10/16 07:35 97 Nasal Cannula 2.00 08/10/16 04:00 97.6 103 18 110/66 99 08/10/16 03:46 94 Nasal Cannula 4.00 08/10/16 00:00 97.9 99 18 105/71 94 08/09/16 23:42 103 08/09/16 23:42 Nasal Cannula 4.00 08/09/16 22:00 103 08/09/16 21:20 93 Nasal Cannula 4.00 08/09/16 20:00 102 08/09/16 20:00 98.3 103 19 131/85 94 08/09/16 19:00 94 Nasal Cannula 4.00 08/09/16 18:00 98 08/09/16 18:00 98 15 90/66 93 08/09/16 17:00 106 28 86 08/09/16 16:54 98.1 102 21 117/64 92 08/09/16 15:00 99 17 91 08/09/16 14:00 100 15 103/76 92 08/09/16 14:00 94 08/09/16 13:00 103 43 87 08/09/16 12:00 98.5 100 13 91 08/09/16 12:00 100 I/O 08/09/16 08/09/16 08/09/16 08/10/16 08/10/16 08/10/16 07:00 15:00 23:00 07:00 15:00 23:00 Intake Total 370 ml 559 ml 215 ml 240 ml Output Total 530 ml 645 ml 180 ml 20 ml Balance -160 ml -86 ml 35 ml 220 ml Intake Oral 100 ml 350 ml 200 ml 240 ml IV Total 270 ml 209 ml 15 ml Output Urine Total 250 ml 425 ml 150 ml Chest Tube Drainage Total 280 ml 220 ml 30 ml 20 ml # Bowel Movements 0 0 0 Result Diagram: 08/10/16 0811 08/09/16 0345 Objective Remarks GENERAL: NAD SKIN: Warm and dry. HEAD: Normocephalic. EYES: No scleral icterus. No injection or drainage. NECK: Supple, trachea midline. No JVD or lymphadenopathy. CARDIOVASCULAR: Regular rate and rhythm without murmurs, gallops, or rubs. RESPIRATORY: Breath sounds equal bilaterally. No accessory muscle use. GASTROINTESTINAL: Abdomen soft, non-tender, nondistended. MUSCULOSKELETAL: No cyanosis; +facial and UEs edema. BACK: Nontender without obvious deformity. No CVA tenderness. Procedures Echo 07/30/2016 LEFT VENTRICLE: The cavity size was normal. Wall thickness was normal. Systolic function was normal. The estimated ejection fraction was in the range of 55% to 60%. Wall motion was normal; there were no regional wall motion abnormalities. Date of Insertion: August 07, 2016 Line: Central Venous Catheter Side: Left Location: Femoral A/P Problem List: (1) Metastatic primary lung cancer ICD Code: C34.90 Status: Acute (2) SVC syndrome ICD Code: I87.1 Status: Acute (3) COPD exacerbation ICD Code: J44.1 Status: Acute (4) Acute respiratory failure ICD Code: J96.00 Status: Acute Assessment and Plan 66-year-old female with - SVC syndrome - Continue heparin drip to prevent SVC thrombosis. - Metastatic non-small cell lung cancer - status post Carbo/Taxol on 08/07/2016. - Hematology-oncology following. - Patient underwent emergent XRT on 08/07/2016 as well as 08/08/2016. -Continue current pain management - Acute respiratory failure hypoxia - COPD - Probable post-obstructive pneumonia - Continue DuoNeb, Levaquin 500 mg every 24 hours, Solu-Medrol 40 mg IV twice a day. - Patient is also on Flagyl 500mg IV Q8hrs. - Pulmonary ff. -Dysphagia-resolved - Hyperlipidemia - Continue Lipitor 40mg QHS. Full code. Heparin drip. Carlos Ball MD August 10, 2016 11:35
[2016-08-10] MEDS: oxyCODONE/ACETAMINOPHEN 10 MG/325 MG TAB PO PRN ×2 (12:43→18:13)
[2016-08-10] MEDS ORDERED: ACETAMINOPHEN 325 MG TAB PO PRN (15:15)
--- NOTE | 2016-08-10 20:24 | HHI.PR ---
Subjective Remarks Feels better today. Was transferred to [facility] for port and for SVC syndrome. Pleural fluid cytology Positive for Non small cell CA. On radiation therapy to Mediastinum due to SVC syndrome. Facial swelling less. Chest tube still draining On O2 at 4 L Objective Vital Signs Date Time Temp Pulse Resp B/P Pulse Ox O2 Delivery O2 Flow Rate FiO2 08/10/16 19:49 97 Nasal Cannula 2.00 08/10/16 18:30 96.8 100 126/72 08/10/16 16:00 101 19 97 08/10/16 14:33 98.0 96 20 112/71 96 08/10/16 09:17 92 Nasal Cannula 4.00 08/10/16 09:15 108 08/10/16 08:00 97.6 112 24 92 08/10/16 07:35 97 Nasal Cannula 2.00 08/10/16 04:00 97.6 103 18 110/66 99 08/10/16 03:46 94 Nasal Cannula 4.00 08/10/16 00:00 97.9 99 18 105/71 94 08/09/16 23:42 103 08/09/16 23:42 Nasal Cannula 4.00 08/09/16 22:00 103 08/09/16 21:20 93 Nasal Cannula 4.00 I/O 08/09/16 08/09/16 08/09/16 08/10/16 08/10/16 08/10/16 07:00 15:00 23:00 07:00 15:00 23:00 Intake Total 370 ml 559 ml 215 ml 240 ml Output Total 530 ml 645 ml 180 ml 20 ml 655 ml Balance -160 ml -86 ml 35 ml 220 ml -655 ml Intake Oral 100 ml 350 ml 200 ml 240 ml IV Total 270 ml 209 ml 15 ml Output Urine Total 250 ml 425 ml 150 ml 475 ml Chest Tube Drainage Total 280 ml 220 ml 30 ml 20 ml 180 ml # Bowel Movements 0 0 0 Result Diagram: 08/10/16 0811 08/09/16 0345 Procedures No procedures performed. Objective Remarks GENERAL: This is a moderately obese white female who is alert and in no acute distress. HEAD, EYES, EARS, NOSE, THROAT: Head normocephalic. The pupils are reactive and equal. Tongue is moist. Throat was clear.Facial swelling +. NECK: The neck is supple. No bruits. No thyroid enlargement. No lymphadenopathy. CHEST: Decreased excursions. Breath sounds are diminished at the bases, more so on the right side. Occ Crackles at bases HEART: Heart sounds are regular. S1 and S2. No murmur. No S3. ABDOMEN: Abdomen is obese and protuberant without masses. No organomegaly or tenderness. The bowel sounds are active. EXTREMITIES: No edema. No calf tenderness. NEUROLOGIC: Reflexes are 1+. No gross motor deficits. SKIN: No lesions are noted. Assessment and Plan Assessment and Plan IMPRESSION: 1. Right hilar mass with obstructive pneumonitis. 2. Possible metastatic malignancy. 3. COPD with emphysema. 4. Nicotine dependency. 5. Right pleural effusion. Plan : 1. Cont Antibiotics. and switch to PO 2. Nebs qid , duoneb. 3. O2 at 2 L. 4. Chemotherapy and radiation as planned 5. D/C Solumedrol and add Prednisone 20 mg bid 6. BMP, CBC in am. Jigar Gutierrez MD August 10, 2016 20:24
[2016-08-10] MEDS: predniSONE 20 MG TAB PO SCH (20:35)
[2016-08-10] MEDS: ATORVASTATIN 40 MG TAB PO SCH (20:35)
[2016-08-11] VITALS (11 sets, daily range): BP systolic 108–140; BP diastolic 63–78; PULSE 99–108; RESP 17–19; TEMP 96.4–97.5; O2SAT 94–98
[2016-08-11 02:08] LABS: APTT (PATIENT) 42.4 SEC (24.3-30.1)
[2016-08-11 02:20] LABS: BICARBONATE 35.9 MEQ/L (21.0-32.0); POTASSIUM 4.8 MEQ/L (3.5-5.1)
[2016-08-11] MEDS: RESP: ALBUTEROL 2.5 MG/IPRATROPIUM 0.5 MG NEB (SCH) NEB ×4 (04:00→20:12)
[2016-08-11] MEDS: CHLORHEXIDINE GLUCONATE 2 % 1 PACK (2 CLOTHS)(taper/protocol) TOPICAL SCH (04:00)
--- NOTE | 2016-08-11 07:53 | PD.ONC.PN ---
Subjective Subjective Remarks Subjectively patient reports swelling in the facial area, eyes, arms is much improved, she reports her breathing is better as well. She reports having had some nausea yesterday but this was quite transient. She continues daily radiation. She was seen by physical therapy yesterday and set up on a chair at bedside for several hours yesterday. Today she wants to get up and stand up on her feet. Objective Data Date Time Temp Pulse Resp B/P Pulse Ox O2 Delivery O2 Flow Rate FiO2 08/11/16 04:00 97.0 102 18 134/63 94 08/11/16 00:00 96.9 107 18 118/78 98 08/10/16 20:32 Nasal Cannula 2.00 08/10/16 20:00 96.6 106 17 106/59 95 08/10/16 20:00 103 08/10/16 19:49 97 Nasal Cannula 2.00 08/10/16 18:30 96.8 100 126/72 08/10/16 16:00 101 19 97 08/10/16 14:33 98.0 96 20 112/71 96 08/10/16 09:17 92 Nasal Cannula 4.00 08/10/16 09:15 108 08/10/16 08:00 97.6 112 24 92 Result Diagram: 08/10/16 0811 08/11/16 0152 Laboratory Results Laboratory Tests Test 08/10/16 08/11/16 08:11 01:52 White Blood Count 26.4 TH/MM3 Red Blood Count 4.07 MIL/MM3 Hemoglobin 9.3 GM/DL Hematocrit 30.3 % Mean Corpuscular Volume 74.6 FL Mean Corpuscular Hemoglobin 23.0 PG Mean Corpuscular Hemoglobin 30.8 % Concent Red Cell Distribution Width 18.6 % Platelet Count 157 TH/MM3 Mean Platelet Volume 9.8 FL Activated Partial 37.3 SEC 42.4 SEC Thromboplast Time Sodium Level 131 MEQ/L Potassium Level 4.8 MEQ/L Chloride Level 90 MEQ/L Carbon Dioxide Level 35.9 MEQ/L Anion Gap 5 MEQ/L Blood Urea Nitrogen 24 MG/DL Creatinine 0.42 MG/DL Estimat Glomerular Filtration 151 ML/MIN Rate Random Glucose 134 MG/DL Calcium Level 8.5 MG/DL Administered Medications Medications (Trade) Dose Ordered Sig/Alistair Route PRN Reason Start Time Stop Time Status Last Admin Dose Admin Sodium Chloride (NS Flush) 2 ml UNSCH PRN IV FLUSH FLUSH AFTER USING IV ACCESS 07/30/16 03:45 08/07/16 19:51 Sodium Chloride (NS Flush) 2 ml BID IV FLUSH 07/30/16 09:00 08/10/16 09:00 Pantoprazole Sodium (Protonix) 40 mg DAILY PO 07/30/16 09:00 08/10/16 08:51 Atorvastatin Calcium (Lipitor) 40 mg HS PO 07/30/16 21:00 08/10/16 20:35 Ondansetron HCl (Zofran Odt) 4 mg Q6HR PRN SL Nausea/Vomiting 07/30/16 05:30 08/10/16 06:47 Gabapentin (Neurontin) 200 mg TID PO 08/04/16 09:25 08/10/16 17:33 Tizanidine HCl (Zanaflex) 1 mg Q12HR PO 08/04/16 09:25 08/10/16 20:35 Senna/Docusate Sodium (Shira-Colace) 1 tab BID PRN PO CONSTIPATION 08/04/16 17:00 08/06/16 08:48 Nystatin 5 ml 5 ml QID SWISH-SWAL 08/06/16 15:00 08/10/16 20:35 Heparin Sodium/ Dextrose (Heparin-D5W Inj) 250 ml @ 0 mls/hr TITRATE IV 08/07/16 12:00 08/09/16 13:19 Miscellaneous Information Patient in critical care unit? Ass... Q361D .XX 08/08/16 00:30 08/08/16 00:30 Chlorhexidine Gluconate (Chlorhexidine 2% Cloth) 3 pack DAILY@04 TOPICAL 08/08/16 04:00 08/12/16 04:01 08/09/16 01:15 Morphine Sulfate (Morphine Inj) 4 mg Q3H PRN IV PUSH PAIN 1-10 08/08/16 09:30 08/09/16 10:23 Oxycodone/ Acetaminophen (Percocet 10-325 Mg) 1 tab Q6H PRN PO pain 1-10 08/09/16 11:45 08/10/16 18:13 Prednisone (Deltasone) 20 mg BID PO 08/10/16 21:00 08/10/16 20:35 Objective Remarks GENERAL: Elderly female, sitting up in bed, in no acute distress. Facial swelling and periorbital swelling is significantly decreased. She appears more comfortable today. SKIN: Warm and dry. HEAD: Normocephalic. EYES: No scleral icterus. No injection or drainage. Swelling of the conjunctiva. NECK: Supple, trachea midline. No JVD or lymphadenopathy. Dependent edema in the submental area, continues to improve. LYMPHATIC: No adenopathy. CARDIOVASCULAR: Regular rate and rhythm without murmurs. RESPIRATORY: Decreased bibasilar breath sounds, right greater than left. Prolonged expiratory phase. GASTROINTESTINAL: Abdomen soft, non-tender, nondistended. EXTREMITIES: Upper extremity edema improved, specifically in the hands and fingers. MUSCULOSKELETAL: Adequate muscle tone. NEUROLOGICAL: No obvious focal deficit. Awake, alert, and oriented x3. PSYCHIATRIC: Appropriate mood and affect; insight and judgment normal. Assessment/Plan Assessment 66-year-old female with newly diagnosed metastatic non-small cell carcinoma of the lung, pleural fluid cytology indicates likely adenocarcinoma with possible squamous cell features as well. +SVC syndrome. emergent radiation started . Plan 1. Metastatic non-small cell carcinoma of the lung: s/p carbo/taxol on 08/07. Started mediastinal RT on 08/07/2016. 2. SVC syndrome: Chemotherapy radiation, continue heparin drip prevent SVC thrombosis. 3. Non-small cell carcinoma of the lung with adenocarcinoma component: Pleural fluid EGFR, ALK, ROS mutational analysis ordered. Additionally PDL-1 expression has also been requested. 4. Right-sided malignant pleural effusion: Chest tube remains in place. Continue ongoing care, I will ask physical therapy to see the patient. When she is able to get up out of bed and onto a bedside commode the Tucker catheter will be discontinued as well. Appreciate the assistance of all specialties involved specifically radiation oncology for prompt and immediate assistance with initiation of mediastinal radiation. Continue on going care. Gil Shaw MD August 11, 2016 07:53
--- NOTE | 2016-08-11 08:18 | RADRPT ---
EXAM DATE/TIME: 08/11/2016 07:41 [facility] COMPARISON: CHEST SINGLE AP, August 08, 2016, 4:40. INDICATIONS : Pluera effusion. MEDICAL HISTORY : Carcinoma, lung. Chronic obstructive pulmonary disease. SURGICAL HISTORY : None. ENCOUNTER: Subsequent ACUITY: 2 weeks PAIN SCORE: 0/10 LOCATION: Bilateral chest FINDINGS: A single view of the chest demonstrates right upper lobe airspace disease and elevation right hemidia phragm. Right-sided chest tube unchanged. No pneumothorax. Osseous structures are intact. CONCLUSION: Stable chest. Carlos Dee MD on August 11, 2016 at 8:16 Board Certified Radiologist. This report was verified electronically.
[2016-08-11 09:54] LABS: APTT (PATIENT) 41.1 SEC (24.3-30.1)
[2016-08-11] MEDS: oxyCODONE/ACETAMINOPHEN 10 MG/325 MG TAB PO PRN ×3 (10:23→22:11)
[2016-08-11] MEDS: NYSTATIN SUSP 500,000 U/5 ML CUP SWISH-SWAL SCH ×4 (10:24→19:57)
[2016-08-11] MEDS: predniSONE 20 MG TAB PO SCH ×2 (10:24→19:58)
[2016-08-11] MEDS: PANTOPRAZOLE SOD 40 MG DELAYED RELEASE TAB PO SCH (10:25)
[2016-08-11] MEDS: GABAPENTIN 100 MG CAP PO SCH ×3 (10:25→18:01)
[2016-08-11] MEDS: SODIUM CHLORIDE 0.9% FLUSH 10 ML FLUSH IV FLUSH SCH ×2 (10:34→19:58)
--- NOTE | 2016-08-11 10:39 | HHI.PR ---
Subjective Remarks Follow-up SVC syndrome 08/09/16-patient seen and examined, denies any shortness of breath or chest pain.Having difficulty with swallowing 08/10/16-patient seen and examined feeling on heparin drip will SVC syndrome. Denies any significant shortness of breath 08/11/16-patient seen and examined by me she report having a better day today and able to breathe better without any difficulty with taking by mouth secondary to less throat pain Objective Vitals Vital Signs Date Time Temp Pulse Resp B/P Pulse Ox O2 Delivery O2 Flow Rate FiO2 08/11/16 08:54 96.4 103 18 126/73 96 08/11/16 08:03 94 Nasal Cannula 4.00 08/11/16 04:00 97.0 102 18 134/63 94 08/11/16 00:00 96.9 107 18 118/78 98 08/10/16 20:32 Nasal Cannula 2.00 08/10/16 20:00 96.6 106 17 106/59 95 08/10/16 20:00 103 08/10/16 19:49 97 Nasal Cannula 2.00 08/10/16 18:30 96.8 100 126/72 08/10/16 16:00 101 19 97 08/10/16 14:33 98.0 96 20 112/71 96 I/O 08/10/16 08/10/16 08/10/16 08/11/16 08/11/16 08/11/16 07:00 15:00 23:00 07:00 15:00 23:00 Intake Total 240 ml Output Total 20 ml 655 ml 550 ml Balance 220 ml -655 ml -550 ml Intake Oral 240 ml Output Urine Total 475 ml 450 ml Chest Tube Drainage Total 20 ml 180 ml 100 ml Result Diagram: 08/10/16 0811 08/11/16 0152 Imaging Last Impressions Chest X-Ray 08/11/16 0600 Signed Impressions: Service Date/Time: Thursday, August 11, 2016 07:41 - CONCLUSION: Stable chest. Carlos Dee MD CT Angiography 08/07/16 0000 Signed Impressions: Service Date/Time: Sunday, August 07, 2016 13:12 - CONCLUSION: 1. Encasement and near occlusion of the SVC by a large right sided hilar/perihilar mass. 2. No evidence of pulmonary loss. 3. Diffuse bony metastatic disease. Possible metastatic disease in the adrenal glands. 4. Right lower lobe nodular density. Marked decrease in right lower lobe consolidation. Alan Cerrato MD Entire Spine MRI 07/31/16 Signed Impressions: Service Date/Time: Sunday, July 31, 2016 09:58 - CONCLUSION: Diffuse bony metastasis throughout the dorsal spine without significant canal stenosis. Carlos Dee MD Brain MRI 07/31/16 Signed Impressions: Service Date/Time: Sunday, July 31, 2016 09:58 - CONCLUSION: 1. Nonspecific white matter changes. 2. No evidence for metastatic disease to the brain parenchyma. 3. There are some bony metastatic lesions along the upper cervical spine/skull base. Carlos Dee MD Chest CT 07/30/16 Signed Impressions: Service Date/Time: Saturday, July 30, 2016 05:13 - CONCLUSION: 1. There is narrowing of the right mainstem bronchus suspicious for a right hilar mass. 2. There is a masslike density in the right upper lung measuring 2.2 x 1.6 cm. 3. There is a moderate right pleural effusion with compressive atelectasis of the right lower lung. 4. There is consolidation of the right upper lung most likely from post obstructive pneumonia. 5. Patchy infiltrate in the posterior left upper lung most likely inflammatory. 6. Multiple lytic lesions are seen throughout the thoracic spine characteristic for diffuse bony metastatic disease 7. Diffusely enlarged bilateral adrenal glands most likely metastatic disease Jero Miller MD Abdomen/Pelvis CT 07/30/16 Signed Impressions: Service Date/Time: Saturday, July 30, 2016 23:25 - CONCLUSION: 1. Diffuse bony metastatic disease. 2. Moderate right-sided pleural effusion. 3. Bilateral adrenal metastatic disease. 4. Simple right renal cyst. Jero Miller MD Objective Remarks GENERAL: NAD SKIN: Warm and dry. HEAD: Normocephalic. EYES: No scleral icterus. No injection or drainage. NECK: Supple, trachea midline. No JVD or lymphadenopathy. CARDIOVASCULAR: Regular rate and rhythm without murmurs, gallops, or rubs. RESPIRATORY: Breath sounds equal bilaterally. No accessory muscle use. GASTROINTESTINAL: Abdomen soft, non-tender, nondistended. MUSCULOSKELETAL: No cyanosis; +facial and UEs edema. BACK: Nontender without obvious deformity. No CVA tenderness. Procedures Echo 07/30/2016 LEFT VENTRICLE: The cavity size was normal. Wall thickness was normal. Systolic function was normal. The estimated ejection fraction was in the range of 55% to 60%. Wall motion was normal; there were no regional wall motion abnormalities. Date of Insertion: August 07, 2016 Line: Central Venous Catheter Side: Left Location: Femoral A/P Problem List: (1) Metastatic primary lung cancer ICD Code: C34.90 Status: Acute (2) SVC syndrome ICD Code: I87.1 Status: Acute (3) COPD exacerbation ICD Code: J44.1 Status: Acute (4) Acute respiratory failure ICD Code: J96.00 Status: Acute Assessment and Plan 66-year-old female with - SVC syndrome - Continue heparin drip to prevent SVC thrombosis. - Metastatic non-small cell lung cancer - status post Carbo/Taxol on 08/07/2016. - Hematology-oncology following. - Patient underwent emergent XRT on 08/07/2016 as well as 08/08/2016. -Continue current pain management - Acute respiratory failure hypoxia - COPD - Probable post-obstructive pneumonia - Continue DuoNeb, Levaquin 500 mg every 24 hours, prednisone 20 mg twice a day and s/p Solu-Medrol 40 mg IV twice a day. - On Flagyl 500mg IV Q8hrs. - Pulmonary ff and continue with chest tube . pleural fluid cytology positive for malignancy -Dysphagia-resolved - Hyperlipidemia - Continue Lipitor 40mg QHS. Full code. Heparin drip. Carlos Ball MD August 11, 2016 10:38
[2016-08-11] MEDS ORDERED: TALC STERILE I-PLEURAL SCH ×3 (11:00→22:53)
[2016-08-11] MEDS ORDERED: SODIUM CHLORIDE 0.9% I-PLEURAL SCH ×3 (11:00→22:53)
[2016-08-11] MEDS ORDERED: LORazepam 1 MG TAB PO SCH (12:30)
[2016-08-11] MEDS: MORPHINE SULFATE 4 MG/ML INJ IV PUSH PRN (13:04)
--- NOTE | 2016-08-11 18:09 | HHI.PR ---
Subjective Remarks Feels better today. Pleural fluid cytology Positive for Non small cell CA. On radiation therapy to Mediastinum due to SVC syndrome. Facial swelling less. Chest tube draining Less than 100 CC /Day On O2 at 4 L Objective Vital Signs Date Time Temp Pulse Resp B/P Pulse Ox O2 Delivery O2 Flow Rate FiO2 08/11/16 16:00 97.5 101 18 140/73 97 08/11/16 13:15 16 08/11/16 13:15 16 08/11/16 12:56 97.0 105 18 122/76 96 08/11/16 10:34 Nasal Cannula 2.00 08/11/16 08:54 96.4 103 18 126/73 96 08/11/16 08:20 108 08/11/16 08:03 94 Nasal Cannula 4.00 08/11/16 04:00 97.0 102 18 134/63 94 08/11/16 00:00 96.9 107 18 118/78 98 08/10/16 20:32 Nasal Cannula 2.00 08/10/16 20:00 96.6 106 17 106/59 95 08/10/16 20:00 103 08/10/16 19:49 97 Nasal Cannula 2.00 08/10/16 18:30 96.8 100 126/72 I/O 08/10/16 08/10/16 08/10/16 08/11/16 08/11/16 08/11/16 07:00 15:00 23:00 07:00 15:00 23:00 Intake Total 240 ml 900 ml Output Total 20 ml 655 ml 550 ml Balance 220 ml -655 ml -550 ml 900 ml Intake Oral 240 ml 900 ml Output Urine Total 475 ml 450 ml Chest Tube Drainage Total 20 ml 180 ml 100 ml Result Diagram: 08/10/16 0811 08/11/16 0152 Procedures No procedures performed. Objective Remarks GENERAL: This is a moderately obese white female who is alert and in no acute distress. HEAD, EYES, EARS, NOSE, THROAT: Head normocephalic. The pupils are reactive and equal. Tongue is moist. Throat was clear.Facial swelling +. NECK: The neck is supple. No bruits. No thyroid enlargement. No lymphadenopathy. CHEST: Decreased excursions. Breath sounds are diminished at the bases, more so on the right side. HEART: Heart sounds are regular. S1 and S2. No murmur. No S3. ABDOMEN: Abdomen is obese and protuberant without masses. No organomegaly or tenderness. The bowel sounds are active. EXTREMITIES: No edema. No calf tenderness. NEUROLOGIC: Reflexes are 1+. No gross motor deficits. SKIN: No lesions are noted. Assessment and Plan Assessment and Plan IMPRESSION: 1. Right hilar mass with obstructive pneumonitis. 2. Possible metastatic malignancy. 3. COPD with emphysema. 4. Nicotine dependency. 5. Right pleural effusion. Plan : 1. Cont Antibiotics. PO 2. Nebs qid , duoneb. 3. O2 at 2 L. 4. Chemotherapy and radiation as planned 5. Prednisone 20 mg bid 6. Talc 5G in chest tube for pleurodesis and D/C chest tube Jigar Gutierrez MD August 11, 2016 18:09
[2016-08-11] MEDS ORDERED: STERILE TALC 5 GM VIAL I-PLEURAL ONE (18:15)
[2016-08-11] MEDS: ONDANSETRON ODT 4 MG TAB SL PRN (18:27)
[2016-08-11] MEDS: ATORVASTATIN 40 MG TAB PO SCH (19:57)
[2016-08-11] MEDS: HEPARIN-D5W INJ 250 ML IV SCH (23:38)
[2016-08-12] VITALS (10 sets, daily range): BP systolic 136–182; BP diastolic 65–109; PULSE 97–113; RESP 18; TEMP 96.5–97.7; O2SAT 93–98
[2016-08-12] MEDS: RESP: ALBUTEROL 2.5 MG/IPRATROPIUM 0.5 MG NEB (SCH) NEB ×2 (03:57→08:27)
[2016-08-12] MEDS: CHLORHEXIDINE GLUCONATE 2 % 1 PACK (2 CLOTHS)(taper/protocol) TOPICAL SCH (04:00)
[2016-08-12] MEDS: oxyCODONE/ACETAMINOPHEN 10 MG/325 MG TAB PO PRN ×3 (04:10→18:29)
--- NOTE | 2016-08-12 08:16 | PD.ONC.PN ---
Subjective Subjective Remarks Patient reports facial swelling continues to decrease, swelling of the hands continues to decrease. Had severe back pain yesterday which was hard to control. Radiation was not delivered yesterday. She reports not having moved her bowels and she was admitted to the hospital. She stayed in bed all day yesterday. Chest tube remains in place, case management has been talking about discharged to a rehabilitation facility once her right-sided chest tube is out. Objective Data Date Time Temp Pulse Resp B/P Pulse Ox O2 Delivery O2 Flow Rate FiO2 08/12/16 04:00 96.5 103 18 136/65 93 08/12/16 04:00 96 Nasal Cannula 4.00 08/11/16 23:30 96.8 100 19 131/75 96 08/11/16 20:15 96 Nasal Cannula 3.50 08/11/16 20:12 99 08/11/16 20:00 Nasal Cannula 4.00 08/11/16 20:00 97.3 99 17 108/63 95 08/11/16 18:01 16 08/11/16 16:00 97.5 101 18 140/73 97 08/11/16 13:15 16 08/11/16 12:56 97.0 105 18 122/76 96 08/11/16 10:34 Nasal Cannula 2.00 08/11/16 08:54 96.4 103 18 126/73 96 08/11/16 08:20 108 Result Diagram: 08/10/16 0811 08/11/16 0152 Laboratory Results Laboratory Tests Test 08/11/16 09:23 Activated Partial 41.1 SEC Thromboplast Time Administered Medications Medications (Trade) Dose Ordered Sig/Alistair Route PRN Reason Start Time Stop Time Status Last Admin Dose Admin Sodium Chloride (NS Flush) 2 ml UNSCH PRN IV FLUSH FLUSH AFTER USING IV ACCESS 07/30/16 03:45 08/07/16 19:51 Sodium Chloride (NS Flush) 2 ml BID IV FLUSH 07/30/16 09:00 08/11/16 19:58 Pantoprazole Sodium (Protonix) 40 mg DAILY PO 07/30/16 09:00 08/11/16 10:25 Atorvastatin Calcium (Lipitor) 40 mg HS PO 07/30/16 21:00 08/11/16 19:57 Ondansetron HCl (Zofran Odt) 4 mg Q6HR PRN SL Nausea/Vomiting 07/30/16 05:30 08/11/16 18:27 Gabapentin (Neurontin) 200 mg TID PO 08/04/16 09:25 08/11/16 18:01 Tizanidine HCl (Zanaflex) 1 mg Q12HR PO 08/04/16 09:25 08/11/16 19:58 Senna/Docusate Sodium (Shira-Colace) 1 tab BID PRN PO CONSTIPATION 08/04/16 17:00 08/06/16 08:48 Nystatin 5 ml 5 ml QID SWISH-SWAL 08/06/16 15:00 08/11/16 19:57 Heparin Sodium/ Dextrose (Heparin-D5W Inj) 250 ml @ 0 mls/hr TITRATE IV 08/07/16 12:00 08/11/16 23:38 Miscellaneous Information Patient in critical care unit? Ass... Q361D .XX 08/08/16 00:30 08/08/16 00:30 Morphine Sulfate (Morphine Inj) 4 mg Q3H PRN IV PUSH PAIN 1-10 08/08/16 09:30 08/11/16 13:04 Oxycodone/ Acetaminophen (Percocet 10-325 Mg) 1 tab Q6H PRN PO pain 1-10 08/09/16 11:45 08/12/16 04:10 Prednisone (Deltasone) 20 mg BID PO 08/10/16 21:00 08/11/16 19:58 Objective Remarks GENERAL: Elderly female, sitting up in bed, in no acute distress. Facial swelling and periorbital swelling is significantly decreased. She appears more comfortable today. SKIN: Warm and dry. HEAD: Normocephalic. EYES: No scleral icterus. No injection or drainage. Swelling of the conjunctiva. NECK: Supple, trachea midline. No JVD or lymphadenopathy. Dependent edema in the submental area, continues to improve. LYMPHATIC: No adenopathy. CARDIOVASCULAR: Regular rate and rhythm without murmurs. RESPIRATORY: Decreased bibasilar breath sounds, right greater than left. Prolonged expiratory phase. GASTROINTESTINAL: Abdomen soft, non-tender, nondistended. EXTREMITIES: Upper extremity edema improved, specifically in the hands and fingers. MUSCULOSKELETAL: Adequate muscle tone. NEUROLOGICAL: No obvious focal deficit. Awake, alert, and oriented x3. PSYCHIATRIC: Appropriate mood and affect; insight and judgment normal. Assessment/Plan Assessment 66-year-old female with newly diagnosed metastatic non-small cell carcinoma of the lung, pleural fluid cytology indicates likely adenocarcinoma with possible squamous cell features as well. +SVC syndrome. emergent radiation started . Plan 1. Metastatic non-small cell carcinoma of the lung: s/p carbo/taxol on 08/07. Started mediastinal RT on 08/07/2016. 2. SVC syndrome: Chemotherapy radiation, continue heparin drip prevent SVC thrombosis. 3. Non-small cell carcinoma of the lung with adenocarcinoma component: Pleural fluid EGFR, ALK, ROS mutational analysis ordered. Additionally PDL-1 expression has also been requested (more than once). 4. Right-sided malignant pleural effusion: Chest tube remains in place. 5. Constipation: Added on lactulose, she is now moved her bowels since she's been in the hospital. 6. Poor nutritional intake: I have advanced her diet to soft solids to see if she is able to mechanically swallow. If she is unable to swallow this I suspect she may have an esophageal obstruction due to the large mediastinal mass. 7. PT: She is essentially been in bed other than 2 hours she spent on a chair 2 days ago. Certainly needs intensive physical therapy. 8. Extensive bony metastases: Which are symptomatic; I have ordered pamidronate 90 mg over 4 hours today to help control her pain. Gil Shaw MD August 12, 2016 08:15
[2016-08-12] MEDS: ONDANSETRON ODT 4 MG TAB SL PRN (08:22)
[2016-08-12] MEDS: LACTULOSE SYRUP 20 GM/30 ML CUP PO SCH (08:23)
[2016-08-12] MEDS: GABAPENTIN 100 MG CAP PO SCH ×3 (08:25→18:29)
[2016-08-12] MEDS: PANTOPRAZOLE SOD 40 MG DELAYED RELEASE TAB PO SCH (08:26)
[2016-08-12] MEDS: NYSTATIN SUSP 500,000 U/5 ML CUP SWISH-SWAL SCH ×4 (08:27→20:22)
[2016-08-12] MEDS: predniSONE 20 MG TAB PO SCH ×2 (08:27→20:22)
[2016-08-12] MEDS ORDERED: PAMIDRONATE INJ 90 MG in SODIUM CHLORID 0.9% 500 ML INJ 500 ML IV ONE (10:00)
[2016-08-12] MEDS ORDERED: TALC STERILE I-PLEURAL SCH ×2 (11:00)
[2016-08-12] MEDS ORDERED: SODIUM CHLORIDE 0.9% I-PLEURAL SCH ×2 (11:00)
[2016-08-12] MEDS: SODIUM CHLORIDE 0.9% FLUSH 10 ML FLUSH IV FLUSH SCH ×2 (11:37→20:22)
[2016-08-12 11:40] LABS: APTT (PATIENT) 35.8 SEC (24.3-30.1)
--- NOTE | 2016-08-12 12:33 | HHI.PR ---
Subjective Remarks No SOB today. Pleural fluid cytology Positive for Non small cell CA. On radiation therapy to Mediastinum due to SVC syndrome. Facial swelling less. Chest tube draining Less than 50 CC /Day On O2 at 4 L. Objective Vital Signs Date Time Temp Pulse Resp B/P Pulse Ox O2 Delivery O2 Flow Rate FiO2 08/12/16 09:49 108 145/75 08/12/16 09:06 Nasal Cannula 4.00 35 08/12/16 09:06 113 182/109 94 08/12/16 08:27 98 Nasal Cannula 4.00 08/12/16 08:22 96.7 103 18 136/72 95 08/12/16 04:00 96.5 103 18 136/65 93 08/12/16 04:00 96 Nasal Cannula 4.00 08/11/16 23:30 96.8 100 19 131/75 96 08/11/16 20:15 96 Nasal Cannula 3.50 08/11/16 20:12 99 08/11/16 20:00 Nasal Cannula 4.00 08/11/16 20:00 97.3 99 17 108/63 95 08/11/16 18:01 16 08/11/16 16:00 97.5 101 18 140/73 97 08/11/16 13:15 16 08/11/16 12:56 97.0 105 18 122/76 96 I/O 08/11/16 08/11/16 08/11/16 08/12/16 08/12/16 08/12/16 07:00 15:00 23:00 07:00 15:00 23:00 Intake Total 900 ml Output Total 550 ml 651 ml 150 ml Balance -550 ml 900 ml -651 ml -150 ml Intake Oral 900 ml Output Urine Total 450 ml 600 ml 150 ml Chest Tube Drainage Total 100 ml 51 ml Result Diagram: 08/10/16 0811 08/11/16 0152 Procedures No procedures performed. Objective Remarks GENERAL: This is a moderately obese white female who is alert and in no acute distress. HEAD, EYES, EARS, NOSE, THROAT: Head normocephalic. The pupils are reactive and equal. Tongue is moist. Throat was clear. Mild Facial swelling +. NECK: The neck is supple. No bruits. No thyroid enlargement. No lymphadenopathy. CHEST: Decreased excursions. Breath sounds are diminished at the bases, more so on the right side. HEART: Heart sounds are regular. S1 and S2. No murmur. No S3. ABDOMEN: Abdomen is obese and protuberant without masses. No organomegaly or tenderness. The bowel sounds are active. EXTREMITIES: No edema. No calf tenderness. NEUROLOGIC: Reflexes are 1+. No gross motor deficits. SKIN: No lesions are noted. Assessment and Plan Assessment and Plan IMPRESSION: 1. Right hilar mass with obstructive pneumonitis. 2. Possible metastatic malignancy. 3. COPD with emphysema. 4. Nicotine dependency. 5. Right pleural effusion. Plan : 1. Cont Antibiotics. PO 2. Nebs qid , duoneb. 3. O2 at 2 L. 4. Chemotherapy and radiation as planned 5. Prednisone 30 mg daily 6. Talc 5G in chest tube for pleurodesis done today Jigar Gutierrez MD August 12, 2016 12:33
--- NOTE | 2016-08-12 13:16 | HHI.PR ---
Subjective Remarks Follow-up SVC syndrome 08/09/16-patient seen and examined, denies any shortness of breath or chest pain.Having difficulty with swallowing 08/10/16-patient seen and examined feeling on heparin drip will SVC syndrome. Denies any significant shortness of breath 08/11/16-patient seen and examined by me she report having a better day today and able to breathe better without any difficulty with taking by mouth secondary to less throat pain 08/12/16-patient seen and examined, positive for BM, swallowing much better. Plan for radiation therapy today Objective Vitals Vital Signs Date Time Temp Pulse Resp B/P Pulse Ox O2 Delivery O2 Flow Rate FiO2 08/12/16 12:00 96.6 106 18 161/70 95 08/12/16 09:49 108 145/75 08/12/16 09:06 Nasal Cannula 4.00 35 08/12/16 09:06 113 182/109 94 08/12/16 08:27 98 Nasal Cannula 4.00 08/12/16 08:22 96.7 103 18 136/72 95 08/12/16 04:00 96.5 103 18 136/65 93 08/12/16 04:00 96 Nasal Cannula 4.00 08/11/16 23:30 96.8 100 19 131/75 96 08/11/16 20:15 96 Nasal Cannula 3.50 08/11/16 20:12 99 08/11/16 20:00 Nasal Cannula 4.00 08/11/16 20:00 97.3 99 17 108/63 95 08/11/16 18:01 16 08/11/16 16:00 97.5 101 18 140/73 97 08/11/16 13:15 16 I/O 08/11/16 08/11/16 08/11/16 08/12/16 08/12/16 08/12/16 07:00 15:00 23:00 07:00 15:00 23:00 Intake Total 900 ml Output Total 550 ml 651 ml 150 ml Balance -550 ml 900 ml -651 ml -150 ml Intake Oral 900 ml Output Urine Total 450 ml 600 ml 150 ml Chest Tube Drainage Total 100 ml 51 ml Result Diagram: 08/10/16 0811 08/11/16 0152 Objective Remarks GENERAL: NAD SKIN: Warm and dry. HEAD: Normocephalic. EYES: No scleral icterus. No injection or drainage. NECK: Supple, trachea midline. No JVD or lymphadenopathy. CARDIOVASCULAR: Regular rate and rhythm without murmurs, gallops, or rubs. RESPIRATORY: Breath sounds equal bilaterally. No accessory muscle use. GASTROINTESTINAL: Abdomen soft, non-tender, nondistended. MUSCULOSKELETAL: No cyanosis; +facial and UEs edema. BACK: Nontender without obvious deformity. No CVA tenderness. Procedures Echo 07/30/2016 LEFT VENTRICLE: The cavity size was normal. Wall thickness was normal. Systolic function was normal. The estimated ejection fraction was in the range of 55% to 60%. Wall motion was normal; there were no regional wall motion abnormalities. Date of Insertion: August 07, 2016 Line: Central Venous Catheter Side: Left Location: Femoral A/P Problem List: (1) Metastatic primary lung cancer ICD Code: C34.90 Status: Acute (2) SVC syndrome ICD Code: I87.1 Status: Acute (3) COPD exacerbation ICD Code: J44.1 Status: Acute (4) Acute respiratory failure ICD Code: J96.00 Status: Acute Assessment and Plan 66-year-old female with - SVC syndrome - Continue heparin drip to prevent SVC thrombosis. - Metastatic non-small cell lung cancer - status post Carbo/Taxol on 08/07/2016. - Hematology-oncology following. - Patient underwent emergent XRT on 08/07/2016 as well as 08/08/2016. Plan for radiation therapy today 08/12/16 -Continue current pain management - Acute respiratory failure hypoxia - COPD - Probable post-obstructive pneumonia - Continue DuoNeb, Levaquin 500 mg every 24 hours, prednisone 20 mg twice a day - On Flagyl 500mg IV Q8hrs. - Pulmonary ff and continue with chest tube, status post pleurodesis . pleural fluid cytology positive for malignancy -Dysphagia-resolved - Hyperlipidemia - Continue Lipitor 40mg QHS. -Physical deconditioning-continue with aggressive PT Full code. Heparin drip. Carlos Ball MD August 12, 2016 13:16
--- NOTE | 2016-08-12 14:37 | HHI.HCPN ---
Reason for visit a. To assist with evaluation and management of symptoms including: pain, dyspnea, anxiety, constipation, dysphasia b. To assist medical decision maker(s) with: better understanding of current medical conditions; weighing benefits/burdens of medical treatment options; making medical treatment decisions. . (Karli Baez) Subjective/Interval History Ms. Acharya is a 66 year old female who presented to [facility] ED on 2016 with newly diagnosed metastatic non-small cell carcinoma of the lung, cytology of pleural fluid indicates adenocarcinoma with possible squama cell features are likely as well. + SVC syndrome status post Carbo/Taxol and mediastinal radiation on 08/07/16. Patient reporting decreased upper extremity and facial swelling, denies any shortness of breath or chest pain. Chest tube draining less than 50ml/day per notes, case management working toward SNF placement after the chest tube is removed. Patient's preference is [facility]. Plan for radiation therapy today 08/12/16. Stable follow-up chest x-ray on 2016 with right upper lobe airspace disease and elevation the right hemidiaphragm; no pneumothorax; osseous structures intact. Patient has extensive bony metastasis, experiencing severe back pain yesterday that was difficult to control. Patient currently has orders for PRN Percocet (10 -325mg/tab) q6 hours PO and PRN Morphine 4mg IV q3 hours. 24 hour PRN dosing = Percocet (79608va tablet) x 4; Morphine 4 mg IV x 1. She is also on Gabapentin 200mg TID and Tizanidine 1mg PO q12 hours for what appears to be some neuropathic pain. Discussed making medication changes with the patient and her for better symptom management, but the patient did not want make any changes. Dr. Shaw did order pamidronate 90 mg over 4 hours today to assist with pain management. Per notes, patient was reporting constipation yesterday. Scheduled daily lactulose was ordered yesterday in addition to PRN Shira-Colace; positive BM this morning. Patient having ongoing dysphagia, decreased per patient report. Decreased appetite. Oncology is concerned the patient may have an esophageal obstruction obstruction secondary to large mediastinal mass. Dr. Shaw advance patient's diet to soft solids to see if she is able to mechanically swallow. Speech therapy following. . (Karli Baez) Advance Directives Living Will: Completed, but not made available (patient's will provide copies of documentation) Health Care Surrogate: Completed, but not made available (patient's will provide copies of documentation) (Karli Baez) Advance Directive Specifics Documented care wishes: Patient states written advanced directives have been completed, but the patient' s states he does not know where the documents are at this time. Patient states, " It doesn't matter because we wanted everything done." Discussed written advanced directives, which may include health care surrogate designation and living will. Uncompleted health care surrogate form was provided to the patient and her to review, considering completing this form again for ease. . (Karli Baez) Objective Vital Signs Date Time Temp Pulse Resp B/P Pulse Ox O2 Delivery O2 Flow Rate FiO2 08/12/16 12:00 96.6 106 18 161/70 95 08/12/16 09:49 108 145/75 08/12/16 09:06 Nasal Cannula 4.00 35 08/12/16 09:06 113 182/109 94 08/12/16 08:27 98 Nasal Cannula 4.00 08/12/16 08:22 96.7 103 18 136/72 95 08/12/16 04:00 96.5 103 18 136/65 93 08/12/16 04:00 96 Nasal Cannula 4.00 08/11/16 23:30 96.8 100 19 131/75 96 08/11/16 20:15 96 Nasal Cannula 3.50 08/11/16 20:12 99 08/11/16 20:00 Nasal Cannula 4.00 08/11/16 20:00 97.3 99 17 108/63 95 08/11/16 18:01 16 08/11/16 16:00 97.5 101 18 140/73 97 . Physical Exam CONSTITUTIONAL/GENERAL: This is an adequately nourished, elderly female patient , in no apparent distress. TUBES/LINES/DRAINS: PIV 1, NC, Tucker, chest tube SKIN: No jaundice, rashes, or lesions. Skin temperature appropriate. Decreasing facial and periorbital swelling. HEAD: Atraumatic. Normocephalic. EYES: Pupils equal and round and reactive. Extraocular motions intact. No scleral icterus. No injection or drainage. Fundi not examined. ENT: Hearing grossly normal. Nose without bleeding or purulent drainage. NECK: Trachea midline. Supple, nontender. CARDIOVASCULAR: Regular rate and rhythm without murmurs, gallops, or rubs. No JVD. Peripheral pulses symmetric. RESPIRATORY/CHEST: Respirations unlabored on 2 L oxygen via nasal cannula, diminished air exchange. Right pigtail catheter, right chest wall- approximately 50ml drainage daily GASTROINTESTINAL: Abdomen soft, non-tender, nondistended. GENITOURINARY: Without palpable bladder distension. Tucker catheter in place. MUSCULOSKELETAL: Extremities without clubbing, cyanosis. BLE without edema. LYMPHATICS: No palpable cervical or supraclavicular adenopathy. NEUROLOGICAL: Awake and alert. Cognitively sharp. Able to make needs known, follows commands. PSYCHIATRIC: Appropriate mood and affect; normal insight and judgment. . (Karli Baez) Diagnostic Tests Laboratory Laboratory Tests Test 08/10/16 08/11/16 08/11/16 08/12/16 08:11 01:52 09:23 10:45 White Blood Count 26.4 TH/MM3 (4.0-11.0) Red Blood Count 4.07 MIL/MM3 (4.00-5.30) Hemoglobin 9.3 GM/DL (11.6-15.3) Hematocrit 30.3 % (35.0-46.0) Mean Corpuscular Volume 74.6 FL (80.0-100.0) Mean Corpuscular Hemoglobin 23.0 PG (27.0-34.0) Mean Corpuscular Hemoglobin 30.8 % Concent (32.0-36.0) Red Cell Distribution Width 18.6 % (11.6-17.2) Platelet Count 157 TH/MM3 (150-450) Mean Platelet Volume 9.8 FL (7.0-11.0) Activated Partial 37.3 SEC 42.4 SEC 41.1 SEC 35.8 SEC Thromboplast Time (24.3-30.1) (24.3-30.1) (24.3-30.1) (24.3-30.1) Sodium Level 131 MEQ/L (136-145) Potassium Level 4.8 MEQ/L (3.5-5.1) Chloride Level 90 MEQ/L (98-107) Carbon Dioxide Level 35.9 MEQ/L (21.0-32.0) Anion Gap 5 MEQ/L (5-15) Blood Urea Nitrogen 24 MG/DL (7-18) Creatinine 0.42 MG/DL (0.50-1.00) Estimat Glomerular Filtration 151 ML/MIN Rate (>89) Random Glucose 134 MG/DL (74-106) Calcium Level 8.5 MG/DL (8.5-10.1) . (Karli Baez) Result Diagram: 08/10/16 0811 08/11/16 0152 Imaging Last 72 hours Impressions Chest X-Ray 08/11/16 0600 Signed Impressions: Service Date/Time: Tuesday, August 11, 2016 07:41 - CONCLUSION: Stable chest. Carlos Dee MD . Procedures 08/02/2016: Percutaneous pigtail tube thoracostomy . (Karli Baez) Assessment and Plan Disease Oriented Problem List: (1) Hypoxemia (2) COPD exacerbation (3) Acute respiratory failure (4) Acute respiratory acidosis (5) Cholecystitis (6) Pleural effusion (7) Metastatic primary lung cancer (8) Postobstructive pneumonia (9) Probable sepsis (10) Lung cancer metastatic to bone Symptom Scale: (1) Pain 0-10 Scale: 0 Comment: . Patient denies pain on exam. Reports ongoing tingling/burning pain that radiates down her legs bilaterally. - Continue Gabapentin PO 200mg TID for neuropathic pain (last titrated 08/04), would plan to increase this slowly [id number] to a target maximum of 1800 - 3600 mg/day, divided TID for neuropathic pain associated with spinal mets. - Continue Tizanidine 1mg PO q12h for neuropathic pain (last titrated 08/04), would plan to increase this slowly q24-48h to target of 2-4mg po q12h. - Dr. Riley had discussed with the patient that the other optimal medication for her neuropathic pain would be either a TCA or Cymbalta, but the patient refused stating she has had adverse reactions with antidepressants previously and would like to try other options at this time. Patient has extensive bony metastasis, experiencing severe back pain yesterday that was difficult to control. - Patient currently has orders for PRN Percocet (10-325mg/tab) q6 hours PO and PRN Morphine 4mg IV q3 hours. - 24 hour PRN dosing = Percocet (99621no tablet) x 4; Morphine 4 mg IV x 1. - Discussed making medication changes with the patient and her for better symptom management, but the patient did not want make any changes. - Dr. Shaw did order pamidronate 90 mg over 4 hours today to assist with pain management. . (2) Dyspnea 0-10 Scale: Unable to quantify Comment: (3) Anxiety 0-10 Scale: Unable to quantify Comment: Anxiety has resolved (4) Constipation 0-10 Scale: Unable to quantify Comment: Per notes, patient was reporting constipation yesterday. Scheduled daily lactulose was ordered yesterday in addition to PRN Shira-Colace; positive BM this morning. . (5) Dysphasia 0-10 Scale: Unable to quantify Comment: Patient having ongoing dysphagia, decreased per patient report. Oncology is concerned the patient may have an esophageal obstruction obstruction secondary to large mediastinal mass. Dr. Shaw advance patient's diet to soft solids to see if she is able to mechanically swallow. Speech therapy following. Pertinent Non-Medical Issues Psychosocial: Ms. Acharya is a 66-year-old female who was born in [facility]. She has 3 sisters and 4 brothers who are alive and healthy. Patient has been to Meir for approximately 38+ years. This is her second marriage. They moved to [place] approximately 7 years ago and resides with her . She has 3 adult children from her first marriage (Lalo, Mateusz and Any). 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 Spiritual: Pending conversation with patient. Legal: Patient states she has completed advance directives; requested that her bring copies to the hospital to be scanned into patient's EMR. Ethical issues impacting care: No known ethical issues impacting care at this time . Important Contacts Ziggy Acharya, spouse: [phone] or [phone] Norma Parra, sister: [phone] . Prognosis Patient is a 66-year-old female who reports recurrent bronchitis, productive cough and new onset dyspnea with minimal exertion. Symptoms began approximately 6 weeks ago, and the patient has been treated with 3 courses of antibiotics. An outpatient chest x-ray revealed a right upper lung mass. Subsequent CT chest revealed consolidation of the right upper lung, crit compressive atelectasis of the right lower lobe with moderate right effusion and narrowing of the right mainstem bronchus with possible right hilar mass. CEA is elevated, patient appears to have stage IV lung cancer with imaging showing multiple bony metastatic cyst involving C-spine, thoracic and lumbar spine. Imaging also shows bilateral adrenal metastasis. Overall prognosis is poor. . Code Status: Full Code Plan * FULL CODE * Decision-making: Per [place] statutes, and absence of written advanced directives healthcare proxy decision-making falls to the patient's . * Goals: Patient verbalizes aggressive goals. * Symptom managementdysphasia: Patient having ongoing dysphagia, decreased per patient report. Decreased appetite. Oncology is concerned the patient may have an esophageal obstruction obstruction secondary to large mediastinal mass. Dr. Shaw advance patient's diet to soft solids to see if she is able to mechanically swallow. Speech therapy following. * Symptom managementconstipation: Per notes, patient was reporting constipation yesterday. Scheduled daily lactulose was ordered yesterday in addition to PRN Shira-Colace; positive BM this morning. * Symptom managementdyspnea: Respiratory status improved status post right pigtail chest tube secondary to pleural effusion on 08/02/2016; drainage < 50ml daily. Cytology resultspositive for non-small cell lung cancer. + SVC syndrome s/p Carbo/Taxol and mediastinal radiation on 08/07/16. Patient denies shortness of breath on exam today 08/12/16 * Symptom managementpain: ++ Patient denies pain on exam. Reports ongoing tingling/burning pain that radiates down her legs bilaterally. ++ Continue Gabapentin PO 200mg TID for neuropathic pain (last titrated 08/04), would plan to increase this slowly [id number] to a target maximum of 1800 - 3600 mg/day, divided TID for neuropathic pain associated with spinal mets. ++ Continue Tizanidine 1mg PO q12h for neuropathic pain (last titrated 08/04), would plan to increase this slowly q24-48h to target of 2-4mg po q12h. ++ Dr. Riley had discussed with the patient that the other optimal medication for her neuropathic pain would be either a TCA or Cymbalta, but the patient refused stating she has had adverse reactions with antidepressants previously and would like to try other options at this time. Patient has extensive bony metastasis, experiencing severe back pain yesterday 08/11/2016 that was difficult to control. ++ Patient currently has orders for PRN Percocet (10-325mg/tab) q6 hours PO and PRN Morphine 4mg IV q3 hours. ++ 24 hour PRN dosing = Percocet (02259tk tablet) x 4; Morphine 4 mg IV x 1. ++ Discussed making medication changes with the patient and her for better symptom management, but the patient did not want make any changes. ++ Dr. Shaw did order pamidronate 90 mg over 4 hours today to assist with pain management. * Recommendations: Consider starting dexamethasone 4mg PO daily (with breakfast ) which can decrease swelling associated with tumors and act as an appetite stimulant. * Palliative care will follow patient on a weekly and PRN basis, per family request. . (Karli Baez) Attestation To help prompt me to consider important information that might be impacting today's encounter and assessment, information from prior notes written by myself or my colleagues may have been "brought forward" into today's note. My signature on this note, however, is an attestation that I personally performed the exam, history, and/or decision-making noted today, and, unless otherwise indicated, the interactions with patient, family, and staff as well as the review of records all occurred today. I also attest that the listed assessment and stated plan reflect my best clinical judgment today based on the combination of historical information, prior notes, and today's exam/ interactions. When time spent is documented, it refers only to time spent today by the signer, or if indicated, combined time spent today by collaborating physician/nurse practitioner. . (Karli Baez) Collaborating MD Comments . Chart reviewed. Case discussed with palliative care DIETITIAN RESEARCH. Above NOAH note reviewed and I concur. . (Otis Whitt MD) Karli Baez August 12, 2016 14:37 Otis Whitt MD August 17, 2016 16:36
[2016-08-12] MEDS: ATORVASTATIN 40 MG TAB PO SCH (20:22)
[2016-08-12] MEDS: SODIUM CHLORIDE 0.65% NASAL SPRAY 45 ML BTL EACH NARE PRN (22:22)
--- NOTE | 2016-08-12 22:58 | HHI.PR ---
Blank section for building Received call from RN that patient has having nosebleed after [place] and is currently on heparin drip for a SVC syndrome to prevent thrombosis Will hold heparin drip at this time check stat PTT and CBC Jessica Mulligan August 12, 2016 22:58
[2016-08-12] MEDS: RESP: ALBUTEROL 2.5 MG/IPRATROPIUM 0.5 MG NEB (PRN) NEB (23:17)
[2016-08-13] VITALS (7 sets, daily range): BP systolic 128–168; BP diastolic 77–89; PULSE 95–106; RESP 18–20; TEMP 97–97.9; O2SAT 92–97
[2016-08-13 00:08] LABS: AUTOMATED NEUTROPHIL # 15.1 TH/MM3 (1.8-7.7); BASOPHIL # 0.1 TH/MM3 (0-0.2); BASOPHIL % 0.4 % (0.0-2.0); EOSINOPHIL # 0.1 TH/MM3 (0-0.4); EOSINOPHIL % 0.7 % (0.0-4.0); HEMATOCRIT 26.1 % (35.0-46.0); LYMPH % 1.5 % (9.0-44.0); LYMPHOCYTE # 0.2 TH/MM3 (1.0-4.8); MEAN CELL VOLUME 72.3 FL (80.0-100.0); MEAN CORPUSCULAR HEMOGLOBIN 22.9 PG (27.0-34.0); MEAN CORPUSCULAR HGB CONC 31.7 % (32.0-36.0); MONO % 0.6 % (0.0-8.0); NEUT % 96.8 % (16.0-70.0); PLATELET COUNT 145 TH/MM3 (150-450); RED BLOOD COUNT 3.61 MIL/MM3 (4.00-5.30); RED CELL DISTRIBUTION WIDTH 17.8 % (11.6-17.2); WHITE BLOOD COUNT 15.5 TH/MM3 (4.0-11.0)
[2016-08-13 00:22] LABS: APTT (PATIENT) 39.6 SEC (24.3-30.1)
[2016-08-13] MEDS: oxyCODONE/ACETAMINOPHEN 10 MG/325 MG TAB PO PRN ×4 (00:26→19:04)
[2016-08-13 00:37] LABS: HEMO FLAGS AUTO DIFF
[2016-08-13] MEDS ORDERED: LORazepam 0.5 MG TAB PO ONE (01:00)
[2016-08-13 01:20] LABS: SCAN/DIFF AUTO DIFF CONFIRMED
[2016-08-13 01:23] LABS: PLATELET ESTIMATE SMEAR NORMAL (NORMAL); PLATELET MORPHOLOGY NORMAL (NORMAL)
[2016-08-13] MEDS: SODIUM CHLORIDE 0.65% NASAL SPRAY 45 ML BTL EACH NARE PRN (06:12)
--- NOTE | 2016-08-13 08:29 | PD.ONC.PN ---
Subjective Subjective Remarks Patient reports having had a severe panic attack last night, she tells me stuffiness of her nose and a sensation of suffocation triggered this. She was given 1 dose of Xanax and was given a nasal spray which helped decrease the nasal congestion. She is asking me desperately to give her some medications to prevent panic attacks and anxiety attacks. Patient tells me she did much better swallowing yesterday, she graduated to soft solids and will attempt to eat breakfast this morning. She thinks she is getting ready to have a bowel movement as well, this will be her first bowel movement in about 2 weeks. She continues to have pain in her back. Objective Data Date Time Temp Pulse Resp B/P Pulse Ox O2 Delivery O2 Flow Rate FiO2 08/13/16 07:56 95 Nasal Cannula 4.00 08/13/16 06:20 Nasal Cannula 4.00 35 08/13/16 04:00 97.7 106 18 128/77 95 08/13/16 00:00 97.9 104 20 168/89 92 08/12/16 20:25 Nasal Cannula 4.00 35 08/12/16 20:22 97 08/12/16 20:00 97.7 97 18 149/81 96 08/12/16 19:38 93 Nasal Cannula 4.00 08/12/16 12:00 96.6 106 18 161/70 95 08/12/16 09:49 108 145/75 08/12/16 09:06 Nasal Cannula 4.00 35 08/12/16 09:06 113 182/109 94 08/12/16 08:27 98 Nasal Cannula 4.00 08/13/16 08/13/16 08/13/16 07:00 15:00 23:00 Intake Total 720 ml Output Total 20 ml Balance 720 ml -20 ml Result Diagram: 08/12/16 2346 08/11/16 0152 Laboratory Results Laboratory Tests Test 08/12/16 08/12/16 10:45 23:46 Activated Partial 35.8 SEC 39.6 SEC Thromboplast Time White Blood Count 15.5 TH/MM3 Red Blood Count 3.61 MIL/MM3 Hemoglobin 8.3 GM/DL Hematocrit 26.1 % Mean Corpuscular Volume 72.3 FL Mean Corpuscular Hemoglobin 22.9 PG Mean Corpuscular Hemoglobin 31.7 % Concent Red Cell Distribution Width 17.8 % Platelet Count 145 TH/MM3 Mean Platelet Volume 9.3 FL Neutrophils (%) (Auto) 96.8 % Lymphocytes (%) (Auto) 1.5 % Monocytes (%) (Auto) 0.6 % Eosinophils (%) (Auto) 0.7 % Basophils (%) (Auto) 0.4 % Neutrophils # (Auto) 15.1 TH/MM3 Lymphocytes # (Auto) 0.2 TH/MM3 Monocytes # (Auto) 0.1 TH/MM3 Eosinophils # (Auto) 0.1 TH/MM3 Basophils # (Auto) 0.1 TH/MM3 CBC Comment AUTO DIFF Differential Comment AUTO DIFF CONFIRMED Platelet Estimate NORMAL Platelet Morphology Comment NORMAL Administered Medications Medications (Trade) Dose Ordered Sig/Alistair Route PRN Reason Start Time Stop Time Status Last Admin Dose Admin Sodium Chloride (NS Flush) 2 ml UNSCH PRN IV FLUSH FLUSH AFTER USING IV ACCESS 07/30/16 03:45 08/07/16 19:51 Sodium Chloride (NS Flush) 2 ml BID IV FLUSH 07/30/16 09:00 08/12/16 20:22 Pantoprazole Sodium (Protonix) 40 mg DAILY PO 07/30/16 09:00 08/12/16 08:26 Atorvastatin Calcium (Lipitor) 40 mg HS PO 07/30/16 21:00 08/12/16 20:22 Ondansetron HCl (Zofran Odt) 4 mg Q6HR PRN SL Nausea/Vomiting 07/30/16 05:30 08/12/16 08:22 Gabapentin (Neurontin) 200 mg TID PO 08/04/16 09:25 08/12/16 18:29 Tizanidine HCl (Zanaflex) 1 mg Q12HR PO 08/04/16 09:25 08/12/16 20:22 Senna/Docusate Sodium (Shira-Colace) 1 tab BID PRN PO CONSTIPATION 08/04/16 17:00 08/06/16 08:48 Nystatin (Mycostatin Liq) 5 ml QID SWISH-SWAL 08/06/16 15:00 08/12/16 20:22 Miscellaneous Information Patient in critical care unit? Ass... [id number] .XX 08/08/16 00:30 08/08/16 00:30 Morphine Sulfate (Morphine Inj) 4 mg Q3H PRN IV PUSH PAIN 1-10 08/08/16 09:30 08/11/16 13:04 Oxycodone/ Acetaminophen (Percocet 10-325 Mg) 1 tab Q6H PRN PO pain 1-10 08/09/16 11:45 08/13/16 06:11 Prednisone (Deltasone) 20 mg BID PO 08/10/16 21:00 08/12/16 20:22 Lactulose (Lactulose Liq) 30 ml DAILY PO 08/12/16 09:00 08/12/16 08:23 Sodium Chloride (Sal[place] Jar[place]) 2 spray Q4H PRN EACH NARE NASAL CONGESTION 08/12/16 22:00 08/13/16 06:12 Objective Remarks GENERAL: Elderly female, sitting up in bed, in no acute distress. Facial swelling and periorbital swelling is significantly decreased. She appears more comfortable today. SKIN: Warm and dry. HEAD: Normocephalic. EYES: No scleral icterus. No injection or drainage. Swelling of the conjunctiva. NECK: Supple, trachea midline. No JVD or lymphadenopathy. Dependent edema in the submental area, continues to improve. LYMPHATIC: No adenopathy. CARDIOVASCULAR: Regular rate and rhythm without murmurs. RESPIRATORY: Decreased bibasilar breath sounds, right greater than left. Prolonged expiratory phase. GASTROINTESTINAL: Abdomen soft, non-tender, nondistended. EXTREMITIES: Upper extremity edema improved, specifically in the hands and fingers. MUSCULOSKELETAL: Adequate muscle tone. NEUROLOGICAL: No obvious focal deficit. Awake, alert, and oriented x3. PSYCHIATRIC: Appropriate mood and affect; insight and judgment normal. Assessment/Plan Assessment 66-year-old female with newly diagnosed metastatic non-small cell carcinoma of the lung, pleural fluid cytology indicates likely adenocarcinoma with possible squamous cell features as well. +SVC syndrome. emergent radiation started . Plan 1. Metastatic non-small cell carcinoma of the lung: s/p carbo/taxol on 08/07. Started mediastinal RT on 08/07/2016. 2. SVC syndrome: Chemotherapy radiation, heparin drip discontinued, initiate Lovenox 40 mg twice daily. 3. Non-small cell carcinoma of the lung with adenocarcinoma component: Pleural fluid EGFR, ALK, ROS mutational analysis ordered. Additionally PDL-1 expression has also been requested (more than once). 4. Right-sided malignant pleural effusion: Chest tube remains in place. She underwent talc pleurodesis on 08/12/2016, per pulmonology the chest tube may be discontinued today. 5. Constipation: Added on lactulose, she is now moved her bowels since she's been in the hospital. 6. Poor nutritional intake: I have advanced her diet to soft solids to see if she is able to mechanically swallow. If she is unable to swallow this I suspect she may have an esophageal obstruction due to the large mediastinal mass. 7. PT: She is essentially been in bed other than 2 hours she spent on a chair 2 days ago. Certainly needs intensive physical therapy. 8. Extensive bony metastases: Which are symptomatic; I have ordered pamidronate 90 mg over 4 hours today to help control her pain, this was delivered on 08/12/2016. 9. Panic attacks: Patient started on Cymbalta 20 mg daily and Xanax 0.25 mg 3 times daily as needed for panic attack/anxiety attacks. I have discontinued his Zanaflex (muscle relaxant) due to the interaction it has with benzodiazepines. Gil Shaw MD August 13, 2016 08:29
--- NOTE | 2016-08-13 08:32 | RADRPT ---
EXAM DATE/TIME: 08/13/2016 06:36 [facility] COMPARISON: CHEST SINGLE AP, August 11, 2016, 7:41. INDICATIONS : Short of breath, evaluate effusion MEDICAL HISTORY : Carcinoma, lung. Chronic obstructive pulmonary disease. SURGICAL HISTORY : chest tube ENCOUNTER: Subsequent ACUITY: 2 weeks PAIN SCORE: 0/10 LOCATION: Bilateral chest FINDINGS: A single view of the chest demonstrates right upper lobe consolidation again noted. Increasing densit y right lower lobe. Small caliber chest tube lower right hemithorax. No pneumothorax. Small effusion. Osseous structures are intact. CONCLUSION: Increasing consolidation right lower lobe. No pneumothorax. Carlos Dee MD on August 13, 2016 at 8:29 Board Certified Radiologist. This report was verified electronically.
[2016-08-13] MEDS: PANTOPRAZOLE SOD 40 MG DELAYED RELEASE TAB PO SCH (08:47)
[2016-08-13] MEDS: FERROUS SULFATE 325 MG (65 MG ELEMENTAL IRON) TAB PO SCH ×2 (08:47→21:46)
[2016-08-13] MEDS: GABAPENTIN 100 MG CAP PO SCH ×3 (08:47→19:04)
[2016-08-13] MEDS: predniSONE 20 MG TAB PO SCH ×2 (08:47→21:53)
[2016-08-13] MEDS: NYSTATIN SUSP 500,000 U/5 ML CUP SWISH-SWAL SCH ×4 (08:48→21:47)
[2016-08-13] MEDS: LACTULOSE SYRUP 20 GM/30 ML CUP PO SCH (08:48)
[2016-08-13] MEDS: DULoxetine HCl DR 20 MG CAP PO SCH (09:00)
[2016-08-13] MEDS: SODIUM CHLORIDE 0.9% FLUSH 10 ML FLUSH IV FLUSH SCH ×2 (09:00→21:54)
[2016-08-13] MEDS: ALPRAZolam 0.25 MG TAB PO PRN ×2 (09:07→20:12)
[2016-08-13 09:58] LABS: AUTOMATED NEUTROPHIL # 10.8 TH/MM3 (1.8-7.7); BASOPHIL % 0.3 % (0.0-2.0); EOSINOPHIL % 0.4 % (0.0-4.0); HEMATOCRIT 26.8 % (35.0-46.0); HEMO FLAGS DIFF FINAL; LYMPH % 1.2 % (9.0-44.0); MEAN CELL VOLUME 73.7 FL (80.0-100.0); MEAN CORPUSCULAR HEMOGLOBIN 23.1 PG (27.0-34.0); MEAN CORPUSCULAR HGB CONC 31.3 % (32.0-36.0); NEUT % 97.1 % (16.0-70.0); PLATELET COUNT 127 TH/MM3 (150-450); RED BLOOD COUNT 3.64 MIL/MM3 (4.00-5.30); RED CELL DISTRIBUTION WIDTH 18.2 % (11.6-17.2); WHITE BLOOD COUNT 11.1 TH/MM3 (4.0-11.0)
[2016-08-13 09:59] LABS: APTT (PATIENT) 26.3 SEC (24.3-30.1); LYMPHOCYTE # 0.1 TH/MM3 (1.0-4.8)
--- NOTE | 2016-08-13 11:56 | HHI.PR ---
Subjective Remarks Follow-up SVC syndrome 08/09/16-patient seen and examined, denies any shortness of breath or chest pain.Having difficulty with swallowing 08/10/16-patient seen and examined feeling on heparin drip will SVC syndrome. Denies any significant shortness of breath 08/11/16-patient seen and examined by me she report having a better day today and able to breathe better without any difficulty with taking by mouth secondary to less throat pain 08/12/16-patient seen and examined, positive for BM, swallowing much better. Plan for radiation therapy today 08/13/16-patient seen and examined; 2/2 epistaxis Heparin on hold. Patient had episode of panic attack last night Objective Vitals Vital Signs Date Time Temp Pulse Resp B/P Pulse Ox O2 Delivery O2 Flow Rate FiO2 08/13/16 08:00 97.8 99 18 153/78 97 08/13/16 07:56 95 Nasal Cannula 4.00 08/13/16 06:20 Nasal Cannula 4.00 35 08/13/16 04:00 97.7 106 18 128/77 95 08/13/16 00:00 97.9 104 20 168/89 92 08/12/16 20:25 Nasal Cannula 4.00 35 08/12/16 20:22 97 08/12/16 20:00 97.7 97 18 149/81 96 08/12/16 19:38 93 Nasal Cannula 4.00 08/12/16 12:00 96.6 106 18 161/70 95 I/O 08/12/16 08/12/16 08/12/16 08/13/16 08/13/16 08/13/16 06:59 14:59 22:59 06:59 14:59 22:59 Intake Total 861 ml 720 ml Output Total 180 ml 330 ml 20 ml Balance -180 ml 531 ml 720 ml -20 ml Intake Oral 240 ml 720 ml IV Total 621 ml Output Urine Total 150 ml Chest Tube Drainage Total 30 ml 330 ml 20 ml # Voids 1 Result Diagram: 08/13/16 0842 08/11/16 0152 Objective Remarks GENERAL: NAD SKIN: Warm and dry. HEAD: Normocephalic. EYES: No scleral icterus. No injection or drainage. NECK: Supple, trachea midline. No JVD or lymphadenopathy. CARDIOVASCULAR: Regular rate and rhythm without murmurs, gallops, or rubs. RESPIRATORY: Breath sounds equal bilaterally. No accessory muscle use. GASTROINTESTINAL: Abdomen soft, non-tender, nondistended. MUSCULOSKELETAL: No cyanosis; +facial and UEs edema. BACK: Nontender without obvious deformity. No CVA tenderness. Procedures Echo 07/30/2016 LEFT VENTRICLE: The cavity size was normal. Wall thickness was normal. Systolic function was normal. The estimated ejection fraction was in the range of 55% to 60%. Wall motion was normal; there were no regional wall motion abnormalities. Date of Insertion: August 07, 2016 Line: Central Venous Catheter Side: Left Location: Femoral A/P Problem List: (1) Metastatic primary lung cancer ICD Code: C34.90 Status: Acute (2) SVC syndrome ICD Code: I87.1 Status: Acute (3) COPD exacerbation ICD Code: J44.1 Status: Acute (4) Acute respiratory failure ICD Code: J96.00 Status: Acute Assessment and Plan 66-year-old female with - SVC syndrome - heparin drip to prevent SVC thrombosis; is currently on hold - Metastatic non-small cell lung cancer - status post Carbo/Taxol on 08/07/2016. - Hematology-oncology following. - Patient underwent emergent XRT on 08/07/2016 as well as 08/08/2016 and -Continue current pain management - Acute respiratory failure hypoxia - COPD - Probable post-obstructive pneumonia - Continue DuoNeb, Levaquin 500 mg every 24 hours, prednisone 20 mg twice a day - On Flagyl 500mg IV Q8hrs. - Pulmonary ff and continue with chest tube, status post pleurodesis 08/12 . pleural fluid cytology positive for malignancy -Likely d/c Chest tube within next 24 hours -Dysphagia-resolved - Hyperlipidemia - Continue Lipitor 40mg QHS. -Physical deconditioning-continue with aggressive PT Full code. Heparin drip. Carlos Ball MD August 13, 2016 11:56
[2016-08-13] MEDS: ONDANSETRON ODT 4 MG TAB SL PRN (12:52)
[2016-08-13] MEDS ORDERED: SOD PHOSPHATE/SOD BIPHOSPHATE (ADULT) ENEMA 133ML RECTAL ONE (16:15)
--- NOTE | 2016-08-13 18:42 | HHI.PR ---
Subjective Remarks No SOB today. Pleural fluid cytology Positive for Non small cell CA. On radiation therapy to Mediastinum due to SVC syndrome. Facial swelling less. Chest tube draining very little now ,S/P Talc pleurodesis On O2 at 4 L. Objective Vital Signs Date Time Temp Pulse Resp B/P Pulse Ox O2 Delivery O2 Flow Rate FiO2 08/13/16 12:00 97.0 102 20 131/77 95 08/13/16 08:00 101 08/13/16 08:00 Nasal Cannula 4.00 08/13/16 08:00 97.8 99 18 153/78 97 08/13/16 07:56 95 Nasal Cannula 4.00 08/13/16 06:20 Nasal Cannula 4.00 35 08/13/16 04:00 97.7 106 18 128/77 95 08/13/16 00:00 97.9 104 20 168/89 92 08/12/16 20:25 Nasal Cannula 4.00 35 08/12/16 20:22 97 08/12/16 20:00 97.7 97 18 149/81 96 08/12/16 19:38 93 Nasal Cannula 4.00 I/O 08/12/16 08/12/16 08/12/16 08/13/16 08/13/16 08/13/16 07:00 15:00 23:00 07:00 15:00 23:00 Intake Total 861 ml 720 ml Output Total 180 ml 330 ml 20 ml Balance -180 ml 531 ml 720 ml -20 ml Intake Oral 240 ml 720 ml IV Total 621 ml Output Urine Total 150 ml Chest Tube Drainage Total 30 ml 330 ml 20 ml # Voids 1 Result Diagram: 08/13/16 0842 08/11/16 0152 Procedures No procedures performed. Objective Remarks GENERAL: This is a moderately obese white female who is alert and in no acute distress. HEAD, EYES, EARS, NOSE, THROAT: Head normocephalic. The pupils are reactive and equal. Tongue is moist. Throat was clear. Mild Facial swelling +. NECK: The neck is supple. No bruits. No thyroid enlargement. No lymphadenopathy. CHEST: Decreased excursions. Breath sounds are diminished at the bases, more so on the right side. Occ Crackles at bases HEART: Heart sounds are regular. S1 and S2. No murmur. No S3. ABDOMEN: Abdomen is obese and protuberant without masses. No organomegaly or tenderness. The bowel sounds are active. EXTREMITIES: No edema. No calf tenderness. NEUROLOGIC: Reflexes are 1+. No gross motor deficits. SKIN: No lesions are noted. Assessment and Plan Assessment and Plan IMPRESSION: 1. Right hilar mass with obstructive pneumonitis. 2. Possible metastatic malignancy. 3. COPD with emphysema. 4. Nicotine dependency. 5. Right pleural effusion. Plan : 1. Chest tube to drainage. 2. Nebs qid , duoneb. 3. O2 at 4 L. 4. Chemotherapy and radiation as planned 5. Prednisone 30 mg daily 6. Will Rpt Chest Xray on Tuesday and D/C Chest tube if drainage has stopped Jigar Gutierrez MD August 13, 2016 18:42
[2016-08-13] MEDS: MORPHINE SULFATE 4 MG/ML INJ IV PUSH PRN (20:15)
[2016-08-13] MEDS: ATORVASTATIN 40 MG TAB PO SCH (21:47)
[2016-08-13] MEDS: SIMETHICONE 125 MG CHEWABLE TAB PO PRN (22:28)
[2016-08-14] VITALS (10 sets, daily range): BP systolic 115–144; BP diastolic 71–78; PULSE 87–93; RESP 19–22; TEMP 95.6–99.5; O2SAT 90–97
[2016-08-14] MEDS: oxyCODONE/ACETAMINOPHEN 10 MG/325 MG TAB PO PRN ×4 (01:10→20:39)
[2016-08-14] MEDS: MORPHINE SULFATE 4 MG/ML INJ IV PUSH PRN (03:01)
[2016-08-14] MEDS: ALPRAZolam 0.25 MG TAB PO PRN ×2 (06:51→20:39)
[2016-08-14] MEDS: LACTULOSE SYRUP 20 GM/30 ML CUP PO SCH (08:05)
[2016-08-14] MEDS: PANTOPRAZOLE SOD 40 MG DELAYED RELEASE TAB PO SCH (08:06)
[2016-08-14] MEDS: FERROUS SULFATE 325 MG (65 MG ELEMENTAL IRON) TAB PO SCH ×2 (08:06→20:39)
[2016-08-14] MEDS: predniSONE 20 MG TAB PO SCH ×2 (08:06→20:39)
[2016-08-14] MEDS: NYSTATIN SUSP 500,000 U/5 ML CUP SWISH-SWAL SCH ×4 (08:06→20:39)
[2016-08-14] MEDS: SODIUM CHLORIDE 0.9% FLUSH 10 ML FLUSH IV FLUSH SCH ×2 (08:07→20:40)
[2016-08-14] MEDS: DULoxetine HCl DR 20 MG CAP PO SCH (08:07)
[2016-08-14] MEDS: GABAPENTIN 100 MG CAP PO SCH ×3 (08:07→18:07)
--- NOTE | 2016-08-14 08:59 | PD.ONC.PN ---
Subjective Subjective Remarks Afebrile overnight. Patient says she feels woozy due to the multiple pain and anxiety medications she is on. Her reports he has noticed some wet cough. She states she has not had any further nosebleeds. Her pain in her back is controlled on her current pain regimen as long as she takes the pain medications on time and doesn't wait until she has the pain. The anti-anxiety medications have been helping with her anxiety, she states. She did not get a chance to eat much yesterday, so she cannot report on her swallowing. She did have multiple bowel movements yesterday. Objective Data Date Time Temp Pulse Resp B/P Pulse Ox O2 Delivery O2 Flow Rate FiO2 08/14/16 04:00 98.0 90 22 135/73 96 08/14/16 03:06 18 08/14/16 02:10 18 08/14/16 00:00 96.0 90 21 139/78 97 08/13/16 20:15 Nasal Cannula 4.00 35 08/13/16 20:06 96 08/13/16 16:00 97.5 95 20 133/79 95 08/13/16 12:00 97.0 102 20 131/77 95 Result Diagram: 08/13/16 0842 08/11/16 0152 Administered Medications Medications (Trade) Dose Ordered Sig/Alistair Route PRN Reason Start Time Stop Time Status Last Admin Dose Admin Sodium Chloride (NS Flush) 2 ml UNSCH PRN IV FLUSH FLUSH AFTER USING IV ACCESS 07/30/16 03:45 08/07/16 19:51 Sodium Chloride (NS Flush) 2 ml BID IV FLUSH 07/30/16 09:00 08/14/16 08:07 Pantoprazole Sodium (Protonix) 40 mg DAILY PO 07/30/16 09:00 08/14/16 08:06 Atorvastatin Calcium (Lipitor) 40 mg HS PO 07/30/16 21:00 08/13/16 21:47 Ondansetron HCl (Zofran Odt) 4 mg Q6HR PRN SL Nausea/Vomiting 07/30/16 05:30 08/13/16 12:52 Gabapentin (Neurontin) 200 mg TID PO 08/04/16 09:25 08/14/16 08:07 Senna/Docusate Sodium (Shira-Colace) 1 tab BID PRN PO CONSTIPATION 08/04/16 17:00 08/06/16 08:48 Nystatin (Mycostatin Liq) 5 ml QID SWISH-SWAL 08/06/16 15:00 08/14/16 08:06 Miscellaneous Information Patient in critical care unit? Ass... Q361D .XX 08/08/16 00:30 08/08/16 00:30 Morphine Sulfate (Morphine Inj) 4 mg Q3H PRN IV PUSH PAIN 1-10 08/08/16 09:30 08/14/16 03:01 Oxycodone/ Acetaminophen (Percocet 10-325 Mg) 1 tab Q6H PRN PO pain 1-10 08/09/16 11:45 08/14/16 06:54 Prednisone (Deltasone) 20 mg BID PO 08/10/16 21:00 08/14/16 08:06 Lactulose (Lactulose Liq) 30 ml DAILY PO 08/12/16 09:00 08/14/16 08:05 Sodium Chloride ([place]) 2 spray Q4H PRN EACH NARE NASAL CONGESTION 08/12/16 22:00 08/13/16 06:12 Ferrous Sulfate (Ferrous Sulfate) 325 mg BID PO 08/13/16 09:00 08/14/16 08:06 Alprazolam (Xanax) 0.25 mg Q8H PRN PO PANIC ATTACK 08/13/16 08:30 08/14/16 06:51 Duloxetine HCl (Cymbalta Dr) 20 mg DAILY PO 08/13/16 09:00 08/14/16 08:07 Simethicone (Phazyme Chew) 125 mg Q8HR PRN PO GAS RETENTION 08/13/16 20:00 08/13/16 22:28 Objective Remarks GENERAL: Middle aged female, sitting up in bed, on 4L O2 via NC SKIN: Warm and dry. HEAD: Normocephalic. EYES: No injection or drainage. NECK: Supple, trachea midline. CARDIOVASCULAR: +S1/S2 RESPIRATORY: diminished at bases, scattered rhonchi GASTROINTESTINAL: Abdomen soft, non-tender, nondistended. EXTREMITIES: No cyanosis NEUROLOGICAL: awake and alert, normal speech Assessment/Plan Assessment 66-year-old female with newly diagnosed metastatic non-small cell carcinoma of the lung, pleural fluid cytology indicates likely adenocarcinoma with possible squamous cell features as well. +SVC syndrome. emergent radiation started . Plan 1. Metastatic non-small cell carcinoma of the lung: s/p carbo/taxol on 08/07. Started mediastinal RT on 08/07/2016. 2. SVC syndrome: Chemotherapy radiation, heparin drip discontinued. start Lovenox 40mg SQ BID today 3. Non-small cell carcinoma of the lung with adenocarcinoma component: Pleural fluid EGFR, ALK, ROS mutational analysis ordered. Additionally PDL-1 expression has also been requested (more than once). 4. Right-sided malignant pleural effusion: Chest tube remains in place. She underwent talc pleurodesis on 08/12/2016. Chest tube remains in place. pulmonology following, plans to remove on Tuesday 5. Constipation: on daily Lactulose. LBM--08/14 6. Poor nutritional intake: on soft solids. 7. PT: She is essentially been in bed other than 2 hours she spent on a chair 2 days ago. Certainly needs intensive physical therapy. 8. Extensive bony metastases: receives Percocet and IV Morphine for pain. 9. Panic attacks: on Cymbalta 20 mg daily and Xanax 0.25 mg 3 times daily as needed for panic attack/anxiety attacks. 10. Nosebleeds: none since 08/13 Attending Statement The exam, history, and the medical decision-making described in the above note were completed with the assistance of the mid-level provider. I reviewed and agree with the findings presented. I attest that I had a [id number] encounter with the patient on the same day, and personally performed and documented my assessment and findings in the medical record. Start anticoagulation has severe microcytic anemia check anemia studies will benefit from IV iron continue nebs/steroids start PT Lactulose prn for constipation Jesi Smith August 14, 2016 08:59 Roberto Benz MD August 14, 2016 23:40
--- NOTE | 2016-08-14 09:49 | RADRPT ---
EXAM DATE/TIME: 08/14/2016 09:17 [facility] COMPARISON: CHEST SINGLE AP, August 13, 2016, 6:36. INDICATIONS : Cough and short of breath. MEDICAL HISTORY : Carcinoma, lung. Chronic obstructive pulmonary disease. SURGICAL HISTORY : Chest tube. ENCOUNTER: Subsequent ACUITY: 2 weeks PAIN SCORE: 0/10 LOCATION: Bilateral chest FINDINGS: 2 AP views of the chest demonstrate normal-sized cardiac silhouette. There is moderate size right ple ural-parenchymal opacity. Pigtail catheter overlies the inferior right hemithorax. No pneumothorax is visualized. There is mild retrocardiac opacity. Rib fractures are again visualized. CONCLUSION: 1. Right chest tube remains present and no pneumothorax is visualized. 2. There is a moderate size right pleural-parenchymal opacity. The right lung is less well-aerated th an on the prior examination from yesterday. 3. Stable atelectasis versus consolidation in the left lower lobe. Fredy Gasca MD on August 14, 2016 at 9:46 Board Certified Radiologist. This report was verified electronically.
--- NOTE | 2016-08-14 10:46 | HHI.PR ---
Subjective Remarks Follow-up SVC syndrome 08/09/16-patient seen and examined, denies any shortness of breath or chest pain.Having difficulty with swallowing 08/10/16-patient seen and examined feeling on heparin drip will SVC syndrome. Denies any significant shortness of breath 08/11/16-patient seen and examined by me she report having a better day today and able to breathe better without any difficulty with taking by mouth secondary to less throat pain 08/12/16-patient seen and examined, positive for BM, swallowing much better. Plan for radiation therapy today 08/13/16-patient seen and examined; 2/2 epistaxis Heparin on hold. Patient had episode of panic attack last night 08/14/16-patient seen and examined, positive for multiple bowel movement, resting. Systane on the bedroom. Case discussed with ALIREZA Dennison Objective Vitals Vital Signs Date Time Temp Pulse Resp B/P Pulse Ox O2 Delivery O2 Flow Rate FiO2 08/14/16 10:23 94 Nasal Cannula 4.00 08/14/16 09:00 Nasal Cannula 4.00 08/14/16 08:00 99.5 91 20 137/75 94 08/14/16 04:00 98.0 90 22 135/73 96 08/14/16 03:06 18 08/14/16 02:10 18 08/14/16 00:00 96.0 90 21 139/78 97 08/13/16 20:15 Nasal Cannula 4.00 35 08/13/16 20:06 96 08/13/16 16:00 97.5 95 20 133/79 95 08/13/16 12:00 97.0 102 20 131/77 95 I/O 08/13/16 08/13/16 08/13/16 08/14/16 08/14/16 08/14/16 07:00 15:00 23:00 07:00 15:00 23:00 Intake Total 720 ml 840 ml 240 ml Output Total 20 ml 50 ml Balance 720 ml -20 ml 840 ml 190 ml Intake Oral 720 ml 840 ml 240 ml Chest Tube Drainage Total 20 ml 50 ml # Voids 1 2 # Bowel Movements 1 Result Diagram: 08/13/16 0842 08/11/16 0152 Objective Remarks GENERAL: NAD SKIN: Warm and dry. HEAD: Normocephalic. EYES: No scleral icterus. No injection or drainage. NECK: Supple, trachea midline. No JVD or lymphadenopathy. CARDIOVASCULAR: Regular rate and rhythm without murmurs, gallops, or rubs. RESPIRATORY: Breath sounds equal bilaterally. No accessory muscle use. GASTROINTESTINAL: Abdomen soft, non-tender, nondistended. MUSCULOSKELETAL: No cyanosis; +facial and UEs edema. BACK: Nontender without obvious deformity. No CVA tenderness. Procedures Echo 07/30/2016 LEFT VENTRICLE: The cavity size was normal. Wall thickness was normal. Systolic function was normal. The estimated ejection fraction was in the range of 55% to 60%. Wall motion was normal; there were no regional wall motion abnormalities. Date of Insertion: August 07, 2016 Line: Central Venous Catheter Side: Left Location: Femoral A/P Problem List: (1) Metastatic primary lung cancer ICD Code: C34.90 Status: Acute (2) SVC syndrome ICD Code: I87.1 Status: Acute (3) COPD exacerbation ICD Code: J44.1 Status: Acute (4) Acute respiratory failure ICD Code: J96.00 Status: Acute Assessment and Plan 66-year-old female with - SVC syndrome - Lovenox 40 mg subcutaneous twice a day to prevent SVC thrombosis; i - Metastatic non-small cell lung cancer - status post Carbo/Taxol on 08/07/2016. - Hematology-oncology following. - Patient underwent emergent XRT on 08/07/2016 as well as 08/08/2016 and -Continue current pain management - Acute respiratory failure hypoxia - COPD - Probable post-obstructive pneumonia - Continue DuoNeb, Levaquin 500 mg every 24 hours, prednisone 20 mg twice a day - On Flagyl 500mg IV Q8hrs. - Pulmonary ff and continue with chest tube, status post pleurodesis 08/12 . pleural fluid cytology positive for malignancy -Likely d/c Chest tube next 08/16/16 -Dysphagia-resolved -Anxiety/panic attack: Currently on Cymbalta 20 mg daily and Xanax - Hyperlipidemia - Continue Lipitor 40mg QHS. -Physical deconditioning-continue with aggressive PT Full code. Lovenox. Carlos Ball MD August 14, 2016 10:46
[2016-08-14] MEDS: ENOXAPARIN SODIUM 40 MG/0.4 ML SYRINGE SQ SCH ×2 (11:25→20:40)
[2016-08-14] MEDS: ONDANSETRON ODT 4 MG TAB SL PRN (13:44)
[2016-08-14] MEDS: SIMETHICONE 125 MG CHEWABLE TAB PO PRN ×2 (14:22→20:39)
[2016-08-14] MEDS: RESP: ALBUTEROL 2.5 MG/IPRATROPIUM 0.5 MG NEB (SCH) INH ×2 (14:34→19:35)
[2016-08-14 20:06] LABS: AUTOMATED NEUTROPHIL # 2.9 TH/MM3 (1.8-7.7); BASOPHIL % 0.3 % (0.0-2.0); EOSINOPHIL % 0.3 % (0.0-4.0); HEMATOCRIT 23.4 % (35.0-46.0); HEMO FLAGS AUTO DIFF; LYMPHOCYTE # 0.1 TH/MM3 (1.0-4.8); MEAN CELL VOLUME 72.9 FL (80.0-100.0); MEAN CORPUSCULAR HEMOGLOBIN 23.7 PG (27.0-34.0); MEAN CORPUSCULAR HGB CONC 32.4 % (32.0-36.0); MONO % 2.5 % (0.0-8.0); NEUT % 94.9 % (16.0-70.0); PLATELET COUNT 87 TH/MM3 (150-450); RED BLOOD COUNT 3.21 MIL/MM3 (4.00-5.30); WHITE BLOOD COUNT 3.1 TH/MM3 (4.0-11.0)
[2016-08-14 20:26] LABS: ALKALINE PHOSPHATASE 118 U/L (45-117); ALT (GPT) 107 U/L (10-53); ANION GAP 8 MEQ/L (5-15); AST (GOT) 59 U/L (15-37); BICARBONATE 33.7 MEQ/L (21.0-32.0); BLOOD UREA NITROGEN 25 MG/DL (7-18); CHLORIDE 86 MEQ/L (98-107); GLOMERULAR FILTRATION RATE 199 ML/MIN (>89); POTASSIUM 5.5 MEQ/L (3.5-5.1); SODIUM (NA) 128 MEQ/L (136-145); TOTAL BILIRUBIN ADULT 0.4 MG/DL (0.2-1.0)
[2016-08-14 20:34] LABS: BANDS 22 % (0-6); MYELOCYTES 1 % (0-0); PLATELET ESTIMATE SMEAR LOW (NORMAL); PLATELET MORPHOLOGY NORMAL (NORMAL); POLYS (SEG NEUTROPHILS) 73 % (16-70); SCAN/DIFF FINAL DIFF MANUAL; WBC DIFF SAMPLE 100
[2016-08-14] MEDS: ATORVASTATIN 40 MG TAB PO SCH (20:39)
[2016-08-15] VITALS (8 sets, daily range): BP systolic 119–138; BP diastolic 68–97; PULSE 89–95; RESP 16–22; TEMP 95.6–97.3; O2SAT 91–94
[2016-08-15] MEDS: RESP: ALBUTEROL 2.5 MG/IPRATROPIUM 0.5 MG NEB (PRN) NEB (01:16)
[2016-08-15] MEDS ORDERED: FUROSEMIDE 20 MG/2 ML VIAL IV PUSH ONE (01:30)
[2016-08-15] MEDS: oxyCODONE/ACETAMINOPHEN 10 MG/325 MG TAB PO PRN ×4 (03:50→21:20)
[2016-08-15 06:06] LABS: AUTOMATED NEUTROPHIL # 1.9 TH/MM3 (1.8-7.7); BASOPHIL % 0.1 % (0.0-2.0); EOSINOPHIL % 0.1 % (0.0-4.0); HEMATOCRIT 23.6 % (35.0-46.0); LYMPH % 3.7 % (9.0-44.0); LYMPHOCYTE # 0.1 TH/MM3 (1.0-4.8); MEAN CORPUSCULAR HEMOGLOBIN 23.6 PG (27.0-34.0); MEAN CORPUSCULAR HGB CONC 31.9 % (32.0-36.0); MONO % 7.8 % (0.0-8.0); NEUT % 88.3 % (16.0-70.0); PLATELET COUNT 82 TH/MM3 (150-450); RED BLOOD COUNT 3.19 MIL/MM3 (4.00-5.30); RED CELL DISTRIBUTION WIDTH 18.1 % (11.6-17.2); WHITE BLOOD COUNT 2.1 TH/MM3 (4.0-11.0)
[2016-08-15 06:17] LABS: HEMO FLAGS AUTO DIFF
[2016-08-15 06:33] LABS: TRANSFERRIN IRON PROFILE 171 MG/DL (200-360)
[2016-08-15] MEDS: RESP: ALBUTEROL 2.5 MG/IPRATROPIUM 0.5 MG NEB (SCH) INH ×3 (07:52→20:06)
--- NOTE | 2016-08-15 09:19 | PD.ONC.PN ---
Subjective Subjective Remarks Afebrile overnight. Patient states she had a hard time sleeping last night due to multiple interruptions. she had a lot of coughing and her feels her cough is getting raspier. Objective Data Date Time Temp Pulse Resp B/P Pulse Ox O2 Delivery O2 Flow Rate FiO2 08/15/16 07:50 94 Nasal Cannula 5.00 08/15/16 05:41 18 08/15/16 04:00 96.0 93 16 129/68 91 08/15/16 00:00 95.6 93 22 126/97 91 08/14/16 20:35 Nasal Cannula 4.00 35 08/14/16 20:12 90 08/14/16 20:00 95.6 87 19 115/76 95 08/14/16 19:35 95 Nasal Cannula 4.00 08/14/16 16:00 97.1 92 20 142/74 94 08/14/16 12:51 97.5 93 22 144/71 90 08/14/16 11:23 92 08/14/16 10:23 94 Nasal Cannula 4.00 Result Diagram: 08/15/1652108/14/16 1919 Laboratory Results Laboratory Tests Test 08/14/16 08/15/16 19:19 05:22 White Blood Count 3.1 TH/MM3 2.1 TH/MM3 Red Blood Count 3.21 MIL/MM3 3.19 MIL/MM3 Hemoglobin 7.6 GM/DL 7.5 GM/DL Hematocrit 23.4 % 23.6 % Mean Corpuscular Volume 72.9 FL 74.0 FL Mean Corpuscular Hemoglobin 23.7 PG 23.6 PG Mean Corpuscular Hemoglobin 32.4 % 31.9 % Concent Red Cell Distribution Width 18.0 % 18.1 % Platelet Count 87 TH/MM3 82 TH/MM3 Mean Platelet Volume 9.2 FL 9.3 FL Neutrophils (%) (Auto) 94.9 % 88.3 % Lymphocytes (%) (Auto) 2.0 % 3.7 % Monocytes (%) (Auto) 2.5 % 7.8 % Eosinophils (%) (Auto) 0.3 % 0.1 % Basophils (%) (Auto) 0.3 % 0.1 % Neutrophils # (Auto) 2.9 TH/MM3 1.9 TH/MM3 Lymphocytes # (Auto) 0.1 TH/MM3 0.1 TH/MM3 Monocytes # (Auto) 0.1 TH/MM3 0.2 TH/MM3 Eosinophils # (Auto) 0.0 TH/MM3 0.0 TH/MM3 Basophils # (Auto) 0.0 TH/MM3 0.0 TH/MM3 CBC Comment AUTO DIFF AUTO DIFF Differential Total Cells 100 Counted Neutrophils % (Manual) 73 % Band Neutrophils % 22 % Lymphocytes % 2 % Monocytes % 2 % Neutrophils # (Manual) 3.0 TH/MM3 Myelocytes 1 % Differential Comment FINAL DIFF MANUAL Platelet Estimate LOW Platelet Morphology Comment NORMAL Sodium Level 128 MEQ/L Potassium Level 5.5 MEQ/L Chloride Level 86 MEQ/L Carbon Dioxide Level 33.7 MEQ/L Anion Gap 8 MEQ/L Blood Urea Nitrogen 25 MG/DL Creatinine 0.33 MG/DL Estimat Glomerular Filtration 199 ML/MIN Rate Random Glucose 120 MG/DL Calcium Level 8.3 MG/DL Total Bilirubin 0.4 MG/DL Aspartate Amino Transf 59 U/L (AST/SGOT) Alanine Aminotransferase 107 U/L (ALT/SGPT) Alkaline Phosphatase 118 U/L Total Protein 5.4 GM/DL Albumin 2.3 GM/DL Iron Level 50 MCG/DL Total Iron Binding Capacity 239 MCG/DL Percent Iron Saturation 20.9 % Transferrin 171 MG/DL Vitamin B12 Level GREATER THAN 2000 PG/ML Folate 17.1 NG/ML Administered Medications Medications (Trade) Dose Ordered Sig/Alistair Route PRN Reason Start Time Stop Time Status Last Admin Dose Admin Sodium Chloride (NS Flush) 2 ml UNSCH PRN IV FLUSH FLUSH AFTER USING IV ACCESS 07/30/16 03:45 08/07/16 19:51 Sodium Chloride (NS Flush) 2 ml BID IV FLUSH 07/30/16 09:00 08/14/16 20:40 Pantoprazole Sodium (Protonix) 40 mg DAILY PO 07/30/16 09:00 08/14/16 08:06 Atorvastatin Calcium (Lipitor) 40 mg HS PO 07/30/16 21:00 08/14/16 20:39 Ondansetron HCl (Zofran Odt) 4 mg Q6HR PRN SL Nausea/Vomiting 07/30/16 05:30 08/14/16 13:44 Gabapentin (Neurontin) 200 mg TID PO 08/04/16 09:25 08/14/16 18:07 Senna/Docusate Sodium (Shira-Colace) 1 tab BID PRN PO CONSTIPATION 08/04/16 17:00 08/06/16 08:48 Nystatin (Mycostatin Liq) 5 ml QID SWISH-SWAL 08/06/16 15:00 08/14/16 20:39 Miscellaneous Information Patient in critical care unit? Ass... Q361D .XX 08/08/16 00:30 08/08/16 00:30 Morphine Sulfate (Morphine Inj) 4 mg Q3H PRN IV PUSH PAIN 1-10 08/08/16 09:30 08/14/16 03:01 Oxycodone/ Acetaminophen (Percocet 10-325 Mg) 1 tab Q6H PRN PO pain 1-10 08/09/16 11:45 08/15/16 03:50 Prednisone (Deltasone) 20 mg BID PO 08/10/16 21:00 08/14/16 20:39 Lactulose (Lactulose Liq) 30 ml DAILY PO 08/12/16 09:00 08/14/16 08:05 Sodium Chloride ([place]) 2 spray Q4H PRN EACH NARE NASAL CONGESTION 08/12/16 22:00 08/13/16 06:12 Ferrous Sulfate (Ferrous Sulfate) 325 mg BID PO 08/13/16 09:00 08/14/16 20:39 Alprazolam (Xanax) 0.25 mg Q8H PRN PO PANIC ATTACK 08/13/16 08:30 08/14/16 20:39 Duloxetine HCl (Cymbalta Dr) 20 mg DAILY PO 08/13/16 09:00 08/14/16 08:07 Simethicone (Phazyme Chew) 125 mg Q8HR PRN PO GAS RETENTION 08/13/16 20:00 08/14/16 20:39 Enoxaparin Sodium (Lovenox Inj) 40 mg Q12H SQ 08/14/16 09:00 08/14/16 20:40 Objective Remarks GENERAL: chronically ill female, lying in bed, appears weak. SKIN: Warm and dry. HEAD: Normocephalic. EYES: No injection or drainage. NECK: Supple, trachea midline. CARDIOVASCULAR: +S1/S2 RESPIRATORY: diminished at right base. scattered rhonchi. on 5L O2 GASTROINTESTINAL: Abdomen soft, non-tender, nondistended. EXTREMITIES: No cyanosis NEUROLOGICAL: awake but somnolent. normal speech. able to move extremities. Assessment/Plan Assessment 66-year-old female with newly diagnosed metastatic non-small cell carcinoma of the lung, pleural fluid cytology indicates likely adenocarcinoma with possible squamous cell features as well. +SVC syndrome. emergent radiation started . Plan 1. Metastatic non-small cell carcinoma of the lung: s/p carbo/taxol on 08/07. Started mediastinal RT on 08/07/2016. 2. SVC syndrome: Chemotherapy radiation, heparin drip discontinued. continue Lovenox 40mg SQ BID--will need to d/c or reduce if/when platelets fall to less than 50K or bleeding 3. Non-small cell carcinoma of the lung with adenocarcinoma component: Pleural fluid EGFR, ALK, ROS mutational analysis ordered. Additionally PDL-1 expression has also been requested (more than once). 4. Right-sided malignant pleural effusion: Chest tube remains in place. She underwent talc pleurodesis on 08/12/2016. Chest tube remains in place. pulmonology following, plans to remove on Tuesday 5. Constipation: on daily Lactulose. LBM--08/15 6. Poor nutritional intake: on soft solids. will consult dietary for calorie count, may need to start TPN 7. PT: She is essentially been in bed other than 2 hours she spent on a chair 2 days ago. Certainly needs intensive physical therapy. 8. Extensive bony metastases: receives Percocet and IV Morphine for pain-- patient wants to stay on this pain regimen, I offered her long-acting morphine. 9. Panic attacks: on Cymbalta 20 mg daily and Xanax 0.25 mg 3 times daily as needed for panic attack/anxiety attacks. 10. Nosebleeds: none since 08/13 11. Right lower lobe consolidation: Obstructive pneumonia VS HCAP-- IV Cefepime plus Levaquin 12. Pancytopenia: due to chemotherapy. monitor. start Neupogen Attending Statement The exam, history, and the medical decision-making described in the above note were completed with the assistance of the mid-level provider. I reviewed and agree with the findings presented. I attest that I had a [id number] encounter with the patient on the same day, and personally performed and documented my assessment and findings in the medical record. Leukopenia worsening--will start Neupogen Chest Xray shows obstructive pneumonia.Will start IV cefepime and Levaquin. avoid Zosyn at this point since Zosyn can worsen pancytopenia Anemia worsening and given greater degree of dyspne, will give 1 unit of PRBC d/w Jesi Heller August 15, 2016 09:18 Roberto Benz MD August 15, 2016 23:48
[2016-08-15] MEDS: SIMETHICONE 125 MG CHEWABLE TAB PO PRN (09:28)
[2016-08-15] MEDS: ONDANSETRON ODT 4 MG TAB SL PRN ×2 (09:28→15:32)
[2016-08-15] MEDS: GABAPENTIN 100 MG CAP PO SCH ×3 (09:28→17:06)
[2016-08-15] MEDS: DULoxetine HCl DR 20 MG CAP PO SCH (09:28)
[2016-08-15] MEDS: PANTOPRAZOLE SOD 40 MG DELAYED RELEASE TAB PO SCH (09:28)
[2016-08-15] MEDS: predniSONE 20 MG TAB PO SCH (09:29)
[2016-08-15] MEDS: ENOXAPARIN SODIUM 40 MG/0.4 ML SYRINGE SQ SCH ×2 (09:29→20:51)
[2016-08-15] MEDS: FERROUS SULFATE 325 MG (65 MG ELEMENTAL IRON) TAB PO SCH ×2 (09:29→20:51)
[2016-08-15] MEDS: LACTULOSE SYRUP 20 GM/30 ML CUP PO SCH (09:29)
[2016-08-15] MEDS: NYSTATIN SUSP 500,000 U/5 ML CUP SWISH-SWAL SCH ×4 (09:29→20:51)
[2016-08-15] MEDS: SODIUM CHLORIDE 0.9% FLUSH 10 ML FLUSH IV FLUSH SCH ×2 (09:30→20:52)
[2016-08-15 09:36] LABS: BANDS 14 % (0-6); NEUTROPHIL # MANUAL DIFF 1.9 TH/MM3 (1.8-7.7); POLYS (SEG NEUTROPHILS) 77 % (16-70); WBC DIFF SAMPLE 100
[2016-08-15 09:37] LABS: OVALOCYTES 1+ (NORMAL); PLATELET ESTIMATE SMEAR LOW (NORMAL); PLATELET MORPHOLOGY NORMAL (NORMAL); SCAN/DIFF FINAL DIFF MANUAL
[2016-08-15 09:44] LABS: BICARBONATE 29.1 MEQ/L (21.0-32.0); POTASSIUM 5.5 MEQ/L (3.5-5.1)
[2016-08-15] MEDS: MORPHINE SULFATE 4 MG/ML INJ IV PUSH PRN (09:57)
[2016-08-15] MEDS ORDERED: PIPERACIL-TAZO 4.5 GM PREMIX 100 ML IV SCH (10:00)
[2016-08-15] MEDS ORDERED: DILTIAZEM HCL 25 MG/5 ML VIAL IVP ONE (10:15)
[2016-08-15] MEDS ORDERED: DILTIAZEM INJ 125 MG in SODIUM CHLORIDE 0.9% INJ 100 ML IV SCH (11:00)
--- NOTE | 2016-08-15 13:29 | HHI.PR ---
Subjective Remarks Follow-up SVC syndrome 08/09/16-patient seen and examined, denies any shortness of breath or chest pain.Having difficulty with swallowing 08/10/16-patient seen and examined feeling on heparin drip will SVC syndrome. Denies any significant shortness of breath 08/11/16-patient seen and examined by me she report having a better day today and able to breathe better without any difficulty with taking by mouth secondary to less throat pain 08/12/16-patient seen and examined, positive for BM, swallowing much better. Plan for radiation therapy today 08/13/16-patient seen and examined; 2/2 epistaxis Heparin on hold. Patient had episode of panic attack last night 08/14/16-patient seen and examined, positive for multiple bowel movement, resting. Systane on the bedroom. Case discussed with ALIREZA Dennison 08/15/16-patient seen and examined,HELICAT was call on patient secondary to A. fib with rapid ventricular response for which Cardizem bolus and drip order were given with transfer to N, however patient converted to normal rhythm. She appears fatigued this morning Objective Vitals Vital Signs Date Time Temp Pulse Resp B/P Pulse Ox O2 Delivery O2 Flow Rate FiO2 08/15/16 12:00 97.3 89 22 138/71 92 08/15/16 09:50 93 08/15/16 09:50 Nasal Cannula 4.00 35 08/15/16 08:00 96.7 92 20 129/73 93 08/15/16 07:50 94 Nasal Cannula 5.00 08/15/16 05:41 18 08/15/16 04:00 96.0 93 16 129/68 91 08/15/16 00:00 95.6 93 22 126/97 91 08/14/16 20:35 Nasal Cannula 4.00 35 08/14/16 20:12 90 08/14/16 20:00 95.6 87 19 115/76 95 08/14/16 19:35 95 Nasal Cannula 4.00 08/14/16 16:00 97.1 92 20 142/74 94 I/O 08/14/16 08/14/16 08/14/16 08/15/16 08/15/16 08/15/16 07:00 15:00 23:00 07:00 15:00 23:00 Intake Total 240 ml 480 ml 480 ml 480 ml Output Total 50 ml Balance 190 ml 480 ml 480 ml 480 ml Intake Oral 240 ml 480 ml 480 ml 480 ml Chest Tube Drainage Total 50 ml # Voids 3 1 3 # Bowel Movements 3 0 1 Result Diagram: 08/15/1652108/15/16521 Objective Remarks GENERAL: NAD SKIN: Warm and dry. HEAD: Normocephalic. EYES: No scleral icterus. No injection or drainage. NECK: Supple, trachea midline. No JVD or lymphadenopathy. CARDIOVASCULAR: Regular rate and rhythm without murmurs, gallops, or rubs. RESPIRATORY: Breath sounds equal bilaterally. No accessory muscle use. GASTROINTESTINAL: Abdomen soft, non-tender, nondistended. MUSCULOSKELETAL: No cyanosis; +facial and UEs edema. BACK: Nontender without obvious deformity. No CVA tenderness. Procedures Echo 07/30/2016 LEFT VENTRICLE: The cavity size was normal. Wall thickness was normal. Systolic function was normal. The estimated ejection fraction was in the range of 55% to 60%. Wall motion was normal; there were no regional wall motion abnormalities. Date of Insertion: August 07, 2016 Line: Central Venous Catheter Side: Left Location: Femoral A/P Problem List: (1) Metastatic primary lung cancer ICD Code: C34.90 Status: Acute (2) SVC syndrome ICD Code: I87.1 Status: Acute (3) COPD exacerbation ICD Code: J44.1 Status: Acute (4) Acute respiratory failure ICD Code: J96.00 Status: Acute (5) Atrial fibrillation with RVR ICD Code: I48.91 Status: Acute Assessment and Plan 66-year-old female with - SVC syndrome - Lovenox 40 mg subcutaneous twice a day to prevent SVC thrombosis; - Metastatic non-small cell lung cancer - status post Carbo/Taxol on 08/07/2016. - Hematology-oncology following. - Patient underwent emergent XRT on 08/07/2016 as well as 08/08/2016 and -Continue current pain management - Acute respiratory failure hypoxia - COPD - Probable post-obstructive pneumonia - Continue DuoNeb, Levaquin 500 mg every 24 hours, prednisone 20 mg twice a day - On Flagyl 500mg IV Q8hrs. - Pulmonary ff and continue with chest tube, status post pleurodesis 08/12 . pleural fluid cytology positive for malignancy -Likely d/c Chest tube next 08/16/16 Atrial fibrillation rapid ventricular response 08/15/16 Cardizem bolus and Cardizem drip ordered, however patient subsequently converted to sinus rhythm without any medication -Dysphagia-resolved -Anxiety/panic attack: Currently on Cymbalta 20 mg daily and Xanax - Hyperlipidemia - Continue Lipitor 40mg QHS. -Physical deconditioning-continue with aggressive PT Full code. Lovenox. Carlos Ball MD August 15, 2016 13:29
[2016-08-15] MEDS ORDERED: BUMETANIDE INJ 1 MG/4 ML VIAL IV PUSH ONE (13:30)
[2016-08-15] MEDS: methylPREDNISolone SOD SUCC 125 MG/2 ML VIAL IV PUSH SCH (13:48)
[2016-08-15] MEDS: FILGRASTIM 300 MCG/ML VIAL SQ SCH (13:48)
[2016-08-15] MEDS: PIPERACIL-TAZO 4.5 GM PREMIX 100 ML IV SCH ×3 (13:57→20:51)
[2016-08-15] MEDS: ALPRAZolam 0.25 MG TAB PO PRN (20:07)
[2016-08-15] MEDS: ATORVASTATIN 40 MG TAB PO SCH (20:51)
[2016-08-16] VITALS (12 sets, daily range): BP systolic 120–142; BP diastolic 60–77; PULSE 86–98; RESP 17–22; TEMP 96.1–98.4; O2SAT 87–96
[2016-08-16] MEDS: methylPREDNISolone SOD SUCC 125 MG/2 ML VIAL IV PUSH SCH ×2 (02:22→15:37)
[2016-08-16] MEDS: oxyCODONE/ACETAMINOPHEN 10 MG/325 MG TAB PO PRN ×4 (03:23→21:59)
[2016-08-16 04:40] LABS: HEMATOCRIT 22.9 % (35.0-46.0); MEAN CELL VOLUME 72.8 FL (80.0-100.0); MEAN CORPUSCULAR HEMOGLOBIN 23.9 PG (27.0-34.0); MEAN CORPUSCULAR HGB CONC 32.9 % (32.0-36.0); PLATELET COUNT 96 TH/MM3 (150-450); RED BLOOD COUNT 3.14 MIL/MM3 (4.00-5.30); RED CELL DISTRIBUTION WIDTH 17.9 % (11.6-17.2); WHITE BLOOD COUNT 1.2 TH/MM3 (4.0-11.0)
[2016-08-16 04:41] LABS: REVIEW FLAG FINAL
[2016-08-16 04:58] LABS: BICARBONATE 34.9 MEQ/L (21.0-32.0)
[2016-08-16] MEDS ORDERED: ACETAMINOPHEN 325 MG TAB PO PRN (06:00)
[2016-08-16] MEDS ORDERED: diphenhydrAMINE HCL 25 MG CAP PO PRN (06:00)
[2016-08-16] MEDS: CEFEPIME INJ 2,000 MG in SODIUM CHLORIDE 0.9% INJ 100 ML IV SCH ×3 (06:52→23:13)
[2016-08-16] MEDS: RESP: ALBUTEROL 2.5 MG/IPRATROPIUM 0.5 MG NEB (SCH) INH ×3 (07:35→20:55)
--- NOTE | 2016-08-16 08:30 | RADRPT ---
EXAM DATE/TIME: 08/16/2016 07:53 [facility] COMPARISON: CT PULMONARY ANGIOGRAM, August 07, 2016, 13:12. CHEST SINGLE AP, August 14, 2016, 9:17. INDICATIONS : Cough and evaluate for infiltrate MEDICAL HISTORY : Carcinoma, lung. Chronic obstructive pulmonary disease. SURGICAL HISTORY : Chest tube. ENCOUNTER: Subsequent ACUITY: 2 weeks PAIN SCORE: 0/10 LOCATION: Bilateral chest FINDINGS: Portable AP view of the chest demonstrates a normal-sized cardiac silhouette. There is complete opaci fication of the right hemithorax. Small bore pigtail catheter overlies the inferior right hemithorax. No pneumothorax is visualized. There is atelectasis in the left lower lobe. CONCLUSION: There is now complete opacification of the right hemithorax without signs of volume loss. A small bor e right chest tube remains present. Findings are suspected to be secondary to enlargement of a pleura l effusion. Fredy Gasca MD on August 16, 2016 at 8:26 Board Certified Radiologist. This report was verified electronically.
[2016-08-16] MEDS: DULoxetine HCl DR 20 MG CAP PO SCH (09:35)
[2016-08-16] MEDS: FERROUS SULFATE 325 MG (65 MG ELEMENTAL IRON) TAB PO SCH ×2 (09:35→21:59)
[2016-08-16] MEDS: GABAPENTIN 100 MG CAP PO SCH ×3 (09:35→20:00)
[2016-08-16] MEDS: PANTOPRAZOLE SOD 40 MG DELAYED RELEASE TAB PO SCH (09:35)
[2016-08-16] MEDS: ENOXAPARIN SODIUM 40 MG/0.4 ML SYRINGE SQ SCH ×2 (09:36→21:59)
[2016-08-16] MEDS: NYSTATIN SUSP 500,000 U/5 ML CUP SWISH-SWAL SCH ×4 (09:36→22:00)
[2016-08-16] MEDS: LACTULOSE SYRUP 20 GM/30 ML CUP PO SCH (09:36)
--- NOTE | 2016-08-16 10:09 | PD.ONC.PN ---
Subjective Subjective Remarks Patient reports having difficulty breathing, she tells me she feels weak, she tells me she has no appetite and she feels her right arm is more swollen. She had an episode of atrial fibrillation yesterday and is now on a diltiazem drip for heart rate control. She is increasingly neutropenic; likely related to chemotherapy related myelosuppression. She is receiving a red cell transfusion currently for management of anemia; most likely also related to chemotherapy related myelosuppression. Over the past 2 days she is barely anything per the and has remained in bed. Objective Data Date Time Temp Pulse Resp B/P Pulse Ox O2 Delivery O2 Flow Rate FiO2 08/16/16 09:47 Nasal Cannula 5.00 08/16/16 08:35 96.9 08/16/16 08:25 90 21 139/63 91 08/16/16 08:01 96.1 98 21 138/60 90 08/16/16 07:37 87 Nasal Cannula 5.00 08/16/16 04:29 18 08/16/16 04:00 96.3 86 18 127/72 92 08/16/16 01:16 Nasal Cannula 4.00 35 08/16/16 01:08 90 08/16/16 00:00 96.8 89 17 129/72 92 08/15/16 20:06 Nasal Cannula 4.00 35 08/15/16 20:00 96.0 94 18 119/83 92 08/15/16 16:00 96.9 95 22 137/68 92 08/15/16 12:00 97.3 89 22 138/71 92 Result Diagram: 08/16/16 0413 08/16/16 0413 Laboratory Results Laboratory Tests Test 08/16/16 04:13 White Blood Count 1.2 TH/MM3 Red Blood Count 3.14 MIL/MM3 Hemoglobin 7.5 GM/DL Hematocrit 22.9 % Mean Corpuscular Volume 72.8 FL Mean Corpuscular Hemoglobin 23.9 PG Mean Corpuscular Hemoglobin 32.9 % Concent Red Cell Distribution Width 17.9 % Platelet Count 96 TH/MM3 Mean Platelet Volume 9.1 FL Sodium Level 126 MEQ/L Potassium Level 5.0 MEQ/L Chloride Level 85 MEQ/L Carbon Dioxide Level 34.9 MEQ/L Anion Gap 6 MEQ/L Blood Urea Nitrogen 23 MG/DL Creatinine 0.44 MG/DL Estimat Glomerular Filtration 143 ML/MIN Rate Random Glucose 104 MG/DL Calcium Level 8.2 MG/DL Blood Type O POSITIVE Antibody Screen NEGATIVE Crossmatch Leukocyte-Reduced Red Blood Cells Blood Bank Comment Imaging Studies Last 24 hours Impressions Chest X-Ray 08/16/16 0000 Signed Impressions: Service Date/Time: Tuesday, August 16, 2016 07:53 - CONCLUSION: There is now complete opacification of the right hemithorax without signs of volume loss. A small bore right chest tube remains present. Findings are suspected to be secondary to enlargement of a pleural effusion. Fredy Gasca MD Administered Medications Medications (Trade) Dose Ordered Sig/Alistair Route PRN Reason Start Time Stop Time Status Last Admin Dose Admin Sodium Chloride (NS Flush) 2 ml UNSCH PRN IV FLUSH FLUSH AFTER USING IV ACCESS 07/30/16 03:45 08/07/16 19:51 Sodium Chloride (NS Flush) 2 ml BID IV FLUSH 07/30/16 09:00 08/15/16 20:52 Pantoprazole Sodium (Protonix) 40 mg DAILY PO 07/30/16 09:00 08/16/16 09:35 Atorvastatin Calcium (Lipitor) 40 mg HS PO 07/30/16 21:00 08/15/16 20:51 Ondansetron HCl (Zofran Odt) 4 mg Q6HR PRN SL Nausea/Vomiting 07/30/16 05:30 08/15/16 15:32 Gabapentin (Neurontin) 200 mg TID PO 08/04/16 09:25 08/16/16 09:35 Senna/Docusate Sodium (Shira-Colace) 1 tab BID PRN PO CONSTIPATION 08/04/16 17:00 08/06/16 08:48 Nystatin (Mycostatin Liq) 5 ml QID SWISH-SWAL 08/06/16 15:00 08/16/16 09:36 Miscellaneous Information Patient in critical care unit? Ass... [id number] .XX 08/08/16 00:30 08/08/16 00:30 Morphine Sulfate (Morphine Inj) 4 mg Q3H PRN IV PUSH PAIN 1-10 08/08/16 09:30 08/15/16 09:57 Oxycodone/ Acetaminophen (Percocet 10-325 Mg) 1 tab Q6H PRN PO pain 1-10 08/09/16 11:45 08/16/16 09:36 Lactulose (Lactulose Liq) 30 ml DAILY PO 08/12/16 09:00 08/16/16 09:36 Sodium Chloride ([place] [facility]) 2 spray Q4H PRN EACH NARE NASAL CONGESTION 08/12/16 22:00 08/13/16 06:12 Ferrous Sulfate (Ferrous Sulfate) 325 mg BID PO 08/13/16 09:00 08/16/16 09:35 Alprazolam (Xanax) 0.25 mg Q8H PRN PO PANIC ATTACK 08/13/16 08:30 08/15/16 20:07 Duloxetine HCl (Cymbalta Dr) 20 mg DAILY PO 08/13/16 09:00 08/16/16 09:35 Simethicone (Phazyme Chew) 125 mg Q8HR PRN PO GAS RETENTION 08/13/16 20:00 08/15/16 09:28 Enoxaparin Sodium (Lovenox Inj) 40 mg Q12H SQ 08/14/16 09:00 08/16/16 09:36 Filgrastim (Neupogen Inj) 300 mcg DAILY@14 SQ 08/15/16 14:00 08/15/16 13:48 Methylprednisolone Sodium Succinate 60 mg 60 mg Q12H IV PUSH 08/15/16 14:00 08/16/16 02:22 Cefepime HCl/ Sodium Chloride (Maxipime Inj/NS Inj) 100 ml @ 200 mls/hr Q8H IV 08/16/16 07:00 08/16/16 06:52 Acetaminophen (Tylenol) 650 mg UNSCH PRN PO GIVE 30 MIN PRIOR TRANSFUSION 08/16/16 06:00 08/16/16 06:48 Diphenhydramine HCl (Benadryl) 25 mg UNSCH PRN PO 30 MIN PRIOR TO TRANSFUSION 08/16/16 06:00 08/16/16 06:47 Objective Remarks GENERAL: Elderly lady, appears to be acutely ill, she sitting up in bed propped up on pillows, on oxygen via nasal cannula, and moderate respiratory distress. SKIN: Warm and dry. HEAD: Normocephalic. EYES: She is conjunctival edema bilaterally. NECK: Soft tissue edema noted, no pathologically enlarged lymphadenopathy appreciated. LYMPHATIC: No adenopathy. CARDIOVASCULAR: Regular rate and rhythm, S1-S2 with a systolic murmur over the aortic area. RESPIRATORY: Coarse breath sounds, conducted upper airway coarse crepitus, decreased bibasilar breath sounds, prolonged expiratory phase, no obvious rhonchi or wheezes. GASTROINTESTINAL: Obese belly, soft, no obvious tenderness. EXTREMITIES: Edema bilateral upper extremities, right greater than left, the right sided upper extreme edema is worse than it was when I last saw the patient on Tuesday. MUSCULOSKELETAL: Generally decreased muscle mass and tone. NEUROLOGICAL: Generally weak, moving all 4 limbs spontaneously. PSYCHIATRIC: She seems a little bit more confused today. Assessment/Plan Assessment 66-year-old female with newly diagnosed metastatic non-small cell carcinoma of the lung, pleural fluid cytology indicates likely adenocarcinoma with possible squamous cell features as well. +SVC syndrome. emergent radiation started . Plan 1. Metastatic non-small cell carcinoma of the lung: s/p carbo/taxol on 08/07. Started mediastinal RT on 08/07/2016. 2. SVC syndrome: Chemotherapy radiation, heparin drip discontinued. continue Lovenox 40mg SQ BID--will need to d/c or reduce if/when platelets fall to less than 50K or bleeding 3. Non-small cell carcinoma of the lung with adenocarcinoma component: Pleural fluid EGFR, ALK, ROS mutational analysis ordered. Additionally PDL-1 expression has also been requested (more than once). 4. Right-sided malignant pleural effusion: Chest tube remains in place. She underwent talc pleurodesis on 08/12/2016. Chest tube remains in place. pulmonology following, plans to remove on Tuesday 5. Constipation: on daily Lactulose. LBM--08/15 6. Poor nutritional intake: on soft solids. will consult dietary for calorie count, may need to start TPN. 7. PT: She is essentially been in bed other than 2 hours she spent on a chair 2 days ago. Certainly needs intensive physical therapy, but has been unable to participate. 8. Extensive bony metastases: receives Percocet and IV Morphine for pain-- patient wants to stay on this pain regimen, I offered her long-acting morphine. She was treated with pamidronate last week. 9. Panic attacks: on Cymbalta 20 mg daily and Xanax 0.25 mg 3 times daily as needed for panic attack/anxiety attacks. 10. Nosebleeds: none since 08/13 11. Right lower lobe consolidation: Obstructive pneumonia VS HCAP-- IV Cefepime plus Levaquin 12. Pancytopenia: due to chemotherapy. monitor. start Neupogen. CODE STATUS: DNR/DNI. Ultrasound Dopplers of bilateral upper extremities been ordered to rule out deep venous thromboses. I did talk to the patient's today about her precarious clinical condition and explained to him that a rapid decompensation could happen at any time given her respiratory status. I offered to involve the palliative care team but the patient's told me that he is aware of what her wishes are and that they have spoken about end-of- life care multiple times in the past. The patient's makes it clear to me that he does not want to see his on the ventilator, he tells me this is what her wishes are. I would recommend continuing supportive care, overall prognosis is quite poor. The patient's will consider at what point he thinks hospice is most appropriate. I did offer some encouragement, I explained to him that she is currently at the solange that patients experience after chemotherapy infusion with regards to blood counts as well as energy levels. There is a chance that her condition may improve over the next 4-5 days. Gil Shaw MD August 16, 2016 10:09
[2016-08-16] MEDS: ALPRAZolam 0.25 MG TAB PO PRN (10:26)
--- NOTE | 2016-08-16 11:18 | HHI.HCPN ---
PER chart review note changes in pt condition: Halicat for Afib RVR yesteday, s /p cardizem,reported now back in SR. CXR worsening. Cont to be pancytopenic, oncology following. Attempted to see pt to follow up on symptoms of dyspnea, pain, provide support given declining status; seen with [facility] social worker. Pt is tearful, appears angry. They do not wish to talk today, requested we return tomorrow. Provided my contact information. Palliative will continue to follow. Mahsa Mendoza August 16, 2016 11:18
[2016-08-16] MEDS: LEVOFLOXACIN 750 MG PREMIX INJ 150 ML IV SCH (13:18)
[2016-08-16] MEDS: SODIUM CHLORIDE 0.9% FLUSH 10 ML FLUSH IV FLUSH SCH ×2 (13:26→22:00)
--- NOTE | 2016-08-16 13:26 | HHI.PR ---
Subjective Remarks Follow-up SVC syndrome 08/09/16-patient seen and examined, denies any shortness of breath or chest pain.Having difficulty with swallowing 08/10/16-patient seen and examined feeling on heparin drip will SVC syndrome. Denies any significant shortness of breath 08/11/16-patient seen and examined by me she report having a better day today and able to breathe better without any difficulty with taking by mouth secondary to less throat pain 08/12/16-patient seen and examined, positive for BM, swallowing much better. Plan for radiation therapy today 08/13/16-patient seen and examined; 2/2 epistaxis Heparin on hold. Patient had episode of panic attack last night 08/14/16-patient seen and examined, positive for multiple bowel movement, resting. Systane on the bedroom. Case discussed with ALIREZA Dennison 08/15/16-patient seen and examined,HELICAT was call on patient secondary to A. fib with rapid ventricular response for which Cardizem bolus and drip order were given with transfer to , however patient converted to normal rhythm. She appears fatigued this morning 08/16/16-patient seen and examined, appears fatigued and tired. Decrease respiratory drive with significant chest congestion. Sister by the bedside Objective Vitals Vital Signs Date Time Temp Pulse Resp B/P Pulse Ox O2 Delivery O2 Flow Rate FiO2 08/16/16 10:02 97 08/16/16 09:47 Nasal Cannula 5.00 08/16/16 08:35 96.9 08/16/16 08:25 90 21 139/63 91 08/16/16 08:01 96.1 98 21 138/60 90 08/16/16 07:37 87 Nasal Cannula 5.00 08/16/16 04:29 18 08/16/16 04:00 96.3 86 18 127/72 92 08/16/16 01:16 Nasal Cannula 4.00 35 08/16/16 01:08 90 08/16/16 00:00 96.8 89 17 129/72 92 08/15/16 20:06 Nasal Cannula 4.00 35 08/15/16 20:00 96.0 94 18 119/83 92 08/15/16 16:00 96.9 95 22 137/68 92 I/O 08/15/16 08/15/16 08/15/16 08/16/16/29/17 5/29/17 07:00 15:00 23:00 07:00 15:00 23:00 Intake Total 480 ml 960 ml 240 ml 480 ml Output Total 200 ml Balance 480 ml 960 ml 240 ml 280 ml Intake Oral 480 ml 960 ml 240 ml 480 ml Output Urine Total 200 ml Chest Tube Drainage Total 0 ml # Voids 3 2 3 3 # Bowel Movements 1 1 2 3 Result Diagram: 08/16/16 0413 08/16/16 0413 Objective Remarks GENERAL: NAD SKIN: Warm and dry. HEAD: Normocephalic. EYES: No scleral icterus. No injection or drainage. NECK: Supple, trachea midline. No JVD or lymphadenopathy. CARDIOVASCULAR: Regular rate and rhythm without murmurs, gallops, or rubs. RESPIRATORY: Breath sounds decreased bilaterally. No accessory muscle use. GASTROINTESTINAL: Abdomen soft, non-tender, nondistended. MUSCULOSKELETAL: No cyanosis; +facial and UEs edema. BACK: Nontender without obvious deformity. No CVA tenderness. Procedures Echo 07/30/2016 LEFT VENTRICLE: The cavity size was normal. Wall thickness was normal. Systolic function was normal. The estimated ejection fraction was in the range of 55% to 60%. Wall motion was normal; there were no regional wall motion abnormalities. Date of Insertion: August 07, 2016 Line: Central Venous Catheter Side: Left Location: Femoral A/P Problem List: (1) Metastatic primary lung cancer ICD Code: C34.90 Status: Acute (2) SVC syndrome ICD Code: I87.1 Status: Acute (3) COPD exacerbation ICD Code: J44.1 Status: Acute (4) Acute respiratory failure ICD Code: J96.00 Status: Acute (5) Atrial fibrillation with RVR ICD Code: I48.91 Status: Acute Assessment and Plan 66-year-old female with - SVC syndrome - Lovenox 40 mg subcutaneous twice a day to prevent SVC thrombosis; - Metastatic non-small cell lung cancer - status post Carbo/Taxol on 08/07/2016. - Hematology-oncology following. - Patient underwent emergent XRT on 08/07/2016 as well as 08/08/2016 and -Continue current pain management Prognostic very guarded and patient at this point would benefit from hospice. She is now DO NOT RESUSCITATE - Acute respiratory failure hypoxia - COPD - Probable post-obstructive pneumonia - Continue DuoNeb, Levaquin 500 mg every 24 hours, prednisone 20 mg twice a day - On Flagyl 500mg IV Q8hrs. - Pulmonary ff and continue with chest tube, status post pleurodesis 08/12 . pleural fluid cytology positive for malignancy Anemia of chronic blood loss Transfuse 1 unit packed red blood cell today 08/16/16 and monitor H&H. Gave Lasix 10 mg IV 1 after blood transfusion Atrial fibrillation rapid ventricular response 08/15/16 Cardizem bolus and Cardizem drip ordered, however patient subsequently converted to sinus rhythm without any medication -Dysphagia-resolved -Anxiety/panic attack: Currently on Cymbalta 20 mg daily and Xanax - Hyperlipidemia - Continue Lipitor 40mg QHS. -Physical deconditioning-continue with aggressive PT Full code. Lovenox. Carlos Ball MD August 16, 2016 13:26
[2016-08-16] MEDS ORDERED: FUROSEMIDE 20 MG/2 ML VIAL IV PUSH ONE (14:00)
--- NOTE | 2016-08-16 14:06 | HHI.PR ---
Subjective Remarks No SOB today. Pleural fluid cytology Positive for Non small cell CA. On radiation therapy to Mediastinum due to SVC syndrome. Chest X ray shows an opacity over the right chest.Possibly pleural fluid with atelectasis. Chest tube draining very little now ,S/P Talc pleurodesis. Pt is DNR now . D/W Dr Shaw. On O2 at 4 L. Objective Vital Signs Date Time Temp Pulse Resp B/P Pulse Ox O2 Delivery O2 Flow Rate FiO2 08/16/16 13:26 14 08/16/16 10:02 97 08/16/16 09:47 Nasal Cannula 5.00 08/16/16 08:35 96.9 08/16/16 08:25 90 21 139/63 91 08/16/16 08:01 96.1 98 21 138/60 90 08/16/16 07:37 87 Nasal Cannula 5.00 08/16/16 04:00 96.3 86 18 127/72 92 08/16/16 01:16 Nasal Cannula 4.00 35 08/16/16 01:08 90 08/16/16 00:00 96.8 89 17 129/72 92 08/15/16 20:06 Nasal Cannula 4.00 35 08/15/16 20:00 96.0 94 18 119/83 92 08/15/16 16:00 96.9 95 22 137/68 92 I/O 08/15/16 08/15/16 08/15/16 08/16/16 08/16/16 08/16/16 07:00 15:00 23:00 07:00 15:00 23:00 Intake Total 480 ml 960 ml 240 ml 480 ml Output Total 200 ml Balance 480 ml 960 ml 240 ml 280 ml Intake Oral 480 ml 960 ml 240 ml 480 ml Output Urine Total 200 ml Chest Tube Drainage Total 0 ml # Voids 3 2 3 3 # Bowel Movements 1 1 2 3 Result Diagram: 08/16/16 0413 08/16/16 0413 Procedures No procedures performed. Objective Remarks GENERAL: This is a elderly white female who is alert and in mild distress. HEAD, EYES, EARS, NOSE, THROAT: Head normocephalic. The pupils are reactive and equal. Tongue is moist. Throat was clear. Mild Facial swelling +. NECK: The neck is supple. No bruits. No thyroid enlargement. No lymphadenopathy. CHEST: Decreased excursions on the right. Breath sounds are diminished at the bases, more so on the right side. Occ Crackles at right upper chest HEART: Heart sounds are regular. S1 and S2. No murmur. No S3. ABDOMEN: Abdomen is obese and protuberant without masses. No organomegaly or tenderness. The bowel sounds are active. EXTREMITIES: No edema. NEUROLOGIC: Reflexes are 1+. Lethargic. SKIN: No lesions are noted. Assessment and Plan Assessment and Plan IMPRESSION: 1. Right hilar mass with obstructive pneumonitis. 2. Possible metastatic malignancy. 3. COPD with emphysema. 4. Nicotine dependency. 5. Right pleural effusion. Plan : 1. Get IR to place new chest tube. 2. Nebs qid , duoneb. 3. O2 at 6 L. 4. Chemotherapy and radiation as planned 5. Add Solumedrol 40 mg bid 6. Doing a bronch may need intubation and vent support. Jigar Gutierrez MD August 16, 2016 14:06
[2016-08-16] MEDS: FILGRASTIM 300 MCG/ML VIAL SQ SCH (15:37)
[2016-08-16] MEDS: ATORVASTATIN 40 MG TAB PO SCH (21:59)
[2016-08-17 00:50] VITALS: BP 142/67; PULSE 94; RESP 23; TEMP 98.7; O2SAT 93
[2016-08-17] MEDS: methylPREDNISolone SOD SUCC 125 MG/2 ML VIAL IV PUSH SCH ×2 (03:49→14:00)
[2016-08-17] MEDS: oxyCODONE/ACETAMINOPHEN 10 MG/325 MG TAB PO PRN ×2 (04:33→10:45)
[2016-08-17 05:00] VITALS: BP 144/70; PULSE 96; RESP 21; TEMP 97; O2SAT 93
[2016-08-17 06:51] LABS: HEMATOCRIT 26.2 % (35.0-46.0); MEAN CELL VOLUME 75.1 FL (80.0-100.0); MEAN CORPUSCULAR HEMOGLOBIN 24.7 PG (27.0-34.0); MEAN CORPUSCULAR HGB CONC 32.9 % (32.0-36.0); PLATELET COUNT 82 TH/MM3 (150-450); RED BLOOD COUNT 3.48 MIL/MM3 (4.00-5.30); WHITE BLOOD COUNT 0.9 TH/MM3 (4.0-11.0)
[2016-08-17 07:14] LABS: REVIEW FLAG FINAL
[2016-08-17] MEDS: ALPRAZolam 0.25 MG TAB PO PRN ×2 (07:21→14:18)
[2016-08-17] MEDS: CEFEPIME INJ 2,000 MG in SODIUM CHLORIDE 0.9% INJ 100 ML IV SCH ×2 (07:22→15:00)
[2016-08-17 08:09] VITALS: O2SAT 90
[2016-08-17] MEDS: RESP: ALBUTEROL 2.5 MG/IPRATROPIUM 0.5 MG NEB (SCH) INH ×2 (08:09→13:31)
[2016-08-17 08:21] VITALS: PULSE 104
[2016-08-17 08:29] VITALS: BP 149/72; PULSE 89; RESP 20; TEMP 96.7; O2SAT 91
[2016-08-17] MEDS: MORPHINE SULFATE 4 MG/ML INJ IV PUSH PRN ×3 (09:17→15:13)
[2016-08-17] MEDS: SODIUM CHLORIDE 0.9% FLUSH 10 ML FLUSH IV FLUSH SCH (10:46)
[2016-08-17] MEDS: LEVOFLOXACIN 750 MG PREMIX INJ 150 ML IV SCH (10:46)
[2016-08-17] MEDS: FERROUS SULFATE 325 MG (65 MG ELEMENTAL IRON) TAB PO SCH (10:47)
[2016-08-17] MEDS: LACTULOSE SYRUP 20 GM/30 ML CUP PO SCH (10:47)
[2016-08-17] MEDS: DULoxetine HCl DR 20 MG CAP PO SCH (10:47)
[2016-08-17] MEDS: GABAPENTIN 100 MG CAP PO SCH ×2 (10:47→13:00)
[2016-08-17] MEDS: PANTOPRAZOLE SOD 40 MG DELAYED RELEASE TAB PO SCH (10:47)
[2016-08-17] MEDS: ENOXAPARIN SODIUM 40 MG/0.4 ML SYRINGE SQ SCH (10:48)
[2016-08-17] MEDS: NYSTATIN SUSP 500,000 U/5 ML CUP SWISH-SWAL SCH ×2 (10:48→13:00)
[2016-08-17] MEDS ORDERED: PROT40TA PO (12:56)
[2016-08-17] MEDS ORDERED: FERR325T20 PO (12:56)
[2016-08-17] MEDS ORDERED: GABA100C4 PO (12:56)
[2016-08-17] MEDS ORDERED: DULO20 PO (12:56)
--- NOTE | 2016-08-17 12:56 | HHI.PR ---
Subjective Remarks No SOB today. Pleural fluid cytology Positive for Non small cell CA. On radiation therapy to Mediastinum due to SVC syndrome. Chest X ray shows an opacity over the right chest.Possibly pleural fluid with atelectasis. Chest tube draining very little now ,S/P Talc pleurodesis. Pt is DNR now . D/W Dr Shaw. Will remove the present chest tube. On O2 at 4 L. She will go to Hospice. Objective Vital Signs Date Time Temp Pulse Resp B/P Pulse Ox O2 Delivery O2 Flow Rate FiO2 08/17/16 10:51 14 08/17/16 10:48 14 08/17/16 08:29 96.7 89 20 149/72 91 08/17/16 08:21 104 08/17/16 08:09 90 Nasal Cannula 6.00 08/17/16 05:00 97.0 96 21 144/70 93 08/17/16 00:50 98.7 94 23 142/67 93 08/16/16 22:02 98.4 96 22 142/68 96 08/16/16 22:00 Nasal Cannula 5.00 35 08/16/16 20:57 Nasal Cannula 5.00 08/16/16 20:03 96 08/16/16 16:19 97.4 98 20 139/62 92 I/O 08/16/16 08/16/16 08/16/16 08/17/16 08/17/16 08/17/16 07:00 15:00 23:00 07:00 15:00 23:00 Intake Total 480 ml 240 ml 120 ml 240 ml Output Total 200 ml 600 ml Balance 280 ml 240 ml -480 ml 240 ml Intake Oral 480 ml 240 ml 120 ml 240 ml Output Urine Total 200 ml 600 ml Chest Tube Drainage Total 0 ml # Voids 3 1 2 # Bowel Movements 3 1 1 2 Result Diagram: 08/17/16 0610 08/16/16 0413 Procedures No procedures performed. Objective Remarks GENERAL: This is a elderly white female who is alert and in mild distress. HEAD, EYES, EARS, NOSE, THROAT: Head normocephalic. The pupils are reactive and equal. Throat was clear. Mild Facial swelling +. NECK: The neck is supple. No bruits. No thyroid enlargement. No lymphadenopathy. CHEST: Decreased excursions on the right. Breath sounds are diminished at the right bases, and has Occ Crackles at right upper chest HEART: Heart sounds are regular. S1 and S2. No murmur. No S3. ABDOMEN: Abdomen is obese and protuberant without masses. No organomegaly or tenderness. The bowel sounds are active. EXTREMITIES: No edema. NEUROLOGIC: Reflexes are 1+. SKIN: No lesions are noted. Assessment and Plan Assessment and Plan IMPRESSION: 1. Right hilar mass with obstructive pneumonitis. 2. Possible metastatic malignancy. 3. COPD with emphysema. 4. Nicotine dependency. 5. Right pleural effusion. Plan : 1. Remove Chest tube. 2. Nebs qid , duoneb. 3. O2 at 6 L. 4. To hospice 5. Prednisone 20 mg daily Jigar Gutierrez MD August 17, 2016 12:56
--- NOTE | 2016-08-17 12:58 | HHI.PR ---
Subjective Remarks Follow-up SVC syndrome 08/09/16-patient seen and examined, denies any shortness of breath or chest pain.Having difficulty with swallowing 08/10/16-patient seen and examined feeling on heparin drip will SVC syndrome. Denies any significant shortness of breath 08/11/16-patient seen and examined by me she report having a better day today and able to breathe better without any difficulty with taking by mouth secondary to less throat pain 08/12/16-patient seen and examined, positive for BM, swallowing much better. Plan for radiation therapy today 08/13/16-patient seen and examined; 2/2 epistaxis Heparin on hold. Patient had episode of panic attack last night 08/14/16-patient seen and examined, positive for multiple bowel movement, resting. Systane on the bedroom. Case discussed with ALIREZA Dennison 08/15/16-patient seen and examined,HELICAT was call on patient secondary to A. fib with rapid ventricular response for which Cardizem bolus and drip order were given with transfer to 4N, however patient converted to normal rhythm. She appears fatigued this morning 08/16/16-patient seen and examined, appears fatigued and tired. Decrease respiratory drive with significant chest congestion. Sister by the bedside 08/17/16-patient seen and examined. Patient and family agreed on hospice. Case discussed with Dr. Mccray Objective Vitals Vital Signs Date Time Temp Pulse Resp B/P Pulse Ox O2 Delivery O2 Flow Rate FiO2 08/17/16 10:51 14 08/17/16 10:48 14 08/17/16 08:29 96.7 89 20 149/72 91 08/17/16 08:21 104 08/17/16 08:09 90 Nasal Cannula 6.00 08/17/16 05:00 97.0 96 21 144/70 93 08/17/16 00:50 98.7 94 23 142/67 93 08/16/16 22:02 98.4 96 22 142/68 96 08/16/16 22:00 Nasal Cannula 5.00 35 08/16/16 20:57 Nasal Cannula 5.00 08/16/16 20:03 96 08/16/16 16:19 97.4 98 20 139/62 92 I/O 08/16/16 08/16/16 08/16/16 08/17/1617 5/30/17 06:59 14:59 22:59 06:59 14:59 22:59 Intake Total 480 ml 240 ml 120 ml 240 ml Output Total 200 ml 600 ml Balance 280 ml 240 ml -480 ml 240 ml Intake Oral 480 ml 240 ml 120 ml 240 ml Output Urine Total 200 ml 600 ml Chest Tube Drainage Total 0 ml # Voids 3 1 2 # Bowel Movements 3 1 1 2 Result Diagram: 08/17/16 0610 08/16/16 0413 Objective Remarks GENERAL: NAD SKIN: Warm and dry. HEAD: Normocephalic. EYES: No scleral icterus. No injection or drainage. NECK: Supple, trachea midline. No JVD or lymphadenopathy. CARDIOVASCULAR: Regular rate and rhythm without murmurs, gallops, or rubs. RESPIRATORY: Breath sounds decreased bilaterally. No accessory muscle use. GASTROINTESTINAL: Abdomen soft, non-tender, nondistended. MUSCULOSKELETAL: No cyanosis; +facial and UEs edema. BACK: Nontender without obvious deformity. No CVA tenderness. Procedures Echo 07/30/2016 LEFT VENTRICLE: The cavity size was normal. Wall thickness was normal. Systolic function was normal. The estimated ejection fraction was in the range of 55% to 60%. Wall motion was normal; there were no regional wall motion abnormalities. Date of Insertion: August 07, 2016 Line: Central Venous Catheter Side: Left Location: Femoral A/P Problem List: (1) Metastatic primary lung cancer ICD Code: C34.90 Status: Acute (2) SVC syndrome ICD Code: I87.1 Status: Acute (3) COPD exacerbation ICD Code: J44.1 Status: Acute (4) Acute respiratory failure ICD Code: J96.00 Status: Acute (5) Atrial fibrillation with RVR ICD Code: I48.91 Status: Acute Assessment and Plan 66-year-old female with - SVC syndrome - Lovenox 40 mg subcutaneous twice a day to prevent SVC thrombosis; - Metastatic non-small cell lung cancer - status post Carbo/Taxol on 08/07/2016. - Hematology-oncology following. - Patient underwent emergent XRT on 08/07/2016 as well as 08/08/2016 and -Continue current pain management Prognostic very guarded and patient at this point would benefit from hospice. She is now DO NOT RESUSCITATE - Acute respiratory failure hypoxia - COPD - Probable post-obstructive pneumonia - Continue DuoNeb, Levaquin 500 mg every 24 hours, prednisone 20 mg twice a day - On Flagyl 500mg IV Q8hrs. - Pulmonary ff and chest tube to be removed today 08/17/16, status post pleurodesis 08/12 . pleural fluid cytology positive for malignancy Anemia of chronic blood loss Transfused 1 unit packed red blood cell 08/16/16 and monitor H&H. Atrial fibrillation rapid ventricular response 08/15/16 Cardizem bolus and Cardizem drip ordered, however patient subsequently converted to sinus rhythm without any medication -Dysphagia-resolved -Anxiety/panic attack: Currently on Cymbalta 20 mg daily and Xanax - Hyperlipidemia - Continue Lipitor 40mg QHS. -Physical deconditioning-continue with aggressive PT Full code. Lovenox. Carlos Ball MD August 17, 2016 12:58
--- NOTE | 2016-08-17 12:59 | HHI.DS ---
Discharge Summary Admission Date July 30, 2016 at 03:44 Discharge Date: August 17, 2016 Admitting Diagnosis Copd exacerbation, hypoxia, new lung nodule (1) Metastatic primary lung cancer ICD Code: C34.90 (2) SVC syndrome ICD Code: I87.1 (3) COPD exacerbation ICD Code: J44.1 (4) Acute respiratory failure ICD Code: J96.00 (5) Atrial fibrillation with RVR ICD Code: I48.91 Procedures Echo 07/30/2016 LEFT VENTRICLE: The cavity size was normal. Wall thickness was normal. Systolic function was normal. The estimated ejection fraction was in the range of 55% to 60%. Wall motion was normal; there were no regional wall motion abnormalities. Brief History - From Admission This is a 66 year old female patient with a past medical history which includes kidney stone, bronchitis and hyperlipidemia. Presents to the to the emergency department today with complaints of shortness of breath and cough productive of white phlegm 4 days. Patient also reports subjective fever. Patient reports that shortness of breath has gotten progressively worse over the past 4 days also associated with bilateral lower extremity 1+ pitting edema. Patient reports she has intermittent episodes of sharp abdominal pain with vomiting which patient attributes to her known cholecystitis. Patient is following with outpatient surgeon and has a planned Cholecystectomy pending for August 22. Patient is currently on abx for UTI has taken 5 days of abx unknown name Patient denies recent extended travel, chest pain changes only changes in appetite. CBC/BMP: 08/17/16 0610 08/16/16 0413 Significant Findings Laboratory Tests Test 08/14/16 08/15/16 08/16/16 08/17/16 19:19 05:22 04:13 06:10 White Blood Count 3.1 TH/MM3 2.1 TH/MM3 1.2 TH/MM3 0.9 TH/MM3 (4.0-11.0) (4.0-11.0) (4.0-11.0) (4.0-11.0) Red Blood Count 3.21 MIL/MM3 3.19 MIL/MM3 3.14 MIL/MM3 3.48 MIL/MM3 (4.00-5.30) (4.00-5.30) (4.00-5.30) (4.00-5.30) Hemoglobin 7.6 GM/DL 7.5 GM/DL 7.5 GM/DL 8.6 GM/DL (11.6-15.3) (11.6-15.3) (11.6-15.3) (11.6-15.3) Hematocrit 23.4 % 23.6 % 22.9 % 26.2 % (35.0-46.0) (35.0-46.0) (35.0-46.0) (35.0-46.0) Mean Corpuscular Volume 72.9 FL 74.0 FL 72.8 FL 75.1 FL (80.0-100.0) (80.0-100.0) (80.0-100.0) (80.0-100.0) Mean Corpuscular Hemoglobin 23.7 PG 23.6 PG 23.9 PG 24.7 PG (27.0-34.0) (27.0-34.0) (27.0-34.0) (27.0-34.0) Red Cell Distribution Width 18.0 % 18.1 % 17.9 % 19.0 % (11.6-17.2) (11.6-17.2) (11.6-17.2) (11.6-17.2) Platelet Count 87 TH/MM3 82 TH/MM3 96 TH/MM3 82 TH/MM3 (150-450) (150-450) (150-450) (150-450) Neutrophils (%) (Auto) 94.9 % 88.3 % (16.0-70.0) (16.0-70.0) Lymphocytes (%) (Auto) 2.0 % 3.7 % (9.0-44.0) (9.0-44.0) Lymphocytes # (Auto) 0.1 TH/MM3 0.1 TH/MM3 (1.0-4.8) (1.0-4.8) Neutrophils % (Manual) 73 % (16-70) 77 % (16-70) Band Neutrophils % 22 % (0-6) 14 % (0-6) Lymphocytes % 2 % (9-44) 4 % (9-44) Myelocytes 1 % (0-0) Platelet Estimate LOW (NORMAL) LOW (NORMAL) Sodium Level 128 MEQ/L 127 MEQ/L 126 MEQ/L (136-145) (136-145) (136-145) Potassium Level 5.5 MEQ/L 5.5 MEQ/L (3.5-5.1) (3.5-5.1) Chloride Level 86 MEQ/L 85 MEQ/L 85 MEQ/L (98-107) (98-107) (98-107) Carbon Dioxide Level 33.7 MEQ/L 34.9 MEQ/L (21.0-32.0) (21.0-32.0) Blood Urea Nitrogen 25 MG/DL (7-18) 25 MG/DL (7-18) 23 MG/DL (7-18) Creatinine 0.33 MG/DL 0.35 MG/DL 0.44 MG/DL (0.50-1.00) (0.50-1.00) (0.50-1.00) Random Glucose 120 MG/DL (74-106) Calcium Level 8.3 MG/DL 8.0 MG/DL 8.2 MG/DL (8.5-10.1) (8.5-10.1) (8.5-10.1) Aspartate Amino Transf 59 U/L (15-37) (AST/SGOT) Alanine Aminotransferase 107 U/L (10-53) (ALT/SGPT) Alkaline Phosphatase 118 U/L (45-117) Total Protein 5.4 GM/DL (6.4-8.2) Albumin 2.3 GM/DL (3.4-5.0) Mean Corpuscular Hemoglobin 31.9 % Concent (32.0-36.0) Ovalocytes 1+ (NORMAL) Total Iron Binding Capacity 239 MCG/DL (250-450) Transferrin 171 MG/DL (213-418) Vitamin B12 Level GREATER THAN 2000 PG/ML (193-986) Imaging Last Impressions Chest X-Ray 08/16/16 0000 Signed Impressions: Service Date/Time: Tuesday, August 16, 2016 07:53 - CONCLUSION: There is now complete opacification of the right hemithorax without signs of volume loss. A small bore right chest tube remains present. Findings are suspected to be secondary to enlargement of a pleural effusion. Fredy Gasca MD CT Angiography 08/07/16 Signed Impressions: Service Date/Time: Sunday, August 07, 2016 13:12 - CONCLUSION: 1. Encasement and near occlusion of the SVC by a large right sided hilar/perihilar mass. 2. No evidence of pulmonary loss. 3. Diffuse bony metastatic disease. Possible metastatic disease in the adrenal glands. 4. Right lower lobe nodular density. Marked decrease in right lower lobe consolidation. Alan Cerrato MD Ent[facility] Spine MRI 07/31/16 Signed Impressions: Service Date/Time: Sunday, July 31, 2016 09:58 - CONCLUSION: Diffuse bony metastasis throughout the dorsal spine without significant canal stenosis. Carlos Dee MD Brain MRI 07/31/16 Signed Impressions: Service Date/Time: Sunday, July 31, 2016 09:58 - CONCLUSION: 1. Nonspecific white matter changes. 2. No evidence for metastatic disease to the brain parenchyma. 3. There are some bony metastatic lesions along the upper cervical spine/skull base. Carlos Dee MD Chest CT 07/30/16 Signed Impressions: Service Date/Time: Saturday, July 30, 2016 05:13 - CONCLUSION: 1. There is narrowing of the right mainstem bronchus suspicious for a right hilar mass. 2. There is a masslike density in the right upper lung measuring 2.2 x 1.6 cm. 3. There is a moderate right pleural effusion with compressive atelectasis of the right lower lung. 4. There is consolidation of the right upper lung most likely from post obstructive pneumonia. 5. Patchy infiltrate in the posterior left upper lung most likely inflammatory. 6. Multiple lytic lesions are seen throughout the thoracic spine characteristic for diffuse bony metastatic disease 7. Diffusely enlarged bilateral adrenal glands most likely metastatic disease Jero Miller MD Abdomen/Pelvis CT 07/30/16 Signed Impressions: Service Date/Time: Saturday, July 30, 2016 23:25 - CONCLUSION: 1. Diffuse bony metastatic disease. 2. Moderate right-sided pleural effusion. 3. Bilateral adrenal metastatic disease. 4. Simple right renal cyst. Jero Miller MD PE at Discharge GENERAL: NAD SKIN: Warm and dry. HEAD: Normocephalic. EYES: No scleral icterus. No injection or drainage. NECK: Supple, trachea midline. No JVD or lymphadenopathy. CARDIOVASCULAR: Regular rate and rhythm without murmurs, gallops, or rubs. RESPIRATORY: Breath sounds decreased bilaterally. No accessory muscle use. GASTROINTESTINAL: Abdomen soft, non-tender, nondistended. MUSCULOSKELETAL: No cyanosis; +facial and UEs edema. BACK: Nontender without obvious deformity. No CVA tenderness. Hospital Course - SVC syndrome - Lovenox 40 mg subcutaneous twice a day to prevent SVC thrombosis; - Metastatic non-small cell lung cancer - status post Carbo/Taxol on 08/07/2016. - Hematology-oncology following. - Patient underwent emergent XRT on 08/07/2016 as well as 08/08/2016 and -Continue current pain management Prognostic very guarded and patient at this point would benefit from hospice. She is now DO NOT RESUSCITATE - Acute respiratory failure hypoxia - COPD - Probable post-obstructive pneumonia - Continue DuoNeb, Levaquin 500 mg every 24 hours, prednisone 20 mg twice a day - On Flagyl 500mg IV Q8hrs. - Pulmonary ff and chest tube to be removed today 08/17/16, status post pleurodesis 08/12 . pleural fluid cytology positive for malignancy Anemia of chronic blood loss Transfused 1 unit packed red blood cell 08/16/16 and monitor H&H. Atrial fibrillation rapid ventricular response 08/15/16 Cardizem bolus and Cardizem drip ordered, however patient subsequently converted to sinus rhythm without any medication -Dysphagia-resolved -Anxiety/panic attack: Currently on Cymbalta 20 mg daily and Xanax - Hyperlipidemia - Continue Lipitor 40mg QHS. -Physical deconditioning-continue with aggressive PT Full code. Lovenox. Pt Condition on Discharge: Deteriorating Discharge Disposition: Hospice/ Home Discharge Time: > 30 minutes Discharge Instructions DIET: Follow Instructions for: As Tolerated, No Restrictions Activities you can perform: Regular-No Restrictions New Medications: Duloxetine (Cymbalta DR) 20 Mg Capdr 20 MG PO DAILY Control Anxiety #30 CAP Ferrous Sulfate (Ferosul) 325 Mg Tablet 325 MG PO BID Build Immunity #60 MG Gabapentin (Gabapentin) 100 Mg Cap 200 MG PO TID Build Immunity #90 CAP Pantoprazole (Protonix) 40 Mg Tab 40 MG PO DAILY Manage Heartburn #30 TAB Continued Medications: Atorvastatin (Lipitor) 40 Mg Tab 40 MG PO HS Cholesterol Management #30 Ref 0 TAB Ondansetron Odt (Zofran Odt) 4 Mg Tab 4 MG SL Q6HR PRN Nausea/Vomiting #30 Ref 0 TAB Carlos Ball MD August 17, 2016 12:59
[2016-08-17] MEDS ORDERED: FILGRASTIM 480 MCG/1.6 ML VIAL SQ SCH (14:00)
[2016-08-17 15:20] VITALS: RESP 14
== END 2016-08-17 15:55 | disposition hospice, home (50) | DRG 180 ==
LOC: NEPE 00:52 → NEDA 03:44 → INTOOBSV 03:44 → OBSVTOIN 03:44 → N04B 05:25 → N03B 08-01 16:20 → N04A 08-05 14:57 → HOCA 08-06 22:07 → HIMW 08-07 13:40 → HOCA 08-09 22:58
PROVIDERS: ADMIT Hospitalist; ATTEND Hospitalist
PROC: 5A09457 Assistance with Respiratory Ventilation, 24-96 Consecutive Hours, Continuous Positive Airway Pressure (ICD-10-PCS; 2016-08-01)
PROC: 0W9930Z Drainage of Right Pleural Cavity with Drainage Device, Percutaneous Approach (ICD-10-PCS; principal; 2016-08-02)
PROC: DBY27ZZ Contact Radiation of Lung (ICD-10-PCS; 2016-08-07)
PROC: 06HN33Z Insertion of Infusion Device into Left Femoral Vein, Percutaneous Approach (ICD-10-PCS; 2016-08-07)
PROC: 30233N1 Transfusion of Nonautologous Red Blood Cells into Peripheral Vein, Percutaneous Approach (ICD-10-PCS; 2016-08-16)
DX: C34.11 Malignant neoplasm of upper lobe, right bronchus or lung (principal); J96.01 Acute respiratory failure with hypoxia; A41.9 Sepsis, unspecified organism; J18.9 Pneumonia, unspecified organism; D61.810 Antineoplastic chemotherapy induced pancytopenia; E87.2 Acidosis; C79.51 Secondary malignant neoplasm of bone; J91.0 Malignant pleural effusion; J44.0 Chronic obstructive pulmonary disease with (acute) lower respiratory infection; C79.71 Secondary malignant neoplasm of right adrenal gland; C34.01 Malignant neoplasm of right main bronchus; I87.1 Compression of vein; N39.0 Urinary tract infection, site not specified; J98.11 Atelectasis; C79.72 Secondary malignant neoplasm of left adrenal gland; E87.1 Hypo-osmolality and hyponatremia; J44.1 Chronic obstructive pulmonary disease with (acute) exacerbation; K81.9 Cholecystitis, unspecified; E78.5 Hyperlipidemia, unspecified; R63.4 Abnormal weight loss; K82.9 Disease of gallbladder, unspecified; G89.3 Neoplasm related pain (acute) (chronic); K59.00 Constipation, unspecified; R13.10 Dysphagia, unspecified; Z51.5 Encounter for palliative care; R04.0 Epistaxis; F41.0 Panic disorder [episodic paroxysmal anxiety]; I48.91 Unspecified atrial fibrillation; D50.0 Iron deficiency anemia secondary to blood loss (chronic); T45.1X5A Adverse effect of antineoplastic and immunosuppressive drugs, initial encounter; T38.0X5A Adverse effect of glucocorticoids and synthetic analogues, initial encounter; F17.210 Nicotine dependence, cigarettes, uncomplicated; Z23 Encounter for immunization; Z66 Do not resuscitate; Z88.0 Allergy status to penicillin
CPT/HCPCS: 32551; 36430; 36556; 36600; 70553; 71010; 71250; 71275; 72156; 72158; 74177; 76937; 77263; 77280; 77295; 77300; 77334; 77336; 77386; 77387; 77412; 77427; 80048; 80053; 81001; 81235; 82150; 82378; 82550; 82552; 82607; 82746; 82805; 82945; 83540; 83550; 83615; 83880; 83986; 84157; 84466; 84484; 85007; 85025; 85027; 85610; 85730; 86850; 86900; 86901; 86920; 87015; 87040; 87070; 87086; 87102; 87116; 87205; 87206; 87640; 87641; 88112; 88305; 88341; 88342; 88360; 88377; 88381; 89051; 90732; 93005; 93306; 94002; 94003; 94150; 94640; 94664; 94667; 94668; 96374; 99233; A9579; J0171; J0692; J1100; J1442; J1626; J1644; J1650; J1940; J1956; J2270; J2430; J2543; J2920; J2930; J7030; J7040; J7050; J7512; J7611; J7613; J9045; J9267; P9016; Q9963; Q9967